=== PATIENT | female | born 1955 | race Caucasian/White ===

== ENCOUNTER 2016-07-04 10:09 | Observation (INO) ==
[2016-07-04] MEDS ORDERED: 0.9 % SODIUM CHLORIDE 1,000 ML IV ONE (11:06)
--- NOTE | 2016-07-04 11:14 | Emergency Department Note ---
Abdominal Pain HPI - General Chief Complaint: Abdominal Pain Stated Complaint: abd pain Time Seen by Provider: 07/04/16 10:50 Source: patient, family Mode of arrival: EMS Limitations: no limitations - History of Present Illness HPI Narrative: 61-year-old female presents to ED with history of abdominal pain that started yesterday morning, she describes it as a constant and steady pain, worse at times, but persistent and steady since yesterday morning up. She is afraid to eat anything, she is not taking her morning medications and she normally takes hydrocodone 4 times a day for chronic low back pain. She also feels bloated, she is status post cholecystectomy, no other abdominal surgeries. No fevers reported, she denies any chest pain, denies headache, has not eaten anything this morning, did have a normal, normal bowel movement this morning, slight nausea but no vomiting, no diarrhea. She denies constipation, although she does take hydrocodone 4 times a day. Pain almost feels the similar to when she had pain from her gallbladder disease. She denies alcohol use. Was a constant pain that does not radiate anywhere. MD Complaint: abdominal pain Location: diffuse, epigastric - Related Data Home Medications Medication Instructions Recorded Confirmed atorvastatin 40 mg tablet 40 mg PO QDAY 11/26/15 06/14/16 calcium carb-vit D3-minerals 600 1 tab PO BID tab 11/26/15 06/14/16 mg calcium-200 unit tablet cyclobenzaprine 10 mg tablet 10 mg PO TID 11/26/15 06/14/16 ergocalciferol (vitamin D2) 50,000 50,000 unit PO QWEEK 11/26/15 06/14/16 unit capsule exenatide 5 mcg/dose (250 10 mcg SUB-Q BID 11/26/15 06/14/16 mcg/mL)1.2 mL subcutaneous pen injector gabapentin 300 mg capsule 300 mg PO QDAY cap 11/26/15 06/14/16 hydrocodone 10 mg-acetaminophen 1 tab PO Q4H PRN 11/26/15 06/14/16 325 mg tablet insulin aspart 100 unit/mL See Patient Comments SUB-Q ONCE 11/26/15 06/14/16 subcutaneous pen insulin glargine 100 unit/mL 90 unit SUB-Q BID ml 11/26/15 06/14/16 subcutaneous solution metoclopramide 10 mg tablet 10 mg PO QID tab 11/26/15 06/14/16 omega-3 fatty acids capsule 1,000 mg PO BID 11/26/15 06/14/16 omeprazole 40 mg capsule,delayed 40 mg PO QDAY 11/26/15 06/14/16 release pregabalin 100 mg capsule 100 mg PO BID 11/26/15 06/14/16 spironolactone 25 1 tab PO QDAY 11/26/15 06/14/16 mg-hydrochlorothiazide 25 mg tablet topiramate 100 mg tablet 100 mg PO BID 11/26/15 06/14/16 venlafaxine ER 150 mg 150 mg PO QDAY 11/26/15 06/14/16 capsule,extended release 24 hr Furosemide [Lasix] 80 mg PO BID tab 03/03/16 06/14/16 Previous Rx's Medication Instructions Recorded prednisone 5 mg tablet 10 mg PO QDAY #42 tab 04/19/16 allopurinol 100 mg tablet 150 mg PO QDAY #120 tab 06/14/16 hydroxychloroquine 200 mg tablet 200 mg PO BID #60 tab 06/14/16 prednisone 10 mg tablet See Label Instructions .ROUTE 06/14/16 .COMPLEX #90 tab Allergies Allergy/AdvReac Type Severity Reaction Status Date / Time sulfamethoxazole Allergy Severe RASH, RED, Verified 06/14/16 10:05 [From BACTRIM] BURNING FEELING trimethoprim [From BACTRIM] Allergy Severe RASH, RED, Verified 06/14/16 10:05 BURNING FEELING codeine Allergy Unknown UNKNOWN Verified 06/14/16 10:05 lisinopril [LISINOPRIL] AdvReac Intermediate COUGHING Verified 06/14/16 10:05 morphine [MORPHINE] AdvReac Mild DOESN'T Verified 06/14/16 10:05 SEEM TO HELP Review of Systems All systems ED: reviewed and negative except as stated. Abdominal Pain PMH - Past Medical History Medical history: Reports: CHF, diabetes, hypertension, other ( history of obesity history of gastroparesis) Surgical history ED: Reports: cholecystectomy Psychiatric history: Reports: depression - Social History Smoking status: Current every day smoker Alcohol use: Reports: None Drug use: Reports: none Physical Exam - General Limitations: no limitations General appearance: alert, in distress - Head Head exam: atraumatic, normocephalic - Eye Eye exam: Present: normal appearance, PERRL, EOMI. Absent: scleral icterus, conjunctival injection, nystagmus - ENT ENT exam: normal exam, normal oropharynx, mucous membranes dry, TM's normal bilaterally - Neck Neck exam: Present: normal inspection, full ROM - Chest Chest inspection: Present: normal inspection - Respiratory Respiratory exam: Present: normal lung sounds bilaterally. Absent: respiratory distress, wheezes - Cardiovascular Cardiovascular exam: Present: regular rate, normal rhythm, normal heart sounds - Abdominal Exam Abdominal exam: Present: soft, distention, tenderness, guarding, hyperactive bowel sounds - Rectal Exam Rectal exam: Present: normal rectal tone, heme (-) stool. Absent: mass - Back Exam Back exam: Present: normal inspection, full ROM. Absent: CVA tenderness (R), CVA tenderness (L), vertebral tenderness - Neurological Exam Neurological exam: Present: alert, oriented X3, CN II-XII intact. Absent: motor sensory deficit - Psychiatric Psychiatric exam: Present: normal affect, normal mood - Skin Skin exam: Present: warm, dry, intact. Absent: rash Course - Reevaluation(s) Reevaluation #1: She was given IV fluids, pain medications, repeat abdominal exam was notable for continued pretty significant abdominal pain. Plain films did not show anything acute, although there was a question of one air-fluid level on the upright film. CT did not show any acute bowel obstruction. The. Her lipase was elevated, perhaps accounting for her pain. Working diagnosis at this point is pancreatitis, mid epigastric abdominal pain associated with hyperglycemia. Plan is hospital admission, discussed with Dr. Ashraf Vital Signs Temperature 97.8 F 07/04/16 10:09 Pulse Rate 88 07/04/16 10:09 Respiratory Rate 20 07/04/16 10:09 Blood Pressure 177/69 07/04/16 10:09 Pulse Oximetry (%) 96 07/04/16 10:09 Temperature 97.8 F 07/04/16 10:09 Pulse Rate 75 07/04/16 16:21 Respiratory Rate 18 07/04/16 16:21 Blood Pressure 128/64 07/04/16 16:21 Pulse Oximetry (%) 91 07/04/16 16:21 Abdominal Pain - [facility] Narrative Medical decision making narrative: Impressions abdominal pain, pancreatitis, dehydration, renal insufficiency hyperglycemia. - Lab Data Result diagrams: 07/04/16 10:41 07/04/16 10:41 Lab Results 07/04/16 07/04/16 07/04/16 Range/Units 10:41 10:41 10:41 WBC 13.5 H (4.5-11.0) K/mcL RBC 4.88 (4.00-5.20) M/mcL Hgb 15.2 H (12.0-15.0) g/dL Hct 43.3 (36.0-48.0) % MCV 88.6 (80.0-100.0) fL MCH 31.0 (26.0-34.0) pg MCHC 35.0 (31.0-36.0) g/dL RDW 16.9 H (11.5-14.5) % Plt Count 163 (140-440) K/mcL MPV 12.0 H (7.4-10.4) fL Gran % 72.1 (38.0-78.0) % Lymph % (Auto) 20.9 (15.5-49.0) % [place] % (Auto) 4.8 (1.0-9.0) % Eos % (Auto) 1.5 (0.0-7.0) % Baso % (Auto) 0.7 (0.0-2.0) % Gran # 9.8 H (1.8-8.0) K/mcL Lymph # 2.8 (1.5-4.8) K/mcL [place] # 0.6 (0.1-0.9) K/mcL Eos # 0.2 (0.0-0.7) K/mcL Baso # 0.1 (0.0-0.3) K/mcL Sodium 136 (133-145) mmol/L Potassium 4.3 (3.3-5.1) mmol/L Chloride 95 L (96-108) mmol/L Carbon Dioxide 25 (22-30) mmol/L Anion Gap 16.0 (8-16) BUN 38 H (6-20) mg/dl Creatinine 1.7 H (0.6-1.1) mg/dl GFR Calculation 32 Glucose 362 H (70-105) mg/dL Calcium 9.5 (8.6-10.4) mg/dl Total Bilirubin 0.2 (0.0-1.0) mg/dL AST 25 (0-37) U/l ALT 38 (0-40) U/l Alkaline Phosphatase 92 (39-117) U/L C-Reactive Protein (0.0-0.8) mg/dl Total Protein 7.5 (5.9-8.4) gm/dL Albumin 3.8 (3.2-5.2) gm/dL Globulin 3.7 (2.2-3.7) gm/dL Albumin/Globulin Ratio 1.0 (1.0-2.3) Amylase (28-100) U/L Lipase (7-60) U/L Urine Color Yellow Urine Appearance Clear Urine pH 7.0 (5.0-9.0) Ur Specific [place] 1.013 (1.000-1.035) Urine Protein 100 A (NEG) mg/dL Urine Glucose (UA) 150 A (NEG) mg/dL Urine Ketones Neg (NEG) mg/dL Urine Occult Blood Neg (<0.03) mg/dL Urine Nitrate Neg (NEG) Urine Bilirubin Neg (NEG) mg/dL Urine Urobilinogen Neg (NEG) mg/dL Ur Leukocyte Esterase Neg (NEG) /uL Urine RBC 5 H (0-1) /hpf Urine WBC 1 (0-4) /hpf Ur Squamous Epith Cells < 1 (0-4) /hpf Urine Bacteria 0 (0) /hpf Ur Culture Indicated? No 07/04/16 Range/Units 10:41 WBC (4.5-11.0) K/mcL RBC (4.00-5.20) M/mcL Hgb (12.0-15.0) g/dL Hct (36.0-48.0) % MCV (80.0-100.0) fL MCH (26.0-34.0) pg MCHC (31.0-36.0) g/dL RDW (11.5-14.5) % Plt Count (140-440) K/mcL MPV (7.4-10.4) fL Gran % (38.0-78.0) % Lymph % (Auto) (15.5-49.0) % [place] % (Auto) (1.0-9.0) % Eos % (Auto) (0.0-7.0) % Baso % (Auto) (0.0-2.0) % Gran # (1.8-8.0) K/mcL Lymph # (1.5-4.8) K/mcL [place] # (0.1-0.9) K/mcL Eos # (0.0-0.7) K/mcL Baso # (0.0-0.3) K/mcL Sodium (133-145) mmol/L Potassium (3.3-5.1) mmol/L Chloride (96-108) mmol/L Carbon Dioxide (22-30) mmol/L Anion Gap (8-16) BUN (6-20) mg/dl Creatinine (0.6-1.1) mg/dl GFR Calculation Glucose (70-105) mg/dL Calcium (8.6-10.4) mg/dl Total Bilirubin (0.0-1.0) mg/dL AST (0-37) U/l ALT (0-40) U/l Alkaline Phosphatase (39-117) U/L C-Reactive Protein 1.0 H (0.0-0.8) mg/dl Total Protein (5.9-8.4) gm/dL Albumin (3.2-5.2) gm/dL Globulin (2.2-3.7) gm/dL Albumin/Globulin Ratio (1.0-2.3) Amylase 52 (28-100) U/L Lipase 120 H (7-60) U/L Urine Color Urine Appearance Urine pH (5.0-9.0) Ur Specific [place] (1.000-1.035) Urine Protein (NEG) mg/dL Urine Glucose (UA) (NEG) mg/dL Urine Ketones (NEG) mg/dL Urine Occult Blood (<0.03) mg/dL Urine Nitrate (NEG) Urine Bilirubin (NEG) mg/dL Urine Urobilinogen (NEG) mg/dL Ur Leukocyte Esterase (NEG) /uL Urine RBC (0-1) /hpf Urine WBC (0-4) /hpf Ur Squamous Epith Cells (0-4) /hpf Urine Bacteria (0) /hpf Ur Culture Indicated? Disposition Condition: Fair Referrals: Arianne Lizarraga DO [Primary Care Provider] -
[2016-07-04 11:17] LABS: Basophils # (Auto) 0.1 K/mcL (0.0-0.3); Basophils % (Auto) 0.7 % (0.0-2.0); Eosinophils # (Auto) 0.2 K/mcL (0.0-0.7); Eosinophils % (Auto) 1.5 % (0.0-7.0); Granulocytes % (Auto) 72.1 % (38.0-78.0); Lymphocytes # (Auto) 2.8 K/mcL (1.5-4.8); Lymphocytes % (Auto) 20.9 % (15.5-49.0); Mean Cell Volume 88.6 fL (80.0-100.0); Monocytes # (Auto) 0.6 K/mcL (0.1-0.9); Monocytes % (Auto) 4.8 % (1.0-9.0); Platelet Count 163 K/mcL (140-440); RBC 4.88 M/mcL (4.00-5.20); Red Cell Distribution Width 16.9 % (11.5-14.5)
[2016-07-04] MEDS ORDERED: ONDANSETRON 4 MG/2 ML VIAL IV ONE ×2 (11:17→14:32)
[2016-07-04] MEDS ORDERED: PANTOPRAZOLE 40 MG VIAL IV ONE (11:17)
[2016-07-04 11:27] LABS: Appearance,Urine CLEAR; Bacteria,Urine 0 /hpf (0); Bilirubin,Urine NEG (NEG); Color,Urine YELLOW; Glucose,Urine (UA) 150 mg/dL (NEG); Leukocyte Esterase,Urine NEG /uL (NEG); Nitrate,Urine NEG (NEG); Protein,Urine 100 mg/dL (NEG); Specific Gravity,Urine 1.013 (1.000-1.035); Urine Blood NEG mg/dL (<0.03); Urine RBC 5 /hpf (0-1); Urine Squamous Epithelial Cell < 1 /hpf (0-4); Urine WBC 1 /hpf (0-4); Urobilinogen,Urine NEG (NEG)
[2016-07-04 11:38] LABS: ALT/SGPT 38 U/l (0-40); Albumin 3.8 gm/dL (3.2-5.2); Alkaline Phosphatase 92 U/L (39-117); Blood Urea Nitrogen 38 mg/dl (6-20)
[2016-07-04] MEDS: HYDROmorphone 2 MG/ML SYRINGE IV PRN ×8 (11:53→22:02)
[2016-07-04] MEDS ORDERED: 0.9 % SODIUM CHLORIDE 1,000 ML IV SCH (12:30)
--- NOTE | 2016-07-04 12:37 | XRay Report ---
CLINICAL INFORMATION: Abdominal pain COMPARISON: None. FINDINGS: The stool gas pattern is unremarkable. There is no free air, abnormal soft tissue mass, organomegaly or pathologic calcification. Solid-appearing L5-S1 anterior/posterior fusion changes are noted IMPRESSION: No intra-abdominal disease evident Interpreted and Authenticated by: Abelardo Coy 07/04/16
--- NOTE | 2016-07-04 15:27 | Cat Scan Report ---
CLINICAL INFORMATION: Right lower quadrant pain COMPARISON: Abdominal ultrasound from 02/22/2013 TECHNIQUE: 2.5 mm helical slices were obtained from the mid heart through the subtrochanteric regions. Following reconstruction, 2.5 mm sagittal, coronal and axial reformatted images were processed and reviewed at bone, lung and soft tissue windows. IV contrast was withheld due to renal insufficiency FINDINGS: Lung bases show no abnormality - no effusion. The visualized heart is grossly normal. Images through the abdomen show mild fatty change within the liver. No definite focal abnormality. Gallbladder is surgically at. There is moderate fat in the madelin hepatis region. The common bile duct is normal caliber - 6 mm. The noncontrasted kidneys, adrenal glands, spleen, pancreas and aorta are unremarkable. There is no free air, free fluid or adenopathy. Small periumbilical hernia is noted with with mild subcutaneous edema in the surrounding Camper's fascia. The stomach, small and large bowel, including the appendix, are unremarkable. Images through the pelvis show urinary bladder to be normal. Normal anteflexed postmenopausal uterus measures 6.4 x 3 cm. Bone windows show solid-appearing L3-4 and L4-5 anterior/posterior fusion changes. Severe L2-3 central canal stenosis due to broad disc protrusion and facet arthropathy appreciated. IMPRESSION: 1. Appendix is unremarkable - no cause identified for right lower quadrant pain 2. Severe L2-3 central canal stenosis due to degeneration. Solid-appearing L3-4 L4-5 anterior/posterior fusion changes. 3. Small periumbilical hernia consisting only mesenteric fat with a small amount of surrounding edema in the Camper's fascia. 4. 12 mm metallic foreign body in the lower central right breast. It is located 14 mm the skin surface and may represent surgical clips etc. please correlate with clinical history. Interpreted and Authenticated by: Abelardo Coy 07/04/16
--- NOTE | 2016-07-04 17:39 | Internal Med History&Physical ---
Medical - H&P: HPI Patient information: Note initiated : 07/04/16 at 5:36 pm Service Date, if different from initiated Date: [] Patient: Camille Knox 61 y/o F admitted on for Abdominal Pain. Chief Complaint: [] History of present illness: Ms. Knox is a 61 year old female presents to the ER with abdominal pain x 1 day started yesterday, no trigge factor, did not have this type of pain in the past , may similar pain with gall stones. constant ache with sharp exacerbation, goes from epigastrium round to the umbilicus. Pain epigastric, worse with food, constant with periods of exacerbation, 7/10 at baseline 10/10 when severe, pain meds help some. no nausea or vomiting, no blood i the stools, no savita reported, no urinary complaints no c ough or shortnes of breath In the ER given pain meds, IV pantoprazole and anti nause meds, no improveement labs with elevated glucose, wbc, and ua with 5 rbc, creat 1.7, crp 1, lipase elevated to 120 CT abdomen pelvis neg, except periumbilican hernia, and some inflmmation. X ray abdomen neg Hospitalist called for admission for abdominal pain. - Constitutional Constitutional: Absent: chills, fever(s) - EENT Eyes: Absent: blind spots, blurry vision Nose, mouth and throat: Absent: bleeding gums, change in voice - Cardiovascular Cardiovascular: Absent: chest pain, chest pain at rest, orthopnea, pedal edema, syncope - Respiratory Respiratory: Absent: cough, dyspnea, hemoptysis, pain with cough - Gastrointestinal Gastrointestinal: Present: abdominal pain. Absent: change in bowel habits, change in stool character, dysphagia, hematemesis, hematochezia, loose stools - Genitourinary Genitourinary: Absent: hematuria, urinary hesitancy, urinary incontinence, urinary urgency - Musculoskeletal Musculoskeletal: Present: back pain. Absent: arthralgias - Integumentary Integumentary: Absent: skin ulcer, wounds, jaundice - Neurological Neurological: Absent: disequilibrium, dizziness, focal weakness, frequent falls , syncope - Psychiatric Psychiatric: Absent: confusion - Endocrine Endocrine: Absent: polydipsia, polyphagia, polyuria - Hematologic/Lymphatic Hematologic/Lymphatic: Absent: easy bleeding, easy bruising - Allergic/Immunologic Allergic/Immunologic: Absent: uticaria, wheezing Medical - H&P: PMH Medical history: Medical History Diabetes (Acute) Non-cardiac chest pain (Acute) Polyarthralgia (Acute) Right knee pain (Acute) Trigger finger, left ring finger (Acute) Acute thromboembolism of deep veins of lower extremity (Chronic) Anemia of renal disease (Chronic) Apnea (Chronic) CHF (congestive heart failure) (Chronic) Chronic kidney disease, stage III (moderate) (Chronic) Edema (Chronic) Encounter for long-term (current) use of high-risk medication (Chronic) Essential (primary) hypertension (Chronic) Gastroparesis (Chronic) Gout (Chronic) Hyperpotassemia (Chronic) Inflammatory arthritis (Chronic) Pure hypertriglyceridemia (Chronic) Type 2 diabetes mellitus without complications (Chronic) Vitamin D deficiency (Chronic) Surgical history: Past Surgical History Hx of cholecystectomy (Chronic) back surgery Family history: reviewed and not pertinent Social history: lives with partner smoker no etoh no recreational drugs Medical - H&P: Meds Home Medications Medication Instructions Recorded Confirmed Type atorvastatin 40 mg tablet 40 mg PO QDAY 11/26/15 06/14/16 History calcium carb-vit D3-minerals 600 1 tab PO BID tab 11/26/15 06/14/16 History mg calcium-200 unit tablet cyclobenzaprine 10 mg tablet 10 mg PO TID 11/26/15 06/14/16 History ergocalciferol (vitamin D2) 50,000 50,000 unit PO QWEEK 11/26/15 06/14/16 History unit capsule exenatide 5 mcg/dose (250 10 mcg SUB-Q BID 11/26/15 06/14/16 History mcg/mL)1.2 mL subcutaneous pen injector gabapentin 300 mg capsule 300 mg PO QDAY cap 11/26/15 06/14/16 History hydrocodone 10 mg-acetaminophen 1 tab PO Q4H PRN 11/26/15 06/14/16 History 325 mg tablet insulin aspart 100 unit/mL See Patient Comments SUB-Q ONCE 11/26/15 06/14/16 History subcutaneous pen insulin glargine 100 unit/mL 90 unit SUB-Q BID ml 11/26/15 07/04/16 History subcutaneous solution metoclopramide 10 mg tablet 10 mg PO QID tab 11/26/15 06/14/16 History omega-3 fatty acids capsule 1,000 mg PO BID 11/26/15 06/14/16 History omeprazole 40 mg capsule,delayed 40 mg PO QDAY 11/26/15 06/14/16 History release pregabalin 100 mg capsule 100 mg PO BID 11/26/15 07/04/16 History spironolactone 25 1 tab PO QDAY 11/26/15 07/04/16 History mg-hydrochlorothiazide 25 mg tablet topiramate 100 mg tablet 100 mg PO BID 11/26/15 07/04/16 History venlafaxine ER 150 mg 150 mg PO QDAY 11/26/15 07/04/16 History capsule,extended release 24 hr Furosemide [Lasix] 80 mg PO BID tab 03/03/16 07/04/16 History Allergies Allergy/AdvReac Type Severity Reaction Status Date / Time sulfamethoxazole Allergy Severe RASH, RED, Verified 06/14/16 10:05 [From BACTRIM] BURNING FEELING trimethoprim [From BACTRIM] Allergy Severe RASH, RED, Verified 06/14/16 10:05 BURNING FEELING codeine Allergy Unknown UNKNOWN Verified 06/14/16 10:05 lisinopril [LISINOPRIL] AdvReac Intermediate COUGHING Verified 06/14/16 10:05 morphine [MORPHINE] AdvReac Mild DOESN'T Verified 06/14/16 10:05 SEEM TO HELP Medical - H&P: Exam - Constitutional Vitals: Temp Pulse Resp BP Pulse Ox 97.8 F 78 22 113/94 93 07/04/16 10:09 07/04/16 17:14 07/04/16 17:14 07/04/16 17:14 07/04/16 17:14 General appearance: morbidly obese, no acute distress - Head Head exam: Present: atraumatic, normal inspection, normocephalic - Eye Eye exam: Present: PERRL. Absent: periorbital swelling, periorbital tenderness , scleral icterus - ENT ENT exam: Present: mucous membranes dry - Neck Neck exam: Present: normal inspection - Respiratory Respiratory exam: Present: normal respiratory exam. Absent: accessory muscle use, respiratory distress, rhonchi, wheezes - Cardiovascular Cardiovascular exam: Present: normal rate and rhythm, +S1, +S2 - GI/Abdominal GI/Abdominal exam: Present: normal bowel sounds, soft, hernia (above unbilicus. ), tenderness (epigastric region. ). Absent: firm, guarding, rebound - Extremities Exam Extremities exam: Present: normal inspection, Foot pink and warm, neurovascular intact. Absent: pedal edema - Back Exam Back exam: Present: normal inspection. Absent: CVA tenderness (L), CVA tenderness (R), paraspinal tenderness - Neurological Exam Neurological exam: Present: alert, CN II-XII intact, oriented X3. Absent: motor sensory deficit - Psychiatric Psychiatric exam: Absent: agitated, anxious - Skin Skin exam: Present: dry. Absent: rash, urticaria Medical - H&P: Reslt - Labs CBC & Chem 7: 07/04/16 10:41 07/04/16 10:41 Labs: Short CBC 07/04/16 Range/Units 10:41 WBC 13.5 H (4.5-11.0) K/mcL Hgb 15.2 H (12.0-15.0) g/dL Hct 43.3 (36.0-48.0) % Plt Count 163 (140-440) K/mcL BMP 07/04/16 10:41 Sodium 136 Potassium 4.3 Chloride 95 L Carbon Dioxide 25 BUN 38 H Creatinine 1.7 H Glucose 362 H Calcium 9.5 Liver Function 07/04/16 Range/Units 10:41 Total Bilirubin 0.2 (0.0-1.0) mg/dL AST 25 (0-37) U/l ALT 38 (0-40) U/l Alkaline Phosphatase 92 (39-117) U/L Albumin 3.8 (3.2-5.2) gm/dL Urine 07/04/16 Range/Units 10:41 Urine Color Yellow Urine Appearance Clear Urine pH 7.0 (5.0-9.0) Ur Specific [place] 1.013 (1.000-1.035) Urine Protein 100 A (NEG) mg/dL Urine Glucose (UA) 150 A (NEG) mg/dL Medical - H&P: A/P (1) Pancreatitis Current visit: Yes Status: Acute (2) SIRS (systemic inflammatory response syndrome) Current visit: Yes Status: Acute (3) Diabetes Current visit: No Status: Acute (4) Chronic kidney disease, stage III (moderate) Current visit: No Status: Chronic (5) Essential (primary) hypertension Current visit: No Status: Chronic - Narrative A/P Narrative: acute pancreatitis SIRS renal failure with creat of 1.7, baseline unknown. no e/o infection Get chest x ray to r/o pna IV fluids iv pain medicatios iv ppi npo for now sliding scale insulin, check lipid profile in AM dvt hep sq code full Diet npo
[2016-07-04 18:18] LABS: Amphetamine Screen,Urine NONE DETECTED (NONDETECTED); Benzodiazepines Screen,Urine NONE DETECTED (NONDETECTED); Cocaine Screen,Urine NONE DETECTED (NONDETECTED); Opiate Screen,Urine NONE DETECTED (NONDETECTED)
[2016-07-04] MEDS ORDERED: DEXTROSE 50% 50 ML VIAL IV PRN (18:24)
[2016-07-04] MEDS ORDERED: IPRATROPIUM/ALBUTEROL 3 ML AMPUL.NEB NEB PRN (18:24)
[2016-07-04] MEDS ORDERED: NALOXONE HCL 0.4 MG/ML VIAL IV PRN (18:24)
[2016-07-04] MEDS ORDERED: PROMETHAZINE 25 MG/ML VIAL IV PRN (18:24)
[2016-07-04] MEDS ORDERED: HYDROmorphone 2 MG/ML SYRINGE IV PRN (18:24)
[2016-07-04] MEDS: 0.9 % SODIUM CHLORIDE 1,000 ML IV SCH (18:30)
[2016-07-04] MEDS: ONDANSETRON 4 MG/2 ML VIAL IV PRN (19:09)
[2016-07-04] MEDS: PANTOPRAZOLE 40 MG VIAL IV SCH (19:10)
[2016-07-04] MEDS: INSULIN LISPRO 1 UNIT/0.01 ML UNIT SQ SCH ×2 (20:00→23:49)
[2016-07-04 20:39] LABS: Hemoglobin A1C 9.2 % HGB (4.0-6.0)
[2016-07-04] MEDS: HEPARIN 5,000 UNIT/ML VIAL SQ SCH (21:57)
[2016-07-04] MEDS: 0.9 % SODIUM CHLORIDE 10 ML SYRINGE IV SCH (21:59)
[2016-07-05] MEDS: HYDROmorphone 2 MG/ML SYRINGE IV PRN ×7 (01:49→23:47)
[2016-07-05] MEDS: 0.9 % SODIUM CHLORIDE 10 ML SYRINGE IV SCH ×3 (06:12→21:04)
[2016-07-05] MEDS: INSULIN LISPRO 1 UNIT/0.01 ML UNIT SQ SCH ×4 (06:15→23:56)
[2016-07-05 07:08] LABS: Mean Cell Volume 92.1 fL (80.0-100.0); Mean Corpuscular HGB Conc 32.2 g/dL (31.0-36.0); Mean Corpuscular Hemoglobin 29.7 pg (26.0-34.0); Platelet Count 139 K/mcL (140-440); RBC 4.38 M/mcL (4.00-5.20); Red Cell Distribution Width 17.9 % (11.5-14.5)
[2016-07-05] MEDS: 0.9 % SODIUM CHLORIDE 1,000 ML IV SCH ×3 (07:18→20:18)
[2016-07-05] MEDS: PANTOPRAZOLE 40 MG VIAL IV SCH ×2 (07:31→18:09)
[2016-07-05 07:48] LABS: HDL Cholesterol 25 mg/dl (>40); LDL Cholesterol,Calculated 31 mg/dl (SEE CHART)
[2016-07-05 07:55] LABS: ALT/SGPT 34 U/l (0-40); Albumin 3.4 gm/dL (3.2-5.2); Albumin/Globulin Ratio 1.4 (1.0-2.3); Alkaline Phosphatase 80 U/L (39-117); Bilirubin,Direct < 0.2 mg/dL (0.0-0.3); Blood Urea Nitrogen 31 mg/dl (6-20); Gamma Glutamyl Transpeptidase 88 U/L (5-36); Magnesium 1.9 mg/dL (1.6-2.5); Phosphorous 3.6 mg/dL (2.7-4.5); Uric Acid 6.4 mg/dL (2.5-8.0)
--- NOTE | 2016-07-05 08:01 | XRay Report ---
CLINICAL INFORMATION: Hypoxia. COMPARISON: Two-view chest x-ray from 05/26/2016. FINDINGS:The heart size, mediastinum and pulmonary vessels are unremarkable. The lungs are clear. There are no effusions. The bones and soft tissues are within normal limits. IMPRESSION: Normal chest. Interpreted and Authenticated by: Abelardo Coy 07/05/16
[2016-07-05 08:07] LABS: Anisocytosis 1+ (NONE SEEN); Eosinophils % (Manual) 1 % (0-7); Lymphocytes % 13 % (15-49); Monocytes % (Manual) 7 % (1-9); Platelet Estimate DECREASED (NORMAL); RBC Morphology ABNORM (NORMAL); Segmented Neutrophils % 79 % (38-78)
[2016-07-05 09:49] LABS: Amylase 42 U/L (28-100); Lipase 54 U/L (7-60)
[2016-07-05] MEDS: HEPARIN 5,000 UNIT/ML VIAL SQ SCH ×2 (10:17→21:03)
--- NOTE | 2016-07-05 10:36 | Internal Med Progress Note ---
Medical - PN: Subj Patient information: Note initiated : 07/05/16 at 10:32 am Service Date, if different from initiated Date: [] Patient: Camille Knox 61 y/o F admitted on 07/04/16 for Abdominal Pain. Chief Complaint: [] Interval history: The patient seen examined lying in bed complaining of severe abdomianl pain Pain medication helps some what but the pain comes back again. She is drowsy and just had her pain medication on speaking with the nurses, the patients reported pain seems out of promotion to visual symptoms she should be having. none the less she is getting 0.5mg dialudid every 2 hrs, and she slept reasonably ok as per nursing. The patient needs oxygen due to decreased mentation which is inhibiting us from going higher on the pain medication doses. labs this AM are ok, wbc normal and amylase lipase normal Pertinent ROS: Denies headache, dizziness Denies chest pain, palpitations Denies cough or shortness of breath present abdominal pain, denies nausea or vomiting. - Constitutional Vitals: Vital Signs Temp Pulse Resp BP Pulse Ox 97.5 F L 85 20 119/68 94 07/05/16 06:50 07/05/16 07:39 07/05/16 07:39 07/05/16 06:52 07/05/16 08:00 Period Temp Pulse Resp BP Sys/Agosto Pulse Ox Last 24 Hr 97.0 F-97.9 F 75-85 12-20 113-125/67-79 89-94 Intake and Output 07/04/16 07/05/16 07/05/16 21:59 05:59 13:59 Intake Total 850 / 850 100 / 100 Output Total 550 / 550 325 / 325 Balance 300 / 300 -225 / -225 Weight 241 lb Intake & Output: Intake & Output 07/04/16 07/05/16 07/05/16 21:59 05:59 13:59 Intake Total 850 / 850 100 / 100 Output Total 550 / 550 325 / 325 Balance 300 / 300 -225 / -225 Weight 241 lb Intake: IV 850 / 850 100 / 100 Sodium Chloride 0.9% 1, 850 / 850 100 / 100 000 ml @ 84 mls/hr IV . [id number] CAROLYN Rx#:[id number] Oral 0 / 0 Output: Void Amount 550 / 550 325 / 325 Other: # Voids 1 Exam: Constitutional; Afebrile, cooperative, alert, not in distress. Eyes- No icterus, Pupils equal, reactive, No periorbital swelling Ears- Ext ear normal, hearing normal to conversation. Neck- Midline trachea, supple Respiratory system: Air Entry equal on both sides, No crackles or wheezing, no rhonchi. CVS- Rate rhythm regular, S1,S2 heard, no gallop, no rub. Abdomen- epigastric tenderness, some guarding, no rigidity, bs present BLUEPRINT TRIMMER- AOOx3, moving all extremities, no focal deficit noted. Medical - PN: Obj Da - Labs CBC & Chem 7: 07/05/16 05:25 07/05/16 05:25 Labs: Abnormal Lab Results 07/05/16 07/05/16 07/05/16 05:25 05:25 05:25 RDW 17.9 H Plt Count 139 L MPV 11.4 H Seg Neutrophils % 79 H Lymphocytes % 13 L RBC Morphology Abnorm A Anisocytosis 1+ A Chloride 109 H BUN 31 H Creatinine 1.5 H Glucose 115 H Calcium 8.5 L GGT 88 H Total Protein 5.8 L Triglycerides 296 H 295 H HDL Cholesterol 25 L Meds: Medications Albuterol/Ipratropium (Duoneb) 3 ml NEB Q6HRT PRN PRN Reason: Shortness Of Breath Or Wheezing Dextrose (Dextrose 50%) 0 ml IV UD PRN PRN Reason: Hypoglycemia Diagnostic Test (Pha) (Accu-Chek) 1 each FS Q6 [facility] Last Admin: 07/05/16 06:14 Dose: 1 each Heparin Sodium (Porcine) (Heparin) 5,000 unit SQ Q12 [facility] Last Admin: 07/05/16 10:17 Dose: 5,000 unit Hydromorphone HCl (Dilaudid) 0.5 - 1 mg IV Q2HP PRN PRN Reason: Pain Last Admin: 07/05/16 09:24 Dose: 0.5 mg Sodium Chloride (Sodium Chloride 0.9%) 1,000 mls @ 84 mls/hr IV .[id number] [facility] Last Admin: 07/05/16 07:18 Dose: 84 mls/hr Insulin Human Lispro (Humalog) 0 unit SQ Q6 [facility] PRN Reason: Protocol Last Admin: 07/05/16 06:15 Dose: Not Given Naloxone HCl (Narcan) 0.1 mg IV Q2MIN PRN PRN Reason: Opiate Reversal Ondansetron HCl (Zofran) 4 mg IV Q6HP PRN PRN Reason: Nausea And Vomiting Last Admin: 07/04/16 19:09 Dose: 4 mg Pantoprazole Sodium (Protonix) 40 mg IV BIDAC [facility] Last Admin: 07/05/16 07:31 Dose: 40 mg Promethazine HCl (Phenergan) 12.5 mg IV Q6HP PRN PRN Reason: Nausea And Vomiting Sodium Chloride (Saline Flush) 10 ml IV Q8 [facility] Last Admin: 07/05/16 06:12 Dose: 10 ml Medical - PN: A/P - Time Spent With Patient Total time spent is greater than 50% in coordination of care (as documented) at patient's floor/unit and/or counseling patient: (1) Pancreatitis Status: Acute Current Visit: Yes (2) Diabetes Status: Acute Current Visit: No (3) Chronic kidney disease, stage III (moderate) Status: Chronic Current Visit: No (4) Essential (primary) hypertension Status: Chronic Current Visit: No - Narrative A/P Narrative: Pancratitis- lipase normal, continue NPO status, IV pain medications, with concern for resp depression, IV fluidds Abdominal pain- etiology pancreatitis? ct is neg, lipase is neg, on IV ppi, get Surgery eval, get usg liver to r/o cbd stones, HTN stable DM monitor glucose levels and FS q 6 sliding scale dvt hep sq DIET NPO Medical - PN: Qual - Stroke Symptom Onset Unknown: No - VTE Deep Vein Thrombosis/Pulmonary Embolism Present on Admission: No
--- NOTE | 2016-07-05 12:22 | Ultrasound Report ---
CLINICAL INFORMATION: Epigastric pain question biliary obstruction COMPARISON: Abdomen CT from 07/04/2016 FINDINGS: The liver is mildly enlarged and diffusely hyperechoic compatible with fatty change. No focal hepatic lesion. The gallbladder is surgically absent. Common bile is normal at 6 mm. Pancreas is unremarkable. No free fluid IMPRESSION: 1. Common bile duct normal caliber - no evidence of biliary obstruction 2. Hyperechoic liver compatible fatty change change also noted on CT Interpreted and Authenticated by: Abelardo Coy 07/05/16
--- NOTE | 2016-07-05 12:44 | General Surgery Consult Note ---
History of Present Illness Patient information: Note initiated : 07/05/16 at 12:39 pm Service Date, if different from initiated Date: [] Patient: Camille Knox 61 y/o F admitted on 07/04/16 for Abdominal Pain/ Pancreatitis. Chief Complaint: [] Consult date: 07/05/16 Reason for consult: abdominal pain Requesting physician: Danielle Ashraf History of present illness: 61-year-old female who is admitted for evaluation of abdominal pain. The patient has a one-week history of onset of sharp midepigastric pain which radiates around her epigastrium and subcostal region bilaterally. She has not had nausea or vomiting. her pain is made worse with some meals. She denies diarrhea. She denies rectal b bleeding. She has not had similar pain in the past. Upper abdominal ultrasound is negative. CT of abdomen and pelvis is negative for pathology.. She is status post cholecystectomy.her labs are basically normal with normal liver transaminases and amylase. Review of Systems - Constitutional daytime sleepiness, fatigue, malaise, weakness, weight gain - EENT Nose, mouth and throat: dry mouth - Cardiovascular chest pain, dyspnea on exertion, leg edema, pedal edema - Respiratory cough, dyspnea on exertion - Gastrointestinal abdominal pain, early satiety - Genitourinary Genitourinary: urinary frequency, urinary incontinence - Musculoskeletal arthralgias, back pain, joint swelling, myalgias, numbness, radiating pain into limb, stiffness, tingling - Integumentary dry skin, hirsutism, no new lesions, no pruritus, no rash - Neurological abnormal gait, dizziness, memory loss, numbness, paresthesias, sensory deficit, tremor(s), weakness - Psychiatric anxiety, depression, irritability, mood swings - Endocrine fatigue, polydipsia, polyphagia, polyuria - Hematologic/Lymphatic no easy bleeding, no easy bruising, no lymphadenopathy - Allergic/Immunologic no tongue swelling, no throat swelling, no itchy eyes, no uticaria, no wheezing , no lip swelling Past History Past medical history: gouty arthritis Inflammatory arthritis Diabetic nephropathy Diabetic neuropathy Chronic kidney disease diabetes related Congestive heart failure DVT right internal jugular and subclavian vein Gastroparesis Hypertension Anemia of chronic disease Chronic obstructive sleep apnea Morbid obesity Noncardiac chest pain History of DVT of lower remity Past surgical history: cholecystectomy Past family history: noncontributory Past social history: every day smoker Medications and Allergies Home Medications Medication Instructions Recorded Confirmed Type atorvastatin 40 mg tablet 40 mg PO QDAY 11/26/15 06/14/16 History calcium carb-vit D3-minerals 600 1 tab PO BID tab 11/26/15 06/14/16 History mg calcium-200 unit tablet cyclobenzaprine 10 mg tablet 10 mg PO TID 11/26/15 06/14/16 History ergocalciferol (vitamin D2) 50,000 50,000 unit PO QWEEK 11/26/15 06/14/16 History unit capsule exenatide 5 mcg/dose (250 10 mcg SUB-Q BID 11/26/15 06/14/16 History mcg/mL)1.2 mL subcutaneous pen injector gabapentin 300 mg capsule 300 mg PO QDAY cap 11/26/15 06/14/16 History hydrocodone 10 mg-acetaminophen 1 tab PO Q4H PRN 11/26/15 06/14/16 History 325 mg tablet insulin aspart 100 unit/mL See Patient Comments SUB-Q ONCE 11/26/15 06/14/16 History subcutaneous pen insulin glargine 100 unit/mL 90 unit SUB-Q BID ml 11/26/15 07/04/16 History subcutaneous solution metoclopramide 10 mg tablet 10 mg PO QID tab 11/26/15 06/14/16 History omega-3 fatty acids capsule 1,000 mg PO BID 11/26/15 06/14/16 History omeprazole 40 mg capsule,delayed 40 mg PO QDAY 11/26/15 06/14/16 History release pregabalin 100 mg capsule 100 mg PO BID 11/26/15 07/04/16 History spironolactone 25 1 tab PO QDAY 11/26/15 07/04/16 History mg-hydrochlorothiazide 25 mg tablet topiramate 100 mg tablet 100 mg PO BID 11/26/15 07/04/16 History venlafaxine ER 150 mg 150 mg PO QDAY 11/26/15 07/04/16 History capsule,extended release 24 hr Furosemide [Lasix] 80 mg PO BID tab 03/03/16 07/04/16 History Allergies Allergy/AdvReac Type Severity Reaction Status Date / Time sulfamethoxazole Allergy Severe RASH, RED, Verified 06/14/16 10:05 [From BACTRIM] BURNING FEELING trimethoprim [From BACTRIM] Allergy Severe RASH, RED, Verified 06/14/16 10:05 BURNING FEELING codeine Allergy Unknown UNKNOWN Verified 06/14/16 10:05 lisinopril [LISINOPRIL] AdvReac Intermediate COUGHING Verified 06/14/16 10:05 morphine [MORPHINE] AdvReac Mild DOESN'T Verified 06/14/16 10:05 SEEM TO HELP Exam Temp Pulse Resp BP Pulse Ox 97.5 F L 85 18 104/65 89 L 07/05/16 12:00 07/05/16 12:00 07/05/16 12:00 07/05/16 12:00 07/05/16 12:00 - General physical appearance well developed, well nourished, moderate distress, moderate pain, chronically ill, obese - Eyes PERRL, normal ocular movement - ENT normal pinna, normal nares, normal mucosa, no hearing loss, no congestion - Head Head exam IM: Present: atraumatic, normocephalic - Neck no masses, no bruits, trachea midline, no lymphadectomy, no venous distension - Cardiovascular Cardiovascular exam IM: Present: normal rate and rhythm, RRR, +S1, +S2. Absent : JVD - Respiratory normal expansion, normal respiratory effort, clear to percussion, clear to auscultation - Abdomen Abdomen: Present: soft, tender (epigastric tenderness ding), bowel sounds, guarding, rebound, distended Hernia: Present: none - Integumentary Present: no rash, no growths, no abnormal pigmentation - Neurologic Present: normal coordination, other (decreased sensory of the lower extremities) - Musculoskeletal Present: normal gait, normal posture - Psychiatric Present: oriented to time, oriented to person, oriented to place, speech is normal, memory intact Results - Labs 07/05/16 05:25 07/05/16 05:25 Abnormal lab results 07/05/16 07/05/16 07/05/16 Range/Units 05:25 05:25 05:25 RDW 17.9 H (11.5-14.5) % Plt Count 139 L (140-440) K/mcL MPV 11.4 H (7.4-10.4) fL Seg Neutrophils % 79 H (38-78) % Lymphocytes % 13 L (15-49) % RBC Morphology Abnorm A (NORMAL) Anisocytosis 1+ A (NONE SEEN) Chloride 109 H (96-108) mmol/L BUN 31 H (6-20) mg/dl Creatinine 1.5 H (0.6-1.1) mg/dl Glucose 115 H (70-105) mg/dL Calcium 8.5 L (8.6-10.4) mg/dl GGT 88 H (5-36) U/L Total Protein 5.8 L (5.9-8.4) gm/dL Triglycerides 295 H 296 H (<150) mg/dl HDL Cholesterol 25 L (>40) mg/dl Diabetes panel 07/05/16 07/05/16 Range/Units 05:25 05:25 Sodium 144 (133-145) mmol/L Potassium 4.5 (3.3-5.1) mmol/L Chloride 109 H (96-108) mmol/L Carbon Dioxide 25 (22-30) mmol/L BUN 31 H (6-20) mg/dl Creatinine 1.5 H (0.6-1.1) mg/dl Glucose 115 H (70-105) mg/dL Calcium 8.5 L (8.6-10.4) mg/dl AST 27 (0-37) U/l ALT 34 (0-40) U/l Alkaline Phosphatase 80 (39-117) U/L Total Protein 5.8 L (5.9-8.4) gm/dL Albumin 3.4 (3.2-5.2) gm/dL Triglycerides 295 H 296 H (<150) mg/dl HDL Cholesterol 25 L (>40) mg/dl Calcium panel 07/05/16 Range/Units 05:25 Calcium 8.5 L (8.6-10.4) mg/dl Phosphorus 3.6 (2.7-4.5) mg/dL Albumin 3.4 (3.2-5.2) gm/dL Pituitary panel 07/05/16 Range/Units 05:25 Sodium 144 (133-145) mmol/L Potassium 4.5 (3.3-5.1) mmol/L Chloride 109 H (96-108) mmol/L Carbon Dioxide 25 (22-30) mmol/L BUN 31 H (6-20) mg/dl Creatinine 1.5 H (0.6-1.1) mg/dl Glucose 115 H (70-105) mg/dL Calcium 8.5 L (8.6-10.4) mg/dl Adrenal panel 07/05/16 Range/Units 05:25 Sodium 144 (133-145) mmol/L Potassium 4.5 (3.3-5.1) mmol/L Chloride 109 H (96-108) mmol/L Carbon Dioxide 25 (22-30) mmol/L BUN 31 H (6-20) mg/dl Creatinine 1.5 H (0.6-1.1) mg/dl Glucose 115 H (70-105) mg/dL Calcium 8.5 L (8.6-10.4) mg/dl Total Bilirubin 0.2 (0.0-1.0) mg/dL AST 27 (0-37) U/l ALT 34 (0-40) U/l Alkaline Phosphatase 80 (39-117) U/L Total Protein 5.8 L (5.9-8.4) gm/dL Albumin 3.4 (3.2-5.2) gm/dL All other labs normal. Assessment and Plan (1) Abdominal pain, acute, epigastric patient is counseled for upper endo and this will be done in the a.m. Status: Acute (2) Obstructive sleep apnea Status: Acute (3) Non-cardiac chest pain Status: Acute (4) Acute thromboembolism of deep veins of lower extremity Status: Chronic (5) Anemia of renal disease Status: Chronic (6) Essential (primary) hypertension Status: Chronic (7) Gastroparesis Status: Chronic (8) Gout Status: Chronic Qualifiers: Gout site: multiple sites Gout etiology: other secondary cause Chronicity : chronic Presence of tophus: without tophus Qualified Code(s): M1A.49X0 - Other secondary chronic gout, multiple sites, without tophus (tophi) (9) Inflammatory arthritis Status: Chronic (10) Type 2 diabetes mellitus without complications Status: Chronic Qualifiers: Diabetes mellitus joint terminal attack controller insulin use: with joint terminal attack controller use Qualified Code( s): E11.9 - Type 2 diabetes mellitus without complications; Z79.4 - [facility] ( current) use of insulin
[2016-07-05] MEDS: ONDANSETRON 4 MG/2 ML VIAL IV PRN (19:13)
[2016-07-06] MEDS: ONDANSETRON 4 MG/2 ML VIAL IV PRN ×2 (00:05→09:54)
[2016-07-06] MEDS: HYDROmorphone 2 MG/ML SYRINGE IV PRN (03:06)
[2016-07-06] MEDS: INSULIN LISPRO 1 UNIT/0.01 ML UNIT SQ SCH (05:56)
[2016-07-06 06:55] LABS: Mean Cell Volume 92.2 fL (80.0-100.0); Mean Corpuscular HGB Conc 32.2 g/dL (31.0-36.0); Mean Corpuscular Hemoglobin 29.7 pg (26.0-34.0); Platelet Count 136 K/mcL (140-440); RBC 4.47 M/mcL (4.00-5.20); Red Cell Distribution Width 17.4 % (11.5-14.5)
[2016-07-06] MEDS: 0.9 % SODIUM CHLORIDE 10 ML SYRINGE IV SCH (07:08)
[2016-07-06] MEDS: HEPARIN 5,000 UNIT/ML VIAL SQ SCH (07:08)
[2016-07-06] MEDS: PANTOPRAZOLE 40 MG VIAL IV SCH (07:08)
[2016-07-06 07:22] LABS: Amylase 42 U/L (28-100); Lipase 35 U/L (7-60)
[2016-07-06 07:26] LABS: ALT/SGPT 31 U/l (0-40); Albumin 3.6 gm/dL (3.2-5.2); Albumin/Globulin Ratio 1.4 (1.0-2.3); Alkaline Phosphatase 85 U/L (39-117); Bilirubin,Direct < 0.2 mg/dL (0.0-0.3); Blood Urea Nitrogen 25 mg/dl (6-20); Gamma Glutamyl Transpeptidase 91 U/L (5-36); Magnesium 1.9 mg/dL (1.6-2.5); Phosphorous 3.4 mg/dL (2.7-4.5); Uric Acid 6.5 mg/dL (2.5-8.0)
[2016-07-06] MEDS ORDERED: MIDAZOLAM 5 MG/5 ML VIAL IV ONE (07:30)
[2016-07-06] MEDS ORDERED: KETAMINE 100 MG/ML ML IV ONE (07:30)
[2016-07-06] MEDS ORDERED: PROPOFOL 200 MG/20 ML VIAL IV ONE (07:30)
--- NOTE | 2016-07-06 08:01 | Brief Operative Note ---
Date of procedure: 07/06/16 Pre-op diagnosis: chronic abdominal pain Post-op diagnosis: other (severe bile gastritis;gastroparesis; large gastric bile pool) Procedure: EGD WITH BIOPSIES Grafts/Implants: No Anesthesia: MAC Findings: NEAR COMPLETE LACK OF MOVEMENT OF ENTIRE STOMACH; LARGE POOL OF BILE IN MAJOR PORTION OF STOMACH; DIFFUSE CHRONIC INFLAMMATION OF STOMACH ; NORMAL DUODENUM AND ESOPHAGUS Complications: none Surgeon: River Joel Estimated blood loss (cc): 0 Specimens Removed/Pathology: other (GASTRIC BIOPSIES) Condition: stable Disposition: PACU
[2016-07-06] MEDS ORDERED: MEPERIDINE 25 MG/ML SYRINGE IV PRN (08:35)
[2016-07-06] MEDS ORDERED: METOCLOPRAMIDE 10 MG/2 ML VIAL IV PRN (08:35)
[2016-07-06] MEDS ORDERED: IPRATROPIUM/ALBUTEROL 3 ML AMPUL.NEB NEB PRN ×2 (08:35→09:56)
[2016-07-06] MEDS ORDERED: BENZOCAINE/MENTHOL 1 LOZENGE PO PRN (08:35)
[2016-07-06] MEDS ORDERED: fentaNYL 100 MCG/2 ML VIAL IV PRN (08:35)
[2016-07-06 08:44] LABS: Anisocytosis 1+ (NONE SEEN); Eosinophils % (Manual) 1 % (0-7); Lymphocytes % 18 % (15-49); Monocytes % (Manual) 7 % (1-9); Platelet Estimate DECREASED (NORMAL); RBC Morphology ABNORM (NORMAL); Segmented Neutrophils % 74 % (38-78)
[2016-07-06] MEDS ORDERED: LACTATED RINGERS 1,000 ML IV SCH (08:45)
[2016-07-06] MEDS ORDERED: NALOXONE HCL 0.4 MG/ML VIAL IV PRN (09:56)
[2016-07-06] MEDS ORDERED: ONDANSETRON 4 MG/2 ML VIAL IV PRN (09:56)
[2016-07-06] MEDS ORDERED: PROMETHAZINE 25 MG/ML VIAL IV PRN (09:56)
[2016-07-06] MEDS ORDERED: 0.9 % SODIUM CHLORIDE 1,000 ML IV SCH (09:56)
[2016-07-06] MEDS ORDERED: DEXTROSE 50% 50 ML VIAL IV PRN (09:56)
[2016-07-06] MEDS ORDERED: HYDROmorphone 2 MG/ML SYRINGE IV PRN (09:56)
[2016-07-06] MEDS ORDERED: HYDROmorphone 2 MG/ML SYRINGE ONE (10:05)
[2016-07-06] MEDS ORDERED: SUCRALFATE 1 GM/10 ML ORAL.SUSP PO SCH ×2 (11:30)
[2016-07-06] MEDS ORDERED: METOCLOPRAMIDE 10 MG/2 ML VIAL IV SCH (12:00)
[2016-07-06] MEDS ORDERED: INSULIN LISPRO 1 UNIT/0.01 ML UNIT SQ SCH (12:00)
--- NOTE | 2016-07-06 12:30 | Discharge Plan ---
Discharge Plan - Patient/Caregiver Discharge Instructions Discharge Summary: DISCHARGE DIAGNOSIS * Diabetic gastroparesis with abdominal pain-s evident on EGD. Continue Carafate/PPI/Reglan * hypertension on spironolactone * anxiety on venlafaxine * Neuropathy and Lyrica/gabapentin * dM type II on basal prandial insulin/exenatide * hyperlipidemia on statin * gout on allopurinol * inflammatory arthritis on steroids Brief hospital course 07/04 Ms. Knox is a 61 year old female presents to the ER with abdominal pain x 1 day started yesterday, no trigge factor, did not have this type of pain in the past , may similar pain with gall stones. constant ache with sharp exacerbation, goes from epigastrium round to the umbilicus. Pain epigastric, worse with food, constant with periods of exacerbation, 7/10 at baseline 10/10 when severe, pain meds help some. no nausea or vomiting, no blood i the stools, no savita reported, 07/05 lying in bed complaining of severe abdomianl pain Pain medication helps some what but the pain comes back again. She is drowsy and just had her pain medication on speaking with the nurses, the patients reported pain seems out of promotion to visual symptoms she should be having. none the less she is getting 0.5mg dialudid every 2 hrs, and she slept reasonably ok as per nursing. The patient needs oxygen due to decreased mentation which is inhibiting us from going higher on the pain medication doses. 07/06-patient underwent upper endoscopy shows severe diabetic gastroparesis with bile pooling and stomach- surgery recommends oral PPI/Carafate/Reglan with meals. Patient tolerated 50% of diet and requesting discharge. Detailed discharge instructions below along with prescriptions for 2 weeks. Patient will need follow-up with primary care physician Activity: increase activity as tolerated, resume usual activities as tolerated Diet: Consistent Carbohydrate Additional Instructions: Follow-up PCP in 5 days continue PPI/Carafate/Reglan as directed by surgery I recommend primary care physician to check CBC BMP UA as a posthospital follow -up All meals on chair sitting upright at 90 degrees to prevent aspiration Return to ER if worsening fever chills shortness of breath, diarrhea, bleeding Review risk and side effect profile of medications including Reglan. Side effect may include mild to severe reaction including extrapyramidal side effect/ dystonia, which can be prevented by close follow-up with PCP and monitoring for side effects Refrain from smoking and alcohol Continue diet and activity as advised Discussed importance of medication adherence Please review medication list with patient prior to discharge Please schedule follow-up with PCP/Providers prior to discharge and provide printouts Portions of this chart may have been created with [employer] voice recognition software. Occasional wrong-word or ?sound-like? substitutions may have occurred due to the inherent limitations of voice recognition software. Please read the chart carefully and recognize, using context, where the substitutions have occurred. CC- PCP Prescriptions: Metoclopramide [Reglan] 5 mg PO TIDAC #30 tablet Pantoprazole [Protonix] 40 mg PO QAMAC #30 tablet Sucralfate [Carafate] 1 gm PO ACHS #30 oral.susp - Follow up Plan Follow up with: Arianne Lizarraga DO [Primary Care Provider] - Disposition: Home, Self-Care Prognosis: Fair Rehab Potential: Fair I certify that the patient requires SNF services.: No Overall status at discharge: patient is progressing back to baseline
[2016-07-06] MEDS ORDERED: 0.9 % SODIUM CHLORIDE 10 ML SYRINGE IV SCH (14:00)
[2016-07-06] MEDS ORDERED: PANTOPRAZOLE 40 MG VIAL IV SCH (17:00)
[2016-07-06] MEDS ORDERED: HEPARIN 5,000 UNIT/ML VIAL SQ SCH (21:00)
--- NOTE | 2016-07-07 08:51 | Operative Note ---
DATE OF OPERATION: 07/06/2016 PREOPERATIVE DIAGNOSIS: Chronic abdominal pain. POSTOPERATIVE DIAGNOSES: Severe bowel gastritis, gastroparesis, large gastric bile pool. PROCEDURE: Esophagogastroduodenoscopy with biopsies. SURGEON: River Joel MD. FINDINGS: Near complete lack of movement of the entire stomach, large pool of pile in the major dependent portion of the stomach, patent pylorus, diffuse chronic inflammation of the entire stomach, normal duodenum and normal esophagus. DESCRIPTION OF PROCEDURE: Under general anesthesia, the patient turned to the left lateral decubitus position. A timeout procedure was carried out as per protocol. Bite block was placed. Scope was introduced through the bite block and into the retropharynx. The esophagus was normal down to the GE junction. There was minimal inflammation at the GE junction with a small 2 cm tunnel of apparent Krishna's changes. There were no ulcerations. The stomach had a large volume of bile in the dependent one-half of the stomach. This was suctioned. There was no retained food. There was diffuse chronic inflammation of the entire stomach starting at the fundus and extending down to the pylorus. The pylorus was patent. There was some peristaltic opening and closing. First, second and third portions of the duodenum were normal. There was no ulceration. The scope was pulled back. Retroflex view was done. No other abnormality was noted except for the inflammation. Four biopsies of the antrum were taken in the most inflamed areas. One biopsy was sent for CLOtest. Air was suctioned from the stomach and the scope was removed. The patient tolerated the procedure well. She was allowed to awaken and was transferred to the postanesthetic care unit in stable, satisfactory condition. LCS:christophe Job ID: [id number] Doc ID: [id number] River Joel M.D.
--- NOTE | 2016-07-07 13:23 | Surgical Pathology Report ---
HISTOLOGY SPECIMEN MICROSCOPIC DIAGNOSIS STOMACH, ANTRUM, BIOPSY: -- GASTRIC ANTRAL MUCOSA WITH MINIMAL CHRONIC INFLAMMATION. -- NO HELICOBACTER ORGANISMS IDENTIFIED ON ALCIAN YELLOW STAIN (ADEQUATE TECHNICAL CONTROL). (DMT:adj) CLINICAL HISTORY Abdominal pain. PROCEDURAL IMPRESSION Severe bile gastritis; gastroparesis; large gastric bile pool. GROSS DESCRIPTION Received in formalin labeled antrum gastric biopsy, are two fragments of pink-gillespie tissue ranging in size from less than 0.1 to 0.4 cm. Totally submitted - one cassette. (KGW:sln) Electronically Signed by: Carlton Toney M.D.
== END 2016-07-06 13:00 | disposition home or self-care (01) ==
LOC: ED 10:09 → MEDSUR 10:09
PROVIDERS: ADMIT Internal Medicine; ATTEND Internal Medicine

== ENCOUNTER 2017-06-19 07:58 | Inpatient (IN) ==
[2017-06-14 13:37] LABS: Appearance,Urine CLEAR; Bilirubin,Urine NEG (NEG); Color,Urine YELLOW; Glucose,Urine (UA) NEGATIVE (NEG); Leukocyte Esterase,Urine NEG /uL (NEG); Protein,Urine 30 mg/dL (NEG); Urine Blood NEG mg/dL (<0.03); Urobilinogen,Urine NEG (NEG)
[2017-06-14 14:26] LABS: Basophils # (Auto) 0 K/mcL (0.0-0.3); Basophils % (Auto) 0.3 % (0.0-2.0); Eosinophils # (Auto) 0.5 K/mcL (0.0-0.7); Eosinophils % (Auto) 3.8 % (0.0-7.0); Granulocytes % (Auto) 70.9 % (38.0-78.0); Lymphocytes # (Auto) 2.6 K/mcL (1.5-4.8); Mean Cell Volume 90.4 fL (80.0-100.0); Mean Corpuscular HGB Conc 32.9 g/dL (31.0-36.0); Mean Corpuscular Hemoglobin 29.7 pg (26.0-34.0); Monocytes # (Auto) 0.6 K/mcL (0.1-0.9); Platelet Count 165 K/mcL (140-440); RBC 4.56 M/mcL (4.00-5.20); Red Cell Distribution Width 17.3 % (11.5-14.5)
[2017-06-14 14:40] LABS: Blood Urea Nitrogen 33 mg/dl (6-20)
[2017-06-14 14:41] LABS: Bacteria,Urine 0 /hpf (0); Urine RBC 0 /hpf (0-1); Urine Squamous Epithelial Cell < 1 /hpf (0-4); Urine Transitional Epi Cells < 1 /hpf (0-2); Urine WBC 1 /hpf (0-4)
[~2017-06-19 07:58] MED LIST: ACETAMINOPHEN 500 MG TABLET PO SCH; CELECOXIB 200 MG CAPSULE PO SCH; KETOROLAC 30 MG, ROPIVACAINE HCL/PF 49.5 ML, EPINEPHrine 0.5 MG, 0.9 % SODIUM CHLORIDE ... IJ ONE; ceFAZolin 1 GM VIAL IV SCH
[2017-06-19] MEDS ORDERED: SCOPOLAMINE 1 PATCH PATCH TOPICAL ONE (08:49)
[2017-06-19] MEDS ORDERED: IPRATROPIUM/ALBUTEROL 3 ML AMPUL.NEB NEB ONE ×3 (09:34→10:44)
[2017-06-19] MEDS ORDERED: PREGABALIN 75 MG CAPSULE PO SCH (10:00)
[2017-06-19] MEDS ORDERED: GENTAMICIN SULFATE 800 MG/20 ML VIAL IR ONE (11:58)
[2017-06-19] MEDS ORDERED: BENZOCAINE/MENTHOL 1 LOZENGE PO PRN ×3 (12:15→18:02)
[2017-06-19] MEDS ORDERED: METHOCARBAMOL 1,000 MG/10 ML VIAL IV PRN (12:15)
[2017-06-19] MEDS ORDERED: NALOXONE HCL 0.4 MG/ML VIAL IV PRN (12:15)
[2017-06-19] MEDS ORDERED: PROMETHAZINE 25 MG/ML VIAL IV PRN (12:15)
[2017-06-19] MEDS ORDERED: ACETAMINOPHEN 1,000 MG/100 ML BOTTLE IV ONE ×2 (12:15→18:02)
[2017-06-19] MEDS ORDERED: FLUMAZENIL 0.1 MG/ML ML IV PRN ×3 (12:15→18:02)
[2017-06-19] MEDS ORDERED: IPRATROPIUM/ALBUTEROL 3 ML AMPUL.NEB NEB PRN (12:15)
[2017-06-19] MEDS ORDERED: LACTATED RINGERS 250 ML IV PRN (12:15)
[2017-06-19] MEDS ORDERED: LACTATED RINGERS 1,000 ML IV SCH (12:15)
[2017-06-19] MEDS ORDERED: MEPERIDINE 25 MG/ML SYRINGE IV PRN (12:15)
[2017-06-19] MEDS ORDERED: ONDANSETRON 4 MG/2 ML VIAL IV PRN ×3 (12:15→18:02)
[2017-06-19] MEDS ORDERED: fentaNYL 100 MCG/2 ML VIAL IV PRN (12:15)
[2017-06-19] MEDS ORDERED: ACETAMINOPHEN 325 MG TABLET PO PRN ×2 (12:51→18:02)
[2017-06-19] MEDS ORDERED: HYDROCODONE/APAP 7.5/325MG TABLET PO PRN ×2 (12:51→18:02)
[2017-06-19] MEDS ORDERED: MAGNESIUM HYDROXIDE 30 ML ORAL.SUSP PO PRN ×2 (12:51→18:02)
[2017-06-19] MEDS ORDERED: POLYETHYLENE GLYCOL 3350 17 GM PACKET PO PRN ×2 (12:51→18:02)
[2017-06-19] MEDS ORDERED: FLEETS ADULT ENEMA PR PRN ×2 (12:51→18:02)
[2017-06-19] MEDS ORDERED: TRANEXAMIC ACID 1,000 MG/10 ML VIAL IV SCH (12:51)
[2017-06-19] MEDS ORDERED: BISACODYL 10 MG SUPP.RECT PR PRN ×2 (12:51→18:02)
[2017-06-19] MEDS ORDERED: HYDROmorphone 2 MG/ML VIAL IV PRN ×2 (12:51→18:02)
--- NOTE | 2017-06-19 12:51 | Brief Operative Note ---
Date of procedure: 06/19/17 Pre-op diagnosis: Right knee avn and djd medial Post-op diagnosis: same Procedure: right knee tka with adrienne robot Grafts/Implants: Yes Anesthesia: GETA Complications Description: 06/19/17 12:51 none Surgeon: Tirso Ladd Optical Design Engineer: Arnulfo Ruelas Estimated blood loss (cc): 20 Tourniquet Time (Minutes): 53 Specimens Removed/Pathology: none sent Condition: stable Disposition: PACU
[2017-06-19] MEDS ORDERED: HYDROcodone/APAP 10/325MG TABLET PO PRN (12:57)
[2017-06-19] MEDS ORDERED: INSULIN ASPART SUB-Q SCH (13:00)
[2017-06-19] MEDS ORDERED: 0.45 % SODIUM CHLORIDE 1,000 ML IV SCH (13:00)
[2017-06-19] MEDS ORDERED: ALBUTEROL SULFATE 1 PUFF INHALER INH PRN ×2 (13:09→18:02)
--- NOTE | 2017-06-19 13:36 | XRay Report ---
CLINICAL INFORMATION: Post-Op Total Knee COMPARISON: Preoperative x-ray 06/08/2016. FINDINGS: Total knee prostheses is anatomically aligned. No osseous abnormality. Periarticular gas and soft tissue swelling seen IMPRESSION: Negative Interpreted and Authenticated by: Abelardo Coy 06/19/17
[2017-06-19] MEDS ORDERED: 0.9 % SODIUM CHLORIDE 10 ML SYRINGE IV SCH (14:00)
--- NOTE | 2017-06-19 14:20 | Operative Note ---
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 PROCEDURE: Right knee total knee arthroplasty using the [employer] robot. SURGEON: Tirso Ladd M.D. ARTIST BLACKSMITH: Arnulfo Ruelas PA-C. ANESTHESIA: General LMA anesthesia. COMPLICATIONS: None. TOURNIQUET TIME: 53 minutes. IMPLANTS: Size 3 femur, size 3 tibial baseplate with a 9 mm poly insert deep dish with a 31 mm patellar button. All components were cemented. COMPLICATIONS: None. BLOOD LOSS: 20 mL. DESCRIPTION OF PROCEDURE: After a timeout had been performed, confirmed the operative site both by initials, x-rays, and consent form. We then proceeded with the case. Ioban had been placed over the skin. The leg was exsanguinated and tourniquet inflated to 250 pounds of pressure. Midline incision was made. A mid vastus approach created. We inspected the joint which showed avascular necrosis and a loose body within the medial compartment. With the avascular necrosis and the bone loss centrally, we proceeded with a total knee arthroplasty. We then placed pins above and below the knee. We then registered the center of hip rotation, medial and lateral malleolus, intraarticular pins, thirty points on the femur and on the tibia. We registered the hip rotation center and balanced the knee both at 15 and 90 degrees. Once perfectly balanced and realigned the implants for this balancing, we brought the robot in. It was registered with the femur and tibia. We registered the tibia first and made the tibial cut, made posterior and anterior femur cuts and anterior chamfer cut. We changed the saw blade and then made our distal femoral cut and posterior chamfer cut. We removed these bony fragments and removed the remnants of the meniscus. We trialed the size 3 tibia which was set rotation using the robot, and the femur was lateralized as far as possible. We irrigated thoroughly and then the patella measured a total of 24 mm. This was cut to 15 mm in total thickness, and then we placed a 31 mm patellar button. We irrigated thoroughly and cemented into place the above-mentioned sizes. A 9 mm poly was the most appropriate. It had a -6 degrees extension which he was prior to the case. We irrigated thoroughly and removed excess cement. We kept the knee at 45 degrees until all cement was dried. We took the knee through range of motion and closed the mid vastus approach with #1 Stratafix x2 stitches. The medial capsule was closed with Stratafix, and skin was closed with 2-0 Vicryls. Adhesive closure was placed. The patient tolerated this well without complication. RAEANN:christophe Job ID: [id number] Doc ID: [id number] Tirso Ladd MD
[2017-06-19] MEDS ORDERED: hydrOXYzine 10 MG TABLET PO SCH (15:00)
[2017-06-19] MEDS ORDERED: METHOCARBAMOL 750 MG TABLET PO SCH (15:00)
[2017-06-19] MEDS ORDERED: DEXTROSE 50% 50 ML VIAL IV PRN ×2 (16:16→18:02)
[2017-06-19] MEDS ORDERED: INSULIN LISPRO 1 UNIT/0.01 ML UNIT SQ SCH (17:00)
[2017-06-19] MEDS ORDERED: METOCLOPRAMIDE 10 MG TABLET PO SCH (17:00)
[2017-06-19] MEDS ORDERED: POTASSIUM CHLORIDE 20 MEQ PACKET PO SCH (17:30)
--- NOTE | 2017-06-19 17:35 | XRay Report ---
CLINICAL INFORMATION: Hypoxia COMPARISON: 05/12/2017 FINDINGS: Heart size, mediastinum and pulmonary vessels are normal. Moderate vague patchy infiltrate has developed in the left base with minor infiltrate developing in the right base IMPRESSION: Moderate patchy infiltrate developing in the left base with small infiltrate developing in the right base Interpreted and Authenticated by: Abelardo Coy 06/19/17
--- NOTE | 2017-06-19 17:39 | Internal Med History&Physical ---
Medical - H&P: [facility] Patient information: Note initiated : 06/19/17 at 5:37 pm Service Date, if different from initiated Date: [] Patient: Camille Knox 62 y/o F admitted on 06/19/17 for Right Uni Medial Andrew Knee. Chief Complaint: [] History of present illness: Ms. Knox is a 62 year old Female with h/o CKD, JULIANA< morbid obesity, DM, HTN , presented to the hospital for right TKA, the patient underwent surgery for same today. Prior to the surgery the patient had osmel wheezing and coughing spells, the patient was given duonebs and was taken to the OR. The patient underwent surgery without much complications. In the post op peroid the patient was drowsy. The patient had received preop narcotics, but non during surgery or post op period. The patient did get some versed. THe patient had hypoxia and was brought to the Floor on a cpap machine. Medicine was consulted for further management. The patient on my evaluation was on autotitrating CPAP 9.5-14 settings, unable to determine any tidal volume on the device. The patient was drowsy, but able to open eyes to commands and follow commands and answer questions, but go back to sleep. Denies any acute complaints, but notes did have some shortness of breath and cough before surgery. chest x ray, abg and labs ordered. ABG showed Ph 7.30/45/75, on cpap, room air, pt moved to telemetery for further monitoring. ROS unobtainable: due to mental status Medical - H&P: PMH Medical history: Medical History (Last Reviewed 12/13/16 @ 08:08 by Haylee Chew RN) Non-cardiac chest pain (Acute) Diabetes (Acute) Pancreatitis (Acute) Abdominal pain (Acute) Abdominal pain, acute, epigastric (Acute) Obstructive sleep apnea (Acute) Urinary tract infection (Acute) Back pain (Acute) Encounter for long-term (current) use of high-risk medication (Chronic) Gout (Chronic) Right knee pain (Acute) Inflammatory arthritis (Chronic) Trigger finger, left ring finger (Chronic) Polyarthralgia (Acute) Apnea (Chronic) Hyperpotassemia (Chronic) CHF (congestive heart failure) (Chronic) Gastroparesis (Chronic) Pure hypertriglyceridemia (Chronic) Vitamin D deficiency (Chronic) Essential (primary) hypertension (Chronic) Anemia of renal disease (Chronic) Edema (Chronic) Acute thromboembolism of deep veins of lower extremity (Chronic) Type 2 diabetes mellitus without complications (Chronic) Chronic kidney disease, stage III (moderate) (Chronic) Surgical history: Past Surgical History (Last Reviewed 12/13/16 @ 08:08 by Haylee Chew RN) Hx of cholecystectomy (Chronic) Pertinent family history: Family History (Last Reviewed 12/13/16 @ 08:08 by Haylee Chew RN) Other No pertinent family history Medical - H&P: Meds Home Medications Medication Instructions Recorded Confirmed Type atorvastatin 40 mg tablet 40 mg PO QDAY 11/26/15 06/19/17 History exenatide 5 mcg/dose (250 0.04 ml SUB-Q BID 11/26/15 06/19/17 History mcg/mL)1.2 mL subcutaneous pen injector gabapentin 300 mg capsule 300 mg PO BID cap 11/26/15 06/19/17 History hydrocodone 10 mg-acetaminophen 1 tab PO Q4H PRN 11/26/15 06/19/17 History 325 mg tablet insulin glargine 100 unit/mL 60 unit SUB-Q QAM ml 11/26/15 06/19/17 History subcutaneous solution metoclopramide 10 mg tablet 10 mg PO BID tab 11/26/15 06/19/17 History topiramate 100 mg tablet 100 mg PO BID 11/26/15 06/19/17 History venlafaxine ER 150 mg 150 mg PO QDAY 11/26/15 06/19/17 History capsule,extended release 24 hr Furosemide [Lasix] 40 mg PO QDAY tab 03/03/16 06/19/17 History Pantoprazole [Protonix] 40 mg PO QAMAC #30 tab 07/06/16 06/19/17 Rx hydroxychloroquine 200 mg tablet 200 mg PO BID #60 tab 12/26/16 06/19/17 Rx amlodipine 5 mg tablet 5 mg PO QDAY #30 tab 06/01/17 06/19/17 Rx Allopurinol [Zyloprim] 150 mg PO QDAY 06/14/17 06/19/17 History Insulin Glargine, Human [Lantus] 70 unit SQ QPM 06/14/17 06/19/17 History Methocarbamol [Robaxin-750] 750 mg PO TID 06/14/17 06/19/17 History Potassium Chloride [Klor-Con] 20 meq PO BIDCC 06/14/17 06/19/17 History Pregabalin [Lyrica] 150 mg PO BID 06/14/17 06/19/17 History hydrOXYzine [Vistaril] 10 mg PO TID 06/14/17 06/19/17 History Albuterol Sulfate [Proair 1 puff IH Q4-6HP PRN 06/19/17 06/19/17 History Respiclick] Spironolactone [Aldactone] 25 mg PO DAILY 06/19/17 06/19/17 History Allergies Allergy/AdvReac Type Severity Reaction Status Date / Time sulfamethoxazole Allergy Severe RASH, RED, Verified 06/16/17 09:14 [From BACTRIM] BURNING FEELING trimethoprim [From BACTRIM] Allergy Severe RASH, RED, Verified 06/16/17 09:14 BURNING FEELING codeine Allergy Unknown UNKNOWN Verified 06/16/17 09:14 lisinopril [LISINOPRIL] AdvReac Intermediate COUGHING Verified 06/16/17 09:14 morphine [MORPHINE] AdvReac Mild DOESN'T Verified 06/16/17 09:14 SEEM TO HELP Medical - H&P: Exam - Constitutional Vitals: Temp Pulse Resp BP Pulse Ox 98.2 F 92 H 20 111/58 90 06/19/17 14:10 06/19/17 15:20 06/19/17 15:35 06/19/17 16:20 06/19/17 16:51 Exam: GENERAL: The patient is a well-developed, well-nourished in no apparent distress. Is drowsy, but opens eyes to commands. Pt is morbidly obese VITAL SIGNS: Reviewed and as noted elsewhere. HEENT: Head is normocephalic and atraumatic. Extraocular muscles are intact. Pupils are equal, round, and reactive to light 3mm in size . Nares appeared normal. Mouth appears any without lesions. NECK: Normal to inspection, Supple, No lymphadenopathy or thyromegaly. short thick neck LUNGS: Air entry equal on both sides, no wheezing, crackles or rhonchi noted. No accessory muscles of respiration HEART: Regular rate and rhythm normal, S1 and S2 heard, no Gallop, S3 or Rub Noted, No Gross murmur heard. ABDOMEN: Soft, nontender, and nondistended. Positive bowel sounds. No hepatosplenomegaly was noted. large pannus. EXTREMITIES: No cyanosis, clubbing, rash, lesions, edema+ NEUROLOGIC: Cranial nerves II through XII are grossly intact. Motor and Sensory System Grossly Intact PSYCHIATRIC:drowsy but obeying commands,no agitations. SKIN: No ulceration or wounds noted, No jaundice, No rash noted. Medical - H&P: Reslt - Labs CBC & Chem 7: 06/14/17 11:12 06/14/17 11:12 Medical - H&P: A/P - Narrative A/P Narrative: A/P S/P TKA: management as per surgery Acute hypoxic/ Hypercapenic resp failure: Monitor on tele, bipap for now, likely from morbid obesaity and use of sedatives qing op, CXR does not show any significant change to my eval, await offical read. Await labs AMS: Multifactorial, likely from medications qing op as well as some co2 retention, which seems to be improving. Morbid obesity/ JULIANA: supposed to be on cpap, butn on compliant hence not on it now, on bipap for now. DM: lantus and ssi, monitor glucose HTN: Resume home meds COPD: duonebs q4hrs for now, no wheezing on my exam but was wheezing preop as per Anesthesia. CHF: clinicaly not volume overloaded, cxr slightly more congested, but no significantly different from baseline. on oral diuretics to continue CKD: check creat, d?c nsaids, advoid nephrotoxic meds, given her ckd, its likely that meds given in the periop period had prolonged half life in this patient. DVT: supposed to be on coumadin, check INR daily, hep sq Medical - H&P: Qual - VTE Deep Vein Thrombosis/Pulmonary Embolism Present on Admission: No Social History - Tobacco smoking status: Current every day smoker - Tobacco Type tobacco type: cigarettes
[2017-06-19 18:00] LABS: Basophils # (Auto) 0 K/mcL (0.0-0.3); Basophils % (Auto) 0 % (0.0-2.0); Eosinophils # (Auto) 0.3 K/mcL (0.0-0.7); Eosinophils % (Auto) 2.4 % (0.0-7.0); Granulocytes % (Auto) 92.1 % (38.0-78.0); Lymphocytes # (Auto) 0.6 K/mcL (1.5-4.8); Lymphocytes % (Auto) 4.9 % (15.5-49.0); Mean Cell Volume 90.2 fL (80.0-100.0); Mean Corpuscular HGB Conc 33.4 g/dL (31.0-36.0); Mean Corpuscular Hemoglobin 30.1 pg (26.0-34.0); Monocytes # (Auto) 0.1 K/mcL (0.1-0.9); Monocytes % (Auto) 0.6 % (1.0-12.0); Platelet Count 154 K/mcL (140-440); RBC 4.21 M/mcL (4.00-5.20); Red Cell Distribution Width 17.3 % (11.5-14.5)
[2017-06-19] MEDS ORDERED: KETOROLAC 15 MG/ML VIAL IV SCH (18:00)
[2017-06-19] MEDS ORDERED: ceFAZolin 1 GM VIAL IV SCH (18:30)
[2017-06-19 18:34] LABS: ALT/SGPT 13 U/l (0-40); Albumin 3.3 gm/dL (3.2-5.2); Alkaline Phosphatase 72 U/L (39-117); Bilirubin,Direct < 0.2 mg/dL (0.0-0.3); Blood Urea Nitrogen 32 mg/dl (6-20); Gamma Glutamyl Transpeptidase 31 U/L (5-36)
[2017-06-19] MEDS: IPRATROPIUM/ALBUTEROL 3 ML AMPUL.NEB NEB SCH ×2 (19:03→23:06)
[2017-06-19] MEDS ORDERED: WARFARIN 5 MG TABLET PO SCH (20:00)
[2017-06-19] MEDS ORDERED: HYDROmorphone 2 MG/ML VIAL ONE (20:38)
[2017-06-19] MEDS ORDERED: EXENATIDE 10 MCG SQ SCH (21:00)
[2017-06-19] MEDS ORDERED: DOCUSATE SODIUM 100 MG CAPSULE PO SCH (21:00)
[2017-06-19] MEDS ORDERED: TOPIRAMATE 50 MG TABLET PO SCH (21:00)
[2017-06-19] MEDS ORDERED: EXENATIDE SUB-Q SCH (21:00)
[2017-06-19] MEDS ORDERED: FISH OIL 1,000 MG CAPSULE PO SCH (21:00)
[2017-06-19] MEDS ORDERED: GABAPENTIN 300 MG CAPSULE PO SCH (21:00)
[2017-06-19] MEDS ORDERED: SENNOSIDES 1 TABLET PO SCH (21:00)
[2017-06-19] MEDS ORDERED: INSULIN GLARGINE, HUMAN 1 UNIT/0.01 ML SQ SCH (21:00)
[2017-06-19] MEDS ORDERED: HYDROXYCHLOROQUINE 200 MG TABLET PO SCH (21:00)
[2017-06-19] MEDS ORDERED: TEMAZEPAM 15 MG CAPSULE PO PRN ×2 (21:00)
[2017-06-19] MEDS ORDERED: PREGABALIN 150 MG CAPSULE PO SCH (21:00)
[2017-06-19] MEDS ORDERED: methylPREDNISolone SOD SUCC 125 MG/2 ML VIAL IV ONE (21:51)
[2017-06-19] MEDS: WARFARIN 5 MG TABLET PO SCH (22:56)
[2017-06-19] MEDS: GABAPENTIN 300 MG CAPSULE PO SCH (22:57)
[2017-06-19] MEDS: DOCUSATE SODIUM 100 MG CAPSULE PO SCH (22:57)
[2017-06-19] MEDS: METHOCARBAMOL 750 MG TABLET PO SCH (22:58)
[2017-06-19] MEDS: SENNOSIDES 1 TABLET PO SCH (22:58)
[2017-06-19] MEDS: TOPIRAMATE 100 MG TABLET PO SCH (22:58)
[2017-06-19] MEDS: HYDROXYCHLOROQUINE 200 MG TABLET PO SCH (22:58)
[2017-06-19] MEDS: 0.9 % SODIUM CHLORIDE 10 ML SYRINGE IV SCH (22:59)
[2017-06-19] MEDS: hydrOXYzine 10 MG TABLET PO SCH (22:59)
[2017-06-19] MEDS: ceFAZolin 1 GM VIAL IV SCH (23:04)
[2017-06-20] MEDS: 0.45 % SODIUM CHLORIDE 1,000 ML IV SCH ×2 (00:13→05:58)
[2017-06-20] MEDS: INSULIN LISPRO 1 UNIT/0.01 ML UNIT SQ SCH ×5 (00:22→19:10)
[2017-06-20] MEDS: INSULIN GLARGINE, HUMAN 1 UNIT/0.01 ML SQ SCH ×3 (00:27→20:41)
[2017-06-20] MEDS: HEPARIN 5,000 UNIT/ML VIAL SQ SCH ×3 (00:27→20:11)
[2017-06-20] MEDS: IPRATROPIUM/ALBUTEROL 3 ML AMPUL.NEB NEB SCH ×6 (03:03→22:54)
[2017-06-20 04:40] LABS: Basophils # (Auto) 0 K/mcL (0.0-0.3); Basophils % (Auto) 0.1 % (0.0-2.0); Eosinophils # (Auto) 0.4 K/mcL (0.0-0.7); Eosinophils % (Auto) 2.5 % (0.0-7.0); Granulocytes % (Auto) 88.7 % (38.0-78.0); Lymphocytes % (Auto) 7.2 % (15.5-49.0); Mean Cell Volume 91.3 fL (80.0-100.0); Mean Corpuscular HGB Conc 32.7 g/dL (31.0-36.0); Mean Corpuscular Hemoglobin 29.8 pg (26.0-34.0); Monocytes # (Auto) 0.2 K/mcL (0.1-0.9); Monocytes % (Auto) 1.5 % (1.0-12.0); Platelet Count 148 K/mcL (140-440); RBC 3.91 M/mcL (4.00-5.20); Red Cell Distribution Width 17.6 % (11.5-14.5)
[2017-06-20 04:58] LABS: ALT/SGPT 11 U/l (0-40); Albumin 3.1 gm/dL (3.2-5.2); Alkaline Phosphatase 69 U/L (39-117); Bilirubin,Direct < 0.2 mg/dL (0.0-0.3); Blood Urea Nitrogen 41 mg/dl (6-20); Gamma Glutamyl Transpeptidase 29 U/L (5-36); Uric Acid 6.7 mg/dL (2.5-8.0)
[2017-06-20] MEDS ORDERED: methylPREDNISolone SOD SUCC 125 MG/2 ML VIAL IV SCH (06:00)
[2017-06-20] MEDS: ceFAZolin 1 GM VIAL IV SCH (06:07)
[2017-06-20] MEDS: 0.9 % SODIUM CHLORIDE 10 ML SYRINGE IV SCH ×3 (06:08→20:45)
[2017-06-20] MEDS ORDERED: PANTOPRAZOLE 40 MG TABLET PO SCH (07:30)
--- NOTE | 2017-06-20 07:47 | Orthopedic Progress Note ---
Subjective Patient information: Note initiated : 06/20/17 at 7:44 am Service Date, if different from initiated Date: [] Patient: Camille Knox 62 y/o F admitted on 06/19/17 for Right Uni Medial Andrew Knee. Chief Complaint: [Pt is in ICU due to respiratory problems post operatively and is stable per RN caring for her. She is currently completing respiratory therapy with BIPAP. ] Objective Vital signs: Vital Signs Temp Pulse Pulse Resp BP Pulse Ox 06/20/17 07:17 60 13 06/20/17 07:15 61 15 98 06/20/17 05:00 60 06/20/17 04:00 98.7 F 55 L 14 113/59 95 06/20/17 03:05 71 17 06/20/17 02:59 59 L 15 95 06/20/17 01:20 61 18 94 06/20/17 01:00 77 06/20/17 00:00 98.6 F 16 104/53 95 06/19/17 23:29 82 17 94 06/19/17 23:18 83 17 06/19/17 21:50 87 15 94 06/19/17 21:30 98.7 F 06/19/17 21:00 80 06/19/17 20:00 80 95 06/19/17 19:57 97.3 F 20 120/66 96 06/19/17 19:56 96 06/19/17 19:33 98.8 F 89 131/65 97 06/19/17 19:11 87 16 06/19/17 19:10 88 15 95 06/19/17 17:55 87 20 94 06/19/17 17:35 91 H 101/63 92 06/19/17 17:20 94 H 105/62 96 06/19/17 17:05 93 H 113/64 93 06/19/17 16:51 90 06/19/17 16:50 95 H 102/57 06/19/17 16:35 93 H 110/62 88 L 06/19/17 16:20 111/58 93 06/19/17 16:05 118/63 92 06/19/17 15:50 113/61 91 06/19/17 15:35 20 108/61 91 06/19/17 15:20 92 H 105/58 93 06/19/17 15:10 92 H 22 90 06/19/17 15:05 91 H 108/61 93 06/19/17 14:50 95 H 20 104/55 89 L 06/19/17 14:20 93 H 107/61 93 06/19/17 14:10 98.2 F 94 H 20 110/64 91 06/19/17 13:55 98.9 F 92 H 16 117/57 94 06/19/17 13:40 98.7 F 91 H 16 125/49 96 06/19/17 13:25 98.7 F 82 16 153/61 99 06/19/17 13:20 98.7 F 95 H 18 114/52 99 06/19/17 13:15 98.7 F 99 H 20 113/52 99 06/19/17 13:10 98.7 F 89 18 114/47 96 06/19/17 08:27 98.8 F 74 20 127/45 91 Intake and Output 06/19/17 06/20/17 06/20/17 21:59 05:59 13:59 Intake Total 0 / 0 500 / 500 Output Total 575 / 575 Balance 0 / 0 -75 / -75 Intake: IV 500 / 500 Oral 0 / 0 Output: Urine Catheter Amount 575 / 575 Other: # Voids 0 Weight 230 lb 230 lb Patient Weight 06/21/17 05:59 Weight 230 lb Intake & Output: Intake & Output 06/19/17 06/20/17 06/20/17 21:59 05:59 13:59 Intake Total 0 / 0 500 / 500 Output Total 575 / 575 Balance 0 / 0 -75 / -75 Weight 230 lb 230 lb Intake: IV 500 / 500 Oral 0 / 0 Output: Urine Catheter Amount 575 / 575 Other: # Voids 0 Incision: Yes healing Incision clean and dry: Yes Dressing: Yes clean Weight bearing status: full Neurological exam IM: Yes motor sensory intact, Yes neurovascular intact Extremities exam IM: Yes Foot pink and warm, Yes neurovascular intact - Labs CBC & BMP: 06/20/17 03:52 06/20/17 03:52 Labs: Orthopedic Labs 06/20/17 06/14/17 03:52 11:12 PT 14.4 13.6 INR 1.1 1.0 APTT 33 06/20/17 06/19/17 06/14/17 03:52 17:24 11:12 Hgb 11.7 L 12.7 13.6 Hct 35.7 L 38.0 41.2 Assessment and Plan (1) Hx of total knee arthroplasty Pt will remain in hospitalist care in ICU. When stable for med surg floor she will be ready for home discharge from an ortho standpoint. Status: Acute
[2017-06-20] MEDS ORDERED: POTASSIUM CHLORIDE 20 MEQ PACKET PO SCH (08:00)
[2017-06-20] MEDS: METOCLOPRAMIDE 10 MG TABLET PO SCH ×2 (08:16→17:10)
[2017-06-20] MEDS: PANTOPRAZOLE 40 MG TABLET PO SCH (08:16)
[2017-06-20] MEDS: SPIRONOLACTONE 25 MG TABLET PO SCH (08:56)
[2017-06-20] MEDS: GABAPENTIN 300 MG CAPSULE PO SCH ×2 (08:56→20:12)
[2017-06-20] MEDS: DOCUSATE SODIUM 100 MG CAPSULE PO SCH ×2 (08:56→20:11)
[2017-06-20] MEDS: amLODIPine 5 MG TABLET PO SCH (08:57)
[2017-06-20] MEDS ORDERED: amLODIPine 5 MG TABLET PO SCH (09:00)
[2017-06-20] MEDS ORDERED: INSULIN GLARGINE, HUMAN 1 UNIT/0.01 ML SQ SCH (09:00)
[2017-06-20] MEDS ORDERED: HYDROCHLOROTHIAZIDE 25 MG TABLET PO SCH (09:00)
[2017-06-20] MEDS ORDERED: VENLAFAXINE 150 MG CAP.XL.24H PO SCH (09:00)
[2017-06-20] MEDS ORDERED: FUROSEMIDE 40 MG TABLET PO SCH (09:00)
[2017-06-20] MEDS ORDERED: SPIRONOLACTONE 25 MG TABLET PO SCH (09:00)
[2017-06-20] MEDS ORDERED: ALLOPURINOL 300 MG TABLET PO SCH (09:00)
[2017-06-20] MEDS ORDERED: ATORVASTATIN 20 MG TABLET PO SCH (09:00)
[2017-06-20] MEDS: TOPIRAMATE 100 MG TABLET PO SCH ×2 (09:02→20:12)
[2017-06-20] MEDS: traMADol 50 MG TABLET PO PRN ×2 (09:02→15:46)
[2017-06-20] MEDS: ATORVASTATIN 20 MG TABLET PO SCH (09:02)
[2017-06-20] MEDS: METHOCARBAMOL 750 MG TABLET PO SCH ×3 (09:02→20:12)
[2017-06-20] MEDS: hydrOXYzine 10 MG TABLET PO SCH ×3 (09:02→20:15)
[2017-06-20] MEDS: VENLAFAXINE 150 MG CAP.XL.24H PO SCH (09:02)
[2017-06-20] MEDS: FUROSEMIDE 40 MG TABLET PO SCH (09:03)
[2017-06-20] MEDS: HYDROXYCHLOROQUINE 200 MG TABLET PO SCH ×2 (09:03→20:11)
[2017-06-20] MEDS: ALLOPURINOL 300 MG TABLET PO SCH (09:03)
[2017-06-20] MEDS: ACETAMINOPHEN 1,000 MG/100 ML BOTTLE IV SCH ×3 (09:35→21:49)
[2017-06-20] MEDS ORDERED: LIDOCAINE HCL/PF 100 MG/5 ML SYRINGE IV ONE (10:13)
[2017-06-20] MEDS ORDERED: ONDANSETRON 4 MG/2 ML VIAL IV ONE (10:13)
[2017-06-20] MEDS ORDERED: PHENYLEPHRINE 10 MG/ML VIAL IV ONE (10:13)
[2017-06-20] MEDS ORDERED: PROPOFOL 200 MG/20 ML VIAL IV ONE (10:13)
[2017-06-20] MEDS ORDERED: MIDAZOLAM 2 MG/2 ML VIAL IV ONE (10:13)
[2017-06-20] MEDS ORDERED: GLYCOPYRROLATE 0.2 MG/ML VIAL IV ONE (10:13)
[2017-06-20] MEDS ORDERED: KETOROLAC 30 MG/ML VIAL IV ONE (10:13)
[2017-06-20] MEDS ORDERED: METOCLOPRAMIDE 10 MG/2 ML VIAL IV ONE (10:13)
[2017-06-20] MEDS ORDERED: BUPIVACAINE W/EPI 0.5% 50 ML VIAL IJ ONE (10:13)
[2017-06-20] MEDS ORDERED: ePHEDrine 50 MG/ML AMPUL IV ONE (10:13)
[2017-06-20] MEDS ORDERED: FAMOTIDINE/PF 20 MG/2 ML VIAL IV ONE (10:13)
[2017-06-20] MEDS ORDERED: KETAMINE 100 MG/ML ML IV ONE (10:13)
[2017-06-20] MEDS ORDERED: TRANEXAMIC ACID 1,000 MG/10 ML VIAL IV ONE (10:13)
[2017-06-20] MEDS: guaiFENesin/DEXTROMETHORPHAN ORAL SOL PO PRN ×2 (11:03→18:40)
--- NOTE | 2017-06-20 13:54 | Internal Med Progress Note ---
Medical - PN: Subj Patient information: Note initiated : 06/20/17 at 1:51 pm Service Date, if different from initiated Date: [] Patient: Camille Knox a 62 y/o F admitted on 06/19/17 for Right Uni Medial Andrew Knee. Chief Complaint: [] Interval history: Ms. Knox is a 62 year old Female with h/o CKD, JULIANA< morbid obesity, DM, HTN , presented to the hospital for right TKA, the patient underwent surgery for same today. Prior to the surgery the patient had osmel wheezing and coughing spells, the patient was given duonebs and was taken to the OR. The patient underwent surgery without much complications. In the post op peroid the patient was drowsy. The patient had received preop narcotics, but non during surgery or post op period. The patient did get some versed. THe patient had hypoxia and was brought to the Floor on a cpap machine. Medicine was consulted for further management. The patient on my evaluation was on autotitrating CPAP 9.5-14 settings, unable to determine any tidal volume on the device. The patient was drowsy, but able to open eyes to commands and follow commands and answer questions, but go back to sleep. Denies any acute complaints, but notes did have some shortness of breath and cough before surgery. chest x ray, abg and labs ordered. ABG showed Ph 7.30/45/75, on cpap, room air, pt moved to telemetery for further monitoring. Jun 20 Patient seen examined, no acute overnight issues, was on bipap all night, good tidal volumes, this AM abg better, she was much more awake, able to sit down in chair and tolerate po well avoid narcotic pain medications for now. continue to monitor. Pertinent ROS: Denies headache, dizziness Denies chest pain, palpitations Denies cough or shortness of breath Denies abdominal pain, nausea or vomiting. - Constitutional Vitals: Vital Signs Temp Pulse Resp BP Pulse Ox 100.1 F H 91 H 18 113/60 90 06/20/17 12:00 06/20/17 12:00 06/20/17 12:00 06/20/17 12:00 06/20/17 12:00 Period Temp Pulse Resp BP Sys/Agosto Pulse Ox Last 24 Hr 97.3 F-100.1 F 55-95 13-22 101-131/53-66 88-99 Intake and Output 06/19/17 06/20/17 06/20/17 21:59 05:59 13:59 Intake Total 0 / 0 500 / 500 100 / 100 Output Total 575 / 575 Balance 0 / 0 -75 / -75 100 / 100 Weight 230 lb 230 lb Patient Weight 06/21/17 05:59 Weight 230 lb Intake & Output: Intake & Output 06/19/17 06/20/17 06/20/17 21:59 05:59 13:59 Intake Total 0 / 0 500 / 500 100 / 100 Output Total 575 / 575 Balance 0 / 0 -75 / -75 100 / 100 Weight 230 lb 230 lb Intake: IV 500 / 500 100 / 100 Oral 0 / 0 Output: Urine Catheter Amount 575 / 575 Other: # Voids 0 Exam: Constitutional; Afebrile, cooperative, alert, not in distress. morbidly obese, Eyes- No icterus, , No periorbital swelling Ears- Ext ear normal, hearing normal to conversation. Neck- Midline trachea, supple Respiratory system: Air Entry equal on both sides, No crackles or wheezing, no rhonchi. CVS- Rate rhythm regular, S1,S2 heard, no gallop, no rub. Abdomen- Soft nontender abdomen, no organomegaly, no tenderness, no guarding or rigidity, PSYCH TECH- AOOx3, moving all extremities, no gross focal deficit noted. chr tremors Medical - PN: Obj Da - Labs CBC & Chem 7: 06/20/17 03:52 06/20/17 03:52 Labs: Abnormal Lab Results 06/20/17 06/20/17 06/19/17 03:52 03:52 17:24 WBC 14.1 H RBC 3.91 L Hgb 11.7 L Hct 35.7 L RDW 17.6 H MPV 12.1 H Gran % 88.7 H Lymph % (Auto) 7.2 L Gregory % (Auto) Gran # 12.5 H Lymph # (Auto) 1.0 L Potassium 5.3 H Carbon Dioxide 20 L 20 L Anion Gap 17.0 H BUN 41 H 32 H Creatinine 2.5 H 2.2 H Glucose 303 H 272 H Phosphorus 5.3 H 5.4 H Albumin 3.1 L Triglycerides 164 H 06/19/17 17:24 WBC 13.2 H RBC Hgb Hct RDW 17.3 H MPV 12.0 H Gran % 92.1 H Lymph % (Auto) 4.9 L Gregory % (Auto) 0.6 L Gran # 12.1 H Lymph # (Auto) 0.6 L Potassium Carbon Dioxide Anion Gap BUN Creatinine Glucose Phosphorus Albumin Triglycerides Meds: Medications Albuterol Sulfate (Ventolin) 1 puff INH Q4-6HP PRN PRN Reason: Shortness Of Breath Albuterol/Ipratropium (Duoneb) 3 ml NEB Q4HRT [facility] Last Admin: 06/20/17 11:17 Dose: 3 ml Allopurinol (Zylopriim) 150 mg PO DAILY [facility] Last Admin: 06/20/17 09:03 Dose: 150 mg Amlodipine Besylate (Norvasc) 5 mg PO QDAY [facility] Last Admin: 06/20/17 08:57 Dose: 5 mg Atorvastatin Calcium (Lipitor) 40 mg PO QDAY [facility] Last Admin: 06/20/17 09:02 Dose: 40 mg Bisacodyl (Dulcolax) 10 mg MO Q2-3DAYS PRN PRN Reason: Constipation Dextrose (Dextrose 50%) 50 ml IV UD PRN PRN Reason: Hypoglycemia Diagnostic Test (Pha) (Accu-Chek) 1 each FS ACHS [facility] Last Admin: 06/20/17 12:02 Dose: 1 each Docusate Sodium (Colace) 100 mg PO BID [facility] Last Admin: 06/20/17 08:56 Dose: 100 mg Flumazenil (Romazicon) 0.2 mg IV PRN PRN PRN Reason: Drowsiness Furosemide (Lasix) 40 mg PO DAILY [facility] Last Admin: 06/20/17 09:03 Dose: 40 mg Gabapentin (Neurontin) 300 mg PO BID [facility] Last Admin: 06/20/17 08:56 Dose: 300 mg Guaifenesin (Robitussin Dm) 10 ml PO Q4HP PRN PRN Reason: Cough Last Admin: 06/20/17 11:03 Dose: 10 ml Heparin Sodium (Porcine) (Heparin) 5,000 unit SQ Q12 [facility] Last Admin: 06/20/17 08:57 Dose: 5,000 unit Hydroxychloroquine Sulfate (Plaquenil) 200 mg PO BID [facility] Last Admin: 06/20/17 09:03 Dose: 200 mg Hydroxyzine HCl (Vistaril) 10 mg PO TID [facility] Last Admin: 06/20/17 09:02 Dose: 10 mg Acetaminophen (Ofirmev) 1,000 mg in 100 mls @ 200 mls/hr IV Q8 [facility] Last Infusion: 06/20/17 10:26 Dose: Infused Insulin Glargine (Lantus) 70 unit SQ QPM [facility] Last Admin: 06/20/17 00:27 Dose: Not Given Insulin Glargine (Lantus) 60 unit SQ DAILY [facility] Last Admin: 06/20/17 08:57 Dose: 60 unit Insulin Human Lispro (Humalog) 0 unit SQ ACHS [facility] PRN Reason: Protocol Last Admin: 06/20/17 12:04 Dose: 14 unit Magnesium Hydroxide (Milk Of Magnesia) 30 ml PO BIDP PRN PRN Reason: Constipation Methocarbamol (Robaxin) 750 mg PO TID [facility] Last Admin: 06/20/17 09:02 Dose: 750 mg Metoclopramide HCl (Reglan) 10 mg PO BIDAC [facility] Last Admin: 06/20/17 08:16 Dose: 10 mg Ondansetron HCl (Zofran) 4 mg IV Q4HP PRN PRN Reason: Nausea And Vomiting Last Admin: 06/19/17 21:00 Dose: 4 mg Pantoprazole S[facility]) [facility] Admin: 06/20/17 08:16 Dose: 40 mg Polyethylene Glycol (Miralax) 17 gm PO DAILYP PRN PRN Reason: Constipation [facility]) [facility] Stop: 06/25/17 07:59 Senna (Senokot) 2 tab PO HS [facility] Last Admin: 06/19/17 22:58 Dose: Not Given Sodium Biphosphate/Sodium Phosphate (Fleets Adult) 1 dose MO Q3-4DAYS PRN PRN Reason: Constipation Sodium Chloride (Saline Flush) 10 ml IV Q8 [facility] Last Admin: 06/20/17 06:08 Dose: 10 ml Spironolactone (Aldactone) 25 mg PO DAILY [facility] Last Admin: 06/20/17 08:56 Dose: 25 mg Throat Lozenges (Cepacol) 1 lozenge PO PRN PRN PRN Reason: Sore Throat Topiramate (Topamax) 100 mg PO BID [facility] Last Admin: 06/20/17 09:02 Dose: 100 mg Tramadol HCl (Ultram) 50 mg PO Q4HP PRN PRN Reason: Pain Last Admin: 06/20/17 09:02 Dose: 50 mg Venlafaxine HCl (Effexor Xr) 150 mg PO QDAY [facility] Last Admin: 06/20/17 09:02 Dose: 150 mg Warfarin Sodium (Coumadin) 5 mg PO DAILY@1400 [facility] Last Admin: 06/19/17 22:56 Dose: Not Given Medical - PN: A/P - Time Spent With Patient Total time spent is greater than 50% in coordination of care (as documented) at patient's floor/unit and/or counseling patient: - Narrative A/P Narrative: A/P S/P TKA: management as per surgery Acute hypoxic/ Hypercapenic resp failure: Monitor on tele, off bipap now, likely from morbid obesity and use of sedatives qing op, Pneumonia: Low grade temp, x ray interpreted as pna, start on IV levofloxacin. get blood cx, monitor. AMS: Multifactorial, likely from medications qing op as well as some co2 retention, which seems to be improving., much better this AM Morbid obesity/ JULIANA: supposed to be on cpap, butn on compliant hence not on it now, on bipap for now. off this AM DM: lantus and ssi, monitor glucose HTN: Resume home meds COPD: duonebs q4hrs for now with po prednisone, no wheezing on my exam but was wheezing preop as per Anesthesia. CHF: clinicaly not volume overloaded, cxr slightly more congested, but no significantly different from baseline. on oral diuretics to continue CKD: check creat, d?c nsaids, advoid nephrotoxic meds, given her ckd, its likely that meds given in the periop period had prolonged half life in this patient. DVT: supposed to be on coumadin, check INR daily, hep sq Medical - PN: Qual - VTE Deep Vein Thrombosis/Pulmonary Embolism Present on Admission: No
[2017-06-20] MEDS: LEVOFLOXACIN 750 MG/150 ML BAG IV SCH (14:08)
[2017-06-20] MEDS: WARFARIN 5 MG TABLET PO SCH (14:10)
[2017-06-20] MEDS: SENNOSIDES 1 TABLET PO SCH (20:12)
[2017-06-20] MEDS: NICOTINE 21 MG PATCH TOPICAL SCH (21:49)
[2017-06-21] MEDS: IPRATROPIUM/ALBUTEROL 3 ML AMPUL.NEB NEB SCH ×6 (03:03→23:20)
[2017-06-21] MEDS: guaiFENesin/DEXTROMETHORPHAN ORAL SOL PO PRN ×2 (04:04→21:47)
[2017-06-21] MEDS: traMADol 50 MG TABLET PO PRN ×4 (04:05→23:41)
[2017-06-21] MEDS: ACETAMINOPHEN 1,000 MG/100 ML BOTTLE IV SCH ×3 (05:29→21:47)
[2017-06-21] MEDS: 0.9 % SODIUM CHLORIDE 10 ML SYRINGE IV SCH ×3 (05:34→21:57)
[2017-06-21 05:52] LABS: Basophils # (Auto) 0 K/mcL (0.0-0.3); Basophils % (Auto) 0.3 % (0.0-2.0); Eosinophils # (Auto) 0.3 K/mcL (0.0-0.7); Eosinophils % (Auto) 2.8 % (0.0-7.0); Lymphocytes # (Auto) 2.9 K/mcL (1.5-4.8); Lymphocytes % (Auto) 25.7 % (15.5-49.0); Mean Cell Volume 91.5 fL (80.0-100.0); Mean Corpuscular HGB Conc 33.3 g/dL (31.0-36.0); Mean Corpuscular Hemoglobin 30.4 pg (26.0-34.0); Monocytes # (Auto) 0.7 K/mcL (0.1-0.9); Monocytes % (Auto) 6.2 % (1.0-12.0); Platelet Count 134 K/mcL (140-440); RBC 3.55 M/mcL (4.00-5.20); Red Cell Distribution Width 18.1 % (11.5-14.5)
[2017-06-21 06:06] LABS: ALT/SGPT < 5 U/l (0-40); Albumin 3.2 gm/dL (3.2-5.2); Albumin/Globulin Ratio 1.2 (1.0-2.3); Alkaline Phosphatase 61 U/L (39-117); Bilirubin,Direct < 0.2 mg/dL (0.0-0.3); Blood Urea Nitrogen 57 mg/dl (6-20); Gamma Glutamyl Transpeptidase 26 U/L (5-36); Uric Acid 6.8 mg/dL (2.5-8.0)
[2017-06-21] MEDS: METHOCARBAMOL 750 MG TABLET PO SCH ×3 (07:04→20:52)
[2017-06-21] MEDS: METOCLOPRAMIDE 10 MG TABLET PO SCH ×2 (07:04→17:16)
[2017-06-21] MEDS: PANTOPRAZOLE 40 MG TABLET PO SCH (07:05)
[2017-06-21] MEDS: INSULIN LISPRO 1 UNIT/0.01 ML UNIT SQ SCH ×5 (07:10→22:36)
[2017-06-21] MEDS ORDERED: 0.9 % SODIUM CHLORIDE 250 ML IV ONE (07:18)
[2017-06-21] MEDS: HYDROXYCHLOROQUINE 200 MG TABLET PO SCH ×2 (08:46→20:54)
[2017-06-21] MEDS: HEPARIN 5,000 UNIT/ML VIAL SQ SCH ×2 (08:46→20:55)
[2017-06-21] MEDS: FUROSEMIDE 40 MG TABLET PO SCH (08:46)
[2017-06-21] MEDS: NICOTINE 21 MG PATCH TOPICAL SCH (08:46)
[2017-06-21] MEDS: ALLOPURINOL 300 MG TABLET PO SCH (08:46)
[2017-06-21] MEDS: VENLAFAXINE 150 MG CAP.XL.24H PO SCH (08:47)
[2017-06-21] MEDS: ATORVASTATIN 20 MG TABLET PO SCH (08:47)
[2017-06-21] MEDS: TOPIRAMATE 100 MG TABLET PO SCH ×2 (08:48→20:54)
[2017-06-21] MEDS: GABAPENTIN 300 MG CAPSULE PO SCH ×2 (08:48→20:53)
[2017-06-21] MEDS: predniSONE 20 MG TABLET PO SCH (08:48)
[2017-06-21] MEDS: SPIRONOLACTONE 25 MG TABLET PO SCH (08:48)
[2017-06-21] MEDS: DOCUSATE SODIUM 100 MG CAPSULE PO SCH ×2 (08:48→20:54)
[2017-06-21] MEDS: oxyCODONE HCL 5 MG TABLET PO PRN ×3 (08:53→23:41)
[2017-06-21] MEDS: amLODIPine 5 MG TABLET PO SCH (09:00)
[2017-06-21] MEDS: hydrOXYzine 10 MG TABLET PO SCH ×3 (09:00→20:54)
[2017-06-21] MEDS: INSULIN GLARGINE, HUMAN 1 UNIT/0.01 ML SQ SCH ×2 (10:08→20:52)
--- NOTE | 2017-06-21 11:16 | Internal Med Progress Note ---
Medical - PN: Subj Patient information: Note initiated : 06/21/17 at 11:14 am Service Date, if different from initiated Date: [] Patient: Camille Knox a 62 y/o F admitted on 06/19/17 for Right Uni Medial Andrew Knee. Chief Complaint: [] Interval history: Ms. Knox is a 62 year old Female with h/o CKD, JULIANA< morbid obesity, DM, HTN , presented to the hospital for right TKA, the patient underwent surgery for same today. Prior to the surgery the patient had osmel wheezing and coughing spells, the patient was given duonebs and was taken to the OR. The patient underwent surgery without much complications. In the post op peroid the patient was drowsy. The patient had received preop narcotics, but non during surgery or post op period. The patient did get some versed. THe patient had hypoxia and was brought to the Floor on a cpap machine. Medicine was consulted for further management. The patient on my evaluation was on autotitrating CPAP 9.5-14 settings, unable to determine any tidal volume on the device. The patient was drowsy, but able to open eyes to commands and follow commands and answer questions, but go back to sleep. Denies any acute complaints, but notes did have some shortness of breath and cough before surgery. chest x ray, abg and labs ordered. ABG showed Ph 7.30/45/75, on cpap, room air, pt moved to telemetery for further monitoring. Feb 6 Patient seen examined, no acute overnight issues, was on bipap all night, good tidal volumes, this AM abg better, she was much more awake, able to sit down in chair and tolerate po well avoid narcotic pain medications for now. continue to monitor. jun 7 Patient seen examined no acute ovenright issues needing bipap overnight patient still has significant pain not being controlled on present regime, start on oxycodone 5mg once daily x ray chest shows pna on antibiotics. Pertinent ROS: Denies headache, dizziness Denies chest pain, palpitations Denies cough or shortness of breath (improving) Denies abdominal pain, nausea or vomiting. - Constitutional Vitals: Vital Signs Temp Pulse Resp BP Pulse Ox 98.7 F 79 20 103/67 98 06/21/17 08:00 06/21/17 10:45 06/21/17 10:45 02/07/18 08:00 06/21/17 08:00 Period Temp Pulse Resp BP Sys/Agosto Pulse Ox Last 24 Hr 98.0 F-100.1 F 72-91 16-22 97-113/49-67 90-98 Intake and Output 06/20/17 06/21/17 06/21/17 21:59 05:59 13:59 Intake Total 1390 / 1390 340 / 340 100 / 100 Output Total 600 / 600 450 / 450 Balance 790 / 790 -110 / -110 100 / 100 Weight 225 lb 225 lb Intake & Output: Intake & Output 06/20/17 06/21/17 06/21/17 21:59 05:59 13:59 Intake Total 1390 / 1390 340 / 340 100 / 100 Output Total 600 / 600 450 / 450 Balance 790 / 790 -110 / -110 100 / 100 Weight 225 lb 225 lb Intake: IV 250 / 250 100 / 100 100 / 100 Oral 1140 / 1140 240 / 240 Output: Urine Catheter Amount 600 / 600 450 / 450 Other: Meal 1/2 sandwhich Percent of Meal Consumed 100% Feeding Ability Assist with Tray Set Up Exam: Constitutional; Afebrile, cooperative, alert, not in distress. Eyes- No icterus, , No periorbital swelling Ears- Ext ear normal, hearing normal to conversation. Neck- Midline trachea, supple Respiratory system: Air Entry equal on both sides, No crackles or wheezing, no rhonchi. CVS- Rate rhythm regular, S1,S2 heard, no gallop, no rub. Abdomen- Soft nontender abdomen, no organomegaly, no tenderness, no guarding or rigidity, FLIGHT TEST ENGINEER- AOOx3, moving all extremities, no gross focal deficit noted. Medical - PN: Obj Da - Labs CBC & Chem 7: 06/21/17 03:58 06/21/17 03:58 Labs: Abnormal Lab Results 06/21/17 06/21/17 06/21/17 03:58 03:58 03:58 WBC 11.3 H RBC 3.55 L Hgb 10.8 L Hct 32.5 L RDW 18.1 H Plt Count 134 L MPV 12.3 H Gran % Lymph % (Auto) [place] % (Auto) Gran # Lymph # (Auto) PT 15.9 H INR 1.3 H Potassium Carbon Dioxide Anion Gap BUN 57 H Creatinine 2.6 H Glucose 146 H Phosphorus Total Protein 5.8 L Albumin Triglycerides 172 H 06/20/17 06/20/17 06/19/17 03:52 03:52 17:24 WBC 14.1 H RBC 3.91 L Hgb 11.7 L Hct 35.7 L RDW 17.6 H Plt Count MPV 12.1 H Gran % 88.7 H Lymph % (Auto) 7.2 L [place] % (Auto) Gran # 12.5 H Lymph # (Auto) 1.0 L PT INR Potassium 5.3 H Carbon Dioxide 20 L 20 L Anion Gap 17.0 H BUN 41 H 32 H Creatinine 2.5 H 2.2 H Glucose 303 H 272 H Phosphorus 5.3 H 5.4 H Total Protein Albumin 3.1 L Triglycerides 164 H 06/19/17 17:24 WBC 13.2 H RBC Hgb Hct RDW 17.3 H Plt Count MPV 12.0 H Gran % 92.1 H Lymph % (Auto) 4.9 L [place] % (Auto) 0.6 L Gran # 12.1 H Lymph # (Auto) 0.6 L PT INR Potassium Carbon Dioxide Anion Gap BUN Creatinine Glucose Phosphorus Total Protein Albumin Triglycerides Meds: Medications Albuterol Sulfate (Ventolin) 1 puff INH Q4-6HP PRN PRN Reason: Shortness Of Breath Albuterol/Ipratropium (Duoneb) 3 ml NEB Q4HRT [facility] Last Admin: 06/21/17 10:42 Dose: 3 ml Allopurinol (Zylopriim) 150 mg PO DAILY [facility] Last Admin: 06/21/17 08:46 Dose: 150 mg Amlodipine Besylate (Norvasc) 5 mg PO QDAY [facility] Last Admin: 06/21/17 09:00 Dose: 5 mg Atorvastatin Calcium (Lipitor) 40 mg PO QDAY [facility] Last Admin: 06/21/17 08:47 Dose: 40 mg Bisacodyl (Dulcolax) 10 mg MS Q2-3DAYS PRN PRN Reason: Constipation Dextrose (Dextrose 50%) 50 ml IV UD PRN PRN Reason: Hypoglycemia Diagnostic Test (Pha) (Accu-Chek) 1 each FS ACHS [facility] Last Admin: 06/21/17 07:10 Dose: 1 each Docusate Sodium (Colace) 100 mg PO BID [facility] Last Admin: 06/21/17 08:48 Dose: 100 mg Flumazenil (Romazicon) 0.2 mg IV PRN PRN PRN Reason: Drowsiness Furosemide (Lasix) 40 mg PO DAILY [facility] Last Admin: 06/21/17 08:46 Dose: 40 mg Gabapentin (Neurontin) 300 mg PO BID [facility] Last Admin: 06/21/17 08:48 Dose: 300 mg Guaifenesin (Robitussin Dm) 10 ml PO Q4HP PRN PRN Reason: Cough Last Admin: 06/21/17 04:04 Dose: 10 ml Heparin Sodium (Porcine) (Heparin) 5,000 unit SQ Q12 [facility] Last Admin: 06/21/17 08:46 Dose: 5,000 unit Hydroxychloroquine Sulfate (Plaquenil) 200 mg PO BID [facility] Last Admin: 06/21/17 08:46 Dose: 200 mg Hydroxyzine HCl (Vistaril) 10 mg PO TID [facility] Last Admin: 06/21/17 09:00 Dose: 10 mg Acetaminophen (Ofirmev) 1,000 mg in 100 mls @ 200 mls/hr IV Q8 [facility] Last Infusion: 06/21/17 06:00 Dose: Infused Levofloxacin (Levaquin) 750 mg in 150 mls @ 100 mls/hr IV Q48H [facility] Last Infusion: 06/20/17 15:40 Dose: Infused Insulin Glargine (Lantus) 70 unit SQ QPM [facility] Last Admin: 06/20/17 20:41 Dose: 70 unit Insulin Glargine (Lantus) 60 unit SQ DAILY [facility] Last Admin: 06/21/17 10:08 Dose: 60 unit Insulin Human Lispro (Humalog) 0 unit SQ ACHS [facility] PRN Reason: Protocol Last Admin: 06/21/17 07:10 Dose: Not Given Magnesium Hydroxide (Milk Of Magnesia) 30 ml PO BIDP PRN PRN Reason: Constipation Methocarbamol (Robaxin) 750 mg PO TID [facility] Last Admin: 06/21/17 07:04 Dose: 750 mg Metoclopramide HCl (Reglan) 10 mg PO BIDAC [facility] Last Admin: 06/21/17 07:04 Dose: 10 mg Nicotine (Nicoderm) 21 mg TOPICAL DAILY@1000 [facility] Last Admin: 06/21/17 08:46 Dose: 21 mg Ondansetron HCl (Zofran) 4 mg IV Q4HP PRN PRN Reason: Nausea And Vomiting Last Admin: 06/19/17 21:00 Dose: 4 mg Oxycodone HCl (Roxicodone) 5 mg PO Q6HP PRN PRN Reason: Pain Last Admin: 06/21/17 08:53 Dose: 5 mg Pantoprazole Sodium (Protonix) 40 mg PO [facility] Last Admin: 06/21/17 07:05 Dose: 40 mg Polyethylene Glycol (Miralax) 17 gm PO DAILYP PRN PRN Reason: Constipation Prednisone (Prednisone) 40 mg PO [facility] Stop: 06/25/17 07:59 Last Admin: 06/21/17 08:48 Dose: 40 mg Senna (Senokot) 2 tab PO [facility] Last Admin: 06/20/17 20:12 Dose: 2 tab Sodium Biphosphate/Sodium Phosphate (Fleets Adult) 1 dose MS Q3-4DAYS PRN PRN Reason: Constipation Sodium Chloride (Saline Flush) 10 ml IV Q8 [facility] Last Admin: 06/21/17 05:34 Dose: 10 ml Spironolactone (Aldactone) 25 mg PO DAILY [facility] Last Admin: 06/21/17 08:48 Dose: 25 mg Throat Lozenges (Cepacol) 1 lozenge PO PRN PRN PRN Reason: Sore Throat Topiramate (Topamax) 100 mg PO BID [facility] Last Admin: 06/21/17 08:48 Dose: 100 mg Tramadol HCl (Ultram) 50 mg PO Q4HP PRN PRN Reason: Pain Last Admin: 06/21/17 04:05 Dose: 50 mg Venlafaxine HCl (Effexor Xr) 150 mg PO QDAY [facility] Last Admin: 06/21/17 08:47 Dose: 150 mg Warfarin Sodium (Coumadin) 5 mg PO DAILY@1400 [facility] Last Admin: 06/20/17 14:10 Dose: 5 mg Medical - PN: A/P - Time Spent With Patient Total time spent is greater than 50% in coordination of care (as documented) at patient's floor/unit and/or counseling patient: - Narrative A/P Narrative: A/P S/P TKA: management as per surgery Acute hypoxic/ Hypercapenic resp failure: Monitor on tele, off bipap now during day, needed overnight, try to see how she does without bipap today, likely from morbid obesity and use of sedatives qing op, Pneumonia: Low grade temp, x ray interpreted as pna, start on IV levofloxacin. blood cx pending. AMS: Multifactorial, likely from medications qing op as well as some co2 retention, which seems to be improving.. Mental status seems to be at baseline. Morbid obesity/ JULIANA: supposed to be on cpap, butn on compliant hence not on it now, on bipap for now. off this AM, may need home oxygen at discharge. DM: lantus and ssi, monitor glucose, was uncontrolled yesteday, but normal this AM. HTN: Resume home meds COPD: duonebs q4hrs for now with po prednisone, no wheezing on my exam but was wheezing preop as per Anesthesia. CHF: clinical not volume overloaded, cxr slightly more congested, but no significantly different from baseline. on oral diuretics to continue for now. CKD: check creat, d?c nsaids, advoid nephrotoxic meds, given her ckd, its likely that meds given in the periop period had prolonged half life in this patient. give saline 250cc today to see if any improvement. BUN can also rise with use of steroids. DVT: supposed to be on coumadin, check INR daily, hep sq Medical - PN: Qual - VTE Deep Vein Thrombosis/Pulmonary Embolism Present on Admission: No
[2017-06-21] MEDS: WARFARIN 5 MG TABLET PO SCH (13:43)
[2017-06-21] MEDS: SENNOSIDES 1 TABLET PO SCH (20:52)
[2017-06-22] MEDS: IPRATROPIUM/ALBUTEROL 3 ML AMPUL.NEB NEB SCH ×4 (03:15→14:34)
[2017-06-22] MEDS: traMADol 50 MG TABLET PO PRN ×2 (03:57→14:49)
[2017-06-22 04:40] LABS: Basophils # (Auto) 0 K/mcL (0.0-0.3); Basophils % (Auto) 0.3 % (0.0-2.0); Eosinophils # (Auto) 0.3 K/mcL (0.0-0.7); Eosinophils % (Auto) 2.5 % (0.0-7.0); Granulocytes % (Auto) 65.8 % (38.0-78.0); Lymphocytes # (Auto) 2.6 K/mcL (1.5-4.8); Lymphocytes % (Auto) 24.3 % (15.5-49.0); Mean Cell Volume 91.2 fL (80.0-100.0); Mean Corpuscular HGB Conc 33.1 g/dL (31.0-36.0); Mean Corpuscular Hemoglobin 30.2 pg (26.0-34.0); Monocytes # (Auto) 0.8 K/mcL (0.1-0.9); Monocytes % (Auto) 7.1 % (1.0-12.0); Platelet Count 137 K/mcL (140-440); RBC 3.65 M/mcL (4.00-5.20); Red Cell Distribution Width 17.9 % (11.5-14.5)
[2017-06-22 04:52] LABS: ALT/SGPT 7 U/l (0-40); Albumin 3.1 gm/dL (3.2-5.2); Albumin/Globulin Ratio 1.1 (1.0-2.3); Alkaline Phosphatase 60 U/L (39-117); Bilirubin,Direct < 0.2 mg/dL (0.0-0.3); Blood Urea Nitrogen 55 mg/dl (6-20); Gamma Glutamyl Transpeptidase 33 U/L (5-36); Uric Acid 6.2 mg/dL (2.5-8.0)
[2017-06-22] MEDS: ACETAMINOPHEN 1,000 MG/100 ML BOTTLE IV SCH ×2 (05:42→15:00)
[2017-06-22] MEDS: oxyCODONE HCL 5 MG TABLET PO PRN ×2 (05:42→12:31)
[2017-06-22] MEDS: 0.9 % SODIUM CHLORIDE 10 ML SYRINGE IV SCH ×2 (05:43→15:00)
--- NOTE | 2017-06-22 07:53 | Orthopedic Progress Note ---
Subjective Patient information: Note initiated : 06/22/17 at 7:51 am Service Date, if different from initiated Date: [] Patient: Camille Knox 62 y/o F admitted on 06/19/17 for Right Uni Medial Andrew Knee. Chief Complaint: [less pain and alert and oriented and walking well] Objective Vital signs: Vital Signs Temp Pulse Pulse Resp BP BP Pulse Ox 06/22/17 06:45 96 06/22/17 04:10 97.8 F 16 113/62 93 06/22/17 03:33 72 16 06/22/17 03:00 93 06/21/17 23:48 120/64 06/21/17 23:22 81 18 06/21/17 23:00 92 06/21/17 20:00 98.7 F 84 20 126/65 96 06/21/17 19:25 82 18 06/21/17 19:23 83 126/65 95 06/21/17 19:00 94 06/21/17 16:14 86 123/65 91 06/21/17 16:00 98.2 F 85 20 123/65 92 06/21/17 15:00 100 06/21/17 14:48 81 18 06/21/17 13:34 97.6 F 06/21/17 13:00 84 06/21/17 12:00 97.6 F 84 22 113/59 100 06/21/17 11:54 86 113/59 95 06/21/17 11:00 100 06/21/17 10:45 79 20 06/21/17 08:27 108/59 06/21/17 08:00 98.7 F 16 103/67 98 Intake and Output 06/21/17 06/22/17 06/22/17 21:59 05:59 13:59 Intake Total 1040 / 1040 700 / 700 100 / 100 Output Total 1750 / 1750 300 / 300 Balance -710 / -710 400 / 400 100 / 100 Intake: IV 100 / 100 100 / 100 100 / 100 Oral 940 / 940 GI Tube Flush 600 / 600 Output: Urine Catheter Amount 800 / 800 Void Amount 950 / 950 300 / 300 Other: Meal hs snack Percent of Meal Consumed 100% Feeding Ability Assist with Tray Set Up Weight 225 lb Intake & Output: Intake & Output 06/21/17 06/22/17 06/22/17 21:59 05:59 13:59 Intake Total 1040 / 1040 700 / 700 100 / 100 Output Total 1750 / 1750 300 / 300 Balance -710 / -710 400 / 400 100 / 100 Weight 225 lb Intake: IV 100 / 100 100 / 100 100 / 100 Oral 940 / 940 GI Tube Flush 600 / 600 Output: Urine Catheter Amount 800 / 800 Void Amount 950 / 950 300 / 300 Other: Meal hs snack Percent of Meal Consumed 100% Feeding Ability Assist with Tray Set Up Incision: Yes healing Incision clean and dry: Yes Dressing: Yes clean Weight bearing status: full Neurological exam IM: Yes oriented X3, Yes neurovascular intact Extremities exam IM: Yes Foot pink and warm (DC Home), Yes neurovascular intact - Labs CBC & BMP: 06/22/17 03:35 06/22/17 03:35 Labs: Orthopedic Labs 06/22/17 06/21/17 06/20/17 03:35 03:58 03:52 PT Pending 15.9 H 14.4 INR Pending 1.3 H 1.1 APTT 06/14/17 11:12 PT 13.6 INR 1.0 APTT 33 06/22/17 06/21/17 06/20/17 03:35 03:58 03:52 Hgb 11.0 L 10.8 L 11.7 L Hct 33.2 L 32.5 L 35.7 L 06/19/17 06/14/17 17:24 11:12 Hgb 12.7 13.6 Hct 38.0 41.2
[2017-06-22] MEDS: METOCLOPRAMIDE 10 MG TABLET PO SCH (07:56)
[2017-06-22] MEDS: PANTOPRAZOLE 40 MG TABLET PO SCH (07:56)
--- NOTE | 2017-06-22 07:56 | Discharge Summary ---
Ortho Discharge - TKA - Patient Instructions Diet: Regular Diet Activity: activity as tolerated, weight bearing as tolerated Total Knee Protocol: For Total Knee: Start ROM CALVIN with stationary bike or rocking chair. Work on gaining full extension of knee. Posterior dislocation precautions provided. Hip abductor strengthening and gait training instructions provided. Apply Cryocuff as instructed. Dressing Care: Aquacel Ag - leave on for 5 days - Follow Up Plan Follow Up Appointments: Tirso Ladd MD [Physician] - 07/04/17 10:50 am Disposition: Home Health Service Prognosis: Good Rehab Potential: Good I certify that the patient requires SNF services: No Overall status at discharge: patient is progressing back to baseline - Orders For Discharge Prescriptions: HYDROcodone/APAP 10/325MG [[place] 10-325Mg] 1 - 2 tab PO Q4H PRN #60 tab PRN Reason: Pain oxyCODONE [Oxycontin] 20 mg PO BID #30 tab.er.12h Warfarin [Coumadin] 5 mg PO DAILY #30 tab Additional Discharge Orders: OT Discharge Order Location: Determined By Patient Physical Therapy at Discharge - TKA Location: Determined By Patient Toilet Riser Discharge Order Location: Determined By Patient Walker Location: Determined By Patient
[2017-06-22] MEDS: INSULIN LISPRO 1 UNIT/0.01 ML UNIT SQ SCH ×2 (08:02→12:32)
[2017-06-22] MEDS: FUROSEMIDE 40 MG TABLET PO SCH (08:30)
[2017-06-22] MEDS: amLODIPine 5 MG TABLET PO SCH (08:30)
[2017-06-22] MEDS: GABAPENTIN 300 MG CAPSULE PO SCH (08:30)
[2017-06-22] MEDS: DOCUSATE SODIUM 100 MG CAPSULE PO SCH (08:30)
[2017-06-22] MEDS: ALLOPURINOL 300 MG TABLET PO SCH (08:30)
[2017-06-22] MEDS: HYDROXYCHLOROQUINE 200 MG TABLET PO SCH (08:30)
[2017-06-22] MEDS: SPIRONOLACTONE 25 MG TABLET PO SCH (08:31)
[2017-06-22] MEDS: ATORVASTATIN 20 MG TABLET PO SCH (08:31)
[2017-06-22] MEDS: predniSONE 20 MG TABLET PO SCH (08:31)
[2017-06-22] MEDS: VENLAFAXINE 150 MG CAP.XL.24H PO SCH (08:32)
[2017-06-22] MEDS: HEPARIN 5,000 UNIT/ML VIAL SQ SCH (08:34)
[2017-06-22] MEDS: hydrOXYzine 10 MG TABLET PO SCH ×2 (08:34→14:43)
[2017-06-22] MEDS: METHOCARBAMOL 750 MG TABLET PO SCH ×2 (08:34→14:43)
[2017-06-22] MEDS: TOPIRAMATE 100 MG TABLET PO SCH (08:51)
[2017-06-22] MEDS ORDERED: oxyCODONE 20 MG TAB.ER.12H PO SCH (09:00)
[2017-06-22] MEDS: INSULIN GLARGINE, HUMAN 1 UNIT/0.01 ML SQ SCH (09:18)
[2017-06-22] MEDS: NICOTINE 21 MG PATCH TOPICAL SCH (09:40)
--- NOTE | 2017-06-22 10:52 | Discharge Summary ---
Medical - DS: Prov Patient information: Note initiated : 06/22/17 at 10:48 am Service Date, if different from initiated Date: [] Patient: Camille Knox 62 y/o F admitted on 06/19/17 for Right Uni Medial Andrew Knee. Chief Complaint: [] Date of admission: 06/19/17 14:00 Discharge date: 06/22/17 Primary care physician: Arianne Lizarraga Consults: 06/19/17 17:00 Consult to Physician [CONS] Routine Comment: Consulting Provider: Danielle Ashraf Reason For Exam: Physician to Consult Discharging clinician: Danielle Ashraf Medical - DS: Meds - Discharge Medications Prescriptions: HYDROcodone/APAP 10/325MG [[place] 10-325Mg] 1 - 2 tab PO Q4H PRN #60 tab PRN Reason: Pain Levofloxacin 750 mg PO Q48 #3 tab oxyCODONE [Oxycontin] 20 mg PO BID #30 tab.er.12h predniSONE [Prednisone] 40 mg PO QAMCC #4 tab Warfarin [Coumadin] 5 mg PO DAILY #30 tab Active and Home Medications: Home Medications atorvastatin 40 mg tablet 40 mg PO QDAY 11/26/15 [History Confirmed 06/19/17 Last Taken 06/18/17] exenatide 5 mcg/dose (250 mcg/mL)1.2 mL subcutaneous pen injector 0.04 ml SUB-Q BID 11/26/15 [History Confirmed 06/19/17 Last Taken 06/18/17] gabapentin 300 mg capsule 300 mg PO BID cap 11/26/15 [History Confirmed Last Taken 06/18/17] hydrocodone 10 mg-acetaminophen 325 mg tablet 1 tab PO Q4H PRN 11/26/15 [ History Confirmed 06/19/17 Last Taken 06/18/17] insulin glargine (U-100) 100 unit/mL subcutaneous solution 60 unit SUB-Q QAM ml 11/26/15 [History Confirmed 06/19/17 Last Taken 06/18/17] metoclopramide 10 mg tablet 10 mg PO BID tab 11/26/15 [History Confirmed Last Taken 06/18/17] topiramate 100 mg tablet 100 mg PO BID 11/26/15 [History Confirmed 06/19/17 Last Taken 06/18/17] venlafaxine ER 150 mg capsule,extended release 24 hr 150 mg PO QDAY 11/26/15 [ History Confirmed 06/19/17 Last Taken 06/18/17] Furosemide [Lasix] 40 mg PO QDAY tab 03/03/16 [History Confirmed 06/19/17 Last Taken 06/18/17] Pantoprazole [Protonix] 40 mg PO QAMAC #30 tab 07/06/16 [Rx Confirmed 06/19/17 Last Taken 06/18/17] hydroxychloroquine 200 mg tablet 200 mg PO BID #60 tab 12/26/16 [Rx Confirmed Last Taken 06/18/17] amlodipine 5 mg tablet 5 mg PO QDAY #30 tab 06/01/17 [Rx Confirmed 06/19/17 Last Taken 06/19/17 06:30] Allopurinol [Zyloprim] 150 mg PO QDAY 06/14/17 [History Confirmed 06/19/17 Last Taken 06/18/17] Insulin Glargine, Human [Lantus] 70 unit SQ QPM 06/14/17 [History Confirmed 09/29 Last Taken 06/18/17] Methocarbamol [Robaxin-750] 750 mg PO TID 06/14/17 [History Confirmed 06/19/17 Last Taken 06/18/17] Potassium Chloride [Klor-Con] 20 meq PO BIDCC 06/14/17 [History Confirmed Last Taken 06/18/17] Pregabalin [Lyrica] 150 mg PO BID 06/14/17 [History Confirmed 06/19/17 Last Taken 06/18/17] hydrOXYzine [Vistaril] 10 mg PO TID 06/14/17 [History Confirmed 06/19/17 Last Taken 06/18/17] Albuterol Sulfate [Proair Respiclick] 1 puff IH Q4-6HP PRN 06/19/17 [History Confirmed 06/19/17 Last Taken 06/18/17] Spironolactone [Aldactone] 25 mg PO DAILY 06/19/17 [History Confirmed 06/19/17 Last Taken 06/18/17] HYDROcodone/APAP 10/325MG [[place] 10-325Mg] 1 - 2 tab PO Q4H PRN #60 tab [Rx Last Taken Unknown] Warfarin [Coumadin] 5 mg PO DAILY #30 tab 06/22/17 [Rx Last Taken Unknown] oxyCODONE [Oxycontin] 20 mg PO BID #30 tab.er.12h 06/22/17 [Rx Last Taken Unknown] Medical - DS: Hosp Hospital course: Ms. Knox is a 62 year old Female with h/o CKD, JULIANA< morbid obesity, DM, HTN , presented to the hospital for right TKA, Prior to the surgery the patient had osmel wheezing and coughing spells, the patient was given duonebs and was taken to the OR. The patient underwent surgery without much complications. In the post op period the patient was drowsy. The patient had received preop narcotics , but non during surgery or post op period. The patient did get some versed. The patient had hypoxia and was brought to the Floor on a cpap machine. Medicine was consulted for further management. The patient on my evaluation was on autotitrating CPAP 9.5-14 settings, unable to determine any tidal volume on the device. The patient was drowsy, but able to open eyes to commands and follow commands and answer questions, but go back to sleep. Denies any acute complaints, but notes did have some shortness of breath and cough before surgery. Patient had acute on chr resp failure, she had some co2 retention, which is likely due to medications used periop. she also needs a cpap when she sleeps The patient was treated with duonebs and steroids for possible copd. X ray showed pna, and treated with levofloxacin which she responded well too, the patient microbiology has been negative. The patient needed bipap for 2 nights, after which she did well, without bipap. The patient has obstructive sleep apnea, and needs to be on CPAP at discharge, however she was prescribed CPAP at one time, and was taken away by PCP after noting she did not use it as often as she needed. IT seems that the mask came off when she slept? The patient is willing to try this again. Advised to talk with PCP to see if can get another trial likely with a different mask. The patient had elevated glucose due to steroids which I expect to be there for 2 more days, but resolve, she is on high doses of insulin and her fasting glucose is well controlled. Discharge diagnosis: TKA< resp failure, pneumonia. - Time Spent with Patient Total time spent providing and/or coordinating discharge services: Greater than 30 minutes Medical - DS: Exam - Constitutional Vitals: Vital Signs Temp Pulse Pulse Resp BP BP Pulse Ox 06/22/17 07:00 96 06/22/17 06:45 96 06/22/17 04:10 97.8 F 16 113/62 93 06/22/17 03:33 72 16 06/22/17 03:00 93 06/21/17 23:48 120/64 06/21/17 23:22 81 18 06/21/17 23:00 92 06/21/17 20:00 98.7 F 84 20 126/65 96 06/21/17 19:25 82 18 06/21/17 19:23 83 126/65 95 06/21/17 19:00 94 06/21/17 16:14 86 123/65 91 06/21/17 16:00 98.2 F 85 20 123/65 92 06/21/17 15:00 100 06/21/17 14:48 81 18 06/21/17 13:34 97.6 F 06/21/17 13:00 84 06/21/17 12:00 97.6 F 84 22 113/59 100 06/21/17 11:54 86 113/59 95 06/21/17 11:00 100 Intake and Output 06/21/17 06/22/17 06/22/17 21:59 05:59 13:59 Intake Total 1040 / 1040 700 / 700 100 / 100 Output Total 1750 / 1750 300 / 300 Balance -710 / -710 400 / 400 100 / 100 Intake: IV 100 / 100 100 / 100 100 / 100 Oral 940 / 940 GI Tube Flush 600 / 600 Output: Urine Catheter Amount 800 / 800 Void Amount 950 / 950 300 / 300 Other: Meal hs snack Percent of Meal Consumed 100% Feeding Ability Assist with Tray Set Up Weight 225 lb General appearance: morbidly obese - Respiratory Respiratory exam: Present: normal respiratory exam. Absent: accessory muscle use, respiratory distress, rhonchi, stridor, wheezes - Cardiovascular Cardiovascular exam: Present: normal rate and rhythm, +S1, +S2 - GI/Abdominal GI/Abdominal exam: Present: soft Additional comments: large pannus - Neurological Exam Neurological exam: Present: alert, CN II-XII intact, oriented X3 Medical - DS: Data Labs on day of discharge: Labs from last 24 hours 06/22/17 06/22/17 06/22/17 03:35 03:35 03:35 WBC 10.8 RBC 3.65 L Hgb 11.0 L Hct 33.2 L MCV 91.2 MCH 30.2 MCHC 33.1 RDW 17.9 H Plt Count 137 L MPV 11.9 H Gran % 65.8 Lymph % (Auto) 24.3 [place] % (Auto) 7.1 Eos % (Auto) 2.5 Baso % (Auto) 0.3 Gran # 7.1 Lymph # (Auto) 2.6 [place] # (Auto) 0.8 Eos # (Auto) 0.3 Baso # (Auto) 0 PT Pending INR Pending Sodium 144 Potassium 4.4 Chloride 110 H Carbon Dioxide 20 L Anion Gap 14.0 BUN 55 H Creatinine 2.0 H GFR Calculation 26 Glucose 117 H Uric Acid 6.2 Calcium 8.9 Phosphorus 2.9 Magnesium 2.0 Total Bilirubin < 0.2 Direct Bilirubin < 0.2 GGT 33 AST 18 ALT 7 Alkaline Phosphatase 60 Lactate Dehydrogenase 195 Total Protein 6.0 Albumin 3.1 L Globulin 2.9 Albumin/Globulin Ratio 1.1 Triglycerides 202 H Preliminary micro results at discharge 06/20/17 14:15 Blood Culture - Preliminary Blood 06/20/17 14:22 Blood Culture - Preliminary Blood Medical - DS: A/P - Patient/Caregiver Discharge Instructions Activity: as per physical therapy, increase activity as tolerated Diet: Cardiac, Renal/Consistent Carbs Additional Instructions: Please follow up with PCP 1 1 week take steroids for 2 more days Take antibiotics every other day (levofloxacin 750m,g) for total of 3 doses. Go to the ER if worsening symptoms, chest pain or shortness of breath your glucose levels can be high for couple of days due to effect of steroids, cut back on carbohydrate consumption and monitor your glucose closely. Discuss with your PCP on ways to manage your diabetes well. You can also consider to follow up with [facility] outpatient Diabetes education Prescriptions: HYDROcodone/APAP 10/325MG [[place] 10-325Mg] 1 - 2 tab PO Q4H PRN #60 tab PRN Reason: Pain Levofloxacin 750 mg PO Q48 #3 tab oxyCODONE [Oxycontin] 20 mg PO BID #30 tab.er.12h predniSONE [Prednisone] 40 mg PO [facility] #4 tab Warfarin [Coumadin] 5 mg PO DAILY #30 tab Other Amb Orders: OT Discharge Order Location: Determined By Patient Physical Therapy at Discharge - TKA Location: Determined By Patient Toilet Riser Discharge Order Location: Determined By Patient Walker Location: Determined By Patient - Follow up Plan Follow up with: Tirso Ladd MD [Physician] - 07/04/17 10:50 am Disposition: Home Health Service Prognosis: Good Rehab Potential: Good I certify that the patient requires SNF services: No Overall status at discharge: patient is progressing back to baseline Medical - DS: Qual - VTE Deep Vein Thrombosis/Pulmonary Embolism Present on Admission: No
[2017-06-22] MEDS: WARFARIN 5 MG TABLET PO SCH (14:29)
[2017-06-22] MEDS: LEVOFLOXACIN 750 MG/150 ML BAG IV SCH (15:00)
== END 2017-06-22 15:10 | disposition home health service (06) | DRG 469 ==
LOC: SUR 07:58 → MEDSUR 14:00 → ICU 17:50
PROVIDERS: ADMIT Orthopaedic Surgery; ATTEND Orthopaedic Surgery

== ENCOUNTER 2017-12-12 17:37 | Inpatient (IN) ==
[2017-12-12] MEDS ORDERED: 0.9 % SODIUM CHLORIDE 1,000 ML IV ONE (17:48)
--- NOTE | 2017-12-12 17:52 | Emergency Department Note ---
Neuro HPI - General Chief Complaint: Neuro Symptoms/Deficit Stated Complaint: weakness Time Seen by Provider: 12/12/17 17:49 Source: patient Mode of arrival: wheelchair Limitations: no limitations - History of Present Illness HPI Narrative: 62-year-old female presents with a friend. Friend states she has had decreased level of consciousness since about 2:00 yesterday. Friend originally thought she was just taken out but she is really never woke up. She will answer with one-word questions but does not really follow commands and friend also states she has had problems with urination, very frequent urination and cannot make it to the bathroom and has been pain all over and has a strong odor smell of urine. No nausea or vomiting, or diarrhea that the friend knows of. No fever chills according to her friend but she is not sure. Patient is not able to give us any history at this time. Patient denies any pain. No shortness of breath. Will follow some commands slightly another time is just does not follow commands at all. - Related Data Home Medications: Home Medications Medication Instructions Recorded Confirmed atorvastatin 40 mg tablet 40 mg PO QDAY 11/26/15 12/12/17 exenatide 5 mcg/dose (250 10 mcg SUB-Q BID 11/26/15 12/12/17 mcg/mL)1.2 mL subcutaneous pen injector gabapentin 300 mg capsule 300 mg PO BID cap 11/26/15 12/12/17 topiramate 100 mg tablet 100 mg PO BID 11/26/15 12/12/17 venlafaxine ER 150 mg 75 mg PO TID 11/26/15 12/12/17 capsule,extended release 24 hr Furosemide [Lasix] 40 mg PO BID tab 03/03/16 12/12/17 Insulin Glargine, Human [Lantus] 60 unit SQ BID 06/14/17 12/12/17 Pregabalin [Lyrica] 150 mg PO BID 06/14/17 12/12/17 hydrOXYzine [Vistaril] 10 mg PO TID 06/14/17 12/12/17 Spironolactone [Aldactone] 25 mg PO DAILY 06/19/17 12/12/17 cyclobenzaprine 10 mg tablet 10 mg PO BID 30 Days #90 11/22/17 12/12/17 Albuterol Sulfate [Ventolin] 2 puff INH Q4-6HP PRN 12/12/17 12/12/17 Insulin Aspart [Novolog] 15 unit SQ HS 12/12/17 12/12/17 Insulin Aspart [Novolog] 30 unit SQ .COMPLEX 12/12/17 12/12/17 Metoclopramide [Reglan] 10 mg PO BIDAC 12/12/17 12/12/17 Pantoprazole [Protonix] 40 mg PO DAILY 12/12/17 12/12/17 Salmeterol Xinafoate [Serevent 50 mcg IH BID 12/12/17 12/12/17 Diskus] rOPINIRole HCL [Requip] 1 mg PO TID 12/12/17 12/12/17 Previous Rx's Medication Instructions Recorded amlodipine 5 mg tablet 5 mg PO QDAY #30 tab 06/01/17 HYDROcodone/APAP 10/325MG [[place] 1 - 2 tab PO Q4H PRN #60 tab 06/22/17 10-325Mg] oxyCODONE [Oxycontin] 20 mg PO BID #30 tab.er.12h 06/22/17 hydroxychloroquine 200 mg tablet 200 mg PO BID #60 tab 11/22/17 allopurinol 100 mg tablet See Label Instructions PO QDAY #60 11/27/17 tab anakinra 100 mg/0.67 mL 100 mg SUB-Q .Q48hrs #10.05 ml 12/05/17 subcutaneous syringe Allergies/Adverse Reactions: Allergies Allergy/AdvReac Type Severity Reaction Status Date / Time sulfamethoxazole Allergy Severe RASH, RED, Verified 12/12/17 17:43 [From BACTRIM] BURNING FEELING trimethoprim [From BACTRIM] Allergy Severe RASH, RED, Verified 12/12/17 17:43 BURNING FEELING codeine Allergy Unknown Other Verified 12/12/17 17:43 lisinopril [LISINOPRIL] AdvReac Intermediate COUGHING Verified 12/12/17 17:43 morphine [MORPHINE] AdvReac Mild DOESN'T Verified 12/12/17 17:43 SEEM TO HELP Review of Systems All systems ED: reviewed and negative except as stated. Past Medical History - Past Medical History Source: old records reviewed Medical history: Reports: arthritis, CHF, COPD, coronary artery disease, DM, hypertension, renal disease, TIA, other (Pancreatitis) Psychiatric history: Reports: depression Surgical history ED: Reports: cholecystectomy, other (Right total knee replacement June 19, 2017) - Social History smoking status: Current every day smoker Alcohol use: Reports: None Drug use: Reports: none. Denies: marijuana Physical Exam Limitations: no limitations General appearance: lethargic Head: atraumatic, normocephalic, normal inspection Eye: Present: normal appearance. Absent: conjunctival injection ENT: mucous membranes moist Neck: Present: normal inspection, trachea midline. Absent: tenderness, lymphadenopathy Chest: Present: normal inspection, symmetric chest wall rise Respiratory: Present: other (dimished bases bilat). Absent: respiratory distress, wheezes, accessory muscle use Cardiovascular: Present: regular rate Abdominal: Present: soft, normal bowel sounds. Absent: distention, tenderness, guarding Extremities: Present: normal inspection, pedal edema (1+) Neurological: Present: other (At times cannot at times she does not follow commands but other times she will and will stick out her tongue, raise her eyebrows, puff out her cheeks when checking cranial nerves. Does not try to squeeze hands at all or move feet). Absent: alert, oriented X3 (Does not respond to questions and just moans.) Patient oriented to: Absent: person, place, time Coma Scale Eye Opening: To Voice Coma Scale Motor Response: Withdraws to Pain Coma Scale Verbal Response: Incomprehensible Coma Scale Total: 9 Skin: Present: warm, dry, intact, normal color Course Course Narrative: At 2124 I did speak with the hospitalist, Dr. Peterson who suggested we CT her abdomen and pelvis to make sure we are not missing a and if that is negative consider a lumbar puncture. Due to shift change Dr. La to assume care. Vital Signs Temperature 98.3 F 12/12/17 17:38 Pulse Rate 66 12/12/17 17:38 Respiratory Rate 24 H 12/12/17 17:38 Pulse Oximetry (%) 97 12/12/17 17:38 Temperature 97.6 F 12/13/17 04:01 Pulse Rate 72 12/13/17 05:15 Respiratory Rate 19 12/13/17 05:15 Blood Pressure 132/67 12/13/17 04:01 Pulse Oximetry (%) 97 12/13/17 05:15 Neuro Symptoms/Deficit - Lab Data Result diagrams: 12/13/17 04:15 12/13/17 04:15 Lab Results 12/12/17 12/12/17 12/12/17 Range/Units 17:53 17:53 17:53 WBC 4.7 (4.5-11.0) K/mcL RBC 4.20 (4.00-5.20) M/mcL Hgb 12.6 (12.0-15.0) g/dL Hct 37.5 (36.0-48.0) % MCV 89.3 (80.0-100.0) fL MCH 30.0 (26.0-34.0) pg MCHC 33.6 (31.0-36.0) g/dL RDW 15.1 H (11.5-14.5) % Plt Count 133 L (140-440) K/mcL MPV 11.8 H (7.4-10.4) fL Gran % 55.7 (38.0-78.0) % Lymph % (Auto) 32.5 (15.5-49.0) % [place] % (Auto) 10.4 (1.0-12.0) % Eos % (Auto) 0.6 (0.0-7.0) % Baso % (Auto) 0.8 (0.0-2.0) % Gran # 2.6 (1.8-8.0) K/mcL Lymph # (Auto) 1.5 (1.5-4.8) K/mcL [place] # (Auto) 0.5 (0.1-0.9) K/mcL Eos # (Auto) 0 (0.0-0.7) K/mcL Baso # (Auto) 0 (0.0-0.3) K/mcL VBG Lactic Acid 1.4 (0.5-2.2) mmol/L Carbon Monoxide Screen (0.0-1.5) % Sodium 140 (133-145) mmol/L Potassium 4.0 (3.3-5.1) mmol/L Chloride 104 (96-108) mmol/L Carbon Dioxide 22 (22-30) mmol/L Anion Gap 14.0 (8-16) BUN 45 H (6-20) mg/dl Creatinine 2.1 H (0.6-1.1) mg/dl GFR Calculation 25 Glucose 460 H* (70-105) mg/dL Calcium 9.5 (8.6-10.4) mg/dl Total Bilirubin 0.3 (0.0-1.0) mg/dL AST 23 (0-37) U/l ALT 23 (0-40) U/l Alkaline Phosphatase 115 (39-117) U/L Ammonia (11-51) umol/L Total Protein 6.8 (5.9-8.4) gm/dL Albumin 3.7 (3.2-5.2) gm/dL Globulin 3.1 (2.2-3.7) gm/dL Albumin/Globulin Ratio 1.2 (1.0-2.3) Urine Color Urine Appearance Urine pH (5.0-9.0) Ur Specific [place] (1.000-1.035) Urine Protein (NEG) mg/dL Urine Glucose (UA) (NEG) mg/dL Urine Ketones (NEG) mg/dL Urine Occult Blood (<0.03) mg/dL Urine Nitrate (NEG) Urine Bilirubin (NEG) mg/dL Urine Urobilinogen (NEG) mg/dL Ur Leukocyte Esterase (NEG) /uL Urine RBC (0-1) /hpf Urine WBC (0-4) /hpf Ur Squamous Epith Cells (0-4) /hpf Urine Bacteria (0) /hpf Urine Mucus (0) /hpf Ur Culture Indicated? CSF Source CSF Appearance CSF Color CSF RBC (0-1) /cumm CSF Diff Total Count CSF Total Nucleated Auto (0-5) /cumm CSF Neutrophils CSF Lymphocytes CSF Reactive Lymphs CSF Monocytes CSF Eosinophils % CSF Basophils CSF Macrophages CSF Plasma Cells CSF Diff Comment CSF Glucose (45-75) mg/dL CSF Total Protein (15.0-45) mg/dL Urine Opiates Screen (NONDETECTED) Ur Opiates Confirm Ur Oxycodone Screen (NONDETECTED) Urine Methadone Screen (NONDETECTED) Ur Methadone Confirm Ur Barbiturates Screen (NONDETECTED) Ur Barbiturate Confirm Ur Phencyclidine Scrn (NONDETECTED) Urine PCP Confirm Ur Amphetamines Screen (NONDETECTED) U Amphetamines Confirm U Benzodiazepines Scrn (NONDETECTED) U Benzodiazepine Confm Urine Cocaine Screen (NONDETECTED) Urine Cocaine Confirm U Cannabinoids Confirm U Marijuana (THC) Screen (NONDETECTED) 12/12/17 12/12/17 12/12/17 Range/Units 18:32 18:32 19:38 WBC (4.5-11.0) K/mcL RBC (4.00-5.20) M/mcL Hgb (12.0-15.0) g/dL Hct (36.0-48.0) % MCV (80.0-100.0) fL MCH (26.0-34.0) pg MCHC (31.0-36.0) g/dL RDW (11.5-14.5) % Plt Count (140-440) K/mcL MPV (7.4-10.4) fL Gran % (38.0-78.0) % Lymph % (Auto) (15.5-49.0) % [place] % (Auto) (1.0-12.0) % Eos % (Auto) (0.0-7.0) % Baso % (Auto) (0.0-2.0) % Gran # (1.8-8.0) K/mcL Lymph # (Auto) (1.5-4.8) K/mcL [place] # (Auto) (0.1-0.9) K/mcL Eos # (Auto) (0.0-0.7) K/mcL Baso # (Auto) (0.0-0.3) K/mcL VBG Lactic Acid (0.5-2.2) mmol/L Carbon Monoxide Screen (0.0-1.5) % Sodium (133-145) mmol/L Potassium (3.3-5.1) mmol/L Chloride (96-108) mmol/L Carbon Dioxide (22-30) mmol/L Anion Gap (8-16) BUN (6-20) mg/dl Creatinine (0.6-1.1) mg/dl GFR Calculation Glucose (70-105) mg/dL Calcium (8.6-10.4) mg/dl Total Bilirubin (0.0-1.0) mg/dL AST (0-37) U/l ALT (0-40) U/l Alkaline Phosphatase (39-117) U/L Ammonia 15 (11-51) umol/L Total Protein (5.9-8.4) gm/dL Albumin (3.2-5.2) gm/dL Globulin (2.2-3.7) gm/dL Albumin/Globulin Ratio (1.0-2.3) Urine Color Yellow Urine Appearance Clear Urine pH 6.0 (5.0-9.0) Ur Specific [place] 1.014 (1.000-1.035) Urine Protein 30 A (NEG) mg/dL Urine Glucose (UA) >=500 A (NEG) mg/dL Urine Ketones Neg (NEG) mg/dL Urine Occult Blood Neg (<0.03) mg/dL Urine Nitrate Neg (NEG) Urine Bilirubin Neg (NEG) mg/dL Urine Urobilinogen Neg (NEG) mg/dL Ur Leukocyte Esterase Neg (NEG) /uL Urine RBC 1 (0-1) /hpf Urine WBC < 1 (0-4) /hpf Ur Squamous Epith Cells 0 (0-4) /hpf Urine Bacteria 0 (0) /hpf Urine Mucus Few (0) /hpf Ur Culture Indicated? No CSF Source CSF Appearance CSF Color CSF RBC (0-1) /cumm CSF Diff Total Count CSF Total Nucleated Auto (0-5) /cumm CSF Neutrophils CSF Lymphocytes CSF Reactive Lymphs CSF Monocytes CSF Eosinophils % CSF Basophils CSF Macrophages CSF Plasma Cells CSF Diff Comment CSF Glucose (45-75) mg/dL CSF Total Protein (15.0-45) mg/dL Urine Opiates Screen Suspect positive A (NONDETECTED) Ur Opiates Confirm Not Reportable Ur Oxycodone Screen None detected (NONDETECTED) Urine Methadone Screen None detected (NONDETECTED) Ur Methadone Confirm Not Reportable Ur Barbiturates Screen None detected (NONDETECTED) Ur Barbiturate Confirm Not Reportable Ur Phencyclidine Scrn None detected (NONDETECTED) Urine PCP Confirm Not Reportable Ur Amphetamines Screen None detected (NONDETECTED) U Amphetamines Confirm Not Reportable U Benzodiazepines Scrn None detected (NONDETECTED) U Benzodiazepine Confm Not Reportable Urine Cocaine Screen None detected (NONDETECTED) Urine Cocaine Confirm Not Reportable U Cannabinoids Confirm Not Reportable U Marijuana (THC) Screen None detected (NONDETECTED) 12/12/17 12/13/17 12/13/17 Range/Units 22:18 00:34 00:34 WBC (4.5-11.0) K/mcL RBC (4.00-5.20) M/mcL Hgb (12.0-15.0) g/dL Hct (36.0-48.0) % MCV (80.0-100.0) fL MCH (26.0-34.0) pg MCHC (31.0-36.0) g/dL RDW (11.5-14.5) % Plt Count (140-440) K/mcL MPV (7.4-10.4) fL Gran % (38.0-78.0) % Lymph % (Auto) (15.5-49.0) % [place] % (Auto) (1.0-12.0) % Eos % (Auto) (0.0-7.0) % Baso % (Auto) (0.0-2.0) % Gran # (1.8-8.0) K/mcL Lymph # (Auto) (1.5-4.8) K/mcL [place] # (Auto) (0.1-0.9) K/mcL Eos # (Auto) (0.0-0.7) K/mcL Baso # (Auto) (0.0-0.3) K/mcL VBG Lactic Acid (0.5-2.2) mmol/L Carbon Monoxide Screen 4.7 H (0.0-1.5) % Sodium (133-145) mmol/L Potassium (3.3-5.1) mmol/L Chloride (96-108) mmol/L Carbon Dioxide (22-30) mmol/L Anion Gap (8-16) BUN (6-20) mg/dl Creatinine (0.6-1.1) mg/dl GFR Calculation Glucose (70-105) mg/dL Calcium (8.6-10.4) mg/dl Total Bilirubin (0.0-1.0) mg/dL AST (0-37) U/l ALT (0-40) U/l Alkaline Phosphatase (39-117) U/L Ammonia (11-51) umol/L Total Protein (5.9-8.4) gm/dL Albumin (3.2-5.2) gm/dL Globulin (2.2-3.7) gm/dL Albumin/Globulin Ratio (1.0-2.3) Urine Color Urine Appearance Urine pH (5.0-9.0) Ur Specific [place] (1.000-1.035) Urine Protein (NEG) mg/dL Urine Glucose (UA) (NEG) mg/dL Urine Ketones (NEG) mg/dL Urine Occult Blood (<0.03) mg/dL Urine Nitrate (NEG) Urine Bilirubin (NEG) mg/dL Urine Urobilinogen (NEG) mg/dL Ur Leukocyte Esterase (NEG) /uL Urine RBC (0-1) /hpf Urine WBC (0-4) /hpf Ur Squamous Epith Cells (0-4) /hpf Urine Bacteria (0) /hpf Urine Mucus (0) /hpf Ur Culture Indicated? CSF Source Tube #1 Tube #4 CSF Appearance Clear Clear CSF Color Colorless Colorless CSF RBC 345 H 4 H (0-1) /cumm CSF Diff Total Count TNP TNP CSF Total Nucleated Auto 2 1 (0-5) /cumm CSF Neutrophils Not Reportable Not Reportable CSF Lymphocytes Not Reportable Not Reportable CSF Reactive Lymphs Not Reportable Not Reportable CSF Monocytes Not Reportable Not Reportable CSF Eosinophils % Not Reportable Not Reportable CSF Basophils Not Reportable Not Reportable CSF Macrophages Not Reportable Not Reportable CSF Plasma Cells Not Reportable Not Reportable CSF Diff Comment Not Reportable Not Reportable CSF Glucose 248 H* (45-75) mg/dL CSF Total Protein 52 H (15.0-45) mg/dL Urine Opiates Screen (NONDETECTED) Ur Opiates Confirm Ur Oxycodone Screen (NONDETECTED) Urine Methadone Screen (NONDETECTED) Ur Methadone Confirm Ur Barbiturates Screen (NONDETECTED) Ur Barbiturate Confirm Ur Phencyclidine Scrn (NONDETECTED) Urine PCP Confirm Ur Amphetamines Screen (NONDETECTED) U Amphetamines Confirm U Benzodiazepines Scrn (NONDETECTED) U Benzodiazepine Confm Urine Cocaine Screen (NONDETECTED) Urine Cocaine Confirm U Cannabinoids Confirm U Marijuana (THC) Screen (NONDETECTED) Disposition Pt seen by [employer] only: No Clinical Impression: Chronic kidney disease, stage III (moderate) Altered mental status Qualifiers: Altered mental status type: somnolence Qualified Code(s): R40.0 - Somnolence Hyperglycemia due to type 2 diabetes mellitus Qualifiers: Diabetes mellitus penitentiary insulin use: with 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
[2017-12-12 18:21] LABS: Basophils # (Auto) 0 K/mcL (0.0-0.3); Basophils % (Auto) 0.8 % (0.0-2.0); Eosinophils # (Auto) 0 K/mcL (0.0-0.7); Eosinophils % (Auto) 0.6 % (0.0-7.0); Granulocytes % (Auto) 55.7 % (38.0-78.0); Lymphocytes # (Auto) 1.5 K/mcL (1.5-4.8); Lymphocytes % (Auto) 32.5 % (15.5-49.0); Mean Cell Volume 89.3 fL (80.0-100.0); Mean Corpuscular HGB Conc 33.6 g/dL (31.0-36.0); Monocytes # (Auto) 0.5 K/mcL (0.1-0.9); Monocytes % (Auto) 10.4 % (1.0-12.0); Platelet Count 133 K/mcL (140-440); Red Cell Distribution Width 15.1 % (11.5-14.5)
[2017-12-12 18:42] LABS: ALT/SGPT 23 U/l (0-40); Albumin 3.7 gm/dL (3.2-5.2); Albumin/Globulin Ratio 1.2 (1.0-2.3); Alkaline Phosphatase 115 U/L (39-117); Blood Urea Nitrogen 45 mg/dl (6-20)
[2017-12-12 18:55] LABS: Appearance,Urine CLEAR; Bacteria,Urine 0 /hpf (0); Bilirubin,Urine NEG (NEG); Color,Urine YELLOW; Glucose,Urine (UA) >=500 mg/dL (NEG); Leukocyte Esterase,Urine NEG /uL (NEG); Mucus,Urine FEW /hpf (0); Protein,Urine 30 mg/dL (NEG); Specific Gravity,Urine 1.014 (1.000-1.035); Urine Blood NEG mg/dL (<0.03); Urine RBC 1 /hpf (0-1); Urine Squamous Epithelial Cell 0 /hpf (0-4); Urine WBC < 1 /hpf (0-4); Urobilinogen,Urine NEG (NEG)
--- NOTE | 2017-12-12 19:02 | XRay Report ---
CLINICAL INFORMATION: Weakness COMPARISON: 06/26/2017 FINDINGS: Borderline cardiomegaly is unchanged. Mediastinum and pulmonary vessels are normal. Lungs are clear. No effusions IMPRESSION: Borderline cardiomegaly - no acute disease Interpreted and Authenticated by: Abelardo Coy 12/12/17
--- NOTE | 2017-12-12 19:03 | Cat Scan Report ---
CLINICAL INFORMATION: Decreased level consciousness COMPARISON: None. TECHNIQUE: 2.5 mm helical slices were obtained in the skull base to vertex. Following reconstruction, axial reformatted images were reviewed at bone and parenchymal windows. The exam was performed using radiation dose optimization techniques including, but not limited to, automated exposure control, adjustment of the mA and/or kV according to patient size and use of iterative reconstruction technique. FINDINGS: The ventricles, sulci, fissures, and cisterns are minimally enlarged patible with mild age-related atrophy. There is minimal chronic ischemic changes in the the cerebral white matter. No acute intracerebral hemorrhage, mass effect, edema or other acute finding. Bilateral mastoiditis again noted IMPRESSION: Mild atrophy and chronic ischemic changes in the deep cerebral white matter - stable. No acute findings Moderate right and mild left mastoiditis - chronic Interpreted and Authenticated by: Abelardo Coy 12/12/17
[2017-12-12] MEDS ORDERED: INSULIN REGULAR, HUMAN 1 UNIT/0.01 ML UNIT IV ONE ×2 (19:10→20:59)
[2017-12-12] MEDS ORDERED: NALOXONE HCL 0.4 MG/ML VIAL IV ONE (19:12)
[2017-12-12 21:35] LABS: Amphetamine Screen,Urine NONE DETECTED (NONDETECTED); Benzodiazepines Screen,Urine NONE DETECTED (NONDETECTED); Cocaine Screen,Urine NONE DETECTED (NONDETECTED); Opiate Screen,Urine SUSPECT POSITIVE (NONDETECTED); Oxycodone, Urine Screen NONE DETECTED (NONDETECTED)
--- NOTE | 2017-12-13 00:57 | Emergency Department Note ---
Neuro HPI - General Chief Complaint: Neuro Symptoms/Deficit Stated Complaint: weakness Time Seen by Provider: 12/12/17 17:49 Source: patient Mode of arrival: wheelchair Limitations: no limitations - History of Present Illness HPI Narrative: Initially saw this patient with Brenda JUNIOR. We discussed his case and workup. At shift change patient was checked out to me to finish the workup. I reviewed her note and I agree with her evaluation management documentation - Related Data Home Medications: Home Medications Medication Instructions Recorded Confirmed atorvastatin 40 mg tablet 40 mg PO QDAY 11/26/15 12/12/17 exenatide 5 mcg/dose (250 10 mcg SUB-Q BID 11/26/15 12/12/17 mcg/mL)1.2 mL subcutaneous pen injector gabapentin 300 mg capsule 300 mg PO BID cap 11/26/15 12/12/17 topiramate 100 mg tablet 100 mg PO BID 11/26/15 12/12/17 venlafaxine ER 150 mg 75 mg PO TID 11/26/15 12/12/17 capsule,extended release 24 hr Furosemide [Lasix] 40 mg PO BID tab 03/03/16 12/12/17 Insulin Glargine, Human [Lantus] 60 unit SQ BID 06/14/17 12/12/17 Pregabalin [Lyrica] 150 mg PO BID 06/14/17 12/12/17 hydrOXYzine [Vistaril] 10 mg PO TID 06/14/17 12/12/17 Spironolactone [Aldactone] 25 mg PO DAILY 06/19/17 12/12/17 cyclobenzaprine 10 mg tablet 10 mg PO BID 30 Days #90 11/22/17 12/12/17 Albuterol Sulfate [Ventolin] 2 puff INH Q4-6HP PRN 12/12/17 12/12/17 Insulin Aspart [Novolog] 15 unit SQ HS 12/12/17 12/12/17 Insulin Aspart [Novolog] 30 unit SQ .COMPLEX 12/12/17 12/12/17 Metoclopramide [Reglan] 10 mg PO BIDAC 12/12/17 12/12/17 Pantoprazole [Protonix] 40 mg PO DAILY 12/12/17 12/12/17 Salmeterol Xinafoate [Serevent 50 mcg IH BID 12/12/17 12/12/17 Diskus] rOPINIRole HCL [Requip] 1 mg PO TID 12/12/17 12/12/17 Previous Rx's Medication Instructions Recorded amlodipine 5 mg tablet 5 mg PO QDAY #30 tab 06/01/17 HYDROcodone/APAP 10/325MG [Louisa 1 - 2 tab PO Q4H PRN #60 tab 06/22/17 10-325Mg] oxyCODONE [Oxycontin] 20 mg PO BID #30 tab.er.12h 06/22/17 hydroxychloroquine 200 mg tablet 200 mg PO BID #60 tab 11/22/17 allopurinol 100 mg tablet See Label Instructions PO QDAY #60 11/27/17 tab anakinra 100 mg/0.67 mL 100 mg SUB-Q .Q48hrs #10.05 ml 12/05/17 subcutaneous syringe Allergies/Adverse Reactions: Allergies Allergy/AdvReac Type Severity Reaction Status Date / Time sulfamethoxazole Allergy Severe RASH, RED, Verified 12/12/17 17:43 [From BACTRIM] BURNING FEELING trimethoprim [From BACTRIM] Allergy Severe RASH, RED, Verified 12/12/17 17:43 BURNING FEELING codeine Allergy Unknown Other Verified 12/12/17 17:43 lisinopril [LISINOPRIL] AdvReac Intermediate COUGHING Verified 12/12/17 17:43 morphine [MORPHINE] AdvReac Mild DOESN'T Verified 12/12/17 17:43 SEEM TO HELP Past Medical History - Past Medical History Medical history: Reports: arthritis, CHF, COPD, coronary artery disease, DM, hypertension, renal disease, TIA, other (Pancreatitis) Psychiatric history: Reports: depression Surgical history ED: Reports: cholecystectomy, other (Right total knee replacement June 19, 2017) - Social History smoking status: Current every day smoker Alcohol use: Reports: None Drug use: Reports: none. Denies: marijuana Physical Exam Patient continued to be somnolent but arousable; however she would not stay arouse and quickly fell back asleep after answering briefly even when questioned. She continued to be somnolent and obtunded. Wilder catheter had clear yellow urine Limitations: no limitations General appearance: lethargic Course Vital Signs Temperature 98.3 F 12/12/17 17:38 Pulse Rate 66 12/12/17 17:38 Respiratory Rate 24 H 12/12/17 17:38 Pulse Oximetry (%) 97 12/12/17 17:38 Temperature 98.3 F 12/12/17 17:38 Pulse Rate 54 L 12/13/17 01:09 Respiratory Rate 20 12/13/17 01:09 Blood Pressure 123/52 12/12/17 23:16 Pulse Oximetry (%) 89 L 12/13/17 01:09 Neuro Symptoms/Deficit - Lab Data Lab results reviewed: Yes I reviewed the patient's lab results. Result diagrams: 12/12/17 17:53 12/12/17 17:53 Lab Results 12/12/17 12/12/17 12/12/17 Range/Units 17:53 17:53 17:53 WBC 4.7 (4.5-11.0) K/mcL RBC 4.20 (4.00-5.20) M/mcL Hgb 12.6 (12.0-15.0) g/dL Hct 37.5 (36.0-48.0) % MCV 89.3 (80.0-100.0) fL MCH 30.0 (26.0-34.0) pg MCHC 33.6 (31.0-36.0) g/dL RDW 15.1 H (11.5-14.5) % Plt Count 133 L (140-440) K/mcL MPV 11.8 H (7.4-10.4) fL Gran % 55.7 (38.0-78.0) % Lymph % (Auto) 32.5 (15.5-49.0) % [place] % (Auto) 10.4 (1.0-12.0) % Eos % (Auto) 0.6 (0.0-7.0) % Baso % (Auto) 0.8 (0.0-2.0) % Gran # 2.6 (1.8-8.0) K/mcL Lymph # (Auto) 1.5 (1.5-4.8) K/mcL [place] # (Auto) 0.5 (0.1-0.9) K/mcL Eos # (Auto) 0 (0.0-0.7) K/mcL Baso # (Auto) 0 (0.0-0.3) K/mcL VBG Lactic Acid 1.4 (0.5-2.2) mmol/L Carbon Monoxide Screen (0.0-1.5) % Sodium 140 (133-145) mmol/L Potassium 4.0 (3.3-5.1) mmol/L Chloride 104 (96-108) mmol/L Carbon Dioxide 22 (22-30) mmol/L Anion Gap 14.0 (8-16) BUN 45 H (6-20) mg/dl Creatinine 2.1 H (0.6-1.1) mg/dl GFR Calculation 25 Glucose 460 H* (70-105) mg/dL Calcium 9.5 (8.6-10.4) mg/dl Total Bilirubin 0.3 (0.0-1.0) mg/dL AST 23 (0-37) U/l ALT 23 (0-40) U/l Alkaline Phosphatase 115 (39-117) U/L Ammonia (11-51) umol/L Total Protein 6.8 (5.9-8.4) gm/dL Albumin 3.7 (3.2-5.2) gm/dL Globulin 3.1 (2.2-3.7) gm/dL Albumin/Globulin Ratio 1.2 (1.0-2.3) Urine Color Urine Appearance Urine pH (5.0-9.0) Ur Specific [place] (1.000-1.035) Urine Protein (NEG) mg/dL Urine Glucose (UA) (NEG) mg/dL Urine Ketones (NEG) mg/dL Urine Occult Blood (<0.03) mg/dL Urine Nitrate (NEG) Urine Bilirubin (NEG) mg/dL Urine Urobilinogen (NEG) mg/dL Ur Leukocyte Esterase (NEG) /uL Urine RBC (0-1) /hpf Urine WBC (0-4) /hpf Ur Squamous Epith Cells (0-4) /hpf Urine Bacteria (0) /hpf Urine Mucus (0) /hpf Ur Culture Indicated? CSF Source CSF Appearance CSF Color CSF RBC (0-1) /cumm CSF Total Nucleated Auto (0-5) /cumm CSF Neutrophils CSF Lymphocytes CSF Reactive Lymphs CSF Monocytes CSF Eosinophils % CSF Basophils CSF Macrophages CSF Plasma Cells CSF Diff Comment CSF Glucose (45-75) mg/dL CSF Total Protein (15.0-45) mg/dL Urine Opiates Screen (NONDETECTED) Ur Opiates Confirm Ur Oxycodone Screen (NONDETECTED) Urine Methadone Screen (NONDETECTED) Ur Methadone Confirm Ur Barbiturates Screen (NONDETECTED) Ur Barbiturate Confirm Ur Phencyclidine Scrn (NONDETECTED) Urine PCP Confirm Ur Amphetamines Screen (NONDETECTED) U Amphetamines Confirm U Benzodiazepines Scrn (NONDETECTED) U Benzodiazepine Confm Urine Cocaine Screen (NONDETECTED) Urine Cocaine Confirm U Cannabinoids Confirm U Marijuana (THC) Screen (NONDETECTED) 12/12/17 12/12/17 12/12/17 Range/Units 18:32 18:32 19:38 WBC (4.5-11.0) K/mcL RBC (4.00-5.20) M/mcL Hgb (12.0-15.0) g/dL Hct (36.0-48.0) % MCV (80.0-100.0) fL MCH (26.0-34.0) pg MCHC (31.0-36.0) g/dL RDW (11.5-14.5) % Plt Count (140-440) K/mcL MPV (7.4-10.4) fL Gran % (38.0-78.0) % Lymph % (Auto) (15.5-49.0) % [place] % (Auto) (1.0-12.0) % Eos % (Auto) (0.0-7.0) % Baso % (Auto) (0.0-2.0) % Gran # (1.8-8.0) K/mcL Lymph # (Auto) (1.5-4.8) K/mcL [place] # (Auto) (0.1-0.9) K/mcL Eos # (Auto) (0.0-0.7) K/mcL Baso # (Auto) (0.0-0.3) K/mcL VBG Lactic Acid (0.5-2.2) mmol/L Carbon Monoxide Screen (0.0-1.5) % Sodium (133-145) mmol/L Potassium (3.3-5.1) mmol/L Chloride (96-108) mmol/L Carbon Dioxide (22-30) mmol/L Anion Gap (8-16) BUN (6-20) mg/dl Creatinine (0.6-1.1) mg/dl GFR Calculation Glucose (70-105) mg/dL Calcium (8.6-10.4) mg/dl Total Bilirubin (0.0-1.0) mg/dL AST (0-37) U/l ALT (0-40) U/l Alkaline Phosphatase (39-117) U/L Ammonia 15 (11-51) umol/L Total Protein (5.9-8.4) gm/dL Albumin (3.2-5.2) gm/dL Globulin (2.2-3.7) gm/dL Albumin/Globulin Ratio (1.0-2.3) Urine Color Yellow Urine Appearance Clear Urine pH 6.0 (5.0-9.0) Ur Specific [place] 1.014 (1.000-1.035) Urine Protein 30 A (NEG) mg/dL Urine Glucose (UA) >=500 A (NEG) mg/dL Urine Ketones Neg (NEG) mg/dL Urine Occult Blood Neg (<0.03) mg/dL Urine Nitrate Neg (NEG) Urine Bilirubin Neg (NEG) mg/dL Urine Urobilinogen Neg (NEG) mg/dL Ur Leukocyte Esterase Neg (NEG) /uL Urine RBC 1 (0-1) /hpf Urine WBC < 1 (0-4) /hpf Ur Squamous Epith Cells 0 (0-4) /hpf Urine Bacteria 0 (0) /hpf Urine Mucus Few (0) /hpf Ur Culture Indicated? No CSF Source CSF Appearance CSF Color CSF RBC (0-1) /cumm CSF Total Nucleated Auto (0-5) /cumm CSF Neutrophils CSF Lymphocytes CSF Reactive Lymphs CSF Monocytes CSF Eosinophils % CSF Basophils CSF Macrophages CSF Plasma Cells CSF Diff Comment CSF Glucose (45-75) mg/dL CSF Total Protein (15.0-45) mg/dL Urine Opiates Screen Suspect positive A (NONDETECTED) Ur Opiates Confirm Not Reportable Ur Oxycodone Screen None detected (NONDETECTED) Urine Methadone Screen None detected (NONDETECTED) Ur Methadone Confirm Not Reportable Ur Barbiturates Screen None detected (NONDETECTED) Ur Barbiturate Confirm Not Reportable Ur Phencyclidine Scrn None detected (NONDETECTED) Urine PCP Confirm Not Reportable Ur Amphetamines Screen None detected (NONDETECTED) U Amphetamines Confirm Not Reportable U Benzodiazepines Scrn None detected (NONDETECTED) U Benzodiazepine Confm Not Reportable Urine Cocaine Screen None detected (NONDETECTED) Urine Cocaine Confirm Not Reportable U Cannabinoids Confirm Not Reportable U Marijuana (THC) Screen None detected (NONDETECTED) 12/12/17 12/13/17 12/13/17 Range/Units 22:18 00:34 00:34 WBC (4.5-11.0) K/mcL RBC (4.00-5.20) M/mcL Hgb (12.0-15.0) g/dL Hct (36.0-48.0) % MCV (80.0-100.0) fL MCH (26.0-34.0) pg MCHC (31.0-36.0) g/dL RDW (11.5-14.5) % Plt Count (140-440) K/mcL MPV (7.4-10.4) fL Gran % (38.0-78.0) % Lymph % (Auto) (15.5-49.0) % [place] % (Auto) (1.0-12.0) % Eos % (Auto) (0.0-7.0) % Baso % (Auto) (0.0-2.0) % Gran # (1.8-8.0) K/mcL Lymph # (Auto) (1.5-4.8) K/mcL [place] # (Auto) (0.1-0.9) K/mcL Eos # (Auto) (0.0-0.7) K/mcL Baso # (Auto) (0.0-0.3) K/mcL VBG Lactic Acid (0.5-2.2) mmol/L Carbon Monoxide Screen 4.7 H (0.0-1.5) % Sodium (133-145) mmol/L Potassium (3.3-5.1) mmol/L Chloride (96-108) mmol/L Carbon Dioxide (22-30) mmol/L Anion Gap (8-16) BUN (6-20) mg/dl Creatinine (0.6-1.1) mg/dl GFR Calculation Glucose (70-105) mg/dL Calcium (8.6-10.4) mg/dl Total Bilirubin (0.0-1.0) mg/dL AST (0-37) U/l ALT (0-40) U/l Alkaline Phosphatase (39-117) U/L Ammonia (11-51) umol/L Total Protein (5.9-8.4) gm/dL Albumin (3.2-5.2) gm/dL Globulin (2.2-3.7) gm/dL Albumin/Globulin Ratio (1.0-2.3) Urine Color Urine Appearance Urine pH (5.0-9.0) Ur Specific [place] (1.000-1.035) Urine Protein (NEG) mg/dL Urine Glucose (UA) (NEG) mg/dL Urine Ketones (NEG) mg/dL Urine Occult Blood (<0.03) mg/dL Urine Nitrate (NEG) Urine Bilirubin (NEG) mg/dL Urine Urobilinogen (NEG) mg/dL Ur Leukocyte Esterase (NEG) /uL Urine RBC (0-1) /hpf Urine WBC (0-4) /hpf Ur Squamous Epith Cells (0-4) /hpf Urine Bacteria (0) /hpf Urine Mucus (0) /hpf Ur Culture Indicated? CSF Source Tube #1 CSF Appearance Clear CSF Color Colorless CSF RBC 345 H (0-1) /cumm CSF Total Nucleated Auto 2 (0-5) /cumm CSF Neutrophils Not Reportable Not Reportable CSF Lymphocytes Not Reportable Not Reportable CSF Reactive Lymphs Not Reportable Not Reportable CSF Monocytes Not Reportable Not Reportable CSF Eosinophils % Not Reportable Not Reportable CSF Basophils Not Reportable Not Reportable CSF Macrophages Not Reportable Not Reportable CSF Plasma Cells Not Reportable Not Reportable CSF Diff Comment Not Reportable Not Reportable CSF Glucose 248 H* (45-75) mg/dL CSF Total Protein 52 H (15.0-45) mg/dL Urine Opiates Screen (NONDETECTED) Ur Opiates Confirm Ur Oxycodone Screen (NONDETECTED) Urine Methadone Screen (NONDETECTED) Ur Methadone Confirm Ur Barbiturates Screen (NONDETECTED) Ur Barbiturate Confirm Ur Phencyclidine Scrn (NONDETECTED) Urine PCP Confirm Ur Amphetamines Screen (NONDETECTED) U Amphetamines Confirm U Benzodiazepines Scrn (NONDETECTED) U Benzodiazepine Confm Urine Cocaine Screen (NONDETECTED) Urine Cocaine Confirm U Cannabinoids Confirm U Marijuana (THC) Screen (NONDETECTED) - Radiology Data Radiology results reviewed: Yes I reviewed the patient's radiology results. CT scan of the head did not show any acute pathology that would account for her altered mental status. Chest x-ray did not show evidence of acute infiltrate After laboratory workup was negative CT scan of the abdomen and pelvis was done- this was also negative for acute pathology - EKG Data EKG attestation: Yes I reviewed and interpreted this EKG. EKG results narrative: EKG is reviewed shows sinus rhythm but she has lots of artifact so difficult to interpret. No clear evidence of ischemia Disposition Pt seen by HUNTING GUIDE/PA only: No Clinical Impression: Chronic kidney disease, stage III (moderate) Altered mental status Qualifiers: Altered mental status type: somnolence Qualified Code(s): R40.0 - Somnolence Hyperglycemia due to type 2 diabetes mellitus Qualifiers: Diabetes mellitus senior living insulin use: with senior living use Qualified Code(s): E11.65 - Type 2 diabetes mellitus with hyperglycemia Summary: The patient handoff CT scan of the abdomen pelvis was done. This did not show cause for her altered mental status so LP was undertaken. Because she is overweight and has hardware in her back from surgery anesthesia was consulted in this regard. Dr. Martinez came and did this without difficulty. Tubes were sent to lab. This did not show evidence of a bacterial meningitis/ encephalopathy. However hyperglycemia seen In terms of her diabetes we initially gave her 10 units of insulin and then another 7 units later. Blood sugar remained high, her significant other notes that blood sugars typically run in the 150-200s and sometimes as high as 400 at home. Discussed case with Dr. Ashraf who agreed to admit the patient for altered mental status/obtundation Disposition: Xfer As Inpt ([facility]) Condition: Fair
[2017-12-13 01:39] LABS: Glucose,CSF 248 mg/dL (45-75)
[2017-12-13 01:40] LABS: Appearance,CSF CLEAR; Nucleated Cells,CSF 2 /cumm (0-5); Red Blood Cell,CSF 345 /cumm (0-1)
[2017-12-13] MEDS ORDERED: ACETAMINOPHEN 325 MG TABLET PO PRN ×2 (02:19→17:26)
[2017-12-13] MEDS ORDERED: LACTATED RINGERS 1,000 ML IV ONE (02:19)
[2017-12-13] MEDS ORDERED: NALOXONE HCL 0.4 MG/ML VIAL IV PRN ×2 (02:19→17:26)
[2017-12-13] MEDS ORDERED: ONDANSETRON 4 MG/2 ML VIAL IV PRN ×2 (02:19→17:26)
[2017-12-13] MEDS ORDERED: NALOXONE HCL 0.4 MG/ML VIAL IV ONE (02:19)
[2017-12-13] MEDS ORDERED: INSULIN REGULAR, HUMAN 1 UNIT/0.01 ML UNIT IV ONE (02:19)
[2017-12-13 02:22] LABS: Appearance,CSF CLEAR; Nucleated Cells,CSF 1 /cumm (0-5); Red Blood Cell,CSF 4 /cumm (0-1)
[2017-12-13] MEDS ORDERED: ACYCLOVIR SODIUM 500 MG VIAL IV SCH (02:30)
[2017-12-13] MEDS ORDERED: INSULIN REGULAR, HUMAN 1 UNIT/0.01 ML UNIT ONE (02:46)
[2017-12-13] MEDS: LACTATED RINGERS 1,000 ML IV SCH ×5 (02:50→18:54)
[2017-12-13] MEDS: THIAMINE 100 MG in 0.9 % SODIUM CHLORIDE 50 ML IV SCH ×2 (02:50→09:48)
[2017-12-13] MEDS: 0.9 % SODIUM CHLORIDE 10 ML SYRINGE IV SCH ×4 (05:20→21:49)
[2017-12-13 06:34] LABS: Basophils # (Auto) 0 K/mcL (0.0-0.3); Basophils % (Auto) 0.5 % (0.0-2.0); Eosinophils # (Auto) 0.1 K/mcL (0.0-0.7); Eosinophils % (Auto) 1.4 % (0.0-7.0); Granulocytes % (Auto) 56.1 % (38.0-78.0); Lymphocytes # (Auto) 1.4 K/mcL (1.5-4.8); Lymphocytes % (Auto) 31.7 % (15.5-49.0); Mean Cell Volume 90.1 fL (80.0-100.0); Mean Corpuscular HGB Conc 33.7 g/dL (31.0-36.0); Mean Corpuscular Hemoglobin 30.4 pg (26.0-34.0); Monocytes # (Auto) 0.5 K/mcL (0.1-0.9); Monocytes % (Auto) 10.3 % (1.0-12.0); Platelet Count 111 K/mcL (140-440); RBC 3.69 M/mcL (4.00-5.20); Red Cell Distribution Width 15.3 % (11.5-14.5)
[2017-12-13 07:07] LABS: ALT/SGPT 21 U/l (0-40); Albumin/Globulin Ratio 1.2 (1.0-2.3); Alkaline Phosphatase 94 U/L (39-117); Bilirubin,Direct < 0.2 mg/dL (0.0-0.3); Blood Urea Nitrogen 33 mg/dl (6-20); Gamma Glutamyl Transpeptidase 30 U/L (5-36); Uric Acid 6.1 mg/dL (2.5-8.0)
[2017-12-13] MEDS ORDERED: DEXTROSE 31 GM ORAL.SUSP PO PRN ×2 (07:15→17:26)
[2017-12-13] MEDS ORDERED: DEXTROSE 50% 50 ML VIAL IV PRN ×2 (07:15→17:26)
[2017-12-13] MEDS ORDERED: VANCOMYCIN PER PHARMACY IV SCH (07:18)
[2017-12-13] MEDS ORDERED: VANCOMYCIN 1,500 MG in 0.9 % SODIUM CHLORIDE 500 ML IV SCH (08:00)
--- NOTE | 2017-12-13 08:47 | Cat Scan Report ---
CLINICAL INFORMATION: Abdominal pain COMPARISON: 07/04/[address] TECHNIQUE: 0.625 mm helical slices were obtained from the mid heart through the subtrochanteric regions. Following reconstruction, 2.5 mm sagittal, coronal and axial reformatted images were processed and reviewed at bone and soft tissue windows.The exam was performed using radiation dose optimization techniques including, but not limited to, automated exposure control, adjustment of the mA and/or kV according to patient size and use of iterative reconstruction technique. FINDINGS: Lung bases show only minimal scarring and/or atelectasis. No effusions. The visualized heart is borderline enlarged, but unchanged. Images through the abdomen show the noncontrasted liver is unremarkable. The gallbladder is surgically absent. Intrahepatic and common bile ducts are normal caliber: CBD is 6 mm. Both kidneys are normal in size, configuration and position. There is mild perinephric stranding which has increased from previous study. Both noncontrasted adrenal glands, spleen, pancreas and aorta are normal. No free air, free fluid or adenopathy. The stomach, small/large bowel are normal. Appendix is unremarkable. Images through the pelvis show normal-appearing anteflexed, postmenopausal uterus. Region of ovaries is normal. Wilder catheter is properly positioned in the urinary bladder which is normal. Bone windows show L3-4 fusion ray cage and anterior/posterior fusion at L4-5. Alignment is anatomical is no focal osseous abnormality. There are surgical clips again seen in the lateral right breast. IMPRESSION: Mild perinephric stranding and thickening of Gerotas' fascia of both kidneys which has increased since the comparison CT 1.5 years ago. This is typically an innocuous finding - often seen in elderly patients. It can occasionally indicate bilateral renal inflammation. Please correlate with UA and renal function tests. Interpreted and Authenticated by: Abelardo Coy 12/13/17
[2017-12-13] MEDS ORDERED: INSULIN GLARGINE, HUMAN 1 UNIT/0.01 ML SQ SCH (09:00)
[2017-12-13] MEDS ORDERED: HEPARIN 5,000 UNIT/ML VIAL SQ SCH (09:00)
[2017-12-13] MEDS: INSULIN LISPRO 1 UNIT/0.01 ML UNIT SQ SCH ×4 (09:46→21:17)
--- NOTE | 2017-12-13 10:53 | Procedure Note ---
Procedures - Lumbar Puncture Consent obtained: written consent Time out performed: Yes Patient position: left lateral decubitus Skin prep: Povidone-Iodine 1% Local anesthetic used: Lidocaine 1% Amount of anesthesia used (mLs): 5 Spinal needle gauge: 20G Interspace used: Other (L23) Fluid initially obtained: clear Complications: none Additional comments: LATE ENTRY Called last night 2300hrs for diag LP in ED, no attempt made by EDMD. Apparently anticipated difficult tap due to habitus and previous lumbar surgery. Consented, extensive detailed discussion with family. LP performed easily, no complications. Medical decision making regarding necessity of invasive testing made by Dr La. Family advised of completion of procedure.
[2017-12-13] MEDS ORDERED: cefTRIAXone 2 GM VIAL IV SCH (11:15)
--- NOTE | 2017-12-13 11:19 | Internal Med History&Physical ---
Medical - H&P: HPI Patient information: Note initiated : 12/13/17 at 11:16 am Service Date, if different from initiated Date: [] Patient: Camille Knox a 62 y/o F admitted on 12/13/17 for weakness. Chief Complaint: [] History of present illness: Ms. Knox is a 62 year old Female with multipe medical issues shweta to the ER by family for altered mental status x 1 day Patient unable to provide any history, family was not by the bed side, history obtained from chart review The patient friend who got her to the ER noted that the patient has bee drowsy since 2 pm day before yesterday, and not waking up. This was the main reason for bringing the patient to the ER. In the past as per history whenever the patient has presented like this she has been septic/ sick. The patient in the ER would open eyes to verbal commands and then go right back to sleep In the ER she was hemodynamically stable, afebrile, pupilss 3-4 mm reactive, did not respond to narcan labs did not show any leucocytosis, cxr neg for acute infection, CT abdomen neg for acute process, ua neg for infection, cultures sent, ammonia neg, head ct neg , carboxy hb 4.6 not very high, glucose was elevated at 460, but otherwise patient had no other positive findings except decreased mentation. LP was performed which on tube 1 showed high rbc but tube 4 only had 5 rbc, gram stain neg, glucose level normal mild elevation of protein, noted. IV acyclovir was given but stopped after cell count on tube 4 showed much improved rbc the patient was initially admitted to the hospiotal as obs for managenment, Utox was postive for opiates rest neg. The patients mentation improved after admission, but was unable to provide a meaningful history ,just noting she was cold. Her blood culture was opsotive for GPC, strep agalacate. Given that this is usually not a contaminant, the patient deemed bactermic with undertemined source Infectious disease consulted, echo ordered, patient started on rocephin. ROS unobtainable: due to mental status Medical - H&P: PMH Medical history: Medical History (Last Reviewed 11/22/17 @ 08:08 by Haylee Chew RN) Non-cardiac chest pain (Acute) Diabetes (Acute) Pancreatitis (Acute) Abdominal pain (Acute) Abdominal pain, acute, epigastric (Acute) Obstructive sleep apnea (Acute) Urinary tract infection (Acute) Hyperuricemia (Acute) Rheumatoid arthritis (Acute) Back pain (Acute) Encounter for long-term (current) use of high-risk medication (Acute) Gout (Acute) Right knee pain (Acute) Inflammatory arthritis (Chronic) Trigger finger, left ring finger (Chronic) Polyarthralgia (Acute) Apnea (Chronic) Hyperpotassemia (Chronic) CHF (congestive heart failure) (Chronic) Gastroparesis (Chronic) Pure hypertriglyceridemia (Chronic) Vitamin D deficiency (Chronic) Essential (primary) hypertension (Chronic) Anemia of renal disease (Chronic) Edema (Chronic) Acute thromboembolism of deep veins of lower extremity (Chronic) Type 2 diabetes mellitus without complications (Chronic) Chronic kidney disease, stage III (moderate) (Chronic) Surgical history: Past Surgical History (Last Reviewed 11/22/17 @ 08:08 by Haylee Chew RN) Hx of cholecystectomy (Chronic) Pertinent family history: Family History (Last Reviewed 11/22/17 @ 08:08 by Haylee Chew RN) Other No pertinent family history Medical - H&P: Meds Home Medications Medication Instructions Recorded Confirmed Type atorvastatin 40 mg tablet 40 mg PO QDAY 11/26/15 12/12/17 History exenatide 5 mcg/dose (250 10 mcg SUB-Q BID 11/26/15 12/12/17 History mcg/mL)1.2 mL subcutaneous pen injector gabapentin 300 mg capsule 300 mg PO BID cap 11/26/15 12/12/17 History topiramate 100 mg tablet 100 mg PO BID 11/26/15 12/12/17 History venlafaxine ER 150 mg 75 mg PO TID 11/26/15 12/12/17 History capsule,extended release 24 hr Furosemide [Lasix] 40 mg PO BID tab 03/03/16 12/12/17 History amlodipine 5 mg tablet 5 mg PO QDAY #30 tab 06/01/17 12/12/17 Rx Insulin Glargine, Human [Lantus] 60 unit SQ BID 06/14/17 12/12/17 History Pregabalin [Lyrica] 150 mg PO BID 06/14/17 12/12/17 History hydrOXYzine [Vistaril] 10 mg PO TID 06/14/17 12/12/17 History Spironolactone [Aldactone] 25 mg PO DAILY 06/19/17 12/12/17 History HYDROcodone/APAP 10/325MG [[place] 1 - 2 tab PO Q4H PRN #60 tab 06/22/17 12/12/17 Rx 10-325Mg] oxyCODONE [Oxycontin] 20 mg PO BID #30 tab.er.12h 06/22/17 12/12/17 Rx cyclobenzaprine 10 mg tablet 10 mg PO BID 30 Days #90 11/22/17 12/12/17 History hydroxychloroquine 200 mg tablet 200 mg PO BID #60 tab 11/22/17 12/12/17 Rx allopurinol 100 mg tablet See Label Instructions PO QDAY #60 11/27/17 12/12/17 Rx tab anakinra 100 mg/0.67 mL 100 mg SUB-Q .Q48hrs #10.05 ml 12/05/17 12/12/17 Rx subcutaneous syringe Albuterol Sulfate [Ventolin] 2 puff INH Q4-6HP PRN 12/12/17 12/12/17 History Insulin Aspart [Novolog] 15 unit SQ HS 12/12/17 12/12/17 History Insulin Aspart [Novolog] 30 unit SQ .COMPLEX 12/12/17 12/12/17 History Metoclopramide [Reglan] 10 mg PO BIDAC 12/12/17 12/12/17 History Pantoprazole [Protonix] 40 mg PO DAILY 12/12/17 12/12/17 History Salmeterol Xinafoate [Serevent 50 mcg IH BID 12/12/17 12/12/17 History Diskus] rOPINIRole HCL [Requip] 1 mg PO TID 12/12/17 12/12/17 History Allergies Allergy/AdvReac Type Severity Reaction Status Date / Time sulfamethoxazole Allergy Severe RASH, RED, Verified 12/12/17 17:43 [From BACTRIM] BURNING FEELING trimethoprim [From BACTRIM] Allergy Severe RASH, RED, Verified 12/12/17 17:43 BURNING FEELING codeine Allergy Unknown Other Verified 12/12/17 17:43 lisinopril [LISINOPRIL] AdvReac Intermediate COUGHING Verified 12/12/17 17:43 morphine [MORPHINE] AdvReac Mild DOESN'T Verified 12/12/17 17:43 SEEM TO HELP Medical - H&P: Exam - Constitutional Vitals: Temp Pulse Resp BP Pulse Ox 97.6 F 72 19 132/67 97 12/13/17 04:01 12/13/17 05:15 12/13/17 05:15 12/13/17 04:01 12/13/17 05:15 Exam: GENERAL: The patient is a well-developed, well-nourished in no apparent distress. drowsy, responds to verbal commands, aoox1 VITAL SIGNS: Reviewed and as noted elsewhere. HEENT: Head is normocephalic and atraumatic. Extraocular muscles are intact. Pupils are equal, round, and reactive to light. Nares appeared normal. Mouth appears any without lesions. Mucous membranes are dry. NECK: Normal to inspection, Supple, No lymphadenopathy or thyromegaly. LUNGS: Air entry equal on both sides, no wheezing, crackles or rhonchi noted. No accessory muscles of respiration HEART: Regular rate and rhythm normal, S1 and S2 heard, no Gallop, S3 or Rub Noted, No Gross murmur heard. ABDOMEN: Soft, nontender, and nondistended. Positive bowel sounds. No hepatosplenomegaly was noted. on the buttock region old healed scab noted, EXTREMITIES: No cyanosis, clubbing, rash, lesions , edema ++ NEUROLOGIC: Cranial nerves II through XII are grossly intact. Motor and Sensory System Grossly Intact PSYCHIATRIC: drowsy, SKIN: No ulceration or wounds noted, No jaundice, No rash noted. Medical - H&P: Reslt - Labs CBC & Chem 7: 12/13/17 04:15 12/13/17 04:15 Labs: Short CBC 12/12/17 12/13/17 Range/Units 17:53 04:15 WBC 4.7 4.5 (4.5-11.0) K/mcL Hgb 12.6 11.2 L (12.0-15.0) g/dL Hct 37.5 33.3 L (36.0-48.0) % Plt Count 133 L 111 L (140-440) K/mcL BMP 12/12/17 12/13/17 17:53 04:15 Sodium 140 145 Potassium 4.0 3.6 Chloride 104 112 H Carbon Dioxide 22 21 L BUN 45 H 33 H Creatinine 2.1 H 1.7 H Glucose 460 H* 302 H Calcium 9.5 8.8 Liver Function 12/12/17 12/13/17 Range/Units 17:53 04:15 Total Bilirubin 0.3 0.2 (0.0-1.0) mg/dL Direct Bilirubin < 0.2 (0.0-0.3) mg/dL GGT 30 (5-36) U/L AST 23 22 (0-37) U/l ALT 23 21 (0-40) U/l Alkaline Phosphatase 115 94 (39-117) U/L Albumin 3.7 3.0 L (3.2-5.2) gm/dL Urine 12/12/17 Range/Units 18:32 Urine Color Yellow Urine Appearance Clear Urine pH 6.0 (5.0-9.0) Ur Specific [place] 1.014 (1.000-1.035) Urine Protein 30 A (NEG) mg/dL Urine Glucose (UA) >=500 A (NEG) mg/dL Medical - H&P: A/P - Narrative A/P Narrative: A/P Alered Mental status/ Metaboilc vs Septic encephalopathy/ Strep aglactate Bactermia Inflammatory arthropathy Chronic pain Diabetes mellitus h/o Congestive heart failure Chronic Kidney disease stage 2 obesity Plan Patient has extensive workup which is negative. head CT shows Moderate right and mild left mastoiditis - chronic Given no source identified, Infectious disease consulted IV rocephin started Given change in mental status, hold all medications affecting mentation Resuem lantus and ssi for glucose control, monitor on tele hold immunosuppresants for now DVT hep sq Diet advance as tolerated FUll code. Social History - Tobacco smoking status: Current every day smoker - Tobacco Type tobacco type: cigarettes
[2017-12-13] MEDS ORDERED: SODIUM CHLORIDE 0.9% IV SCH (12:00)
[2017-12-13] MEDS ORDERED: ACYCLOVIR SODIUM IV SCH (12:00)
--- NOTE | 2017-12-13 13:12 | Internal Medicine Consult Note ---
Medical - CN: HPI - Data of Consult Consult date: 12/13/17 Requesting Physician: Danielle Ashraf Primary Care Provider: Arianne Lizarraga Family Provider: Arianne Lizarraga - Consult Narrative Reason for consult: Strept History of present illness: HPI obtained from chart review, talking to patient's partner [Herminia], and patient Ms. Knox is a 62 year old F with PMHx of: - inflammatory arthritis, on Anakinra, on Anakinra 100 mg q48 hr SC -Type 2 diabetes mellitus, A1c [most recent being 9.2 in EMR, in Jun 2016] Patient was brought by her partner for concerns of altered mental status [ patient has not been waking up, has been drowsy since afternoon on December 11]. According to the partner patient usually takes a nap in the afternoon. On afternoon of 11 December patient did not wake up after her nap despite sternal rub and other painful stimuli. Patient had no control over her bladder and bowels [urinated all over her chair]. There were no other symptoms reported except for chills. Patient was transferred to the ED at [facility], patient was drowsy but arousable to verbal commands in the ER, was hemodynamically stable, afebrile, blood pressure of 117/54, respiratory rate 24 , satting 97% on room air. Admission white cell count was 4.7, with 55% neutrophils. Neuroimaging with CT head was done which showed mild atrophy and chronic ischemic changes in deep cerebral white matter, and changes of moderate right and left sided mastoiditis. CT abdomen pelvis showed some mild perinephric stranding and thickening around both kidneys [increased compared to previous CT]. LP was also done which showed elevated glucose [proportionate to elevated serum glucose], protein of 52 [mildly elevated], and a cell count of 2. Patient initially received IV acyclovir which was stopped after a normal cell count was noted on LP. Blood cultures 2 out of 2 sets were sent, came back positive today on 1 out of 4 bottles for Streptococcus agalactiae. At the time of visit today, patient has been more awake, alert, following commands according to her partner and the nursing. She has been on IV ceftriaxone based on preliminary infectious disease recommendations. Patient denied any fever, chills, headache, earache, shortness of breath, cough, belly pain, loose stools, nausea vomiting. Patient had pain around her teeth on examination. The partner also reported that patient had a small boil on the left side of her neck which expressed some pus when pressed. The partner denied patient having any recent travel, contact with wild animals. They have 3 pet outdoor dogs. CC: Danielle Ashraf Medical - CN: [facility] Social history: Patient lives with her partner in [place], [place] for the last 16 years. She is on disability, and thus does not work. Functional capacity: wheelchair bound Smoking status: Current every day smoker Have you smoked in the last 12 months: Yes Drug use: other (According to partner patient may have used meth when she was young, but does not think she uses it currently) Alcohol use: none Medical - CN: Meds Home Medications Medication Instructions Recorded Confirmed Type atorvastatin 40 mg tablet 40 mg PO QDAY 11/26/15 12/12/17 History exenatide 5 mcg/dose (250 10 mcg SUB-Q BID 11/26/15 12/12/17 History mcg/mL)1.2 mL subcutaneous pen injector gabapentin 300 mg capsule 300 mg PO BID cap 11/26/15 12/12/17 History topiramate 100 mg tablet 100 mg PO BID 11/26/15 12/12/17 History venlafaxine ER 150 mg 75 mg PO TID 11/26/15 12/12/17 History capsule,extended release 24 hr Furosemide [Lasix] 40 mg PO BID tab 03/03/16 12/12/17 History amlodipine 5 mg tablet 5 mg PO QDAY #30 tab 06/01/17 12/12/17 Rx Insulin Glargine, Human [Lantus] 60 unit SQ BID 06/14/17 12/12/17 History Pregabalin [Lyrica] 150 mg PO BID 06/14/17 12/12/17 History hydrOXYzine [Vistaril] 10 mg PO TID 06/14/17 12/12/17 History Spironolactone [Aldactone] 25 mg PO DAILY 06/19/17 12/12/17 History HYDROcodone/APAP 10/325MG [[place] 1 - 2 tab PO Q4H PRN #60 tab 06/22/17 12/12/17 Rx 10-325Mg] oxyCODONE [Oxycontin] 20 mg PO BID #30 tab.er.12h 06/22/17 12/12/17 Rx cyclobenzaprine 10 mg tablet 10 mg PO BID 30 Days #90 11/22/17 12/12/17 History hydroxychloroquine 200 mg tablet 200 mg PO BID #60 tab 11/22/17 12/12/17 Rx allopurinol 100 mg tablet See Label Instructions PO QDAY #60 11/27/17 12/12/17 Rx tab anakinra 100 mg/0.67 mL 100 mg SUB-Q .Q48hrs #10.05 ml 12/05/17 12/12/17 Rx subcutaneous syringe Albuterol Sulfate [Ventolin] 2 puff INH Q4-6HP PRN 12/12/17 12/12/17 History Insulin Aspart [Novolog] 15 unit SQ HS 12/12/17 12/12/17 History Insulin Aspart [Novolog] 30 unit SQ .COMPLEX 12/12/17 12/12/17 History Metoclopramide [Reglan] 10 mg PO BIDAC 12/12/17 12/12/17 History Pantoprazole [Protonix] 40 mg PO DAILY 12/12/17 12/12/17 History Salmeterol Xinafoate [Serevent 50 mcg IH BID 12/12/17 12/12/17 History Diskus] rOPINIRole HCL [Requip] 1 mg PO TID 12/12/17 12/12/17 History Allergies Allergy/AdvReac Type Severity Reaction Status Date / Time sulfamethoxazole Allergy Severe RASH, RED, Verified 12/12/17 17:43 [From BACTRIM] BURNING FEELING trimethoprim [From BACTRIM] Allergy Severe RASH, RED, Verified 12/12/17 17:43 BURNING FEELING codeine Allergy Unknown Other Verified 12/12/17 17:43 lisinopril [LISINOPRIL] AdvReac Intermediate COUGHING Verified 12/12/17 17:43 morphine [MORPHINE] AdvReac Mild DOESN'T Verified 12/12/17 17:43 SEEM TO HELP Medical - CN: Exam - Constitutional Vitals: Temp Pulse Resp BP Pulse Ox 36.4 C 72 19 132/67 97 12/13/17 04:01 12/13/17 05:15 12/13/17 05:15 12/13/17 04:01 12/13/17 05:15 General appearance: mild distress, obese - ENT ENT exam: Present: mucous membranes dry. Absent: mucous membranes moist Additional comments: Patient has loss of multiple teeth. Many of her remaining teeth have caries, there are also changes of periodontitis - Respiratory Respiratory exam: Present: chest wall tenderness, decreased breath sounds Additional comments: Decreased breath sounds at bases, in the upper lung munoz the lungs are clear to auscultation. - Cardiovascular Cardiovascular exam: Present: +S1, +S2. Absent: gallop, rubs, systolic murmur - GI/Abdominal GI/Abdominal exam: Present: soft, diminished bowel sounds, distended. Absent: tenderness - Extremities Exam Extremities exam: Absent: pedal edema - Neurological Exam Additional comments: Patient is alert oriented X2 [can tell me her name, date of , place of , name of her partner, did not know the date] Power 4-5 in all 4 limbs Medical - CN: Result - Labs CBC & Chem 7: 12/13/17 04:15 12/13/17 04:15 Labs: Short CBC 12/12/17 12/13/17 Range/Units 17:53 04:15 WBC 4.7 4.5 (4.5-11.0) K/mcL Hgb 12.6 11.2 L (12.0-15.0) g/dL Hct 37.5 33.3 L (36.0-48.0) % Plt Count 133 L 111 L (140-440) K/mcL BMP 12/12/17 12/13/17 17:53 04:15 Sodium 140 145 Potassium 4.0 3.6 Chloride 104 112 H Carbon Dioxide 22 21 L BUN 45 H 33 H Creatinine 2.1 H 1.7 H Glucose 460 H* 302 H Calcium 9.5 8.8 Liver Function 12/12/17 12/13/17 Range/Units 17:53 04:15 Total Bilirubin 0.3 0.2 (0.0-1.0) mg/dL Direct Bilirubin < 0.2 (0.0-0.3) mg/dL GGT 30 (5-36) U/L AST 23 22 (0-37) U/l ALT 23 21 (0-40) U/l Alkaline Phosphatase 115 94 (39-117) U/L Albumin 3.7 3.0 L (3.2-5.2) gm/dL Urine 12/12/17 Range/Units 18:32 Urine Color Yellow Urine Appearance Clear Urine pH 6.0 (5.0-9.0) Ur Specific [place] 1.014 (1.000-1.035) Urine Protein 30 A (NEG) mg/dL Urine Glucose (UA) >=500 A (NEG) mg/dL Medical - CN: A/P - Narrative A/P Narrative: 62-year-old lady with inflammatory arthritis [on anakinra], uncontrolled diabetes, on opioids for pain management [also urine positive for opioids in the ER] now presented with: 1. Delirium: Multifactorial; secondary to opioids, hyperglycemia, sepsis [Q-sofa score 2 at admission] -No concerns for this being an encephalitis, given rapid improvement and also a short history of altered mental status 2. Group B streptococcus bacteremia: The source seems to be oral cavity, with many carious teeth and periodontitis. Another portal of entry into the bloodstream could be skin infection on the side of neck, described as a boil by the partner -CT head, abdomen/pelvis negative for any obvious infection; although the perinephric stranding is suspicious. Urine cultures may be done, but it would not supervisor records change Recommendations: Continue IV ceftriaxone 2 g every 24 for now Repeat blood cultures every other day Patient will need assistance in access to dental care [partner and patient say they do not have dental insurance], in order to prevent such bacteremia from happening again. Agree with TTE ordered by primary team If TTE is negative, will plan for a 2 week course of IV ceftriaxone We will continue to follow. Thank you for this interesting consult. Alfredo Scott MD Infectious disease
[2017-12-13] MEDS: METOCLOPRAMIDE 10 MG TABLET PO SCH (17:43)
[2017-12-13] MEDS: GABAPENTIN 300 MG CAPSULE PO SCH (21:17)
[2017-12-13] MEDS: VENLAFAXINE 75 MG TABLET PO SCH (21:17)
[2017-12-13] MEDS: rOPINIRole 1 MG TABLET PO SCH (21:18)
[2017-12-13] MEDS: TOPIRAMATE 100 MG TABLET PO SCH (21:18)
[2017-12-13] MEDS: SALMETEROL XINAFOATE 1 PUFF INHALER INH SCH (21:18)
[2017-12-13] MEDS: HYDROXYCHLOROQUINE 200 MG TABLET PO SCH (21:18)
[2017-12-13] MEDS: HEPARIN 5,000 UNIT/ML VIAL SQ SCH (21:48)
[2017-12-13] MEDS: INSULIN GLARGINE, HUMAN 1 UNIT/0.01 ML SQ SCH (21:54)
[2017-12-13] MEDS: Exenatide [Byetta] 10 MCG SUB-Q SCH (21:54)
[2017-12-14] MEDS: 0.9 % SODIUM CHLORIDE 10 ML SYRINGE IV SCH ×3 (05:17→20:44)
[2017-12-14 05:48] LABS: Basophils # (Auto) 0 K/mcL (0.0-0.3); Basophils % (Auto) 0.6 % (0.0-2.0); Eosinophils # (Auto) 0.1 K/mcL (0.0-0.7); Eosinophils % (Auto) 1.8 % (0.0-7.0); Granulocytes % (Auto) 52.8 % (38.0-78.0); Lymphocytes # (Auto) 1.7 K/mcL (1.5-4.8); Lymphocytes % (Auto) 37.4 % (15.5-49.0); Mean Cell Volume 90.8 fL (80.0-100.0); Mean Corpuscular HGB Conc 33.9 g/dL (31.0-36.0); Mean Corpuscular Hemoglobin 30.8 pg (26.0-34.0); Monocytes # (Auto) 0.3 K/mcL (0.1-0.9); Monocytes % (Auto) 7.4 % (1.0-12.0); Platelet Count 109 K/mcL (140-440); RBC 3.75 M/mcL (4.00-5.20); Red Cell Distribution Width 15.5 % (11.5-14.5)
[2017-12-14 06:38] LABS: ALT/SGPT 24 U/l (0-40); Albumin 2.9 gm/dL (3.2-5.2); Albumin/Globulin Ratio 1.1 (1.0-2.3); Alkaline Phosphatase 90 U/L (39-117); Bilirubin,Direct < 0.2 mg/dL (0.0-0.3); Blood Urea Nitrogen 21 mg/dl (6-20); Gamma Glutamyl Transpeptidase 30 U/L (5-36)
[2017-12-14] MEDS: METOCLOPRAMIDE 10 MG TABLET PO SCH ×2 (07:08→17:26)
[2017-12-14] MEDS: PANTOPRAZOLE 40 MG TABLET PO SCH (07:08)
[2017-12-14] MEDS ORDERED: MAGNESIUM SULFATE 2 GM/50 ML BAG IV ONE (07:17)
[2017-12-14] MEDS ORDERED: POTASSIUM CHLORIDE 20 MEQ PACKET PO SCH (08:00)
[2017-12-14] MEDS: INSULIN LISPRO 1 UNIT/0.01 ML UNIT SQ SCH ×4 (08:44→20:42)
[2017-12-14] MEDS ORDERED: ANAKINRA 100 MG SUB-Q SCH (09:00)
[2017-12-14] MEDS: INSULIN GLARGINE, HUMAN 1 UNIT/0.01 ML SQ SCH ×2 (09:48→20:44)
[2017-12-14] MEDS: Exenatide [Byetta] 10 MCG SUB-Q SCH ×2 (09:57→20:44)
[2017-12-14] MEDS: SALMETEROL XINAFOATE 1 PUFF INHALER INH SCH ×2 (09:57→20:44)
[2017-12-14] MEDS: HEPARIN 5,000 UNIT/ML VIAL SQ SCH ×2 (09:58→20:37)
[2017-12-14] MEDS: rOPINIRole 1 MG TABLET PO SCH ×3 (09:59→20:37)
[2017-12-14] MEDS: GABAPENTIN 300 MG CAPSULE PO SCH ×2 (09:59→20:37)
[2017-12-14] MEDS: SPIRONOLACTONE 25 MG TABLET PO SCH (09:59)
[2017-12-14] MEDS: amLODIPine 5 MG TABLET PO SCH (09:59)
[2017-12-14] MEDS: TOPIRAMATE 100 MG TABLET PO SCH ×2 (09:59→20:37)
[2017-12-14] MEDS: VENLAFAXINE 75 MG TABLET PO SCH ×3 (10:00→20:37)
[2017-12-14] MEDS: ALLOPURINOL 100 MG TABLET PO SCH (10:00)
[2017-12-14] MEDS: HYDROXYCHLOROQUINE 200 MG TABLET PO SCH ×2 (10:00→20:37)
[2017-12-14] MEDS: ATORVASTATIN 20 MG TABLET PO SCH (10:00)
[2017-12-14] MEDS: THIAMINE 100 MG in 0.9 % SODIUM CHLORIDE 50 ML IV SCH (10:35)
[2017-12-14] MEDS: cefTRIAXone 2 GM VIAL IV SCH (10:36)
--- NOTE | 2017-12-14 11:01 | Internal Med Progress Note ---
Medical - PN: Subj Patient information: Note initiated : 12/14/17 at 10:51 am Service Date, if different from initiated Date: [] Patient: Camille Knox 62 y/o F admitted on 12/13/17 for Weakness. Chief Complaint: [] Interval history: Patient is doing much better today. She had some diarrhea, for which his stool C. difficile was sent. Endorses pain in and around her mouth. Denies any other symptoms. - Constitutional Vitals: Vital Signs Temp Pulse Resp BP Pulse Ox 36.4 C 60 16 124/58 93 12/14/17 06:41 12/14/17 06:41 12/14/17 06:41 12/14/17 06:41 12/14/17 06:41 Period Temp Pulse Resp BP Sys/Agosto Pulse Ox Last 24 Hr 36.3 C-36.8 C 59-67 14-20 124-150/58-74 90-97 Intake and Output 12/13/17 12/14/17 12/14/17 21:59 05:59 13:59 Intake Total 100 / 100 290 / 290 Output Total 1000 / 1000 250 / 250 Balance -900 / -900 40 / 40 Weight 91.172 kg Intake & Output: Intake & Output 12/13/17 12/14/17 12/14/17 21:59 05:59 13:59 Intake Total 100 / 100 290 / 290 Output Total 1000 / 1000 250 / 250 Balance -900 / -900 40 / 40 Weight 91.172 kg Intake: IV 50 / 50 Oral 100 / 100 240 / 240 Output: Urine Catheter Amount 1000 / 1000 250 / 250 Other: Meal Nourishment/Supplement Percent of Meal Consumed 25% Feeding Ability Needs Supervision Stool Size Small Stool Color Brown Stool Consistency Loose # Bowel Movements 1 1 General appearance: disheveled, no acute distress, obese - ENT Additional comments: Multiple carious teeth, many teeth are missing, swollen and dirty gums - Respiratory Respiratory exam: Present: CTAB. Absent: rales, rhonchi, wheezes - Cardiovascular Cardiovascular exam: Present: +S1, +S2. Absent: systolic murmur - GI/Abdominal GI/Abdominal exam: Present: soft, distended, hypoactive bowel sounds. Absent: guarding, tenderness - Extremities Exam Extremities exam: Absent: pedal edema Medical - PN: Obj Da - Labs CBC & Chem 7: 12/14/17 04:20 12/14/17 04:20 Labs: Abnormal Lab Results 12/14/17 12/14/17 12/13/17 04:20 04:20 04:15 RBC 3.75 L Hgb 11.6 L Hct 34.1 L RDW 15.5 H Plt Count 109 L MPV 11.5 H Lymph # (Auto) Carbon Monoxide Screen Sodium 148 H Potassium 3.1 L Chloride 117 H 112 H Carbon Dioxide 21 L BUN 21 H 33 H Creatinine 1.4 H 1.7 H Glucose 302 H Phosphorus 1.8 L Magnesium 1.4 L Total Protein 5.5 L 5.6 L Albumin 2.9 L 3.0 L Triglycerides 186 H 276 H Urine Protein Urine Glucose (UA) CSF RBC CSF Glucose CSF Total Protein Urine Opiates Screen 12/13/17 12/13/17 12/13/17 04:15 00:34 00:34 RBC 3.69 L Hgb 11.2 L Hct 33.3 L RDW 15.3 H Plt Count 111 L MPV 11.4 H Lymph # (Auto) 1.4 L Carbon Monoxide Screen Sodium Potassium Chloride Carbon Dioxide BUN Creatinine Glucose Phosphorus Magnesium Total Protein Albumin Triglycerides Urine Protein Urine Glucose (UA) CSF RBC 4 H 345 H CSF Glucose 248 H* CSF Total Protein 52 H Urine Opiates Screen 12/12/17 12/12/17 12/12/17 22:18 18:32 18:32 RBC Hgb Hct RDW Plt Count MPV Lymph # (Auto) Carbon Monoxide Screen 4.7 H Sodium Potassium Chloride Carbon Dioxide BUN Creatinine Glucose Phosphorus Magnesium Total Protein Albumin Triglycerides Urine Protein 30 A Urine Glucose (UA) >=500 A CSF RBC CSF Glucose CSF Total Protein Urine Opiates Screen Suspect positive A 12/12/17 12/12/17 17:53 17:53 RBC Hgb Hct RDW 15.1 H Plt Count 133 L MPV 11.8 H Lymph # (Auto) Carbon Monoxide Screen Sodium Potassium Chloride Carbon Dioxide BUN 45 H Creatinine 2.1 H Glucose 460 H* Phosphorus Magnesium Total Protein Albumin Triglycerides Urine Protein Urine Glucose (UA) CSF RBC CSF Glucose CSF Total Protein Urine Opiates Screen Meds: Medications Acetaminophen (Tylenol) 650 mg PO Q6HP PRN PRN Reason: PAIN/FEVER > 101 Last Admin: 12/14/17 08:42 Dose: 650 mg Allopurinol (Zyloprim) 200 mg PO [facility] Last Admin: 12/14/17 10:00 Dose: 200 mg Amlodipine Besylate (Norvasc) 5 mg PO QDAY [facility] Last Admin: 12/14/17 09:59 Dose: 5 mg Atorvastatin Calcium (Lipitor) 40 mg PO DAILY [facility] Last Admin: 12/14/17 10:00 Dose: 40 mg Ceftriaxone Sodium (Rocephin) 2 gm IV DAILY [facility] Last Admin: 12/14/17 10:36 Dose: 2 gm Dextrose (Dextrose 50%) 0 ml IV UD PRN PRN Reason: Hypoglycemia Last Admin: 12/14/17 00:13 Dose: 25 ml Diagnostic Test (Pha) (Accu-Chek) 1 each FS [facility] Last Admin: 12/14/17 07:15 Dose: 1 each Gabapentin (Neurontin) 300 mg PO BID [facility] Last Admin: 12/14/17 09:59 Dose: 300 mg Glucose (Insta-Glucose) 15 gm PO PRN PRN PRN Reason: Hypoglycemia Heparin Sodium (Porcine) (Heparin) 5,000 unit SQ Q12 [facility] Last Admin: 12/14/17 09:58 Dose: 5,000 unit Hydroxychloroquine Sulfate (Plaquenil) 200 mg PO BID [facility] Last Admin: 12/14/17 10:00 Dose: 200 mg Thiamine HCl 100 mg/ Sodium (Chloride) 51 mls @ 50 mls/hr IV DAILY [facility] Stop: 12/18/17 10:02 Last Admin: 12/14/17 10:35 Dose: 50 mls/hr Insulin Glargine (Lantus) 60 unit SQ BID [facility] Last Admin: 12/14/17 09:48 Dose: Not Given Insulin Human Lispro (Humalog) 0 unit SQ [facility]; Protocol Last Admin: 12/14/17 08:44 Dose: Not Given [facility] Last Admin: 12/14/17 07:08 Dose: 10 mg Naloxone HCl (Narcan) 0.1 mg IV Q2MIN PRN PRN Reason: Opiate Reversal Ondansetron HCl (Zofran) 4 mg IV Q4HP PRN PRN Reason: Nausea And Vomiting Pantoprazole Sodium (Protonix) 40 mg PO ACB [facility] Last Admin: 12/14/17 07:08 Dose: 40 mg Anakinra [Kineret] 100 Mg Prefilled Syringe 1 dose SUB-Q Q48H [facility] Last Admin: 12/14/17 09:57 Dose: Not Given Exenatide [Byetta] (10 Mcg) 1 dose SUB-Q BID [facility] Last Admin: 12/14/17 09:57 Dose: Not Given Potassium Chloride (Klor-Con) 40 meq PO TIDCC [facility] Stop: 12/14/17 17:31 Last Admin: 12/14/17 08:42 Dose: 40 meq Ropinirole HCl (Requip) 1 mg PO TID [facility] Last Admin: 12/14/17 09:59 Dose: 1 mg Salmeterol Xinafoate (Serevent) 1 puff INH BID [facility] Last Admin: 12/14/17 09:57 Dose: Not Given Sodium Chloride (Saline Flush) 10 ml IV Q8 [facility] Last Admin: 12/14/17 05:17 Dose: Not Given Spironolactone (Aldactone) 25 mg PO DAILY [facility] Last Admin: 12/14/17 09:59 Dose: 25 mg Topiramate (Topamax) 100 mg PO BID [facility] Last Admin: 12/14/17 09:59 Dose: 100 mg Venlafaxine HCl (Effexor) 75 mg PO TID [facility] Last Admin: 12/14/17 10:00 Dose: 75 mg Medical - PN: A/P - Time Spent With Patient Total time spent is greater than 50% in coordination of care (as documented) at patient's floor/unit and/or counseling patient: - Narrative A/P Narrative: 62-year-old lady with inflammatory arthritis [on anakinra], uncontrolled diabetes, on opioids for pain management [also urine positive for opioids in the ER] now presented with: 1. Delirium: resolved Multifactorial; secondary to opioids, hyperglycemia, sepsis [Q-sofa score 2 at admission] -No concerns for this being an encephalitis, given rapid improvement and also a short history of altered mental status 2. Group B streptococcus bacteremia: The source seems to be oral cavity, with many carious teeth and periodontitis. Another portal of entry into the bloodstream could be skin infection on the side of neck, described as a boil by the partner -CT head, abdomen/pelvis negative for any obvious infection; although the perinephric stranding is suspicious. 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 Active smoker: 1 PPD 4. DM2 - would benefit from good control of BS as OP, diabetes education. A good diabetic control might reduce susceptibility to infections Recommendations: Continue IV ceftriaxone 2 g every 24, day 2 Await blood Cx sent yesterday. If negative by tomorrow, pt can be sent home with plan to do a finish a total of 2 weeks of IV Ceftriaxone (through a PICC or midline) Patient will need assistance in access to dental care [partner and patient say they do not have dental insurance], in order to prevent such bacteremia from happening again. Pt counseled to quit smoking will follow Alfredo Scott MD Infectious disease
[2017-12-14] MEDS: POTASSIUM CHLORIDE 20 MEQ TABLET PO SCH ×2 (12:29→17:26)
--- NOTE | 2017-12-14 15:00 | Internal Med Progress Note ---
Medical - PN: Subj Patient information: Note initiated : 12/14/17 at 2:22 pm Service Date, if different from initiated Date: [] Patient: Camille Knox a 62 y/o F admitted on 12/13/17 for Weakness. Chief Complaint: [] Interval history: Ms. Knox is a 62 year old Female with multipe medical issues shweta to the ER by family for altered mental status x 1 day Patient unable to provide any history, family was not by the bed side, history obtained from chart review The patient friend who got her to the ER noted that the patient has bee drowsy since 2 pm day before yesterday, and not waking up. This was the main reason for bringing the patient to the ER. In the past as per history whenever the patient has presented like this she has been septic/ sick. The patient in the ER would open eyes to verbal commands and then go right back to sleep In the ER she was hemodynamically stable, afebrile, pupilss 3-4 mm reactive, did not respond to narcan labs did not show any leucocytosis, cxr neg for acute infection, CT abdomen neg for acute process, ua neg for infection, cultures sent, ammonia neg, head ct neg , carboxy hb 4.6 not very high, glucose was elevated at 460, but otherwise patient had no other positive findings except decreased mentation. LP was performed which on tube 1 showed high rbc but tube 4 only had 5 rbc, gram stain neg, glucose level normal mild elevation of protein, noted. IV acyclovir was given but stopped after cell count on tube 4 showed much improved rbc the patient was initially admitted to the hospital as obs for management, Utox was positive for opiates rest neg. The patients mentation improved after admission, but was unable to provide a meaningful history ,just noting she was cold. Her blood culture was opsotive for GPC, strep agalacate. Given that this is usually not a contaminant, the patient deemed bacteremic with undermined source Infectious disease consulted, echo ordered, patient started on Rocephin. 12/14 Pt seen examined, no acute overnight, mental statu better today on med surg now, pt is more awake and is aoox4 this AM last night was drowsy, glucose was low, after resumption lantus, and was held. Pt wishes to go home, Bood cx strep agalacate, on IV Rocephin per ID will need total of 2 weeks of IV abx per ID. Pertinent ROS: Denies headache, dizziness Denies chest pain, palpitations Denies cough or shortness of breath Denies abdominal pain, nausea or vomiting. - Constitutional Vitals: Vital Signs Temp Pulse Resp BP Pulse Ox 97.5 F 70 16 138/78 95 12/14/17 11:43 12/14/17 11:43 12/14/17 11:43 12/14/17 11:43 12/14/17 11:43 Period Temp Pulse Resp BP Sys/Agosto Pulse Ox Last 24 Hr 97.5 F-98.3 F 60-70 14-18 124-148/58-78 90-97 Intake and Output 12/14/17 12/14/17 12/14/17 05:59 13:59 21:59 Intake Total 100 / 100 641 / 641 Output Total 1000 / 1000 900 / 900 Balance -900 / -900 -259 / -259 Weight 201 lb Patient Weight 12/15/17 05:59 Weight 201 lb Intake & Output: Intake & Output 12/14/17 12/14/17 12/14/17 05:59 13:59 21:59 Intake Total 100 / 100 641 / 641 Output Total 1000 / 1000 900 / 900 Balance -900 / -900 -259 / -259 Weight 201 lb Intake: IV 101 / 101 Vitamin B1 100 mg In Sodium 51 / 51 Chloride 0.9% 50 ml @ 50 mls/hr IV DAILY [facility] Rx#:[id number] Oral 100 / 100 540 / 540 Output: Urine Catheter Amount 1000 / 1000 550 / 550 Void Amount 150 / 150 Emesis 200 / 200 Other: Meal Nourishment/Supplement Lunch Percent of Meal Consumed 25% 50% Feeding Ability Needs Supervision Stool Size Small Stool Color Brown Stool Consistency Loose # Bowel Movements 1 1 Exam: Constitutional; Afebrile, cooperative, alert, not in distress. Respiratory system: Air Entry equal on both sides, No crackles or wheezing, no rhonchi. CVS- Rate rhythm regular, S1,S2 heard, no gallop, no rub. Abdomen- Soft nontender abdomen, no organomegaly, no tenderness, no guarding or rigidity, LEAD PASTOR- AOOx3, moving all extremities, no gross focal deficit noted. Medical - PN: Obj Da - Labs CBC & Chem 7: 12/14/17 04:20 12/14/17 04:20 Labs: Abnormal Lab Results 12/14/17 12/14/17 12/13/17 04:20 04:20 04:15 RBC 3.75 L Hgb 11.6 L Hct 34.1 L RDW 15.5 H Plt Count 109 L MPV 11.5 H Lymph # (Auto) Carbon Monoxide Screen Sodium 148 H Potassium 3.1 L Chloride 117 H 112 H Carbon Dioxide 21 L BUN 21 H 33 H Creatinine 1.4 H 1.7 H Glucose 302 H Phosphorus 1.8 L Magnesium 1.4 L Total Protein 5.5 L 5.6 L Albumin 2.9 L 3.0 L Triglycerides 186 H 276 H Urine Protein Urine Glucose (UA) CSF RBC CSF Glucose CSF Total Protein Urine Opiates Screen 12/13/17 12/13/17 12/13/17 04:15 00:34 00:34 RBC 3.69 L Hgb 11.2 L Hct 33.3 L RDW 15.3 H Plt Count 111 L MPV 11.4 H Lymph # (Auto) 1.4 L Carbon Monoxide Screen Sodium Potassium Chloride Carbon Dioxide BUN Creatinine Glucose Phosphorus Magnesium Total Protein Albumin Triglycerides Urine Protein Urine Glucose (UA) CSF RBC 4 H 345 H CSF Glucose 248 H* CSF Total Protein 52 H Urine Opiates Screen 12/12/17 12/12/17 12/12/17 22:18 18:32 18:32 RBC Hgb Hct RDW Plt Count MPV Lymph # (Auto) Carbon Monoxide Screen 4.7 H Sodium Potassium Chloride Carbon Dioxide BUN Creatinine Glucose Phosphorus Magnesium Total Protein Albumin Triglycerides Urine Protein 30 A Urine Glucose (UA) >=500 A CSF RBC CSF Glucose CSF Total Protein Urine Opiates Screen Suspect positive A 12/12/17 12/12/17 17:53 17:53 RBC Hgb Hct RDW 15.1 H Plt Count 133 L MPV 11.8 H Lymph # (Auto) Carbon Monoxide Screen Sodium Potassium Chloride Carbon Dioxide BUN 45 H Creatinine 2.1 H Glucose 460 H* Phosphorus Magnesium Total Protein Albumin Triglycerides Urine Protein Urine Glucose (UA) CSF RBC CSF Glucose CSF Total Protein Urine Opiates Screen Meds: Medications Acetaminophen (Tylenol) 650 mg PO Q6HP PRN PRN Reason: PAIN/FEVER > 101 Last Admin: 12/14/17 08:42 Dose: 650 mg Allopurinol (Zyloprim) 200 mg PO QDAY [facility] Last Admin: 12/14/17 10:00 Dose: 200 mg Amlodipine Besylate (Norvasc) 5 mg PO QDAY [facility] Last Admin: 12/14/17 09:59 Dose: 5 mg Atorvastatin Calcium (Lipitor) 40 mg PO DAILY [facility] Last Admin: 12/14/17 10:00 Dose: 40 mg Ceftriaxone Sodium (Rocephin) 2 gm IV DAILY [facility] Last Admin: 12/14/17 10:36 Dose: 2 gm Dextrose (Dextrose 50%) 0 ml IV UD PRN PRN Reason: Hypoglycemia Last Admin: 12/14/17 00:13 Dose: 25 ml Diagnostic Test (Pha) (Accu-Chek) 1 each FS [facility] Last Admin: 12/14/17 11:51 Dose: 1 each Gabapentin (Neurontin) 300 mg PO BID [facility] Last Admin: 12/14/17 09:59 Dose: 300 mg Glucose (Insta-Glucose) 15 gm PO PRN PRN PRN Reason: Hypoglycemia Heparin Sodium (Porcine) (Heparin) 5,000 unit SQ Q12 [facility] Last Admin: 12/14/17 09:58 Dose: 5,000 unit Hydroxychloroquine Sulfate (Plaquenil) 200 mg PO BID [facility] Last Admin: 12/14/17 10:00 Dose: 200 mg Thiamine HCl 100 mg/ Sodium (Chloride) 51 mls @ 50 mls/hr IV DAILY [facility] Stop: 12/18/17 10:02 Last Infusion: 12/14/17 11:50 Dose: Infused Insulin Glargine (Lantus) 60 unit SQ BID [facility] Last Admin: 12/14/17 09:48 Dose: Not Given Insulin Human Lispro (Humalog) 0 unit SQ [facility]; Protocol Last Admin: 12/14/17 12:04 Dose: 12 unit Metoclopramide HCl (Reglan) 10 mg PO BIDAC [facility] Last Admin: 12/14/17 07:08 Dose: 10 mg Naloxone HCl (Narcan) 0.1 mg IV Q2MIN PRN PRN Reason: Opiate Reversal Ondansetron HCl (Zofran) 4 mg IV Q4HP PRN PRN Reason: Nausea And Vomiting Pantoprazole Sodium (Protonix) 40 mg PO ACB [facility] Last Admin: 12/14/17 07:08 Dose: 40 mg Anakinra [Kineret] 100 Mg Prefilled Syringe 1 dose SUB-Q Q48H [facility] Last Admin: 12/14/17 09:57 Dose: Not Given Exenatide [Byetta] (10 Mcg) 1 dose SUB-Q BID [facility] Last Admin: 12/14/17 09:57 Dose: Not Given Potassium Chloride (Kdur) 40 meq PO TIDCC [facility] Stop: 12/14/17 17:31 Last Admin: 12/14/17 12:29 Dose: 40 meq Ropinirole HCl (Requip) 1 mg PO TID [facility] Last Admin: 12/14/17 09:59 Dose: 1 mg Salmeterol Xinafoate (Serevent) 1 puff INH BID [facility] Last Admin: 12/14/17 09:57 Dose: Not Given Sodium Chloride (Saline Flush) 10 ml IV Q8 [facility] Last Admin: 12/14/17 05:17 Dose: Not Given Spironolactone (Aldactone) 25 mg PO DAILY [facility] Last Admin: 12/14/17 09:59 Dose: 25 mg Topiramate (Topamax) 100 mg PO BID [facility] Last Admin: 12/14/17 09:59 Dose: 100 mg Venlafaxine HCl (Effexor) 75 mg PO TID [facility] Last Admin: 12/14/17 10:00 Dose: 75 mg Medical - PN: A/P - Time Spent With Patient Total time spent is greater than 50% in coordination of care (as documented) at patient's floor/unit and/or counseling patient: - Narrative A/P Narrative: A/P Altered Mental status/ Metabolic vs Septic encephalopathy -much improved. likely due to infection. Strep aglactate Bacteremia- dental source, ID following, needs Inflammatory arthropathy- resume home medications, we do not carry a significant number of patients med which pt will need to get from home. Chronic pain- hold pain meds for now till mental status is much better, resume slowly. Diabetes mellitus- Uncontrolled glucose, with low values on resumption of home meds, pt has decresaed intake per partner. Will need to adjust lantus dose CHF- stable, no exacerbation Chronic Kidney disease stage 2- creat stable. DVT hep sq Diet advance as tolerated FUll code.
[2017-12-14] MEDS: HYDROcodone/APAP 10/325MG TABLET PO PRN ×2 (17:24→21:31)
[2017-12-15] MEDS: HYDROcodone/APAP 10/325MG TABLET PO PRN ×3 (01:54→13:20)
[2017-12-15] MEDS: 0.9 % SODIUM CHLORIDE 10 ML SYRINGE IV SCH ×2 (05:28→14:32)
[2017-12-15 07:28] LABS: Basophils # (Auto) 0 K/mcL (0.0-0.3); Basophils % (Auto) 0.6 % (0.0-2.0); Eosinophils # (Auto) 0.1 K/mcL (0.0-0.7); Eosinophils % (Auto) 3.6 % (0.0-7.0); Granulocytes % (Auto) 44.6 % (38.0-78.0); Lymphocytes # (Auto) 1.8 K/mcL (1.5-4.8); Lymphocytes % (Auto) 44.2 % (15.5-49.0); Mean Cell Volume 91.4 fL (80.0-100.0); Mean Corpuscular HGB Conc 34.2 g/dL (31.0-36.0); Mean Corpuscular Hemoglobin 31.3 pg (26.0-34.0); Monocytes # (Auto) 0.3 K/mcL (0.1-0.9); Platelet Count 107 K/mcL (140-440); RBC 3.89 M/mcL (4.00-5.20); Red Cell Distribution Width 15.5 % (11.5-14.5)
[2017-12-15] MEDS: METOCLOPRAMIDE 10 MG TABLET PO SCH (07:36)
[2017-12-15] MEDS: PANTOPRAZOLE 40 MG TABLET PO SCH (07:36)
[2017-12-15 07:56] LABS: ALT/SGPT 26 U/l (0-40); Albumin 3.1 gm/dL (3.2-5.2); Albumin/Globulin Ratio 1.1 (1.0-2.3); Alkaline Phosphatase 96 U/L (39-117); Bilirubin,Direct < 0.2 mg/dL (0.0-0.3); Blood Urea Nitrogen 14 mg/dl (6-20); Gamma Glutamyl Transpeptidase 31 U/L (5-36)
[2017-12-15] MEDS: INSULIN LISPRO 1 UNIT/0.01 ML UNIT SQ SCH ×2 (08:06→11:16)
[2017-12-15] MEDS: THIAMINE 100 MG in 0.9 % SODIUM CHLORIDE 50 ML IV SCH (08:18)
[2017-12-15] MEDS: cefTRIAXone 2 GM VIAL IV SCH (09:24)
[2017-12-15] MEDS: INSULIN GLARGINE, HUMAN 1 UNIT/0.01 ML SQ SCH (09:32)
[2017-12-15] MEDS: HEPARIN 5,000 UNIT/ML VIAL SQ SCH (09:32)
[2017-12-15] MEDS: rOPINIRole 1 MG TABLET PO SCH ×2 (09:34→14:33)
[2017-12-15] MEDS: ATORVASTATIN 20 MG TABLET PO SCH (09:34)
[2017-12-15] MEDS: HYDROXYCHLOROQUINE 200 MG TABLET PO SCH (09:35)
[2017-12-15] MEDS: amLODIPine 5 MG TABLET PO SCH (09:35)
[2017-12-15] MEDS: ALLOPURINOL 100 MG TABLET PO SCH (09:35)
[2017-12-15] MEDS: VENLAFAXINE 75 MG TABLET PO SCH ×2 (09:35→14:34)
[2017-12-15] MEDS: TOPIRAMATE 100 MG TABLET PO SCH (09:36)
[2017-12-15] MEDS: SPIRONOLACTONE 25 MG TABLET PO SCH (09:36)
[2017-12-15] MEDS: GABAPENTIN 300 MG CAPSULE PO SCH (09:36)
[2017-12-15] MEDS: Exenatide [Byetta] 10 MCG SUB-Q SCH (10:00)
[2017-12-15] MEDS: SALMETEROL XINAFOATE 1 PUFF INHALER INH SCH (10:00)
--- NOTE | 2017-12-15 12:33 | Internal Med Progress Note ---
Medical - PN: Subj Patient information: Note initiated : 12/15/17 at 12:31 pm Service Date, if different from initiated Date: [] Patient: Camille Knox 62 y/o F admitted on 12/13/17 for Weakness. Chief Complaint: [] Interval history: Patient sitting in the chair, eating her lunch. Had one loose bowel movement today, denies fever, belly pain, nausea, vomiting, back pain. - Constitutional Vitals: Vital Signs Temp Pulse Resp BP Pulse Ox 36.2 C 57 L 18 110/64 96 12/15/17 11:24 12/15/17 11:24 12/15/17 11:24 12/15/17 11:24 12/15/17 11:24 Period Temp Pulse Resp BP Sys/Agosto Pulse Ox Last 24 Hr 35.2 C-37.0 C 53-71 14-20 110-162/64-78 94-98 Intake and Output 12/14/17 12/15/17 12/15/17 21:59 05:59 13:59 Intake Total 580 / 580 250 / 250 771 / 771 Output Total 275 / 275 525 / 525 300 / 300 Balance 305 / 305 -275 / -275 471 / 471 Weight 89.811 kg Intake & Output: Intake & Output 12/14/17 12/15/17 12/15/17 21:59 05:59 13:59 Intake Total 580 / 580 250 / 250 771 / 771 Output Total 275 / 275 525 / 525 300 / 300 Balance 305 / 305 -275 / -275 471 / 471 Weight 89.811 kg Intake: IV 51 / 51 Vitamin B1 100 mg In Sodium 51 / 51 Chloride 0.9% 50 ml @ 50 mls/hr IV DAILY [facility] Rx#:[id number] Oral 580 / 580 250 / 250 720 / 720 Output: Void Amount 275 / 275 525 / 525 300 / 300 Other: Meal Dinner Lunch Percent of Meal Consumed 25% 50% Feeding Ability Independent Independent Stool Size Small Small Stool Color Green Brown Stool Consistency Soft Loose Watery Loose # Voids 1 1 # Bowel Movements 1 1 General appearance: no acute distress, obese - Respiratory Respiratory exam: Present: CTAB. Absent: rales, rhonchi, wheezes - Cardiovascular Cardiovascular exam: Present: +S1, +S2. Absent: systolic murmur - GI/Abdominal GI/Abdominal exam: Present: distended - Extremities Exam Additional comments: Has a peripheral IV in the left arm, no PICC line or midline placed yet Medical - PN: Obj Da - Labs CBC & Chem 7: 12/15/17 04:43 12/15/17 04:43 Labs: Abnormal Lab Results 12/15/17 12/15/17 12/14/17 04:43 04:43 04:20 WBC 4.2 L RBC 3.89 L Hgb Hct 35.5 L RDW 15.5 H Plt Count 107 L MPV 11.9 H Lymph # (Auto) Carbon Monoxide Screen Sodium 146 H 148 H Potassium 3.1 L Chloride 113 H 117 H Carbon Dioxide 20 L BUN 21 H Creatinine 1.4 H 1.4 H Glucose 55 L Phosphorus Magnesium 1.4 L Total Protein 5.5 L Albumin 3.1 L 2.9 L Triglycerides 210 H 186 H Urine Protein Urine Glucose (UA) CSF RBC CSF Glucose CSF Total Protein Urine Opiates Screen 12/14/17 12/13/17 12/13/17 04:20 04:15 04:15 WBC RBC 3.75 L 3.69 L Hgb 11.6 L 11.2 L Hct 34.1 L 33.3 L RDW 15.5 H 15.3 H Plt Count 109 L 111 L MPV 11.5 H 11.4 H Lymph # (Auto) 1.4 L Carbon Monoxide Screen Sodium Potassium Chloride 112 H Carbon Dioxide 21 L BUN 33 H Creatinine 1.7 H Glucose 302 H Phosphorus 1.8 L Magnesium Total Protein 5.6 L Albumin 3.0 L Triglycerides 276 H Urine Protein Urine Glucose (UA) CSF RBC CSF Glucose CSF Total Protein Urine Opiates Screen 12/13/17 12/13/17 12/12/17 00:34 00:34 22:18 WBC RBC Hgb Hct RDW Plt Count MPV Lymph # (Auto) Carbon Monoxide Screen 4.7 H Sodium Potassium Chloride Carbon Dioxide BUN Creatinine Glucose Phosphorus Magnesium Total Protein Albumin Triglycerides Urine Protein Urine Glucose (UA) CSF RBC 4 H 345 H CSF Glucose 248 H* CSF Total Protein 52 H Urine Opiates Screen 12/12/17 12/12/17 12/12/17 18:32 18:32 17:53 WBC RBC Hgb Hct RDW Plt Count MPV Lymph # (Auto) Carbon Monoxide Screen Sodium Potassium Chloride Carbon Dioxide BUN 45 H Creatinine 2.1 H Glucose 460 H* Phosphorus Magnesium Total Protein Albumin Triglycerides Urine Protein 30 A Urine Glucose (UA) >=500 A CSF RBC CSF Glucose CSF Total Protein Urine Opiates Screen Suspect positive A 12/12/17 17:53 WBC RBC Hgb Hct RDW 15.1 H Plt Count 133 L MPV 11.8 H Lymph # (Auto) Carbon Monoxide Screen Sodium Potassium Chloride Carbon Dioxide BUN Creatinine Glucose Phosphorus Magnesium Total Protein Albumin Triglycerides Urine Protein Urine Glucose (UA) CSF RBC CSF Glucose CSF Total Protein Urine Opiates Screen Meds: Medications Acetaminophen (Tylenol) 650 mg PO Q6HP PRN PRN Reason: PAIN/FEVER > 101 Last Admin: 12/14/17 08:42 Dose: 650 mg Hydrocodone Bitart/Acetaminophen ([place] 10/325mg) 1 tab PO Q4H PRN PRN Reason: Pain Last Admin: 12/15/17 07:37 Dose: 1 tab Allopurinol (Zyloprim) 200 mg PO QDAY [facility] Last Admin: 12/15/17 09:35 Dose: 200 mg Amlodipine Besylate (Norvasc) 5 mg PO QDAY [facility] Last Admin: 12/15/17 09:35 Dose: 5 mg Atorvastatin Calcium (Lipitor) 40 mg PO DAILY [facility] Last Admin: 12/15/17 09:34 Dose: 40 mg Ceftriaxone Sodium (Rocephin) 2 gm IV DAILY [facility] Last Admin: 12/15/17 09:24 Dose: 2 gm Dextrose (Dextrose 50%) 0 ml IV UD PRN PRN Reason: Hypoglycemia Last Admin: 12/14/17 00:13 Dose: 25 ml Diagnostic Test (Pha) (Accu-Chek) 1 each FS ACHS [facility] Last Admin: 12/15/17 11:15 Dose: 1 each Gabapentin (Neurontin) 300 mg PO BID [facility] Last Admin: 12/15/17 09:36 Dose: 300 mg Glucose (Insta-Glucose) 15 gm PO PRN PRN PRN Reason: Hypoglycemia Heparin Sodium (Porcine) (Heparin) 5,000 unit SQ Q12 [facility] Last Admin: 12/15/17 09:32 Dose: 5,000 unit Hydroxychloroquine Sulfate (Plaquenil) 200 mg PO BID [facility] Last Admin: 12/15/17 09:35 Dose: 200 mg Thiamine HCl 100 mg/ Sodium (Chloride) 51 mls @ 50 mls/hr IV DAILY [facility] Stop: 12/18/17 10:02 Last Infusion: 12/15/17 09:24 Dose: Infused Insulin Glargine (Lantus) 60 unit SQ BID [facility] Last Admin: 12/15/17 09:32 Dose: 60 unit Insulin Human Lispro (Humalog) 0 unit SQ ACHS [facility]; Protocol Last Admin: 12/15/17 11:16 Dose: Not Given Metoclopramide HCl (Reglan) 10 mg PO BIDAC [facility] Last Admin: 12/15/17 07:36 Dose: 10 mg Naloxone HCl (Narcan) 0.1 mg IV Q2MIN PRN PRN Reason: Opiate Reversal Ondansetron HCl (Zofran) 4 mg IV Q4HP PRN PRN Reason: Nausea And Vomiting Pantoprazole Sodium (Protonix) 40 mg PO ACB [facility] Last Admin: 12/15/17 07:36 Dose: 40 mg Anakinra [Kineret] 100 Mg Prefilled Syringe 1 dose SUB-Q Q48H [facility] Last Admin: 12/14/17 09:57 Dose: Not Given Exenatide [Byetta] (10 Mcg) 1 dose SUB-Q BID [facility] Last Admin: 12/15/17 10:00 Dose: Not Given Ropinirole HCl (Requip) 1 mg PO TID [facility] Last Admin: 12/15/17 09:34 Dose: 1 mg Salmeterol Xinafoate (Serevent) 1 puff INH BID [facility] Last Admin: 12/15/17 10:00 Dose: Not Given Sodium Chloride (Saline Flush) 10 ml IV Q8 [facility] Last Admin: 12/15/17 05:28 Dose: 10 ml Spironolactone (Aldactone) 25 mg PO DAILY [facility] Last Admin: 12/15/17 09:36 Dose: 25 mg Topiramate (Topamax) 100 mg PO BID [facility] Last Admin: 12/15/17 09:36 Dose: 100 mg Venlafaxine HCl (Effexor) 75 mg PO TID [facility] Last Admin: 12/15/17 09:35 Dose: 75 mg Medical - PN: A/P - Time Spent With Patient Total time spent is greater than 50% in coordination of care (as documented) at patient's floor/unit and/or counseling patient: 15 - 24 minutes - Narrative A/P Narrative: 62-year-old lady with inflammatory arthritis [on anakinra], uncontrolled diabetes, on opioids for pain management [also urine positive for opioids in the ER] now presented with: 1. Delirium: resolved Multifactorial; secondary to opioids, hyperglycemia, sepsis [Q-sofa score 2 at admission] -No concerns for this being an encephalitis, given rapid improvement and also a short history of altered mental status 2. Group B streptococcus bacteremia: The source seems to be oral cavity, with many carious teeth and periodontitis. Another portal of entry into the bloodstream could be skin infection on the side of neck, described as a boil by the partner -CT head, abdomen/pelvis negative for any obvious infection; although the perinephric stranding is suspicious. Urine cultures may be done, but it would not supervisor records change 3. Active smoker: 1 PPD 4. DM2 - would benefit from good control of BS as OP, diabetes education. A good diabetic control might reduce susceptibility to infections Recommendations: Continue IV ceftriaxone 2 g every 24, day 3. Will plan for a 2 week course through a midline, with a stop date of 25 December 2017 In my opinion, patient's partner should be involved and taught how to give IV ceftriaxone at home. She is pretty involved, logical and motivated to take care of the patient. Patient's home [[place], [place]] is about 26 miles from [place] and I am unsure how easy or difficult it would be for patient to travel every day to the infusion center for her daily ceftriaxone. In that case home health should be arranged, with a home health nurse coming to check on the patient once a week and change the dressing Follow-up labs: CBC and BMP should be done one time next week and the results should be faxed to [phone] [attention Dr. Scott] Pt counseled to quit smoking No infectious disease follow-up needed Alfredo Scott MD Infectious disease
--- NOTE | 2017-12-15 17:26 | Discharge Summary ---
Medical - DS: Prov Patient information: Note initiated : 12/15/17 at 5:20 pm Patient: Camille Knox 62 y/o F admitted on 12/13/17 for Weakness. Date of admission: 12/13/17 10:59 Discharge date: 12/15/17 Primary care physician: Arianne Lizarraga Admitting clinician: Danielle Ashraf Consults: 12/13/17 Consult to Physician [CONS] Stat Comment: Consulting Provider: Danielle Ashraf Reason For Exam: Physician to Consult 12/13/17 11:02 Consult to Physician [CONS] Routine Comment: strep agalactae bactermia Consulting Provider: Alfredo Scott Reason For Exam: Physician to Consult Attending physician on discharge: Dayana Banda Medical - DS: Meds - Discharge Medications Prescriptions: cefTRIAXone [Rocephin] 2 gm IV DAILY #11 vial Active and Home Medications: Home Medications atorvastatin 40 mg tablet 40 mg PO QDAY 11/26/15 [History Confirmed 12/12/17 Last Taken 06/18/17] exenatide 5 mcg/dose (250 mcg/mL)1.2 mL subcutaneous pen injector 10 mcg SUB-Q BID 11/26/15 [History Confirmed 12/12/17 Last Taken 06/18/17] gabapentin 300 mg capsule 300 mg PO BID cap 11/26/15 [History Confirmed Last Taken 06/18/17] topiramate 100 mg tablet 100 mg PO BID 11/26/15 [History Confirmed 12/12/17 Last Taken 06/18/17] venlafaxine ER 150 mg capsule,extended release 24 hr 75 mg PO TID 11/26/15 [ History Confirmed 12/12/17 Last Taken 06/18/17] Furosemide [Lasix] 40 mg PO BID tab 03/03/16 [History Confirmed 12/12/17 Last Taken 06/18/17] amlodipine 5 mg tablet 5 mg PO QDAY #30 tab 06/01/17 [Rx Confirmed 12/12/17 Last Taken 06/19/17 06:30] Insulin Glargine, Human [Lantus] 60 unit SQ BID 06/14/17 [History Confirmed Last Taken 06/18/17] Pregabalin [Lyrica] 150 mg PO BID 06/14/17 [History Confirmed 12/12/17 Last Taken 06/18/17] hydrOXYzine [Vistaril] 10 mg PO TID 06/14/17 [History Confirmed 12/12/17 Last Taken 06/18/17] Spironolactone [Aldactone] 25 mg PO DAILY 06/19/17 [History Confirmed 12/12/17 Last Taken 06/18/17] HYDROcodone/APAP 10/325MG [[place] 10-325Mg] 1 - 2 tab PO Q4H PRN #60 tab [Rx Confirmed 12/12/17 Last Taken Unknown] oxyCODONE [Oxycontin] 20 mg PO BID #30 tab.er.12h 06/22/17 [Rx Confirmed Last Taken Unknown] cyclobenzaprine 10 mg tablet 10 mg PO BID 30 Days #90 11/22/17 [History Confirmed 12/12/17 Last Taken Unknown] hydroxychloroquine 200 mg tablet 200 mg PO BID #60 tab 11/22/17 [Rx Confirmed Last Taken Unknown] allopurinol 100 mg tablet See Label Instructions PO QDAY #60 tab 11/27/17 [Rx Confirmed 12/12/17 Last Taken Unknown] anakinra 100 mg/0.67 mL subcutaneous syringe 100 mg SUB-Q .Q48hrs #10.05 ml [Rx Confirmed 12/12/17 Last Taken Unknown] Albuterol Sulfate [Ventolin] 2 puff INH Q4-6HP PRN 12/12/17 [History Confirmed 12/12/17 Last Taken Unknown] Insulin Aspart [Novolog] 15 unit SQ HS 12/12/17 [History Confirmed 12/12/17 Last Taken Unknown] Insulin Aspart [Novolog] 30 unit SQ .COMPLEX 12/12/17 [History Confirmed Last Taken Unknown] Metoclopramide [Reglan] 10 mg PO BIDAC 12/12/17 [History Confirmed 12/12/17 Last Taken Unknown] Pantoprazole [Protonix] 40 mg PO DAILY 12/12/17 [History Confirmed 12/12/17 Last Taken Unknown] Salmeterol Xinafoate [Serevent Diskus] 50 mcg IH BID 12/12/17 [History Confirmed 12/12/17 Last Taken Unknown] rOPINIRole HCL [Requip] 1 mg PO TID 12/12/17 [History Confirmed 12/12/17 Last Taken Unknown] Medical - DS: Hosp Hospital course: 12/13 Ms. Knox is a 62 year old Female with multiple medical issues brought to the ER by family for altered mental status x 1 day. Patient unable to provide any history, family was not by the bed side, history obtained from chart review. The patient's friend, who got her to the ER noted that the patient has bee drowsy since 2 pm day before yesterday, and not waking up. This was the main reason for bringing the patient to the ER. In the past as per history whenever the patient has presented like this she has been septic/ sick. The patient in the ER would open eyes to verbal commands and then go right back to sleep. In the ER she was hemodynamically stable, afebrile, pupils 3-4 mm reactive, did not respond to Narcan Labs did not show any leucocytosis, CXR neg for acute infection, CT abdomen neg for acute process, UA neg for infection, cultures sent, ammonia neg, head CT neg , carboxy Hgb 4.6 not very high (smoker), glucose was elevated at 460, but otherwise patient had no other positive findings except decreased mentation. LP was performed which on tube 1 showed high rbc but tube 4 only had 5 rbc, gram stain neg, glucose level normal mild elevation of protein, noted. IV acyclovir was given but stopped after cell count on tube 4 showed much improved rbc The patient was initially admitted to the hospital as OBS for management, Utox was positive for opiates rest neg. The patients mentation improved after admission, but was unable to provide a meaningful history ,just noting she was cold. Her blood culture became positive for GPC, strep agalacate. Given that this is usually not a contaminant, the patient deemed bacteremic with undermined source. Infectious disease consulted, echo ordered, patient started on Rocephin. 12/14 Pt seen examined, no acute overnight, mental status better today, on med surg now Pt is more awake and is aoox4 this AM Last night was drowsy, glucose was low, after resumption lantus, and was held. Pt wishes to go home, Bood cx strep agalactiae, on IV Rocephin per ID Will need total of 2 weeks of IV abx per ID. 12/15 Patient feels well. Surveillance cultures remain negative. Midline placed for outpatient antibiotics. Arrangements made for outpatient infusion visits (home infusion not an option). Today is day 314 of antibiotic therapy. Source of bacteremia is dental, the patient has poor dentition. At risk for further systemic infection from poor dentition. Patient and her partner are aware and understand. Case management met with the patient, resources for dental referral for left with the patient, she has a list of dentists that will accept her insurance. Patient's partner is engaged, will assure that the patient is able to come daily for antibiotic infusion. The patient was seen in consultation by infectious disease (Dr. Scott) he does not need specific infectious disease follow-up. He will follow surveillance laboratory while she is receiving outpatient antibiotic infusions. Discharge diagnosis: Group B streptococcus bacteremia, from dental source. Secondary discharge diagnosis: Encephalopathy with delirium, likely multi-factorial, from prescribed opioids, hyperglycemia, infection Type 2 diabetes mellitus Pertinent studies/significant findings: Lumbar puncture, negative cultures. - Time Spent with Patient Total time spent providing and/or coordinating discharge services: Greater than 30 minutes Medical - DS: Exam - Constitutional Vitals: Vital Signs Temp Pulse Resp BP Pulse Ox 12/15/17 17:15 98.7 F 66 14 118/70 96 12/15/17 11:24 97.1 F 57 L 18 110/64 96 12/15/17 07:57 60 12/15/17 07:12 96.6 F L 60 18 118/70 97 12/15/17 04:00 97.3 F 71 18 146/78 96 12/15/17 00:00 97.7 F 53 L 18 138/76 94 12/14/17 18:33 98.6 F 65 20 162/74 97 Intake and Output 12/15/17 12/15/17 12/15/17 05:59 13:59 21:59 Intake Total 250 / 250 771 / 771 200 / 200 Output Total 525 / 525 300 / 300 300 / 300 Balance -275 / -275 471 / 471 -100 / -100 Intake: IV 51 / 51 Vitamin B1 100 mg In Sodium 51 / 51 Chloride 0.9% 50 ml @ 50 mls/hr IV DAILY [facility] Rx#:[id number] Oral 250 / 250 720 / 720 200 / 200 Output: Void Amount 525 / 525 300 / 300 300 / 300 Other: Meal Lunch Percent of Meal Consumed 50% Feeding Ability Independent Stool Size Small Stool Color Brown Stool Consistency Loose # Voids 1 1 # Bowel Movements 1 Additional comments: General: In no acute distress Chest: Clear, no rales, unlabored Cardiovascular: Regular, bit distant, no murmur Abdomen: Obese, soft Neuro: Alert, oriented to person, place, situation Medical - DS: Data Labs on day of discharge: Labs from last 24 hours 12/15/17 12/15/17 12/15/17 07:55 04:43 04:43 WBC 4.2 L RBC 3.89 L Hgb 12.1 Hct 35.5 L MCV 91.4 MCH 31.3 MCHC 34.2 RDW 15.5 H Plt Count 107 L MPV 11.9 H Gran % 44.6 Lymph % (Auto) 44.2 [place] % (Auto) 7.0 Eos % (Auto) 3.6 Baso % (Auto) 0.6 Gran # 1.9 Lymph # (Auto) 1.8 [place] # (Auto) 0.3 Eos # (Auto) 0.1 Baso # (Auto) 0 Sodium 146 H Potassium 3.5 Chloride 113 H Carbon Dioxide 20 L Anion Gap 13.0 BUN 14 Creatinine 1.4 H GFR Calculation 41 Glucose 55 L Uric Acid 5.0 Calcium 9.0 Phosphorus 3.9 Magnesium 1.7 Total Bilirubin 0.2 Direct Bilirubin < 0.2 GGT 31 AST 26 ALT 26 Alkaline Phosphatase 96 Lactate Dehydrogenase 201 Total Protein 5.9 Albumin 3.1 L Globulin 2.8 Albumin/Globulin Ratio 1.1 Triglycerides 210 H Vancomycin Trough < 4.0 Ur Opiates Confirm 12/12/17 18:32 WBC RBC Hgb Hct MCV MCH MCHC RDW Plt Count MPV Gran % Lymph % (Auto) [place] % (Auto) Eos % (Auto) Baso % (Auto) Gran # Lymph # (Auto) [place] # (Auto) Eos # (Auto) Baso # (Auto) Sodium Potassium Chloride Carbon Dioxide Anion Gap BUN Creatinine GFR Calculation Glucose Uric Acid Calcium Phosphorus Magnesium Total Bilirubin Direct Bilirubin GGT AST ALT Alkaline Phosphatase Lactate Dehydrogenase Total Protein Albumin Globulin Albumin/Globulin Ratio Triglycerides Vancomycin Trough Ur Opiates Confirm Positive Preliminary micro results at discharge 12/13/17 08:40 Blood Culture - Preliminary Blood 12/13/17 08:50 Blood Culture - Preliminary Blood 12/12/17 18:24 Blood Culture - Preliminary Blood 12/12/17 18:09 Blood Culture - Preliminary Blood Gram positive cocci - Impressions Echocardiogram The left ventricle is normal in size, there is mild concentric left ventricular hypertrophy. Left ventricular systolic function is normal. The atria are borderline dilated There is mild to moderate mitral annular calcification The IVC inspiratory collapse is less than 50% Unable to accurately assess RV systolic pressures No vegetations identified. - Imaging and Cardiology CT scan - abdomen Additional comments: IMPRESSION: Mild perinephric stranding and thickening of Gerotas' fascia of both kidneys which has increased since the comparison CT 1.5 years ago. This is typically an innocuous finding - often seen in elderly patients. It can occasionally indicate bilateral renal inflammation. Please correlate with UA and renal function tests. CT scan - head Additional comments: IMPRESSION: Mild atrophy and chronic ischemic changes in the deep cerebral white matter - stable. 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 Mediastinum and pulmonary vessels are normal. Lungs are clear. No effusions IMPRESSION: Borderline cardiomegaly - no acute disease Medical - DS: A/P - Patient/Caregiver Discharge Instructions Activity: increase activity as tolerated Diet: Consistent Carbohydrate Additional Instructions: Comment daily for antibiotic infusion. On 12/20/2017, have labs drawn. You do not need to follow up with Dr. Scott (the infectious disease doctor) Other Amb Orders: Basic Metabolic Panel Time Frame: 12/20/17, Facility: [facility], Location: Laboratory Complete Blood Count Time Frame: 12/20/17, Facility: [facility] , Location: Laboratory - Follow up Plan Follow up with: Ish Lucia [Other] - 01/18/18 11:15 am (This is a dental appointment at the [facility]. Please arrive 15 minutes early for paperwork.) Mahin Ladd MD [Referring] - 01/02/18 8:40 am Disposition: Home, Self-Care Prognosis: Fair Rehab Potential: Fair Overall status at discharge: patient is progressing back to baseline
== END 2017-12-15 18:00 | disposition home or self-care (01) | DRG 871 ==
LOC: ED 17:37 → ICU 12-13 01:55 → INTOOBSV 12-13 01:55 → ICU 12-13 02:00 → SUATTDRO 12-13 10:59 → MEDSUR 12-13 17:22
PROVIDERS: ADMIT Internal Medicine; ATTEND Internal Medicine

== ENCOUNTER 2018-01-09 19:40 | Inpatient (IN) ==
[2018-01-09] MEDS ORDERED: NALOXONE HCL 0.4 MG/ML VIAL IV ONE ×2 (20:05→22:31)
[2018-01-09] MEDS ORDERED: 0.9 % SODIUM CHLORIDE 1,000 ML IV ONE ×2 (20:05→21:13)
--- NOTE | 2018-01-09 20:06 | Emergency Department Note ---
Weakness HPI - General Chief complaint: Weakness Stated complaint: weakness Time Seen by Provider: 01/09/18 19:45 Mode of arrival: wheelchair - History of Present Illness HPI Narrative: Patient was admitted on 12/12/2017 and discharged on 12/15/2017 for septicemia secondary to beta Streptococcus bacteremia she was treated with Rocephin 2 g IV daily for 11 days after discharge was believed to be secondary from dental caries. According to care provider she has been doing well until this morning after breakfast patient's been sleeping the entire time. She is arousable she does respond to questions states she is not in any pain has not had any fluids or food and sleeping this morning. Her Accu-Chek is 248 at this time patient does use oxycodone tens up to 6 a day we did give her some NarcanPatient does have stage III CKD diabetes type 2, history of pancreatitis,, rheumatoid arthritisVital signs temperature is 97.3 pulse is 68 respiratory rate is 15 blood pressure is 127/67 pulse ox is 88 on room air 95% at this time. - Related Data Home Medications Medication Instructions Recorded Confirmed atorvastatin 40 mg tablet 40 mg PO QDAY 11/26/15 12/16/17 exenatide 5 mcg/dose (250 10 mcg SUB-Q BID 11/26/15 12/16/17 mcg/mL)1.2 mL subcutaneous pen injector gabapentin 300 mg capsule 300 mg PO BID cap 11/26/15 12/16/17 topiramate 100 mg tablet 100 mg PO BID 11/26/15 12/16/17 venlafaxine ER 150 mg 75 mg PO TID 11/26/15 12/16/17 capsule,extended release 24 hr Furosemide [Lasix] 40 mg PO BID tab 03/03/16 12/16/17 Insulin Glargine, Human [Lantus] 60 unit SQ BID 06/14/17 12/16/17 Pregabalin [Lyrica] 150 mg PO BID 06/14/17 12/16/17 hydrOXYzine [Vistaril] 10 mg PO TID 06/14/17 12/16/17 Spironolactone [Aldactone] 25 mg PO DAILY 06/19/17 12/16/17 cyclobenzaprine 10 mg tablet 10 mg PO BID 30 Days #90 11/22/17 12/16/17 Albuterol Sulfate [Ventolin] 2 puff INH Q4-6HP PRN 12/12/17 12/16/17 Insulin Aspart [Novolog] 15 unit SQ HS 12/12/17 12/16/17 Insulin Aspart [Novolog] 30 unit SQ .COMPLEX 12/12/17 12/16/17 Metoclopramide [Reglan] 10 mg PO BIDAC 12/12/17 12/16/17 Pantoprazole [Protonix] 40 mg PO DAILY 12/12/17 12/16/17 Salmeterol Xinafoate [Serevent 50 mcg IH BID 12/12/17 12/16/17 Diskus] rOPINIRole HCL [Requip] 1 mg PO TID 12/12/17 12/16/17 Previous Rx's Medication Instructions Recorded amlodipine 5 mg tablet 5 mg PO QDAY #30 tab 06/01/17 HYDROcodone/APAP 10/325MG [[place] 1 - 2 tab PO Q4H PRN #60 tab 06/22/17 10-325Mg] hydroxychloroquine 200 mg tablet 200 mg PO BID #60 tab 11/22/17 allopurinol 100 mg tablet See Label Instructions PO QDAY #60 11/27/17 tab anakinra 100 mg/0.67 mL 100 mg SUB-Q .Q48hrs #10.05 ml 12/05/17 subcutaneous syringe cefTRIAXone [Rocephin] 2 gm IV DAILY #11 vial 12/15/17 Allergies Allergy/AdvReac Type Severity Reaction Status Date / Time sulfamethoxazole Allergy Severe RASH, RED, Verified 12/22/17 10:03 [From BACTRIM] BURNING FEELING trimethoprim [From BACTRIM] Allergy Severe RASH, RED, Verified 12/22/17 10:03 BURNING FEELING codeine Allergy Unknown Other Verified 12/22/17 10:03 lisinopril [LISINOPRIL] AdvReac Intermediate COUGHING Verified 12/22/17 10:03 morphine [MORPHINE] AdvReac Mild DOESN'T Verified 12/22/17 10:03 SEEM TO HELP Review of Systems Constitutional: Denies: fever, chills ENT ED: Denies: ear pain Cardiovascular: Denies: chest pain Respiratory: Denies: shortness of breath Gastrointestinal: Denies: abdominal pain, nausea, vomiting, diarrhea Genitourinary: Denies: dysuria, urgency Musculoskeletal: Denies: back pain Integumentary: Denies: rash Neurological: Denies: headache Psychiatric: Denies: anxiety Endocrine: Denies: fatigue Hematological/Lymphatic: Denies: easy bleeding Allergic/Immunologic: Denies: facial swelling Past Medical History - Past Medical History Medical history: Reports: arthritis, CHF, COPD, coronary artery disease, DM, hypertension, renal disease, TIA, other (Pancreatitis) Psychiatric history: Reports: depression Surgical history ED: Reports: cholecystectomy, other (Right total knee replacement June 19, 2017) Family history: Reports: non-contributory - Social History smoking status: Current every day smoker Alcohol use: Reports: None Drug use: Reports: none. Denies: marijuana Physical Exam General appearance: lethargic Head: atraumatic Eye: Present: normal appearance, PERRL ENT: normal exam, normal oropharynx, mucous membranes dry Neck: Present: normal inspection, full ROM Chest: Present: normal inspection, symmetric chest wall rise. Absent: tenderness Respiratory: Present: normal lung sounds bilaterally. Absent: respiratory distress, wheezes, stridor Cardiovascular: Present: regular rate, normal rhythm. Absent: bradycardia, tachycardia Abdominal: Present: soft, normal bowel sounds. Absent: distention, tenderness, guarding, rebound, rigidity Extremities: Present: normal inspection, full ROM. Absent: tenderness Back: Present: normal inspection, full ROM. Absent: tenderness Neurological: Present: alert, oriented X3, CN II-XII intact, other (To her Narcan shot she has awakened responding appropriately.) Psychiatric: Present: flat affect Skin: Present: warm, dry Course Vital Signs Temperature 97.3 F 01/09/18 19:42 Pulse Rate 68 01/09/18 19:42 Respiratory Rate 15 01/09/18 19:42 Blood Pressure 127/67 01/09/18 19:42 Pulse Oximetry (%) 88 L 01/09/18 19:42 Temperature 97.3 F 01/09/18 19:42 Pulse Rate 66 01/09/18 21:31 Respiratory Rate 12 01/09/18 23:16 Blood Pressure 101/61 01/09/18 23:16 Pulse Oximetry (%) 97 01/09/18 21:31 Weakness - MDM Narrative Medical decision making narrative: Narcan was given and patient is awake and answering questions appropriately. Care provider states she only took 4-6 oxycodones but the patient is in charge of her own meds she has not gotten her teeth fixed yet by the [facility] clinic which was the source of her last infection.. CT of the head was negative. CT of the abdomen reveals a possible right middle lobe pneumonia lactic acid is still pendingWhite count 6700 with a hemoglobin 13.5 lactic was 1.0 sodium is [address] Ashraf contacted recommended blood gases patient to be admitted - Lab Data Result diagrams: 01/09/18 20:24 01/09/18 20:17 Lab Results 01/09/18 01/09/18 01/09/18 Range/Units 20:15 20:17 20:17 WBC (4.5-11.0) K/mcL RBC (4.00-5.20) M/mcL Hgb (12.0-15.0) g/dL Hct (36.0-48.0) % POC Hct 42.0 (36.0-48.0) % MCV (80.0-100.0) fL MCH (26.0-34.0) pg MCHC (31.0-36.0) g/dL RDW (11.5-14.5) % Plt Count (140-440) K/mcL MPV (7.4-10.4) fL Total Counted Seg Neutrophils % (38-78) % Band Neutrophils % Lymphocytes % (15-49) % Monocytes % (Manual) (1-12) % Eosinophils % (Manual) (0-7) % Reactive Lymphocytes (0-2) % Platelet Estimate (NORMAL) RBC Morphology (NORMAL) VBG Lactic Acid 1.0 (0.5-2.2) mmol/L POC Sodium 140 (133-145) mmol/L Sodium 142 (133-145) mmol/L POC Potassium 4.8 (3.3-5.1) mmol/L Potassium 5.2 H (3.3-5.1) mmol/L POC Chloride 103 (96-108) mmol/L Chloride 103 (96-108) mmol/L Carbon Dioxide 26 (22-30) mmol/L POC Total CO2 25 (22-30) mmol/L Anion Gap 13.0 (8-16) POC BUN 49 H (6-20) mg/dl BUN 53 H (6-20) mg/dl Creatinine 2.7 H (0.6-1.1) mg/dl POC Creatinine 3.0 H (0.6-1.1) mg/dl GFR Calculation 18 Glucose 293 H (70-105) mg/dL POC Glucose 275 H (70-105) mg/dL Calcium 9.5 (8.6-10.4) mg/dl POC WB Ioniz Calcium 1.17 (1.16-1.32) mmol/L Total Bilirubin 0.2 (0.0-1.0) mg/dL AST 39 H (0-37) U/l ALT 45 H (0-40) U/l Alkaline Phosphatase 132 H (39-117) U/L Total Protein 7.0 (5.9-8.4) gm/dL Albumin 4.0 (3.2-5.2) gm/dL Globulin 3.0 (2.2-3.7) gm/dL Albumin/Globulin Ratio 1.3 (1.0-2.3) Urine Color Urine Appearance Urine pH (5.0-9.0) Ur Specific [place] (1.000-1.035) Urine Protein (NEG) mg/dL Urine Glucose (UA) (NEG) mg/dL Urine Ketones (NEG) mg/dL Urine Occult Blood (<0.03) mg/dL Urine Nitrate (NEG) Urine Bilirubin (NEG) mg/dL Urine Urobilinogen (NEG) mg/dL Ur Leukocyte Esterase (NEG) /uL Urine RBC (0-1) /hpf Urine WBC (0-4) /hpf Ur Squamous Epith Cells (0-4) /hpf Ur Transition Epith Cell (0-2) /hpf Amorphous Crystals (0) /hpf Urine Bacteria (0) /hpf Hyaline Casts (0-2) /lpf Urine Mucus (0) /hpf Ur Culture Indicated? Urine Opiates Screen (NONDETECTED) Ur Oxycodone Screen (NONDETECTED) Urine Methadone Screen (NONDETECTED) Ur Barbiturates Screen (NONDETECTED) Ur Phencyclidine Scrn (NONDETECTED) Ur Amphetamines Screen (NONDETECTED) U Benzodiazepines Scrn (NONDETECTED) Urine Cocaine Screen (NONDETECTED) U Marijuana (THC) Screen (NONDETECTED) Ethyl Alcohol < 0.010 (<0.010) gm/dl 01/09/18 01/09/18 01/09/18 Range/Units 20:24 20:42 20:59 WBC 6.7 (4.5-11.0) K/mcL RBC 4.45 (4.00-5.20) M/mcL Hgb 13.5 (12.0-15.0) g/dL Hct 40.0 (36.0-48.0) % POC Hct (36.0-48.0) % MCV 90.0 (80.0-100.0) fL MCH 30.4 (26.0-34.0) pg MCHC 33.8 (31.0-36.0) g/dL RDW 15.9 H (11.5-14.5) % Plt Count 103 L (140-440) K/mcL MPV 12.3 H (7.4-10.4) fL Total Counted 100 Seg Neutrophils % 43 (38-78) % Band Neutrophils % Not Reportable Lymphocytes % 47 (15-49) % Monocytes % (Manual) 6 (1-12) % Eosinophils % (Manual) 3 (0-7) % Reactive Lymphocytes 1 (0-2) % Platelet Estimate Decreased (NORMAL) RBC Morphology Normal (NORMAL) VBG Lactic Acid (0.5-2.2) mmol/L POC Sodium (133-145) mmol/L Sodium (133-145) mmol/L POC Potassium (3.3-5.1) mmol/L Potassium (3.3-5.1) mmol/L POC Chloride (96-108) mmol/L Chloride (96-108) mmol/L Carbon Dioxide (22-30) mmol/L POC Total CO2 (22-30) mmol/L Anion Gap (8-16) POC BUN (6-20) mg/dl BUN (6-20) mg/dl Creatinine (0.6-1.1) mg/dl POC Creatinine (0.6-1.1) mg/dl GFR Calculation Glucose (70-105) mg/dL POC Glucose (70-105) mg/dL Calcium (8.6-10.4) mg/dl POC WB Ioniz Calcium (1.16-1.32) mmol/L Total Bilirubin (0.0-1.0) mg/dL AST (0-37) U/l ALT (0-40) U/l Alkaline Phosphatase (39-117) U/L Total Protein (5.9-8.4) gm/dL Albumin (3.2-5.2) gm/dL Globulin (2.2-3.7) gm/dL Albumin/Globulin Ratio (1.0-2.3) Urine Color Yellow Urine Appearance Clear Urine pH 5.0 (5.0-9.0) Ur Specific [place] 1.012 (1.000-1.035) Urine Protein Neg (NEG) mg/dL Urine Glucose (UA) Negative (NEG) mg/dL Urine Ketones Neg (NEG) mg/dL Urine Occult Blood Neg (<0.03) mg/dL Urine Nitrate Neg (NEG) Urine Bilirubin Neg (NEG) mg/dL Urine Urobilinogen Neg (NEG) mg/dL Ur Leukocyte Esterase Neg (NEG) /uL Urine RBC 3 H (0-1) /hpf Urine WBC 2 (0-4) /hpf Ur Squamous Epith Cells < 1 (0-4) /hpf Ur Transition Epith Cell < 1 (0-2) /hpf Amorphous Crystals Few A (0) /hpf Urine Bacteria 0 (0) /hpf Hyaline Casts 3 H (0-2) /lpf Urine Mucus Few (0) /hpf Ur Culture Indicated? No Urine Opiates Screen Suspect positive A (NONDETECTED) Ur Oxycodone Screen None detected (NONDETECTED) Urine Methadone Screen None detected (NONDETECTED) Ur Barbiturates Screen None detected (NONDETECTED) Ur Phencyclidine Scrn None detected (NONDETECTED) Ur Amphetamines Screen None detected (NONDETECTED) U Benzodiazepines Scrn None detected (NONDETECTED) Urine Cocaine Screen None detected (NONDETECTED) U Marijuana (THC) Screen None detected (NONDETECTED) Ethyl Alcohol (<0.010) gm/dl Disposition Pt seen by [employer]ELOPER/PA only: No Clinical Impression: Right middle lobe pneumonia Disposition: Xfer As Inpt ([facility]) Condition: Fair
[2018-01-09 20:53] LABS: Mean Corpuscular HGB Conc 33.8 g/dL (31.0-36.0); Mean Corpuscular Hemoglobin 30.4 pg (26.0-34.0); Platelet Count 103 K/mcL (140-440); RBC 4.45 M/mcL (4.00-5.20); Red Cell Distribution Width 15.9 % (11.5-14.5)
[2018-01-09] MEDS ORDERED: cefTRIAXone 2 GM VIAL IV ONE (21:27)
[2018-01-09 21:32] LABS: Eosinophils % (Manual) 3 % (0-7); Lymphocytes % 47 % (15-49); Monocytes % (Manual) 6 % (1-12); Platelet Estimate DECREASED (NORMAL); RBC Morphology NORMAL (NORMAL); Segmented Neutrophils % 43 % (38-78)
[2018-01-09 22:08] LABS: Appearance,Urine CLEAR; Bacteria,Urine 0 /hpf (0); Bilirubin,Urine NEG (NEG); Color,Urine YELLOW; Glucose,Urine (UA) NEGATIVE (NEG); Leukocyte Esterase,Urine NEG /uL (NEG); Mucus,Urine FEW /hpf (0); Protein,Urine NEG (NEG); Specific Gravity,Urine 1.012 (1.000-1.035); Urine Amorphous Crystals FEW /hpf (0); Urine Blood NEG mg/dL (<0.03); Urine Hyaline Cast 3 /lpf (0-2); Urine RBC 3 /hpf (0-1); Urine Squamous Epithelial Cell < 1 /hpf (0-4); Urine Transitional Epi Cells < 1 /hpf (0-2); Urine WBC 2 /hpf (0-4); Urobilinogen,Urine NEG (NEG)
[2018-01-09 22:09] LABS: Amphetamine Screen,Urine NONE DETECTED (NONDETECTED); Benzodiazepines Screen,Urine NONE DETECTED (NONDETECTED); Cocaine Screen,Urine NONE DETECTED (NONDETECTED); Opiate Screen,Urine SUSPECT POSITIVE (NONDETECTED); Oxycodone, Urine Screen NONE DETECTED (NONDETECTED)
[2018-01-09 23:19] LABS: ALT/SGPT 45 U/l (0-40); Albumin/Globulin Ratio 1.3 (1.0-2.3); Alkaline Phosphatase 132 U/L (39-117); Blood Urea Nitrogen 53 mg/dl (6-20)
--- NOTE | 2018-01-10 00:19 | Internal Med History&Physical ---
Medical - H&P: HPI Patient information: Note initiated : 01/10/18 at 12:15 am Service Date, if different from initiated Date: [] Patient: Camille Knox a 62 y/o F admitted on for weakness. Chief Complaint: [] History of present illness: Ms. Knox is a 62 year old F who was recently discharged from this facility for strep [place] bacteremia likely of dental origin, completed a course of 14 days of rocephin, presents to the ER again wiht AMs The patient according to the caregiver was doing well till yesterday, she woke up early this AM and had some coffee and went back to sleep, and since then has been very difficult to wake up. Besides drowsines, there is no other acute complaints of concerns, no fever, chills, chest pain, abdominal pain, nausea/ vomiting reported She is yet to have her teeth pulled outl In the ER the patient on presentation was mildly hypoxic at 88% on room air, she was otherwise hemodynamically stable, Her labs were unremarkable. Head CT And Abdomen CT neg, aspiration pna noted on CT The patient had a similar presentation in the past, when she had bactermia, she had undergone a LP too which was negative. She is being admitted to the hospital for further management. ROS unobtainable: due to mental status Medical - H&P: PMH Medical history: Medical History (Last Reviewed 11/22/17 @ 08:08 by Haylee Chew RN) Non-cardiac chest pain (Acute) Diabetes (Acute) Pancreatitis (Acute) Abdominal pain (Acute) Abdominal pain, acute, epigastric (Acute) Obstructive sleep apnea (Acute) Urinary tract infection (Acute) Hyperuricemia (Acute) Rheumatoid arthritis (Acute) Back pain (Acute) Encounter for long-term (current) use of high-risk medication (Acute) Gout (Acute) Right knee pain (Acute) Inflammatory arthritis (Chronic) Trigger finger, left ring finger (Chronic) Polyarthralgia (Acute) Apnea (Chronic) Hyperpotassemia (Chronic) CHF (congestive heart failure) (Chronic) Gastroparesis (Chronic) Pure hypertriglyceridemia (Chronic) Vitamin D deficiency (Chronic) Essential (primary) hypertension (Chronic) Anemia of renal disease (Chronic) Edema (Chronic) Acute thromboembolism of deep veins of lower extremity (Chronic) Type 2 diabetes mellitus without complications (Chronic) Chronic kidney disease, stage III (moderate) (Chronic) Surgical history: Past Surgical History (Last Reviewed 11/22/17 @ 08:08 by Haylee Chew RN) Hx of cholecystectomy (Chronic) Family history: reviewed and not pertinent Social history: smoker Medical - H&P: Meds Home Medications Medication Instructions Recorded Confirmed Type atorvastatin 40 mg tablet 40 mg PO QDAY 11/26/15 12/16/17 History exenatide 5 mcg/dose (250 10 mcg SUB-Q BID 11/26/15 12/16/17 History mcg/mL)1.2 mL subcutaneous pen injector gabapentin 300 mg capsule 300 mg PO BID cap 11/26/15 12/16/17 History topiramate 100 mg tablet 100 mg PO BID 11/26/15 12/16/17 History venlafaxine ER 150 mg 75 mg PO TID 11/26/15 12/16/17 History capsule,extended release 24 hr Furosemide [Lasix] 40 mg PO BID tab 03/03/16 12/16/17 History amlodipine 5 mg tablet 5 mg PO QDAY #30 tab 06/01/17 12/16/17 Rx Insulin Glargine, Human [Lantus] 60 unit SQ BID 06/14/17 12/16/17 History Pregabalin [Lyrica] 150 mg PO BID 06/14/17 12/16/17 History hydrOXYzine [Vistaril] 10 mg PO TID 06/14/17 12/16/17 History Spironolactone [Aldactone] 25 mg PO DAILY 06/19/17 12/16/17 History HYDROcodone/APAP 10/325MG [[place] 1 - 2 tab PO Q4H PRN #60 tab 06/22/17 12/16/17 Rx 10-325Mg] cyclobenzaprine 10 mg tablet 10 mg PO BID 30 Days #90 11/22/17 12/16/17 History hydroxychloroquine 200 mg tablet 200 mg PO BID #60 tab 11/22/17 12/16/17 Rx allopurinol 100 mg tablet See Label Instructions PO QDAY #60 11/27/17 12/16/17 Rx tab anakinra 100 mg/0.67 mL 100 mg SUB-Q .Q48hrs #10.05 ml 12/05/17 12/16/17 Rx subcutaneous syringe Albuterol Sulfate [Ventolin] 2 puff INH Q4-6HP PRN 12/12/17 12/16/17 History Insulin Aspart [Novolog] 15 unit SQ HS 12/12/17 12/16/17 History Insulin Aspart [Novolog] 30 unit SQ .COMPLEX 12/12/17 12/16/17 History Metoclopramide [Reglan] 10 mg PO BIDAC 12/12/17 12/16/17 History Pantoprazole [Protonix] 40 mg PO DAILY 12/12/17 12/16/17 History Salmeterol Xinafoate [Serevent 50 mcg IH BID 12/12/17 12/16/17 History Diskus] rOPINIRole HCL [Requip] 1 mg PO TID 12/12/17 12/16/17 History cefTRIAXone [Rocephin] 2 gm IV DAILY #11 vial 12/15/17 12/16/17 Rx Allergies Allergy/AdvReac Type Severity Reaction Status Date / Time sulfamethoxazole Allergy Severe RASH, RED, Verified 12/22/17 10:03 [From BACTRIM] BURNING FEELING trimethoprim [From BACTRIM] Allergy Severe RASH, RED, Verified 12/22/17 10:03 BURNING FEELING codeine Allergy Unknown Other Verified 12/22/17 10:03 lisinopril [LISINOPRIL] AdvReac Intermediate COUGHING Verified 12/22/17 10:03 morphine [MORPHINE] AdvReac Mild DOESN'T Verified 12/22/17 10:03 SEEM TO HELP Medical - H&P: Exam - Constitutional Vitals: Temp Pulse Resp BP Pulse Ox 97.3 F 66 16 110/71 97 01/09/18 19:42 01/09/18 21:31 01/09/18 23:01 01/09/18 23:01 01/09/18 21:31 Exam: GENERAL: The patient is a well-developed, well-nourished in no apparent distress. Is drowsy, oriented x 1 (self) follows commands if woken up VITAL SIGNS: Reviewed and as noted elsewhere. HEENT: Head is normocephalic and atraumatic. Extraocular muscles are intact. Pupils are equal, round, and reactive to light. Nares appeared normal. Mouth appears any without lesions. Mucous membranes are dry, pupils 3mm reactive NECK: Normal to inspection, Supple, No lymphadenopathy or thyromegaly. No NECK RIGIDITY LUNGS: Air entry equal on both sides, no wheezing, crackles or rhonchi noted. No accessory muscles of respiration HEART: Regular rate and rhythm normal, S1 and S2 heard, no Gallop, S3 or Rub Noted, systolic murmur heard ABDOMEN: Soft, nontender, and nondistended. Positive bowel sounds. No hepatosplenomegaly was noted. EXTREMITIES: No cyanosis, clubbing, rash, lesions or edema. NEUROLOGIC: Cranial nerves II through XII are grossly intact. Motor and Sensory System Grossly Intact PSYCHIATRIC: drowsy/ sleepy SKIN: No ulceration or wounds noted, No jaundice, No rash noted. Medical - H&P: Reslt - Labs CBC & Chem 7: 01/09/18 20:24 01/09/18 20:17 Labs: Short CBC 01/09/18 Range/Units 20:24 WBC 6.7 (4.5-11.0) K/mcL Hgb 13.5 (12.0-15.0) g/dL Hct 40.0 (36.0-48.0) % Plt Count 103 L (140-440) K/mcL BMP 01/09/18 20:17 Sodium 142 Potassium 5.2 H Chloride 103 Carbon Dioxide 26 BUN 53 H Creatinine 2.7 H Glucose 293 H Calcium 9.5 Liver Function 01/09/18 Range/Units 20:17 Total Bilirubin 0.2 (0.0-1.0) mg/dL AST 39 H (0-37) U/l ALT 45 H (0-40) U/l Alkaline Phosphatase 132 H (39-117) U/L Albumin 4.0 (3.2-5.2) gm/dL Urine 01/09/18 Range/Units 20:42 Urine Color Yellow Urine Appearance Clear Urine pH 5.0 (5.0-9.0) Ur Specific [place] 1.012 (1.000-1.035) Urine Protein Neg (NEG) mg/dL Urine Glucose (UA) Negative (NEG) mg/dL Medical - H&P: A/P - Narrative A/P Narrative: A/P Septic vs Toxic encephalopathy- Patient altered mentation likely result of infection, could e narcotic overdose/ takig too many pills, some response to narcan in the ER. Will monitor overnight. Hemodynamically stable, ph is 7.33 on ABG Aspiration PNA- noted on X ray due to ams or a cause of this, IV ertapenum and IV vanco for hcap coverage for now. await culture results to descalate Acute on Chronic Renal failure- clinically appears quite dry, creat is up from baseline, IV fluids, CT neg for acute hydronephrosis Diabetes Mellitus- Uncontrolled glucose, resume lantus, montor glucose levels. HTN- hold bp meds for now, resume Depression/ Anxiety- Resume home meds once verified. Inflammatory arthritis- hold immunosuppressants for now, perhaps being immunosupprest pt is unable Chr pain on narcotics, hold for now given altered status DVT hep sq] Diet carb c onsistent/ Cardiac Full code.
[2018-01-10] MEDS ORDERED: INSULIN GLARGINE, HUMAN 1 UNIT/0.01 ML SQ ONE ×2 (00:38→01:48)
[2018-01-10] MEDS ORDERED: ONDANSETRON 4 MG/2 ML VIAL IV PRN (00:38)
[2018-01-10] MEDS: ERTAPENEM 1 GM in 0.9 % SODIUM CHLORIDE 50 ML IV SCH ×2 (00:43→16:16)
[2018-01-10] MEDS: 0.9 % SODIUM CHLORIDE 1,000 ML IV SCH ×4 (00:43→21:06)
[2018-01-10] MEDS ORDERED: VANCOMYCIN 1,500 MG in 0.9 % SODIUM CHLORIDE 500 ML IV ONE (00:46)
[2018-01-10] MEDS ORDERED: VANCOMYCIN PER PHARMACY IV ONE (00:46)
[2018-01-10] MEDS: IPRATROPIUM/ALBUTEROL 3 ML AMPUL.NEB NEB SCH ×5 (01:45→20:08)
[2018-01-10] MEDS ORDERED: IPRATROPIUM/ALBUTEROL 3 ML AMPUL.NEB NEB ONE (01:49)
[2018-01-10 01:54] LABS: Beta Hydroxybutyrate 0.13 mmol/L (< 0.27)
[2018-01-10 05:13] LABS: Basophils # (Auto) 0 K/mcL (0.0-0.3); Basophils % (Auto) 0.6 % (0.0-2.0); Eosinophils # (Auto) 0.2 K/mcL (0.0-0.7); Eosinophils % (Auto) 3.7 % (0.0-7.0); Granulocytes % (Auto) 60.4 % (38.0-78.0); Lymphocytes # (Auto) 1.9 K/mcL (1.5-4.8); Lymphocytes % (Auto) 28.5 % (15.5-49.0); Mean Cell Volume 91.1 fL (80.0-100.0); Mean Corpuscular HGB Conc 33.3 g/dL (31.0-36.0); Mean Corpuscular Hemoglobin 30.3 pg (26.0-34.0); Monocytes # (Auto) 0.5 K/mcL (0.1-0.9); Monocytes % (Auto) 6.8 % (1.0-12.0); Platelet Count 88 K/mcL (140-440); RBC 3.82 M/mcL (4.00-5.20); Red Cell Distribution Width 15.5 % (11.5-14.5)
[2018-01-10 05:24] LABS: ALT/SGPT 41 U/l (0-40); Albumin 3.2 gm/dL (3.2-5.2); Albumin/Globulin Ratio 1.1 (1.0-2.3); Alkaline Phosphatase 107 U/L (39-117); Bilirubin,Direct < 0.2 mg/dL (0.0-0.3); Blood Urea Nitrogen 47 mg/dl (6-20); Gamma Glutamyl Transpeptidase 41 U/L (5-36)
[2018-01-10] MEDS ORDERED: VANCOMYCIN PER PHARMACY IV SCH (06:30)
--- NOTE | 2018-01-10 06:33 | XRay Report ---
CLINICAL INFORMATION: Decreased level consciousness COMPARISON: 12/12/2017 FINDINGS: The cardiomediastinal silhouette is enlarged but accentuated by rightward rotation and lordotic positioning. Heart is, at least, mildly enlarged. Pulmonary vasculature are normal is normal. Moderate patchy right basilar infiltrate noted. There is minor atelectasis in the left base. Small right pleural effusion IMPRESSION: Moderate patchy right basilar infiltrate and small effusion - new Interpreted and Authenticated by: Abelardo Coy 01/10/18
--- NOTE | 2018-01-10 06:41 | Cat Scan Report ---
CLINICAL INFORMATION: Decreased level consciousness COMPARISON: 12/12/2017 TECHNIQUE: 2.5 mm helical slices were obtained in the skull base to vertex. Following reconstruction, axial reformatted images were reviewed at bone and parenchymal windows. The exam was performed using radiation dose optimization techniques including, but not limited to, automated exposure control, adjustment of the mA and/or kV according to patient size and use of iterative reconstruction technique. FINDINGS: The ventricles, sulci, fissures, and cisterns are symmetrically enlarged clavicle with mild age-related atrophy - no extra-axial fluid collection or mass appreciated. Minimal chronic ischemic changes in the the cerebral white matters again noted. There is no intracerebral hemorrhage, mass effect, edema or other acute finding. Bone windows show no osseous abnormality. IMPRESSION: Minimal atrophy and minimal chronic ischemic changes in the deep cerebral white matter stable Moderate right mastoiditis and mild left mastoiditis - chronic in stable Interpreted and Authenticated by: Abelardo Coy 01/10/18
--- NOTE | 2018-01-10 07:34 | Cat Scan Report ---
CLINICAL INFORMATION: Unresponsive with abdominal pain COMPARISON: Abdomen and pelvic CT 07/04/2016. TECHNIQUE: 0.625 mm helical slices were obtained from the mid heart through the subtrochanteric regions. Following reconstruction, 2.5 mm sagittal, coronal and axial reformatted images were processed and reviewed at bone and soft tissue windows.The exam was performed using radiation dose optimization techniques including, but not limited to, automated exposure control, adjustment of the mA and/or kV according to patient size and use of iterative reconstruction technique. FINDINGS: Complete atelectasis of the right middle lobe and moderate alveolar infiltrate in periphery right lower lobe is new. There are no effusions. Visualized heart is borderline enlarged but unchanged Images through the abdomen show the gallbladder is surgically absent. Intrahepatic and common bile ducts are normal - CBD is 6 mm. The noncontrasted liver, both kidneys, adrenal glands, spleen, pancreas and aorta are normal. There is no free air, free fluid and no adenopathy. Large amount of stool is present within the rectum. The colon, appendix, small bowel and stomach are normal. Normal appearing postmenopausal uterus is slightly retroflexed changes are noted. A Wilder catheter is in proper position within the urinary bladder. Extensive postsurgical changes in the lumbar spine seen as before. No focal osseous abnormality IMPRESSION: 1. No intra-abdominal /pelvic abnormality 2. Complete right middle lobe atelectasis and moderate sized infiltrate posterior right lower lobe Interpreted and Authenticated by: Abelardo Coy 01/10/18
[2018-01-10] MEDS: 0.9 % SODIUM CHLORIDE 10 ML SYRINGE IV SCH ×3 (13:21→21:08)
[2018-01-10] MEDS: HEPARIN 5,000 UNIT/ML VIAL SQ SCH ×2 (13:21→21:07)
[2018-01-10] MEDS ORDERED: VANCOMYCIN 500 MG in 0.9 % SODIUM CHLORIDE 100 ML IV SCH (14:00)
[2018-01-11] MEDS: 0.9 % SODIUM CHLORIDE 1,000 ML IV SCH ×4 (03:50→19:01)
[2018-01-11 05:19] LABS: Basophils # (Auto) 0 K/mcL (0.0-0.3); Basophils % (Auto) 0.5 % (0.0-2.0); Eosinophils # (Auto) 0.2 K/mcL (0.0-0.7); Granulocytes % (Auto) 64.6 % (38.0-78.0); Lymphocytes # (Auto) 1.8 K/mcL (1.5-4.8); Mean Cell Volume 90.5 fL (80.0-100.0); Mean Corpuscular HGB Conc 34.1 g/dL (31.0-36.0); Mean Corpuscular Hemoglobin 30.9 pg (26.0-34.0); Monocytes # (Auto) 0.4 K/mcL (0.1-0.9); Monocytes % (Auto) 5.9 % (1.0-12.0); Platelet Count 93 K/mcL (140-440); RBC 3.76 M/mcL (4.00-5.20); Red Cell Distribution Width 16.2 % (11.5-14.5)
[2018-01-11] MEDS: 0.9 % SODIUM CHLORIDE 10 ML SYRINGE IV SCH ×3 (05:20→20:35)
[2018-01-11 05:55] LABS: ALT/SGPT 30 U/l (0-40); Albumin 2.9 gm/dL (3.2-5.2); Alkaline Phosphatase 101 U/L (39-117); Bilirubin,Direct < 0.2 mg/dL (0.0-0.3); Blood Urea Nitrogen 35 mg/dl (6-20); Gamma Glutamyl Transpeptidase 40 U/L (5-36); Uric Acid 5.6 mg/dL (2.5-8.0)
[2018-01-11] MEDS: HEPARIN 5,000 UNIT/ML VIAL SQ SCH ×2 (08:36→20:29)
[2018-01-11] MEDS: ERTAPENEM 1 GM in 0.9 % SODIUM CHLORIDE 50 ML IV SCH (08:37)
[2018-01-11] MEDS: IPRATROPIUM/ALBUTEROL 3 ML AMPUL.NEB NEB SCH ×3 (09:00→21:27)
[2018-01-11] MEDS ORDERED: ONDANSETRON 4 MG/2 ML VIAL IV PRN (09:35)
[2018-01-11] MEDS ORDERED: VANCOMYCIN PER PHARMACY IV SCH (09:35)
[2018-01-11] MEDS: VANCOMYCIN 1,000 MG in 0.9 % SODIUM CHLORIDE 250 ML IV SCH (09:44)
[2018-01-11] MEDS ORDERED: VANCOMYCIN 1,000 MG in 0.9 % SODIUM CHLORIDE 250 ML IV SCH (10:00)
[2018-01-11] MEDS ORDERED: DEXTROSE 31 GM ORAL.SUSP PO PRN (11:37)
[2018-01-11] MEDS ORDERED: DEXTROSE 50% 50 ML VIAL IV PRN (11:37)
--- NOTE | 2018-01-11 11:49 | Internal Med Progress Note ---
Medical - PN: Subj Patient information: Note initiated : 01/11/18 at 11:46 am Service Date, if different from initiated Date: [] Patient: Camille Knox a 62 y/o F admitted on 01/10/18 for weakness. Chief Complaint: [] Interval history: Ms. Knox is a 62 year old F who was recently discharged from this facility for strep agalatae bacteremia likely of dental origin, completed a course of 14 days of rocephin, presents to the ER again wiht AMs The patient according to the caregiver was doing well till yesterday, she woke up early this AM and had some coffee and went back to sleep, and since then has been very difficult to wake up. Besides drowsines, there is no other acute complaints of concerns, no fever, chills, chest pain, abdominal pain, nausea/ vomiting reported She is yet to have her teeth pulled outl In the ER the patient on presentation was mildly hypoxic at 88% on room air, she was otherwise hemodynamically stable, Her labs were unremarkable. Head CT And Abdomen CT neg, aspiration pna noted on CT The patient had a similar presentation in the past, when she had bactermia, she had undergone a LP too which was negative. She is being admitted to the hospital for further management. 01/11 Patient seen examined no acute overnight issues, tolerating po diet well, mental status better denies taking excess medications. is on gabapentin and lyricia? will d/c gabapentin for now. Pertinent ROS: Denies headache, dizziness Denies chest pain, palpitations Denies cough or shortness of breath Denies abdominal pain, nausea or vomiting. - Constitutional Vitals: Vital Signs Temp Pulse Resp BP Pulse Ox 98.4 F 78 16 138/88 96 01/11/18 09:06 01/11/18 09:51 01/11/18 09:06 01/11/18 09:06 01/11/18 09:51 Period Temp Pulse Resp BP Sys/Agosto Pulse Ox Last 24 Hr 97.7 F-99.8 F 66-78 16-71 115-146/56-88 92-96 Intake and Output 01/10/18 01/11/18 01/11/18 21:59 05:59 13:59 Intake Total 1270 / 1270 1000 / 1000 720 / 720 Output Total 600 / 600 1000 / 1000 500 / 500 Balance 670 / 670 0 / 0 220 / 220 Weight 230 lb Intake & Output: Intake & Output 01/10/18 01/11/18 01/11/18 21:59 05:59 13:59 Intake Total 1270 / 1270 1000 / 1000 720 / 720 Output Total 600 / 600 1000 / 1000 500 / 500 Balance 670 / 670 0 / 0 220 / 220 Weight 230 lb Intake: IV 1150 / 1150 1000 / 1000 720 / 720 Sodium Chloride 0.9% 1,000 ml @ 1000 / 1000 1000 / 1000 720 / 720 150 mls/hr IV .Q6H40M [facility] Rx#: [id number] INVanz 1 GM In Sodium Chloride 50 / 50 0.9% 50 ml @ 100 mls/hr IV Q24H [facility] Rx#:[id number] Vancomycin 500 mg In Sodium 100 / 100 Chloride 0.9% 100 ml @ 100 mls/ hr IV TODAY@1400 [facility] Rx#: [id number] Oral 120 / 120 Output: Urine Catheter Amount 600 / 600 1000 / 1000 500 / 500 Other: Meal Dinner Percent of Meal Consumed 100% Feeding Ability Needs Supervision Urine Appearance Clear Clear Cloudy Uretheral (Wilder) Clear Urine Color Straw Bright Yellow Pale Uretheral (Wilder) Bright Yellow Stool Size Large Stool Color Brown Stool Consistency Formed # Bowel Movements 1 Exam: Constitutional; Afebrile, cooperative, alert, not in distress. Respiratory system: Air Entry equal on both sides, No crackles or wheezing, no rhonchi. CVS- Rate rhythm regular, S1,S2 heard, no gallop, no rub. 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 Medical - PN: Obj Da - Labs CBC & Chem 7: 01/11/18 03:43 01/11/18 03:43 Labs: Abnormal Lab Results 01/11/18 01/11/18 01/10/18 03:43 03:43 03:36 RBC 3.76 L Hgb 11.6 L Hct 34.0 L RDW 16.2 H Plt Count 93 L MPV 12.8 H Sodium 146 H Potassium Chloride 116 H POC BUN BUN 35 H 47 H Creatinine 2.1 H 2.4 H POC Creatinine Glucose 169 H 247 H POC Glucose Calcium 8.5 L GGT 40 H 41 H AST 47 H ALT 41 H Alkaline Phosphatase Total Protein 5.7 L Albumin 2.9 L Triglycerides 216 H 242 H Urine RBC Amorphous Crystals Hyaline Casts Urine Opiates Screen 01/10/18 01/09/18 01/09/18 03:36 20:59 20:42 RBC 3.82 L Hgb 11.6 L Hct 34.8 L RDW 15.5 H Plt Count 88 L MPV 12.6 H Sodium Potassium Chloride POC BUN BUN Creatinine POC Creatinine Glucose POC Glucose Calcium GGT AST ALT Alkaline Phosphatase Total Protein Albumin Triglycerides Urine RBC 3 H Amorphous Crystals Few A Hyaline Casts 3 H Urine Opiates Screen Suspect positive A 01/09/18 01/09/18 20:24 20:17 RBC Hgb Hct RDW 15.9 H Plt Count 103 L MPV 12.3 H Sodium Potassium 5.2 H Chloride POC BUN 49 H BUN 53 H Creatinine 2.7 H POC Creatinine 3.0 H Glucose 293 H POC Glucose 275 H Calcium GGT AST 39 H ALT 45 H Alkaline Phosphatase 132 H Total Protein Albumin Triglycerides Urine RBC Amorphous Crystals Hyaline Casts Urine Opiates Screen Meds: Medications Albuterol/Ipratropium (Duoneb) 3 ml NEB TID [facility] Allopurinol (Zyloprim) 200 mg PO QDAY [facility] Amlodipine Besylate (Norvasc) 5 mg PO QDAY [facility] Atorvastatin Calcium (Lipitor) 40 mg PO DAILY [facility] Bupropion HCl (Wellbutrin Xl) 300 mg PO DAILY [facility] Dextrose (Dextrose 50%) 0 ml IV UD PRN PRN Reason: Hypoglycemia Diagnostic Test (Pha) (Accu-Chek) 1 each FS ACHS [facility] Glucose (Insta-Glucose) 15 gm PO PRN PRN PRN Reason: Hypoglycemia Heparin Sodium (Porcine) (Heparin) 5,000 unit SQ Q12 [facility] Hydroxychloroquine Sulfate (Plaquenil) 200 mg PO BID [facility] Ertapenem 1 gm/ Sodium (Chloride) 50 mls @ 100 mls/hr IV Q24H [facility] Sodium Chloride (Sodium Chloride 0.9%) 1,000 mls @ 150 mls/hr IV .Q6H40M [facility] Last Admin: 01/11/18 09:42 Dose: Not Given Vancomycin HCl 1,000 mg/ (Sodium Chloride) 250 mls @ 250 mls/hr IV Q24H [facility] Last Admin: 01/11/18 09:44 Dose: 250 mls/hr Insulin Glargine (Lantus) 30 unit SQ BID [facility] Insulin Human Lispro (Humalog) 0 unit SQ ACHS [facility]; Protocol Metoclopramide HCl (Reglan) 10 mg PO BIDAC [facility] Ondansetron HCl (Zofran) 4 mg IV Q4HP PRN PRN Reason: Nausea And Vomiting Pantoprazole Sodium (Protonix) 40 mg PO ACB [facility] Pregabalin (Lyrica) 150 mg PO TID [facility] Ropinirole HCl (Requip) 1 mg PO TID [facility] Salmeterol Xinafoate (Serevent) 1 puff INH BID [facility] Sodium Chloride (Saline Flush) 10 ml IV Q8 [facility] Topiramate (Topamax) 100 mg PO BID [facility] Vancomycin HCl (Vancomycin Per Pharmacy) 1 order IV UD [facility] Venlafaxine HCl (Effexor Xr) 225 mg PO DAILY [facility] Medical - PN: A/P - Time Spent With Patient Total time spent is greater than 50% in coordination of care (as documented) at patient's floor/unit and/or counseling patient: - Narrative A/P Narrative: A/P Septic vs Toxic encephalopathy-mental status better today ,monitor. Aspiration PNA- noted on X ray due to ams or a cause of this, IV ertapenum and IV vanco for hcap coverage for now. await culture results to deescalate, neg growth so far, pt is still on 2 L oxygen, continue same. Acute on Chronic Renal failure- clinically appears quite dry, creat is up from baseline, IV fluids, CT neg for acute hydronephrosis , cret is improving. Diabetes Mellitus- Uncontrolled glucose, resume lantus montor glucose levels. HTN- hold bp meds for now, resume Depression/ Anxiety- Resume home meds once verified. Inflammatory arthritis-resume hydroxychloroquine, allopurinol. Chr pain on narcotics, resume home meds except narcotics, hold gabapentin moniro.r DVT hep sq] Diet carb c onsistent/ Cardiac Full code.
[2018-01-11] MEDS: INSULIN GLARGINE, HUMAN 1 UNIT/0.01 ML SQ SCH ×2 (13:09→20:34)
[2018-01-11] MEDS: rOPINIRole 1 MG TABLET PO SCH ×2 (15:40→20:27)
[2018-01-11] MEDS: PREGABALIN 150 MG CAPSULE PO SCH ×2 (15:40→20:27)
[2018-01-11] MEDS: INSULIN LISPRO 1 UNIT/0.01 ML UNIT SQ SCH ×2 (17:11→20:34)
[2018-01-11] MEDS: METOCLOPRAMIDE 10 MG TABLET PO SCH (17:11)
[2018-01-11] MEDS: HYDROXYCHLOROQUINE 200 MG TABLET PO SCH (20:27)
[2018-01-11] MEDS: TOPIRAMATE 100 MG TABLET PO SCH (20:27)
[2018-01-12] MEDS: SALMETEROL XINAFOATE 1 PUFF INHALER INH SCH ×2 (01:43→08:04)
[2018-01-12] MEDS: 0.9 % SODIUM CHLORIDE 1,000 ML IV SCH ×3 (02:06→11:47)
[2018-01-12] MEDS: 0.9 % SODIUM CHLORIDE 10 ML SYRINGE IV SCH ×2 (05:55→14:05)
[2018-01-12 06:38] LABS: Basophils # (Auto) 0 K/mcL (0.0-0.3); Basophils % (Auto) 0.6 % (0.0-2.0); Eosinophils # (Auto) 0.3 K/mcL (0.0-0.7); Eosinophils % (Auto) 4.8 % (0.0-7.0); Granulocytes % (Auto) 54.6 % (38.0-78.0); Lymphocytes # (Auto) 1.7 K/mcL (1.5-4.8); Lymphocytes % (Auto) 33.2 % (15.5-49.0); Mean Cell Volume 90.4 fL (80.0-100.0); Mean Corpuscular HGB Conc 33.9 g/dL (31.0-36.0); Mean Corpuscular Hemoglobin 30.7 pg (26.0-34.0); Monocytes # (Auto) 0.4 K/mcL (0.1-0.9); Monocytes % (Auto) 6.8 % (1.0-12.0); Platelet Count 84 K/mcL (140-440); RBC 3.96 M/mcL (4.00-5.20); Red Cell Distribution Width 15.6 % (11.5-14.5)
[2018-01-12 07:09] LABS: ALT/SGPT 35 U/l (0-40); Albumin 2.8 gm/dL (3.2-5.2); Albumin/Globulin Ratio 0.9 (1.0-2.3); Alkaline Phosphatase 99 U/L (39-117); Bilirubin,Direct < 0.2 mg/dL (0.0-0.3); Blood Urea Nitrogen 20 mg/dl (6-20); Gamma Glutamyl Transpeptidase 41 U/L (5-36)
[2018-01-12] MEDS: METOCLOPRAMIDE 10 MG TABLET PO SCH (07:17)
[2018-01-12] MEDS: INSULIN LISPRO 1 UNIT/0.01 ML UNIT SQ SCH ×2 (07:18→11:40)
[2018-01-12] MEDS ORDERED: PANTOPRAZOLE 40 MG TABLET PO SCH (07:30)
[2018-01-12] MEDS: HYDROXYCHLOROQUINE 200 MG TABLET PO SCH (08:02)
[2018-01-12] MEDS: TOPIRAMATE 100 MG TABLET PO SCH (08:03)
[2018-01-12] MEDS: rOPINIRole 1 MG TABLET PO SCH (08:03)
[2018-01-12] MEDS: HEPARIN 5,000 UNIT/ML VIAL SQ SCH (08:04)
[2018-01-12] MEDS: PREGABALIN 150 MG CAPSULE PO SCH (08:04)
[2018-01-12] MEDS: INSULIN GLARGINE, HUMAN 1 UNIT/0.01 ML SQ SCH (08:04)
[2018-01-12] MEDS ORDERED: ALLOPURINOL 100 MG TABLET PO SCH (09:00)
[2018-01-12] MEDS ORDERED: ATORVASTATIN 20 MG TABLET PO SCH (09:00)
[2018-01-12] MEDS ORDERED: ERTAPENEM 1 GM in 0.9 % SODIUM CHLORIDE 50 ML IV SCH (09:00)
[2018-01-12] MEDS ORDERED: buPROPion 150 MG TAB.XL.24H PO SCH (09:00)
[2018-01-12] MEDS ORDERED: VENLAFAXINE 75 MG CAP.XL.24H PO SCH (09:00)
[2018-01-12] MEDS ORDERED: amLODIPine 5 MG TABLET PO SCH (09:00)
[2018-01-12] MEDS: IPRATROPIUM/ALBUTEROL 3 ML AMPUL.NEB NEB SCH (09:15)
[2018-01-12] MEDS ORDERED: MAGNESIUM SULFATE 2 GM/50 ML BAG IV ONE (10:54)
[2018-01-12] MEDS ORDERED: VANCOMYCIN 1,500 MG in 0.9 % SODIUM CHLORIDE 500 ML IV SCH (11:00)
[2018-01-12] MEDS: VANCOMYCIN 1,000 MG in 0.9 % SODIUM CHLORIDE 250 ML IV SCH (11:03)
--- NOTE | 2018-01-12 11:42 | Discharge Summary ---
Medical - DS: Prov Patient information: Note initiated : 01/12/18 at 11:39 am Service Date, if different from initiated Date: [] Patient: Camille Knox 62 y/o F admitted on 01/10/18 for Weakness/ Aspiration PNA. Chief Complaint: [] Date of admission: 01/10/18 00:26 Discharge date: 01/12/18 Consults: 01/09/18 Consult to Physician [CONS] Stat Comment: Consulting Provider: Danielle Ashraf Reason For Exam: Physician to Consult Discharging clinician: Danielle Ashraf Medical - DS: Meds - Discharge Medications Prescriptions: Amoxicillin/Potassium Clav [Augmentin] 875 mg PO Q12H #10 tab Active and Home Medications: Home Medications atorvastatin 40 mg tablet 40 mg PO QDAY 11/26/15 [History Confirmed 01/10/18 Last Taken 06/18/17] exenatide 5 mcg/dose (250 mcg/mL)1.2 mL subcutaneous pen injector 10 mcg SUB-Q BID 11/26/15 [History Confirmed 01/10/18 Last Taken 06/18/17] gabapentin 300 mg capsule 300 mg PO BID cap 11/26/15 [History Confirmed Last Taken 06/18/17] topiramate 100 mg tablet 100 mg PO BID 11/26/15 [History Confirmed 01/10/18 Last Taken 06/18/17] Furosemide [Lasix] 40 mg PO DAILY tab 03/03/16 [History Confirmed 01/10/18 Last Taken 06/18/17] amlodipine 5 mg tablet 5 mg PO QDAY #30 tab 06/01/17 [Rx Confirmed 01/10/18 Last Taken 06/19/17 06:30] Insulin Glargine, Human [Lantus] 60 unit SQ BID 06/14/17 [History Confirmed Last Taken 06/18/17] Pregabalin [Lyrica] 150 mg PO TID 06/14/17 [History Confirmed 01/10/18 Last Taken 06/18/17] hydrOXYzine [Vistaril] 10 mg PO TID PRN 06/14/17 [History Confirmed 01/10/18 Last Taken 06/18/17] Spironolactone [Aldactone] 25 mg PO DAILY 06/19/17 [History Confirmed 01/10/18 Last Taken 06/18/17] HYDROcodone/APAP 10/325MG [[place] 10-325Mg] 1 - 2 tab PO Q4H PRN #60 tab [Rx Confirmed 01/10/18 Last Taken Unknown] cyclobenzaprine 10 mg tablet 10 mg PO TID 30 Days #90 11/22/17 [History Confirmed 01/10/18 Last Taken Unknown] hydroxychloroquine 200 mg tablet 200 mg PO BID #60 tab 11/22/17 [Rx Confirmed Last Taken Unknown] allopurinol 100 mg tablet See Label Instructions PO QDAY #60 tab 11/27/17 [Rx Confirmed 01/10/18 Last Taken Unknown] anakinra 100 mg/0.67 mL subcutaneous syringe 100 mg SUB-Q .Q48hrs #10.05 ml [Rx Confirmed 01/10/18 Last Taken Unknown] Albuterol Sulfate [Ventolin] 2 puff INH Q4-6HP PRN 12/12/17 [History Confirmed 01/10/18 Last Taken Unknown] Insulin Aspart [Novolog] 15 unit SQ AC 12/12/17 [History Confirmed 01/10/18 Last Taken Unknown] Metoclopramide [Reglan] 10 mg PO BIDAC 12/12/17 [History Confirmed 01/10/18 Last Taken Unknown] Pantoprazole [Protonix] 40 mg PO DAILY 12/12/17 [History Confirmed 01/10/18 Last Taken Unknown] Salmeterol Xinafoate [Serevent Diskus] 50 mcg IH BID 12/12/17 [History Confirmed 01/10/18 Last Taken Unknown] rOPINIRole HCL [Requip] 1 mg PO TID 12/12/17 [History Confirmed 01/10/18 Last Taken Unknown] Mupirocin 2% Nasal Oint [Bactroban 2% Nasal Oint] 0.5 gm SHERLYN BID 01/10/18 [ History Confirmed 01/10/18 Last Taken Unknown] Venlafaxine HCl [Venlafaxine HCl ER] 225 mg PO DAILY 01/10/18 [History Confirmed 01/10/18 Last Taken Unknown] buPROPion HCL [Wellbutrin Xl] 300 mg PO DAILY 01/10/18 [History Confirmed Last Taken Unknown] Medical - DS: Hosp Hospital course: Ms. Knox is a 62 year old F who was recently discharged from this facility for strep agalactiae bacteremia likely of dental origin, completed a course of 14 days of rocephin, presents to the ER again with altered mental status. The patient according to the caregiver was doing well till yesterday, she woke up early this AM and had some coffee and went back to sleep, and since then has been very difficult to wake up. Besides drowsiness, there is no other acute complaints of concerns, no fever, chills, chest pain, abdominal pain, nausea/ vomiting reported She is yet to have her teeth pulled outl In the ER the patient on presentation was mildly hypoxic at 88% on room air, she was otherwise hemodynamically stable, Her labs were unremarkable. Head CT And Abdomen CT neg, aspiration pna noted on CT The patient had a similar presentation in the past, when she had bactermia, she had undergone a LP too which was negative. She is being admitted to the hospital for further management. Altered mental status- combination of infection and overmedications, did not get any narcotics while in the hospital and patient improved. LIkely a component of medications and infection. Aspiration pneumonia- Doing well, cultures negative, IV vanco and ergapenum, will discharge with additional 5 days of augmentin. Acute kidney injury- pre renal, creat was 2.7 on presentatino, 1.4 at discharge , home meds, roger adn diuretics resumed at discharge, pcp advised to c heck renal function in 1 week, pt to keep self well hydrated. Chr pain- on narcotics, educated regarding safe use, I do not feel that the patient needs this amount of narcotic pain medications, I have advised her to cut back on her intake. she is also on gabapentin and lyrica, which seems a dual treatment, will advise patient to hold off on gabapentin. The rest of the medications are left unchanged, The rest of the hospital stay was unremarkable. Discharge diagnosis: Altered mental status, Aspiraton pneumonia - Time Spent with Patient Total time spent providing and/or coordinating discharge services: Greater than 30 minutes Medical - DS: Exam - Constitutional Vitals: Vital Signs Temp Pulse Resp BP BP Pulse Ox 01/12/18 07:06 97.8 F 16 138/85 91 01/12/18 03:57 97.4 F 66 14 143/73 91 01/12/18 00:00 98.5 F 60 16 144/80 92 01/11/18 20:00 97.9 F 62 20 142/66 95 01/11/18 16:30 97.8 F 66 17 135/71 94 01/11/18 12:02 97.3 F 64 17 131/82 96 Intake and Output 01/11/18 01/12/18 01/12/18 21:59 05:59 13:59 Intake Total 1000 / 1000 1300 / 1300 1010 / 1010 Output Total 250 / 250 1400 / 1400 1250 / 1250 Balance 750 / 750 -100 / -100 -240 / -240 Intake: IV 1000 / 1000 1000 / 1000 50 / 50 Sodium Chloride 0.9% 1,000 ml @ 1000 / 1000 1000 / 1000 150 mls/hr IV .Q6H40M [facility] Rx#: [id number] INVanz 1 GM In Sodium Chloride 50 / 50 0.9% 50 ml @ 100 mls/hr IV Q24H [facility] Rx#:[id number] Oral 300 / 300 960 / 960 Output: Void Amount 250 / 250 1400 / 1400 1250 / 1250 Other: Meal Lunch Percent of Meal Consumed 50% Feeding Ability Independent Urine Appearance Clear Urine Color Bright Yellow Dark Yellow Urine Odor Normal # Voids 1 Weight 203 lb 6.4 oz Additional comments: Constitutional; Afebrile, cooperative, alert, not in distress. Respiratory system: Air Entry equal on both sides, No crackles or wheezing, no rhonchi. CVS- Rate rhythm regular, S1,S2 heard, no gallop, no rub. 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 Medical - DS: Data Labs on day of discharge: Labs from last 24 hours 01/12/18 01/12/18 01/12/18 09:45 05:43 05:43 WBC 5.2 RBC 3.96 L Hgb 12.1 Hct 35.8 L MCV 90.4 MCH 30.7 MCHC 33.9 RDW 15.6 H Plt Count 84 L MPV 12.6 H Gran % 54.6 Lymph % (Auto) 33.2 [place] % (Auto) 6.8 Eos % (Auto) 4.8 Baso % (Auto) 0.6 Gran # 2.8 Lymph # (Auto) 1.7 [place] # (Auto) 0.4 Eos # (Auto) 0.3 Baso # (Auto) 0 Sodium 145 Potassium 3.7 Chloride 116 H Carbon Dioxide 20 L Anion Gap 9.0 BUN 20 Creatinine 1.4 H GFR Calculation 41 Glucose 71 Uric Acid 5.0 Calcium 8.9 Phosphorus 2.6 L Magnesium 1.5 L Total Bilirubin 0.3 Direct Bilirubin < 0.2 GGT 41 H AST 36 ALT 35 Alkaline Phosphatase 99 Lactate Dehydrogenase 217 Total Protein 5.8 L Albumin 2.8 L Globulin 3.0 Albumin/Globulin Ratio 0.9 L Triglycerides 177 H Vancomycin Trough 8.5 Preliminary micro results at discharge 01/09/18 22:15 Blood Culture - Preliminary Blood 01/09/18 22:20 Blood Culture - Preliminary Blood Medical - DS: A/P - Patient/Caregiver Discharge Instructions Activity: increase activity as tolerated Diet: Consistent Carbohydrate Additional Instructions: Please keep your self well hydrated Take antibiotics x 5 more days Make sure your PCP checks your kidney function in 1 week Please cut back on the hydrocodone your take, please do not take this medication if you do not need or are drowsy. Please stop taking the gabapentin till you discuss this medication with your PCP. - Follow up Plan Disposition: Home, Self-Care Prognosis: Fair Rehab Potential: Fair I certify that the patient requires SNF services: No Overall status at discharge: patient is progressing back to baseline
== END 2018-01-12 14:23 | disposition home or self-care (01) | DRG 177 ==
LOC: ED 19:40 → ICU 01-10 00:26 → MEDSUR 01-11 08:50
PROVIDERS: ADMIT Internal Medicine; ATTEND Internal Medicine

== ENCOUNTER 2019-05-03 10:30 | Inpatient (IN) ==
[2019-05-03] MEDS ORDERED: ONDANSETRON 4 MG/2 ML VIAL IV PRN (14:39)
[2019-05-03] MEDS ORDERED: DEXTROSE 50% 50 ML VIAL IV PRN (14:39)
[2019-05-03] MEDS ORDERED: DEXTROSE 31 GM ORAL.SUSP PO PRN (14:39)
--- NOTE | 2019-05-03 15:13 | Internal Med History&Physical ---
Medical - H&P: [facility] Patient information: Note initiated : 05/03/19 at 3:05 pm Service Date, if different from initiated Date: [] Patient: Camille Knox a 64 y/o F admitted on 05/03/19 for Altered Mental Status, Pneumonia. Chief Complaint: [N/v x 3-4 days] History of present illness: Ms. Knox is a 64 year old F with a history of end-stage renal disease on dialysis, diabetes type 2, and COPD who was transferred to our hospital from [facility]. Patient is lethargic and somnolence and does not answer any questions. All medical history is obtained from medical chart from [facility]. Patient has been complaining of nausea and vomiting over 3 to 4 days. Last dialysis was on Monday (4 days ago). In the [facility] ER, chest x-ray showed pleural effusion and infiltrate. Thoracentesis was performed over there. She was also found to have oxygen desaturation. 1 dose of Zosyn was given. Because the patient needs dialysis, patient was transferred to our hospital. ROS unobtainable: due to mental status Medical - H&P: PMH Medical history: end-stage renal disease on dialysis, diabetes type 2, and COPD Family history: reviewed and not pertinent (Unable to obtained due to altered mental status) Medical - H&P: Meds Home Medications Medication Instructions Recorded Confirmed Type Insulin Glargine, Human [Lantus] 60 unit SQ BID 06/14/17 02/01/19 History Insulin Aspart [Novolog] 15 unit SQ AC 12/12/17 05/03/19 History Atorvastatin [Lipitor] 40 mg PO HS 05/03/19 05/03/19 History Furosemide [Lasix] 120 mg PO BID 05/03/19 05/03/19 History Hydroxychloroquine [Plaquenil] 400 mg PO DAILY 05/03/19 05/03/19 History Metoclopramide [Reglan] 5 mg PO BIDAC 05/03/19 05/03/19 History Metoprolol Tartrate [Lopressor] 25 mg PO BID 05/03/19 05/03/19 History Pantoprazole [Protonix] 40 mg PO QAMAC 05/03/19 05/03/19 History Potassium Chloride [Kdur] 20 meq PO QAMCC 05/03/19 05/03/19 History Pregabalin [Lyrica] 150 mg PO TID 05/03/19 05/03/19 History Salmeterol Xinafoate [Serevent] 1 puff INH BID 05/03/19 05/03/19 History Spironolactone [Aldactone] 25 mg PO DAILY 05/03/19 05/03/19 History Topiramate [Topamax] 100 mg PO DAILY 05/03/19 05/03/19 History buPROPion [Wellbutrin Xl] 300 mg PO DAILY 05/03/19 05/03/19 History hydrOXYzine [Vistaril] 10 mg PO TIDP PRN 05/03/19 05/03/19 History rOPINIRole [Requip] 1 mg PO TID 05/03/19 05/03/19 History traMADol [Ultram] 50 mg PO TIDP PRN 05/03/19 05/03/19 History Allergies Allergy/AdvReac Type Severity Reaction Status Date / Time sulfamethoxazole Allergy Intermediate RASH, RED, Verified 05/03/19 14:28 [From BACTRIM] BURNING FEELING trimethoprim [From BACTRIM] Allergy Intermediate RASH, RED, Verified 05/03/19 14:28 BURNING FEELING codeine Allergy Unknown Unknown Verified 05/03/19 14:28 lisinopril [LISINOPRIL] AdvReac Mild COUGHING Verified 05/03/19 14:28 morphine [MORPHINE] AdvReac Mild DOESN'T Verified 02/01/19 11:13 SEEM TO HELP Medical - H&P: Exam - Constitutional Vitals: Temp Resp BP Pulse Ox 97.9 F 15 136/60 93 05/03/19 13:09 05/03/19 14:01 05/03/19 14:01 05/03/19 14:01 General appearance: obese (Lethargic and somnolence) - Head Head exam: Present: atraumatic, normocephalic - Eye Eye exam: Absent: conjunctival injection - Neck Neck exam: Present: normal inspection - Respiratory Respiratory exam: Present: rhonchi. Absent: accessory muscle use, chest wall tenderness, respiratory distress - Cardiovascular Cardiovascular exam: Present: normal rate and rhythm. Absent: JVD - GI/Abdominal GI/Abdominal exam: Present: normal bowel sounds, soft. Absent: tenderness - Extremities Exam Extremities exam: Absent: pedal edema, tenderness, Jennifer's sign - Neurological Exam Neurological exam: Absent: alert (Lethargic and somnolence. Neurological exam cannot be completed) Medical - H&P: A/P (1) Diabetes Current visit: No Status: Acute - Narrative A/P Narrative: Assessment: 1. AMS 2. Acute hypoxemic respiratory failure 3. Elevation of troponin 4. Pneumonia 5 Pleural effusion, s/p thoracentesis 6. ESRD on HD 7. DM type 2 8. Chronic HFpEF 9. Anemia of chronic renal disease 10. Positive MRSA screening Plan: 1. Patient was admitted to PCU as an inpatient because I feel patient should stay in the hospital more than 2 days 2. Patient has a acute encephalopathy, etiology unknown, could be due to infection, uremia, or others. CT of head was ordered 3. Pulse ox, oxygen. Blood culture, sputum culture, influenza screening Chest x-ray [facility] showed pleural effusion and infiltrate. Levaquin was started. Thoracentesis was performed at that hospital today 4. Patient had end-stage renal disease on dialysis. Our manager mobility was informed 5. Patient home insulin include Lantus 60 units twice daily. I would like to give her 30 units twice daily. Continue her nutritional coverage, insulin sliding scale. Adjust insulin based on glucose level. 6. BNP and echocardiogram were ordered. Intake and output, daily weight. Patient is on dialysis 7. Repeat hemoglobin in the morning 8. Contact isolation 9. DVT prophylaxis: Heparin 10. CODE STATUS: Full Disposition: PTOT
[2019-05-03] MEDS ORDERED: NALOXONE HCL 0.4 MG/ML VIAL IV PRN (16:15)
[2019-05-03] MEDS ORDERED: ALTEPLASE 2 MG VIAL IV ONE ×2 (17:00→18:42)
[2019-05-03] MEDS: INSULIN LISPRO 1 UNIT/0.01 ML UNIT SQ SCH ×2 (17:24→17:26)
[2019-05-03 19:05] LABS: Hematocrit 31.1 % (36.0-48.0); Hemoglobin 10.2 g/dL (12.0-15.0); Mean Corpuscular HGB Conc 32.7 g/dL (31.0-36.0); Mean Platelet Volume 9.8 fL (7.4-10.4); Platelet Count 168 K/mcL (140-440); RBC 3.57 M/mcL (4.00-5.20); Red Cell Distribution Width 15.6 % (11.5-14.5); WBC 4.8 K/mcL (4.5-11.0)
[2019-05-03 19:11] LABS: ALT/SGPT 21 U/l (0-40); AST/SGOT 46 U/l (0-37); Albumin 2.5 gm/dL (3.2-5.2); Albumin/Globulin Ratio 0.9 (1.0-2.3); Alkaline Phosphatase 106 U/L (39-117); Bilirubin,Total < 0.2 mg/dL (0.0-1.0); Blood Urea Nitrogen 30 mg/dl (8-23); Calcium 7.2 mg/dl (8.6-10.4); Carbon Dioxide 19 mmol/L (22-30); Chloride 102 mmol/L (96-108); Globulin 2.7 gm/dL (2.2-3.7); Glomerular Filtration Rate 10; Glucose 371 mg/dL (70-105)
[2019-05-03 19:18] LABS: Band Neutrophils % 7 % (0-10); Lymphocytes % 6 % (15-49); Monocytes % (Manual) 3 % (1-12); Platelet Estimate NORMAL (NORMAL); Polychromasia 1+ (NONE SEEN); RBC Morphology ABNORM (NORMAL); Segmented Neutrophils % 84 % (38-78)
[2019-05-03 19:20] LABS: Appearance,Urine CLEAR; Bacteria,Urine 0 /hpf (0); Bilirubin,Urine NEG (NEG); Color,Urine YELLOW; Culture Indicated,Urine NO; Glucose,Urine (UA) >=500 mg/dL (NEG); Ketones,Urine 5/TR mg/dL (NEG); Leukocyte Esterase,Urine NEG /uL (NEG); Nitrate,Urine NEG (NEG); Protein,Urine >=500 mg/dL (NEG); Urine Blood 0.03 mg/dL (<0.03); Urine Hyaline Cast 2 /lpf (0-2); Urine RBC 12 /hpf (0-1); Urine Squamous Epithelial Cell 0 /hpf (0-4); Urine WBC 3 /hpf (0-4); Urobilinogen,Urine NEG (NEG)
[2019-05-03] MEDS ORDERED: ATORVASTATIN 40 MG TABLET PO SCH (21:00)
[2019-05-03] MEDS ORDERED: LEVOFLOXACIN 750 MG/150 ML BAG IV ONE (21:00)
[2019-05-03] MEDS ORDERED: SENNOSIDES 1 TABLET PO SCH (21:00)
[2019-05-03] MEDS ORDERED: OSELTAMIVIR PHOSPHATE 30 MG CAPSULE PO ONE (21:54)
--- NOTE | 2019-05-03 22:16 | Consultation ---
DATE OF CONSULTATION: 05/03/2019 REASON FOR HOSPITALIZATION: End-stage renal disease. HISTORY OF PRESENT ILLNESS: Ms. Knox is a 64-year-old female with past medical history significant for chronic kidney disease, who was recently started on hemodialysis. She has started with a tunneled dialysis catheter about 3 weeks ago. The catheter has been a problem and also she missed her dialysis treatment on Monday. She is fairly noncompliant with her medications and also continue to smoke. She uses a fair amount of pain medications. She presented to the [facility] complaining of lethargy and shortness of breath. In the chest x-ray, she was found to have bilateral pleural effusions and infiltrates. A thoracentesis was performed at [facility], but she continued to remain hypoxic, and she was also fairly sedated. For those reasons, she was transferred to [facility] for dialysis. PAST MEDICAL HISTORY: Significant for: 1. Chronic type 2 diabetes with all the complications of diabetes. 2. COPD. 3. End-stage renal disease, on hemodialysis. 4. Hypertension. 5. History of deep venous thrombosis of the right internal jugular vein. 6. In 2010, she had acute kidney injury for which she was on dialysis for a month or 2. FAMILY HISTORY: Noncontributory. MEDICATIONS ON ADMISSION: She is on Lantus 60 units twice daily, NovoLog 15 units with meals, Lipitor 40 mg at night, Lasix 120 mg twice daily, Plaquenil 400 mg daily, Reglan p.r.n., metoprolol 25 mg twice daily, Protonix 40 mg daily, potassium chloride 20 mEq daily, Lyrica 150 mg daily, Serevent, spironolactone 25 mg daily, Topamax 100 mg daily, bupropion 300 mg daily, hydroxyzine 10 mg daily, tramadol 50 mg 3 times daily, ropinirole 1 mg 3 times daily. ALLERGIES: SHE IS ALLERGIC TO SULFA DRUGS, CODEINE WELL LISINOPRIL, AND MORPHINE. SOCIAL HISTORY: She continues to smoke. No history of alcohol or drug use. REVIEW OF SYSTEMS: On examination, she is somewhat obtunded, lethargic, but arousable. PHYSICAL EXAMINATION: VITAL SIGNS: Blood pressure is 136/60 with a pulse rate of 93, respiratory rate of 15 with a temperature of 97.9. HEENT: NCAT, pupils are reactive to light. External auditory canal appears normal. Oral cavity appears dry. NECK: Supple. She has about 10 cm of jugular venous distention. No lymphadenopathy, no thyromegaly, no carotid bruits. LUNGS: Decreased air entry bilaterally. Rales heard at both bases. CARDIAC: S1, S2 heard. No S3, S4. She has a 3/6 systolic murmur. ABDOMEN: Soft, nontender, no organomegaly, positive bowel sounds. No mass, no rebound. EXTREMITIES: Showed 2+ edema. NEUROLOGIC: Limited somewhat as she is somewhat obtunded. LABORATORY DATA: Showed a white count of 4.8 with hemoglobin of 10.1, platelet count of 168. Sodium 139, potassium 3.9, chloride of 102, CO2 of 19, BUN of 30, creatinine of 4.5 with a proBNP of 12,367. ASSESSMENT AND PLAN: 1. End-stage renal disease, on hemodialysis. She will have her regular dialysis treatment today. I will try to take additional fluid to a total of 4500 if she can tolerate. She could have a chest x-ray tomorrow and see if her oxygenation improves. 2. Confusion, could be uremia and polypharmacy. She is being evaluated by the hospitalist. 3. Anemia. Hemoglobin is somewhat stable. 4. Renal bone disease. Her calcium is low at 7.2, and her phosphorus is pending. 5. Volume status obviously she is somewhat volume overloaded. We will try about 2500 mL of fluid removal and see how she does. Return back as scheduled. I will be away as of tomorrow, and I will sign out the patient to the [facility] hospitalist. TRACIE:meghan Job ID: [id number] Doc ID: [id number] Júnior Brooke MD
[2019-05-04] MEDS: DOCUSATE SODIUM 100 MG CAPSULE PO SCH ×3 (00:16→20:32)
[2019-05-04] MEDS: HEPARIN 5,000 UNIT/ML VIAL SQ SCH ×3 (00:16→20:31)
[2019-05-04] MEDS: INSULIN GLARGINE, HUMAN 1 UNIT/0.01 ML SQ SCH ×3 (00:17→20:31)
[2019-05-04] MEDS: INSULIN LISPRO 1 UNIT/0.01 ML UNIT SQ SCH ×8 (00:17→20:31)
[2019-05-04] MEDS: 0.9 % SODIUM CHLORIDE 10 ML SYRINGE IV SCH ×4 (00:20→20:33)
[2019-05-04] MEDS: METOPROLOL TARTRATE 25 MG TABLET PO SCH ×3 (00:20→20:31)
[2019-05-04] MEDS: SALMETEROL XINAFOATE INH SCH ×3 (00:20→20:32)
[2019-05-04] MEDS ORDERED: OSELTAMIVIR PHOSPHATE 30 MG CAPSULE PO ONE (00:25)
[2019-05-04] MEDS: traMADol 50 MG TABLET PO PRN ×3 (00:32→12:01)
[2019-05-04 04:46] LABS: Hematocrit 28.5 % (36.0-48.0); Hemoglobin 9.4 g/dL (12.0-15.0); Mean Cell Volume 86.7 fL (80.0-100.0); Mean Corpuscular HGB Conc 33.1 g/dL (31.0-36.0); Mean Platelet Volume 10.4 fL (7.4-10.4); Platelet Count 181 K/mcL (140-440); RBC 3.29 M/mcL (4.00-5.20); Red Cell Distribution Width 15.4 % (11.5-14.5); WBC 10.6 K/mcL (4.5-11.0)
[2019-05-04 05:09] LABS: ALT/SGPT 18 U/l (0-40); AST/SGOT 37 U/l (0-37); Alkaline Phosphatase 88 U/L (39-117); Bilirubin,Total < 0.2 mg/dL (0.0-1.0); Blood Urea Nitrogen 25 mg/dl (8-23); Calcium 7.2 mg/dl (8.6-10.4); Carbon Dioxide 22 mmol/L (22-30); Chloride 101 mmol/L (96-108); Glomerular Filtration Rate 14; Glucose 264 mg/dL (70-105)
[2019-05-04 05:10] LABS: Albumin 1.8 gm/dL (3.2-5.2); Albumin/Globulin Ratio 0.6 (1.0-2.3); Globulin 3.2 gm/dL (2.2-3.7)
[2019-05-04 05:37] LABS: Lymphocytes % 11 % (15-49); Monocytes % (Manual) 1 % (1-12); Platelet Estimate NORMAL (NORMAL); RBC Morphology ABNORMAL (NORMAL); Segmented Neutrophils % 88 % (38-78); Spherocytes OCC (NONE SEEN)
[2019-05-04] MEDS ORDERED: PANTOPRAZOLE 40 MG TABLET PO SCH (07:30)
--- NOTE | 2019-05-04 08:34 | Nephrology Progress Note ---
Subjective Patient information: Note initiated : 05/04/19 at 8:31 am Patient: Camille Knox 64 y/o F admitted on 05/03/19 for Altered Mental Status, Pneumonia. Chief Complaint: Weakness Pertinent ROS: Weakness Shortness of breath Confusion Edema Objective - Vital Signs Vital signs: Vital Signs Temp Pulse Resp BP BP Pulse Ox 05/04/19 08:29 95 05/04/19 08:01 97.5 F 20 133/54 94 05/04/19 05:01 18 143/66 94 05/04/19 04:31 19 135/54 96 05/04/19 04:01 98.1 F 18 143/54 96 05/04/19 03:31 17 140/56 97 05/04/19 03:01 18 134/57 98 05/04/19 02:31 15 116/55 97 05/04/19 02:01 16 142/67 97 05/04/19 01:31 17 142/63 98 05/04/19 01:01 18 152/79 96 05/04/19 00:54 15 164/67 96 05/04/19 00:03 94 05/04/19 00:01 97.3 F 20 146/122 93 05/03/19 23:49 134/75 92 05/03/19 23:44 114/55 92 05/03/19 23:40 96 H 134/75 05/03/19 23:38 93/65 05/03/19 23:28 126/100 84 L 05/03/19 23:22 100 H 126/100 05/03/19 23:01 98 H 213/155 05/03/19 22:36 100 H 120/107 05/03/19 22:31 128/107 69 L 05/03/19 22:22 97 H 111/80 05/03/19 22:19 111/80 05/03/19 22:02 127/87 94 05/03/19 21:59 97 H 121/87 05/03/19 21:54 104/86 98 05/03/19 21:45 98 H 104/86 05/03/19 21:31 126/105 94 05/03/19 21:25 99 H 126/105 05/03/19 21:01 112/66 87 L 05/03/19 20:56 100 H 112/66 05/03/19 20:32 136/69 98 05/03/19 20:31 92 H 135/69 05/03/19 20:14 167/73 98 05/03/19 20:07 97.1 F 89 167/73 05/03/19 20:01 154/75 100 05/03/19 19:03 150/63 99 05/03/19 18:31 162/65 94 05/03/19 18:10 97.1 F 90 140/65 05/03/19 18:01 140/65 97 05/03/19 18:00 97.6 F 24 H 140/65 96 05/03/19 17:17 96 05/03/19 17:01 137/65 97 05/03/19 16:31 125/58 05/03/19 16:01 97.8 F 20 142/59 95 05/03/19 15:31 147/67 96 05/03/19 15:16 98.1 F 05/03/19 15:01 123/56 94 05/03/19 14:39 95 05/03/19 14:31 131/59 94 05/03/19 14:01 15 136/60 93 05/03/19 13:31 12 148/74 92 05/03/19 13:16 15 133/64 92 05/03/19 13:09 97.9 F 16 132/79 92 05/03/19 12:55 19 Intake and Output 05/03/19 05/04/19 05/04/19 21:59 05:59 13:59 Output Total 400 3500 Balance -400 -3500 Output: Urine Catheter Amount 400 Hemodialysis UF 3500 Other: Urine Color Bright Yellow Urine Odor Normal Stool Size Moderate Stool Color Brown Stool Consistency Loose # Bowel Movements 2 # of times incontinent of 2 Bowels Weight 207 lb 3.2 oz Intake & Output: Intake & Output 05/03/19 05/04/19 05/04/19 21:59 05:59 13:59 Output Total 400 3500 Balance -400 -3500 Weight 207 lb 3.2 oz Output: Urine Catheter Amount 400 Hemodialysis UF 3500 Other: Urine Color Bright Yellow Urine Odor Normal Stool Size Moderate Stool Color Brown Stool Consistency Loose # Bowel Movements 2 # of times incontinent of 2 Bowels - General Appearance General appearance: appears started age, fatigue EENT: mucous membranes moist Neck: supple Respiratory: clear Cardiology: edema Gastrointestinal: no tenderness Integumentary: warm and dry Neurologic: no focal deficit Musculoskeletal: no deformities Psychiatric: mood/affect appropriate, cooperative - Lab 05/04/19 03:30 05/04/19 03:30 Most recent lab results Calcium 7.2 mg/dl (8.6-10.4) L 05/04/19 03:30 Magnesium 1.6 mg/dL (1.6-2.5) 05/03/19 17:13 Assessment and Plan (1) ESRD (end stage renal disease) on dialysis Camille Knox is a 64-year-old female with end stage renal disease recently started on hemodialysis through a tunneled hemodialysis catheter admitted on 05/03/19 for altered mental status and influenza type B. Progress: Hemodialysis with 3500 ml UF last night. Fluid overload, improved. Hypoxia, still requiring oxygen. Metabolic acidosis, resolved. Plan: Extra hemodialysis for fluid overload today for 3 hours and 4 kg UF. Continue hemodialysis on MWF. Status: Chronic Priority: Medium (2) Other fluid overload Status: Chronic Priority: Medium
[2019-05-04] MEDS ORDERED: TOPIRAMATE 100 MG TABLET PO SCH (09:00)
[2019-05-04] MEDS ORDERED: buPROPion 150 MG TAB.XL.24H PO SCH (09:00)
[2019-05-04] MEDS ORDERED: HYDROXYCHLOROQUINE 200 MG TABLET PO SCH (09:00)
--- NOTE | 2019-05-04 11:13 | Internal Med Progress Note ---
Medical - PN: Subj Patient information: Note initiated : 05/04/19 at 11:09 am Service Date, if different from initiated Date: [] Patient: Camille Knox a 64 y/o F admitted on 05/03/19 for Altered Mental Status, Pneumonia. Chief Complaint: [] Ms. Knox is a 64 year old F with a history of end-stage renal disease on dialysis, diabetes type 2, and COPD who was transferred to our hospital from [facility]. Today patient's mental status significantly improved. Patient is sitting on a chair and talking. Complains of mild nausea and a cough with clear sputum. Denies fever, chills, or dizziness. Vital signs are stable No overnight events - Constitutional Vitals: Vital Signs Temp Pulse Resp BP Pulse Ox 97.6 F 96 H 20 109/68 93 05/04/19 10:00 05/03/19 23:40 05/04/19 10:00 05/04/19 10:00 05/04/19 10:00 Period Temp Pulse Resp BP Sys/Agosto Pulse Ox Last 24 Hr 97.1 F-98.1 F 89-100 12-24 93-213/54-155 69-100 Intake and Output 05/03/19 05/04/19 05/04/19 21:59 05:59 13:59 Intake Total 390 Output Total 400 3500 Balance -400 -3500 390 Weight 93.984 kg Intake & Output: Intake & Output 05/03/19 05/04/19 05/04/19 21:59 05:59 13:59 Intake Total 390 Output Total 400 3500 Balance -400 -3500 390 Weight 93.984 kg Intake: IV 150 Oral 240 Output: Urine Catheter Amount 400 Hemodialysis UF 3500 Other: Meal Breakfast Percent of Meal Consumed 100% Feeding Ability Independent Urine Color Bright Yellow Urine Odor Normal Stool Size Moderate Stool Color Brown Stool Consistency Loose # Bowel Movements 2 # of times incontinent of 2 Bowels General appearance: no acute distress - Head Head exam: Present: normal inspection - Eye Eye exam: Present: EOMI, PERRL - ENT ENT exam: Present: normal exam - Neck Neck exam: Present: normal inspection - Respiratory Respiratory exam: Present: rhonchi. Absent: accessory muscle use - Cardiovascular Cardiovascular exam: Present: normal rate and rhythm. Absent: JVD - GI/Abdominal GI/Abdominal exam: Present: normal bowel sounds, soft. Absent: tenderness - Extremities Exam Extremities exam: Present: full ROM. Absent: tenderness, Jennifer's sign - Neurological Exam Neurological exam: Present: alert, oriented X3. Absent: motor sensory deficit - Psychiatric Psychiatric exam: Present: normal mood - Skin Skin exam: Present: warm Medical - PN: Obj Da - Labs CBC & Chem 7: 05/04/19 03:30 05/04/19 03:30 Labs: Abnormal Lab Results 05/04/19 05/04/19 05/03/19 03:30 03:30 17:13 RBC 3.29 L Hgb 9.4 L Hct 28.5 L RDW 15.4 H Seg Neutrophils % 88 H Lymphocytes % 11 L RBC Morphology Polychromasia Spherocytes Occ A Carbon Dioxide Anion Gap BUN 25 H Creatinine 3.4 H Glucose 264 H Calcium 7.2 L AST Troponin T 0.07 H* NT-Pro-B Natriuret Pep Total Protein 5.0 L Albumin 1.8 L Albumin/Globulin Ratio 0.6 L Urine Protein Urine Glucose (UA) Urine Ketones Urine Occult Blood Urine RBC 05/03/19 05/03/19 05/03/19 17:13 17:13 17:13 RBC 3.57 L Hgb 10.2 L Hct 31.1 L RDW 15.6 H Seg Neutrophils % 84 H Lymphocytes % 6 L RBC Morphology Abnorm A Polychromasia 1+ A Spherocytes Carbon Dioxide 19 L Anion Gap 18.0 H BUN 30 H Creatinine 4.5 H Glucose 371 H Calcium 7.2 L AST 46 H Troponin T NT-Pro-B Natriuret Pep 31286.0 H Total Protein 5.2 L Albumin 2.5 L Albumin/Globulin Ratio 0.9 L Urine Protein Urine Glucose (UA) Urine Ketones Urine Occult Blood Urine RBC 05/03/19 16:39 RBC Hgb Hct RDW Seg Neutrophils % Lymphocytes % RBC Morphology Polychromasia Spherocytes Carbon Dioxide Anion Gap BUN Creatinine Glucose Calcium AST Troponin T NT-Pro-B Natriuret Pep Total Protein Albumin Albumin/Globulin Ratio Urine Protein >=500 A Urine Glucose (UA) >=500 A Urine Ketones 5/tr A Urine Occult Blood 0.03 A Urine RBC 12 H Meds: Medications Atorvastatin Calcium (Lipitor) 40 mg PO HS [facility] Last Admin: 05/04/19 00:20 Dose: 40 mg Documented by: Bupropion HCl (Wellbutrin Xl) 300 mg PO DAILY [facility] Dextrose (Dextrose 50%) 0 ml IV UD PRN PRN Reason: Hypoglycemia Diagnostic Test (Pha) (Accu-Chek) 1 each FS [facility] Last Admin: 05/04/19 09:30 Dose: 1 each Documented by: Docusate Sodium (Colace) 100 mg PO BID [facility] Last Admin: 05/04/19 00:16 Dose: Not Given Documented by: Glucose (Insta-Glucose) 15 gm PO PRN PRN PRN Reason: Hypoglycemia Heparin Sodium (Porcine) (Heparin) 5,000 unit SQ Q12 [facility] Last Admin: 05/04/19 00:16 Dose: 5,000 unit Documented by: Hydroxychloroquine Sulfate (Plaquenil) 400 mg PO DAILY [facility] Levofloxacin (Levaquin) 750 mg in 150 mls @ 100 mls/hr IV MoWeFr@1500 [facility]; Protocol Insulin Glargine (Lantus) 30 unit SQ BID [facility] Last Admin: 05/04/19 00:17 Dose: 30 units Documented by: Insulin Human Lispro (Humalog) 0 unit SQ [facility]; Protocol Last Admin: 05/04/19 09:31 Dose: Not Given Documented by: Insulin Human Lispro (Humalog) 15 unit SQ [facility] Last Admin: 05/04/19 09:31 Dose: Not Given Documented by: Metoprolol Tartrate (Lopressor) 25 mg PO BID [facility] Last Admin: 05/04/19 00:20 Dose: 25 mg Documented by: Naloxone HCl (Narcan) 0.4 mg IV Q10M PRN PRN Reason: Opiate Reversal Ondansetron HCl (Zofran) 4 mg IV Q6HP PRN PRN Reason: Nausea And Vomiting Oseltamivir Phosphate (Tamiflu) 30 mg PO ONCE ONE Stop: 05/03/19 21:55 Last Admin: 05/04/19 00:26 Dose: 30 mg Documented by: [facility]oprazole [facility]) [facility] Last Admin: 05/04/19 09:30 Dose: 40 mg Documented by: Salmeterol Xinafoate ([Serevent] Inhaler) 1 dose INH BID [facility] Last Admin: 05/04/19 00:20 Dose: Not Given Documented by: Senna (Senokot) 2 tab PO [facility] Last Admin: 12/21/19 00:20 Dose: Not Given Documented by: Sodium Chloride (Saline Flush) 10 ml IV Q8 [facility] Last Admin: 05/04/19 05:09 Dose: 10 ml Documented by: Topiramate (Topamax) 100 mg PO DAILY [facility] Tramadol HCl (Ultram) 50 mg PO TIDP PRN PRN Reason: Pain Last Admin: 05/04/19 09:40 Dose: 50 mg Documented by: Medical - PN: A/P - Time Spent With Patient Total time spent is greater than 50% in coordination of care (as documented) at patient's floor/unit and/or counseling patient: (1) Diabetes Status: Acute Current Visit: No - Narrative A/P Narrative: Assessment: 1. AMS, resolved 2. Acute hypoxemic respiratory failure 3. Elevation of troponin 4. Pneumonia 5 Pleural effusion, s/p thoracentesis 6. ESRD on HD 7. DM type 2 8. Chronic HFpEF 9. Anemia of chronic renal disease 10. Positive MRSA screening Plan: 1. Patient will be downgraded to [facility] 2. Patient has a acute encephalopathy, etiology unknown. Resolved. 3. Pulse ox, oxygen. Blood culture pending, influenza screening negative Chest x-ray [facility] showed pleural effusion and infiltrate. Continue Levaquin. Thoracentesis was performed at that hospital yesterday. Repeat chest x-ray 4. Patient had end-stage renal disease on dialysis. Our telemarketing fundraiser was informed 5. Patient home insulin include Lantus 60 units twice daily. I would like to give her 35 units twice daily. Continue her nutritional coverage, insulin sliding scale. Adjust insulin based on glucose level. 6. BNP and echocardiogram were ordered. Intake and output, daily weight. Patient is on dialysis 7. Repeat hemoglobin in the morning 8. DVT prophylaxis: Heparin 9. CODE STATUS: Full Disposition: PTOT Medical - PN: Qual - Stroke Symptom Onset Unknown: No - VTE Deep Vein Thrombosis/Pulmonary Embolism Present on Admission: No
[2019-05-04] MEDS ORDERED: INSULIN GLARGINE, HUMAN 1 UNIT/0.01 ML SQ ONE ×2 (11:30→12:07)
[2019-05-04] MEDS ORDERED: NALOXONE HCL 0.4 MG/ML VIAL IV PRN (12:07)
[2019-05-04] MEDS ORDERED: DEXTROSE 31 GM ORAL.SUSP PO PRN (12:07)
[2019-05-04] MEDS ORDERED: DEXTROSE 50% 50 ML VIAL IV PRN (12:07)
[2019-05-04] MEDS: ONDANSETRON 4 MG/2 ML VIAL IV PRN ×2 (13:15→19:10)
--- NOTE | 2019-05-04 15:20 | Internal Med Progress Note ---
Medical - PN: Subj Patient information: Note initiated : 05/04/19 at 3:11 pm Service Date, if different from initiated Date: [] Patient: Camlile Knox a 64 y/o F admitted on 05/03/19 for Altered Mental Status, Pneumonia. Chief Complaint: [] Interval history: Ms. Knox is a 64 year old F with a history of end-stage renal disease on dialysis, diabetes type 2, and COPD who was transferred to our hospital from [facility]. Patient is lethargic and somnolence and does not answer any questions. All medical history is obtained from medical chart from [facility]. Patient has been complaining of nausea and vomiting over 3 to 4 days. Last dialysis was on Monday (4 days ago). In the [facility] ER, chest x-ray showed pleural effusion and infiltrate. Thoracentesis was performed over there. She was also found to have oxygen desaturation. 1 dose of Zosyn was given. Because the patient needs dialysis, patient was transferred to our hospital. 05/04 Today patient's mental status significantly improved. Patient is sitting on a chair and talking. Complains of mild nausea and a cough with clear sputum. Denies fever, chills, or dizziness. Vital signs are stable No overnight events - Constitutional Vitals: Vital Signs Temp Pulse Resp BP Pulse Ox 97.8 F 66 1 L 126/56 89 L 05/04/19 14:47 05/04/19 14:47 05/04/19 11:01 05/04/19 14:47 05/04/19 14:39 Period Temp Pulse Resp BP Sys/Agosto Pulse Ox Last 24 Hr 97.1 F-98.1 F 66-100 1-24 93-213/54-155 69-100 Intake and Output 05/04/19 05/04/19 05/04/19 05:59 13:59 21:59 Intake Total 390 Output Total 3500 Balance -3500 390 Intake & Output: Intake & Output 05/04/19 05/04/19 05/04/19 05:59 13:59 21:59 Intake Total 390 Output Total 3500 Balance -3500 390 Intake: IV 150 Oral 240 Output: Hemodialysis UF 3500 Other: Meal Breakfast Percent of Meal Consumed 100% Feeding Ability Independent Stool Size Moderate Stool Color Brown Stool Consistency Loose # of times incontinent of 2 Bowels Exam: General: Alert, Awake, No acute Distress Eyes/N/T: EOMI, Head/Neck: neck supple, CV: RRR, No murmurs, Pulm: Abd: soft, nontender, +BS x4 Ext: no clubbing/cyanosis/edema Neuro: Alert, no focal deficits, moves all extremities, Skin: warm/dry Medical - PN: Obj Da - Labs CBC & Chem 7: 05/04/19 03:30 05/04/19 03:30 Labs: Abnormal Lab Results 05/04/19 05/04/19 05/04/19 11:30 03:30 03:30 RBC 3.29 L Hgb 9.4 L Hct 28.5 L RDW 15.4 H Seg Neutrophils % 88 H Lymphocytes % 11 L RBC Morphology Polychromasia Spherocytes Occ A Carbon Dioxide Anion Gap BUN 25 H Creatinine 3.4 H Glucose 264 H Calcium 7.2 L AST Troponin T 0.08 H* NT-Pro-B Natriuret Pep Total Protein 5.0 L Albumin 1.8 L Albumin/Globulin Ratio 0.6 L Urine Protein Urine Glucose (UA) Urine Ketones Urine Occult Blood Urine RBC 05/03/19 05/03/19 05/03/19 17:13 17:13 17:13 RBC 3.57 L Hgb 10.2 L Hct 31.1 L RDW 15.6 H Seg Neutrophils % 84 H Lymphocytes % 6 L RBC Morphology Abnorm A Polychromasia 1+ A Spherocytes Carbon Dioxide Anion Gap BUN Creatinine Glucose Calcium AST Troponin T 0.07 H* NT-Pro-B Natriuret Pep 44853.0 H Total Protein Albumin Albumin/Globulin Ratio Urine Protein Urine Glucose (UA) Urine Ketones Urine Occult Blood Urine RBC 05/03/19 05/03/19 17:13 16:39 RBC Hgb Hct RDW Seg Neutrophils % Lymphocytes % RBC Morphology Polychromasia Spherocytes Carbon Dioxide 19 L Anion Gap 18.0 H BUN 30 H Creatinine 4.5 H Glucose 371 H Calcium 7.2 L AST 46 H Troponin T NT-Pro-B Natriuret Pep Total Protein 5.2 L Albumin 2.5 L Albumin/Globulin Ratio 0.9 L Urine Protein >=500 A Urine Glucose (UA) >=500 A Urine Ketones 5/tr A Urine Occult Blood 0.03 A Urine RBC 12 H Meds: Medications Atorvastatin Calcium (Lipitor) 40 mg PO HS [facility] Bupropion HCl (Wellbutrin Xl) 300 mg PO DAILY [facility] Dextrose (Dextrose 50%) 0 ml IV UD PRN PRN Reason: Hypoglycemia Diagnostic Test (Pha) (Accu-Chek) 1 each FS [facility] Docusate Sodium (Colace) 100 mg PO BID [facility] Glucose (Insta-Glucose) 15 gm PO PRN PRN PRN Reason: Hypoglycemia Heparin Sodium (Porcine) (Heparin) 5,000 unit SQ Q12 [facility] Hydroxychloroquine Sulfate (Plaquenil) 400 mg PO DAILY [facility] Levofloxacin (Levaquin) 750 mg in 150 mls @ 100 mls/hr IV MoWeFr@1500 [facility]; Protocol Insulin Glargine (Lantus) 35 unit SQ BID [facility] Insulin Human Lispro (Humalog) 0 unit SQ ACHS [facility]; Protocol Insulin Human Lispro (Humalog) 15 unit SQ AC [facility] Metoprolol Tartrate (Lopressor) 25 mg PO BID [facility] Naloxone HCl (Narcan) 0.4 mg IV Q10M PRN PRN Reason: Opiate Reversal Ondansetron HCl (Zofran) 4 mg IV Q6HP PRN PRN Reason: Nausea And Vomiting Last Admin: 05/04/19 13:15 Dose: 4 mg Documented by: Pantoprazole Sodium (Protonix) 40 mg PO QAMAC [facility] Salmeterol Xinafoate ([Serevent] Inhaler) 1 dose INH BID [facility] Senna (Senokot) 2 tab PO HS [facility] Sodium Chloride (Saline Flush) 10 ml IV Q8 [facility] Last Admin: 05/04/19 13:15 Dose: 10 ml Documented by: Topiramate (Topamax) 100 mg PO DAILY [facility] Tramadol HCl (Ultram) 50 mg PO TIDP PRN PRN Reason: Pain Medical - PN: A/P - Time Spent With Patient Total time spent is greater than 50% in coordination of care (as documented) at patient's floor/unit and/or counseling patient: - Narrative A/P Narrative: Assessment: *AMS/Encephalopathy, resolved *Acute hypoxemic respiratory failure: 2/2 fluid overload & PNA *Pneumonia: PCT elevated *Pleural effusion, s/p thoracentesis at [facility] *ESRD on HD: *Anemia of chronic renal disease: *HTN: home meds lasix/lopressor *DM type 2 *Chronic HFpEF *Depression: *COPD *RA: Plan: -cont levaquin -Blood culture pending, influenza screening negative -Repeat chest x-ray -Patient had end-stage renal disease on dialysis. Nephro following -electrolytes per nephro, lasix/aldactone held for now -cont Lantus 35 bid (titrate up to home 60bid if needed), SSI -cont home BB -ppx: Heparin/home ppi CODE STATUS: Full Medical - PN: Qual - Stroke Symptom Onset Unknown: No - VTE Deep Vein Thrombosis/Pulmonary Embolism Present on Admission: No
[2019-05-04] MEDS ORDERED: ALTEPLASE 2 MG VIAL IV ONE (15:45)
[2019-05-04] MEDS ORDERED: METOCLOPRAMIDE 10 MG/2 ML VIAL IV PRN (20:05)
[2019-05-04] MEDS: ATORVASTATIN 40 MG TABLET PO SCH (20:31)
[2019-05-04] MEDS: SENNOSIDES 1 TABLET PO SCH (20:32)
[2019-05-04] MEDS: diphenhydrAMINE 50 MG/ML VIAL IV PRN (20:33)
[2019-05-04] MEDS: PROMETHAZINE 25 MG/ML VIAL IV PRN (20:33)
[2019-05-04] MEDS ORDERED: INSULIN GLARGINE, HUMAN 1 UNIT/0.01 ML SQ SCH (21:00)
[2019-05-05] MEDS: 0.9 % SODIUM CHLORIDE 10 ML SYRINGE IV SCH ×3 (05:23→22:26)
[2019-05-05 06:16] LABS: Hematocrit 27.9 % (36.0-48.0); Hemoglobin 9.1 g/dL (12.0-15.0); Mean Cell Volume 87.3 fL (80.0-100.0); Mean Corpuscular HGB Conc 32.5 g/dL (31.0-36.0); Mean Platelet Volume 10.7 fL (7.4-10.4); Platelet Count 154 K/mcL (140-440); Red Cell Distribution Width 15.3 % (11.5-14.5); WBC 7.4 K/mcL (4.5-11.0)
[2019-05-05 06:41] LABS: ALT/SGPT 16 U/l (0-40); AST/SGOT 28 U/l (0-37); Alkaline Phosphatase 74 U/L (39-117); Bilirubin,Total < 0.2 mg/dL (0.0-1.0); Carbon Dioxide 20 mmol/L (22-30); Chloride 101 mmol/L (96-108); Glucose 73 mg/dL (70-105)
[2019-05-05 06:46] LABS: Albumin 1.6 gm/dL (3.2-5.2); Albumin/Globulin Ratio 0.5 (1.0-2.3); Blood Urea Nitrogen 38 mg/dl (8-23); Globulin 3.1 gm/dL (2.2-3.7); Glomerular Filtration Rate 9
--- NOTE | 2019-05-05 07:20 | Nephrology Progress Note ---
Subjective Patient information: Note initiated : 05/05/19 at 7:18 am Patient: Camille Knox 64 y/o F admitted on 05/03/19 for Altered Mental Status, Pneumonia. Chief Complaint: Weakness Pertinent ROS: Weakness Shortness of breath Edema Objective - Vital Signs Vital signs: Vital Signs Temp Pulse Resp BP BP Pulse Ox 05/05/19 04:33 98.1 F 18 108/48 96 05/04/19 23:58 98.2 F 20 136/71 94 05/04/19 20:16 113/48 05/04/19 20:01 115/50 05/04/19 19:46 98.3 F 22 123/46 94 05/04/19 19:32 130/100 05/04/19 19:17 136/57 93 05/04/19 19:08 108/57 05/04/19 19:01 108/57 95 05/04/19 18:46 109/54 05/04/19 18:31 118/56 95 05/04/19 16:00 98.8 F 20 129/61 93 05/04/19 15:30 95.5 F L 79 137/63 05/04/19 15:00 79 128/87 05/04/19 14:47 97.8 F 66 126/56 05/04/19 14:39 89 L 05/04/19 14:31 97.8 F 79 131/55 05/04/19 12:31 132/57 05/04/19 12:01 113/97 85 L 05/04/19 11:31 126/84 98 05/04/19 11:01 1 L 129/81 87 L 05/04/19 10:31 109/68 93 05/04/19 10:01 97/60 92 05/04/19 10:00 97.6 F 20 109/68 93 05/04/19 09:34 14 101/65 91 05/04/19 09:01 16 132/54 94 05/04/19 08:31 119/55 94 05/04/19 08:29 95 05/04/19 08:01 97.5 F 20 133/54 94 Intake and Output 05/04/19 05/05/19 05/05/19 21:59 05:59 13:59 Intake Total 120 Balance 120 Intake: Oral 120 Other: Weight 203 lb Intake & Output: Intake & Output 05/04/19 05/05/19 05/05/19 21:59 05:59 13:59 Intake Total 120 Balance 120 Weight 203 lb Intake: Oral 120 - General Appearance General appearance: fatigue EENT: mucous membranes dry Neck: supple Respiratory: clear Cardiology: edema Gastrointestinal: no tenderness Integumentary: warm and dry Neurologic: no focal deficit, alert and oriented x3 Musculoskeletal: no deformities Psychiatric: mood/affect appropriate, cooperative - Lab 05/05/19 04:23 05/05/19 04:23 Most recent lab results Calcium 7.0 mg/dl (8.6-10.4) L 05/05/19 04:23 Magnesium 1.6 mg/dL (1.6-2.5) 05/03/19 17:13 Assessment and Plan (1) ESRD (end stage renal disease) on dialysis Camille Knox is a 64-year-old female with end stage renal disease recently started on hemodialysis through a tunneled hemodialysis catheter admitted on 05/03/19 for altered mental status and influenza type B. Progress: Hemodialysis with 3500 ml UF last night. Fluid overload, improved. Hypoxia, still requiring oxygen. Metabolic acidosis. Plan: Hemodialysis today for 3 hours and 4 kg UF. Continue hemodialysis on MWF. The patient seen and evaluated during hemodialysis. Activase was dwelled overnight to both ports of tunneled hemodialysis catheter. Flows are still poor; ~200. This is not a major problem today, since, UF is more important than clearance. Status: Chronic Priority: Medium (2) Other fluid overload Status: Chronic Priority: Medium
[2019-05-05] MEDS: HEPARIN 5,000 UNIT/ML VIAL SQ SCH ×2 (07:43→22:24)
[2019-05-05] MEDS: HYDROXYCHLOROQUINE 200 MG TABLET PO SCH (07:43)
[2019-05-05] MEDS: PANTOPRAZOLE 40 MG TABLET PO SCH (07:44)
[2019-05-05] MEDS: buPROPion 150 MG TAB.XL.24H PO SCH (07:44)
[2019-05-05] MEDS: TOPIRAMATE 100 MG TABLET PO SCH (07:44)
[2019-05-05] MEDS: DOCUSATE SODIUM 100 MG CAPSULE PO SCH ×2 (07:44→22:23)
[2019-05-05 07:45] LABS: Anisocytosis FEW (NONE SEEN); Lymphocytes % 27 % (15-49); Monocytes % (Manual) 4 % (1-12); Platelet Estimate NORMAL (NORMAL); RBC Morphology ABNORM (NORMAL); Segmented Neutrophils % 69 % (38-78)
[2019-05-05] MEDS: INSULIN LISPRO 1 UNIT/0.01 ML UNIT SQ SCH ×7 (07:45→22:25)
[2019-05-05] MEDS ORDERED: OSELTAMIVIR PHOSPHATE 30 MG CAPSULE PO PRN (08:13)
--- NOTE | 2019-05-05 08:15 | Internal Med Progress Note ---
Medical - PN: Subj Patient information: Note initiated : 05/05/19 at 8:09 am Service Date, if different from initiated Date: [] Patient: Camille Knox a 64 y/o F admitted on 05/03/19 for Altered Mental Status, Pneumonia. Chief Complaint: [] Interval history: Ms. Knox is a 64 year old F with a history of end-stage renal disease on dialysis, diabetes type 2, and COPD who was transferred to our hospital from [facility]. Patient is lethargic and somnolence and does not answer any questions. All medical history is obtained from medical chart from [facility]. Patient has been complaining of nausea and vomiting over 3 to 4 days. Last dialysis was on Monday (4 days ago). In the [facility] ER, chest x-ray showed pleural effusion and infiltrate. Thoracentesis was performed over there. She was also found to have oxygen desaturation. 1 dose of Zosyn was given. Because the patient needs dialysis, patient was transferred to our hospital. 05/04 Today patient's mental status significantly improved. Patient is sitting on a chair and talking. Complains of mild nausea and a cough with clear sputum. Denies fever, chills, or dizziness. Vital signs are stable No overnight events 05/05 No new complaints overnight events. Denies cough or shortness of breath. Undergoing dialysis. Review of Systems: denies headache/fever/chills/nausea/vomiting/chest or abdominal pain/cough/dyspnea/diarrhea. Otherwise see above. - Constitutional Vitals: Vital Signs Temp Pulse Resp BP Pulse Ox 98.4 F 70 20 115/61 95 05/05/19 07:58 05/05/19 07:58 05/05/19 07:58 05/05/19 07:58 05/05/19 07:58 Period Temp Pulse Resp BP Sys/Agosto Pulse Ox Last 24 Hr 95.5 F-98.8 F 66-79 - 97-137/46-100 85-98 Intake and Output 05/04/19 05/05/19 05/05/19 21:59 05:59 13:59 Intake Total 120 Balance 120 Weight 92.079 kg Intake & Output: Intake & Output 05/04/19 05/05/19 05/05/19 21:59 05:59 13:59 Intake Total 120 Balance 120 Weight 92.079 kg Intake: Oral 120 Exam: General: Alert, Awake, No acute Distress Eyes/N/T: EOMI, Head/Neck: neck supple, CV: RRR, No murmurs, Pulm: dimished b/l, no wheezing Abd: soft, nontender, +BS x4 Ext: no clubbing/cyanosis/edema Neuro: Alert, no focal deficits, moves all extremities, Skin: warm/dry Medical - PN: Obj Da - Labs CBC & Chem 7: 05/05/19 04:23 05/05/19 04:23 Labs: Abnormal Lab Results 05/05/19 05/05/19 05/04/19 04:23 04:23 11:30 RBC 3.20 L Hgb 9.1 L Hct 27.9 L RDW 15.3 H MPV 10.7 H Seg Neutrophils % Lymphocytes % RBC Morphology Abnorm A Polychromasia Anisocytosis Few A Spherocytes Carbon Dioxide 20 L Anion Gap BUN 38 H Creatinine 4.7 H Glucose Calcium 7.0 L AST Troponin T 0.08 H* NT-Pro-B Natriuret Pep Total Protein 4.7 L Albumin 1.6 L Albumin/Globulin Ratio 0.5 L Urine Protein Urine Glucose (UA) Urine Ketones Urine Occult Blood Urine RBC 05/04/19 05/04/19 05/03/19 03:30 03:30 17:13 RBC 3.29 L Hgb 9.4 L Hct 28.5 L RDW 15.4 H MPV Seg Neutrophils % 88 H Lymphocytes % 11 L RBC Morphology Polychromasia Anisocytosis Spherocytes Occ A Carbon Dioxide Anion Gap BUN 25 H Creatinine 3.4 H Glucose 264 H Calcium 7.2 L AST Troponin T 0.07 H* NT-Pro-B Natriuret Pep Total Protein 5.0 L Albumin 1.8 L Albumin/Globulin Ratio 0.6 L Urine Protein Urine Glucose (UA) Urine Ketones Urine Occult Blood Urine RBC 05/03/19 05/03/19 05/03/19 17:13 17:13 17:13 RBC 3.57 L Hgb 10.2 L Hct 31.1 L RDW 15.6 H MPV Seg Neutrophils % 84 H Lymphocytes % 6 L RBC Morphology Abnorm A Polychromasia 1+ A Anisocytosis Spherocytes Carbon Dioxide 19 L Anion Gap 18.0 H BUN 30 H Creatinine 4.5 H Glucose 371 H Calcium 7.2 L AST 46 H Troponin T NT-Pro-B Natriuret Pep 01986.0 H Total Protein 5.2 L Albumin 2.5 L Albumin/Globulin Ratio 0.9 L Urine Protein Urine Glucose (UA) Urine Ketones Urine Occult Blood Urine RBC 05/03/19 16:39 RBC Hgb Hct RDW MPV Seg Neutrophils % Lymphocytes % RBC Morphology Polychromasia Anisocytosis Spherocytes Carbon Dioxide Anion Gap BUN Creatinine Glucose Calcium AST Troponin T NT-Pro-B Natriuret Pep Total Protein Albumin Albumin/Globulin Ratio Urine Protein >=500 A Urine Glucose (UA) >=500 A Urine Ketones 5/tr A Urine Occult Blood 0.03 A Urine RBC 12 H Meds: Medications Atorvastatin Calcium (Lipitor) 40 mg PO HS [facility] Last Admin: 05/04/19 20:31 Dose: 40 mg Documented by: Bupropion HCl (Wellbutrin Xl) 300 mg PO DAILY [facility] Last Admin: 05/05/19 07:44 Dose: 300 mg Documented by: Dextrose (Dextrose 50%) 0 ml IV UD PRN PRN Reason: Hypoglycemia Diagnostic Test (Pha) (Accu-Chek) 1 each FS ACHS [facility] Last Admin: 05/05/19 07:45 Dose: 1 each Documented by: Diphenhydramine HCl (Benadryl) 12.5 mg IV Q6HP PRN PRN Reason: Allergic Symptoms or nausea Last Admin: 05/04/19 20:33 Dose: 12.5 mg Documented by: Docusate Sodium (Colace) 100 mg PO BID [facility] Last Admin: 05/05/19 07:44 Dose: 100 mg Documented by: Glucose (Insta-Glucose) 15 gm PO PRN PRN PRN Reason: Hypoglycemia Heparin Sodium (Porcine) (Heparin) 5,000 unit SQ Q12 [facility] Last Admin: 05/05/19 07:43 Dose: 5,000 unit Documented by: Hydroxychloroquine Sulfate (Plaquenil) 400 mg PO DAILY [facility] Last Admin: 05/05/19 07:43 Dose: 400 mg Documented by: Levofloxacin (Levaquin) 750 mg in 150 mls @ 100 mls/hr IV MoWeFr@1500 [facility]; Protocol Insulin Glargine (Lantus) 35 unit SQ BID [facility] Last Admin: 05/04/19 20:31 Dose: 35 units Documented by: Insulin Human Lispro (Humalog) 0 unit SQ ACHS [facility]; Protocol Last Admin: 05/05/19 07:45 Dose: Not Given Documented by: Insulin Human Lispro (Humalog) 15 unit SQ AC [facility] Last Admin: 05/05/19 07:45 Dose: Not Given Documented by: Metoclopramide HCl (Reglan) 5 mg IV BIDP PRN PRN Reason: Nausea Metoprolol Tartrate (Lopressor) 25 mg PO BID [facility] Last Admin: 05/04/19 20:31 Dose: 25 mg Documented by: Naloxone HCl (Narcan) 0.4 mg IV Q10M PRN PRN Reason: Opiate Reversal Ondansetron HCl (Zofran) 4 mg IV Q4HP PRN PRN Reason: Nausea And Vomiting Pantoprazole Sodium (Protonix) 40 mg PO QAMAC [facility] Last Admin: 05/05/19 07:44 Dose: 40 mg Documented by: Salmeterol Xinafoate ([Serevent] Inhaler) 1 dose INH BID [facility] Last Admin: 05/04/19 20:32 Dose: Not Given Documented by: Promethazine HCl (Phenergan) 12.5 mg IV Q4HP PRN PRN Reason: Nausea And Vomiting Last Admin: 05/04/19 20:33 Dose: 12.5 mg Documented by: Senna (Senokot) 2 tab PO HS [facility] Last Admin: 05/04/19 20:32 Dose: Not Given Documented by: Sodium Chloride (Saline Flush) 10 ml IV Q8 [facility] Last Admin: 05/05/19 05:23 Dose: 10 ml Documented by: Topiramate (Topamax) 100 mg PO DAILY [facility] Last Admin: 05/05/19 07:44 Dose: 100 mg Documented by: Tramadol HCl (Ultram) 50 mg PO TIDP PRN PRN Reason: Pain Medical - PN: A/P - Time Spent With Patient Total time spent is greater than 50% in coordination of care (as documented) at patient's floor/unit and/or counseling patient: - Narrative A/P Narrative: Assessment: *AMS/Encephalopathy: resolved *Acute hypoxemic respiratory failure: 2/2 fluid overload & PNA -BC neg -on 2L with good sats *Pneumonia: PCT elevated *Influenza B+: *Pleural effusion, s/p thoracentesis at [facility] *ESRD on HD: *Anemia of chronic renal disease: *HTN: home meds lasix/lopressor *DM type 2 *Chronic HFpEF *Depression: *COPD *RA: Plan: -cont levaquin, tamiflu after [id number] -Repeat chest x-ray -Nephro following for HD -electrolytes per nephro, lasix/aldactone held for now -cont Lantus 35 bid (titrate up to home 60bid if needed), Lispro 15 AC, and SSI -cont home BB -ppx: Heparin/home ppi CODE STATUS: Full Medical - PN: Qual - Stroke Symptom Onset Unknown: No - VTE Deep Vein Thrombosis/Pulmonary Embolism Present on Admission: No
[2019-05-05] MEDS: INSULIN GLARGINE, HUMAN 1 UNIT/0.01 ML SQ SCH ×2 (09:40→22:25)
[2019-05-05] MEDS: SALMETEROL XINAFOATE INH SCH ×2 (09:41→22:25)
[2019-05-05] MEDS: METOPROLOL TARTRATE 25 MG TABLET PO SCH ×2 (09:41→22:23)
--- NOTE | 2019-05-05 13:26 | Cat Scan Report ---
CLINICAL INFORMATION: Altered mental status COMPARISON: 01/09/[address] TECHNIQUE: 2.5 mm helical slices were obtained in the skull base to vertex. Following reconstruction, axial reformatted images were reviewed at bone and parenchymal windows. The exam was performed using radiation dose optimization techniques including, but not limited to, automated exposure control, adjustment of the mA and/or kV according to patient size and use of iterative reconstruction technique. FINDINGS: The ventricles, sulci, fissures, and cisterns are normal in size and configuration for age. No extra-axial fluid collections are identified. The cerebrum, brainstem and cerebellum are unremarkable. There is no evidence of hemorrhage, mass effect, or edema. Bone windows show no osseous abnormality. IMPRESSION: Normal head CT without contrast for age. Small air-fluid levels in both sphenoid, ethmoid and maxillary sinuses compatible with mild acute sinusitis. This is new from the prior exam Interpreted and Authenticated by: Abelardo Coy 05/05/19
[2019-05-05] MEDS ORDERED: OSELTAMIVIR PHOSPHATE 30 MG CAPSULE PO ONE (14:00)
[2019-05-05] MEDS: ATORVASTATIN 40 MG TABLET PO SCH (22:23)
[2019-05-05] MEDS: diphenhydrAMINE 50 MG/ML VIAL IV PRN (22:24)
[2019-05-05] MEDS: traMADol 50 MG TABLET PO PRN (22:24)
[2019-05-05] MEDS: PROMETHAZINE 25 MG/ML VIAL IV PRN (22:24)
[2019-05-05] MEDS: SENNOSIDES 1 TABLET PO SCH (22:26)
[2019-05-06] MEDS: 0.9 % SODIUM CHLORIDE 10 ML SYRINGE IV SCH ×3 (06:11→21:00)
[2019-05-06 06:50] LABS: Hematocrit 28.6 % (36.0-48.0); Hemoglobin 9.5 g/dL (12.0-15.0); Mean Cell Volume 86.6 fL (80.0-100.0); Mean Corpuscular HGB Conc 33.2 g/dL (31.0-36.0); Mean Platelet Volume 10.4 fL (7.4-10.4); Platelet Count 138 K/mcL (140-440); RBC 3.31 M/mcL (4.00-5.20); Red Cell Distribution Width 15.6 % (11.5-14.5); WBC 4.9 K/mcL (4.5-11.0)
[2019-05-06] MEDS ORDERED: ALTEPLASE 2 MG VIAL IV STA ×2 (07:04→07:29)
[2019-05-06] MEDS: INSULIN LISPRO 1 UNIT/0.01 ML UNIT SQ SCH ×7 (07:11→21:44)
--- NOTE | 2019-05-06 07:22 | Nephrology Progress Note ---
Subjective Patient information: Note initiated : 05/06/19 at 7:20 am Patient: Camille Knox 64 y/o F admitted on 05/03/19 for Altered Mental Status, Pneumonia. Chief Complaint: Weakness Pertinent ROS: Weakness Shortness of breath Objective - Vital Signs Vital signs: Vital Signs Temp Pulse Resp BP Pulse Ox 05/06/19 07:16 16 95 05/06/19 05:42 98.1 F 16 142/71 95 05/05/19 23:23 97.9 F 72 24 H 151/61 96 05/05/19 22:57 97.9 F 24 H 151/61 96 05/05/19 20:03 98.4 F 22 139/56 96 05/05/19 20:00 96 05/05/19 18:36 98.4 F 24 H 139/56 98 05/05/19 16:00 98.0 F 70 16 110/64 93 05/05/19 14:00 92 05/05/19 12:05 97.6 F 69 108/58 05/05/19 12:00 98.7 F 20 131/63 94 05/05/19 11:45 97.6 F 67 96/64 05/05/19 11:30 67 108/39 05/05/19 11:15 67 100/63 05/05/19 11:00 58 L 85/57 05/05/19 10:45 72 94/56 05/05/19 10:30 66 114/54 05/05/19 10:15 73 114/53 05/05/19 10:00 70 109/55 05/05/19 09:45 63 120/63 05/05/19 09:30 90 108/53 05/05/19 09:15 66 120/68 05/05/19 09:05 59 L 130/61 05/05/19 08:44 97.6 F 72 120/58 05/05/19 08:00 95 05/05/19 07:58 98.4 F 70 20 115/61 95 Intake and Output 05/05/19 05/06/19 05/06/19 21:59 05:59 13:59 Intake Total 240 Output Total 1 Balance -1 240 Intake: Oral 240 Output: # of times incontinent of urine 1 Other: Meal Dinner Percent of Meal Consumed 100% Feeding Ability Independent Urine Appearance Clear Urine Color Bright Yellow Urine Odor Normal Stool Size Moderate Stool Color Brown Stool Consistency Loose Weight 193 lb Intake & Output: Intake & Output 05/05/19 05/06/19 05/06/19 21:59 05:59 13:59 Intake Total 240 Output Total 1 Balance -1 240 Weight 193 lb Intake: Oral 240 Output: # of times incontinent of urine 1 Other: Meal Dinner Percent of Meal Consumed 100% Feeding Ability Independent Urine Appearance Clear Urine Color Bright Yellow Urine Odor Normal Stool Size Moderate Stool Color Brown Stool Consistency Loose - General Appearance General appearance: chronically ill, fatigue EENT: mucous membranes dry Neck: supple Respiratory: clear Cardiology: no edema Gastrointestinal: no tenderness Integumentary: warm and dry Neurologic: no focal deficit, alert and oriented x3 Musculoskeletal: no deformities Psychiatric: mood/affect appropriate, cooperative - Lab 05/06/19 04:38 05/06/19 04:38 Most recent lab results Calcium 7.0 mg/dl (8.6-10.4) L 05/05/19 04:23 Magnesium 1.6 mg/dL (1.6-2.5) 05/03/19 17:13 Assessment and Plan (1) ESRD (end stage renal disease) on dialysis Camille Knox is a 64-year-old female with end stage renal disease recently started on hemodialysis through a tunneled hemodialysis catheter admitted on 05/03/19 for altered mental status and influenza type B. Progress: Hemodialysis with 3500 ml UF last night. Fluid overload, improved. Hypoxia, requiring 2 L NC oxygen. Metabolic acidosis. Plan: Tunneled catheter does not function this morning. Activase will be dwelled to both ports of tunneled hemodialysis catheter Hemodialysis later today for 3 hours and 4 kg UF. Continue outpatient hemodialysis after discharge on . Status: Chronic Priority: Medium (2) Other fluid overload Status: Chronic Priority: Medium
--- NOTE | 2019-05-06 07:22 | Internal Med Progress Note ---
Medical - PN: Subj Patient information: Note initiated : 05/06/19 at 7:16 am Service Date, if different from initiated Date: [] Patient: Camille Knox a 64 y/o F admitted on 05/03/19 for Altered Mental Status, Pneumonia. Chief Complaint: [] Interval history: Ms. Knox is a 64 year old F with a history of end-stage renal disease on dialysis, diabetes type 2, and COPD who was transferred to our hospital from [facility]. Patient is lethargic and somnolence and does not answer any questions. All medical history is obtained from medical chart from [facility]. Patient has been complaining of nausea and vomiting over 3 to 4 days. Last dialysis was on Monday (4 days ago). In the [facility] ER, chest x-ray showed pleural effusion and infiltrate. Thoracentesis was performed over there. She was also found to have oxygen desaturation. 1 dose of Zosyn was given. Because the patient needs dialysis, patient was transferred to our hospital. 05/04 Today patient's mental status significantly improved. Patient is sitting on a chair and talking. Complains of mild nausea and a cough with clear sputum. Denies fever, chills, or dizziness. Vital signs are stable No overnight events 05/05 No new complaints overnight events. Denies cough or shortness of breath. Undergoing dialysis. 05/06 Overnight events or new complaints. Oxygenating on room air. Has occasional dry cough. Getting dialysis today. Likely discharge tomorrow Review of Systems: denies headache/fever/chills/nausea/vomiting/chest or abdominal pain/dyspnea/diarrhea. Otherwise see above. - Constitutional Vitals: Vital Signs Temp Pulse Resp BP Pulse Ox 98.1 F 72 16 142/71 95 05/06/19 05:42 05/05/19 23:23 05/06/19 05:42 05/06/19 05:42 05/06/19 05:42 Period Temp Pulse Resp BP Sys/Agosto Pulse Ox Last 24 Hr 97.6 F-98.7 F 58-90 16-24 85-151/39-71 92-98 Intake and Output 05/05/19 05/06/19 05/06/19 21:59 05:59 13:59 Intake Total 240 Output Total 1 Balance -1 240 Weight 87.543 kg Intake & Output: Intake & Output 05/05/19 05/06/19 05/06/19 21:59 05:59 13:59 Intake Total 240 Output Total 1 Balance -1 240 Weight 87.543 kg Intake: Oral 240 Output: # of times incontinent of urine 1 Other: Meal Dinner Percent of Meal Consumed 100% Feeding Ability Independent Exam: General: Alert, Awake, No acute Distress Eyes/N/T: EOMI, Head/Neck: neck supple, CV: RRR, No murmurs, Pulm: mild rhonchi right lung, no wheezing Abd: soft, nontender, +BS x4 Ext: no clubbing/cyanosis/edema Neuro: Alert, no focal deficits, moves all extremities, Skin: warm/dry Medical - PN: Obj Da - Labs CBC & Chem 7: 05/06/19 04:38 05/06/19 04:38 Labs: Abnormal Lab Results 05/06/19 05/05/19 05/05/19 04:38 04:23 04:23 RBC 3.31 L 3.20 L Hgb 9.5 L 9.1 L Hct 28.6 L 27.9 L RDW 15.6 H 15.3 H Plt Count 138 L MPV 10.7 H Seg Neutrophils % Lymphocytes % RBC Morphology Abnorm A Polychromasia Anisocytosis Few A Spherocytes Carbon Dioxide 20 L Anion Gap BUN 38 H Creatinine 4.7 H Glucose Calcium 7.0 L AST Troponin T NT-Pro-B Natriuret Pep Total Protein 4.7 L Albumin 1.6 L Albumin/Globulin Ratio 0.5 L Urine Protein Urine Glucose (UA) Urine Ketones Urine Occult Blood Urine RBC 05/04/19 05/04/19 05/04/19 11:30 03:30 03:30 RBC 3.29 L Hgb 9.4 L Hct 28.5 L RDW 15.4 H Plt Count MPV Seg Neutrophils % 88 H Lymphocytes % 11 L RBC Morphology Polychromasia Anisocytosis Spherocytes Occ A Carbon Dioxide Anion Gap BUN 25 H Creatinine 3.4 H Glucose 264 H Calcium 7.2 L AST Troponin T 0.08 H* NT-Pro-B Natriuret Pep Total Protein 5.0 L Albumin 1.8 L Albumin/Globulin Ratio 0.6 L Urine Protein Urine Glucose (UA) Urine Ketones Urine Occult Blood Urine RBC 05/03/19 05/03/19 05/03/19 17:13 17:13 17:13 RBC 3.57 L Hgb 10.2 L Hct 31.1 L RDW 15.6 H Plt Count MPV Seg Neutrophils % 84 H Lymphocytes % 6 L RBC Morphology Abnorm A Polychromasia 1+ A Anisocytosis Spherocytes Carbon Dioxide Anion Gap BUN Creatinine Glucose Calcium AST Troponin T 0.07 H* NT-Pro-B Natriuret Pep 73890.0 H Total Protein Albumin Albumin/Globulin Ratio Urine Protein Urine Glucose (UA) Urine Ketones Urine Occult Blood Urine RBC 05/03/19 05/03/19 17:13 16:39 RBC Hgb Hct RDW Plt Count MPV Seg Neutrophils % Lymphocytes % RBC Morphology Polychromasia Anisocytosis Spherocytes Carbon Dioxide 19 L Anion Gap 18.0 H BUN 30 H Creatinine 4.5 H Glucose 371 H Calcium 7.2 L AST 46 H Troponin T NT-Pro-B Natriuret Pep Total Protein 5.2 L Albumin 2.5 L Albumin/Globulin Ratio 0.9 L Urine Protein >=500 A Urine Glucose (UA) >=500 A Urine Ketones 5/tr A Urine Occult Blood 0.03 A Urine RBC 12 H Meds: Medications Alteplase, Recombinant (Activase) 5 mg IV ONCE STA; Protocol Stop: 05/06/19 07:05 Atorvastatin Calcium (Lipitor) 40 mg PO HS [facility] Last Admin: 05/05/19 22:23 Dose: 40 mg Documented by: Bupropion HCl (Wellbutrin Xl) 300 mg PO DAILY [facility] Last Admin: 05/05/19 07:44 Dose: 300 mg Documented by: Dextrose (Dextrose 50%) 0 ml IV UD PRN PRN Reason: Hypoglycemia Last Admin: 05/06/19 07:06 Dose: 50 ml Documented by: Diagnostic Test (Pha) (Accu-Chek) 1 each FS ACHS [facility] Last Admin: 05/06/19 06:59 Dose: 1 each Documented by: Diphenhydramine HCl (Benadryl) 12.5 mg IV Q6HP PRN PRN Reason: Allergic Symptoms or nausea Last Admin: 05/05/19 22:24 Dose: 12.5 mg Documented by: Docusate Sodium (Colace) 100 mg PO BID [facility] Last Admin: 05/05/19 22:23 Dose: 100 mg Documented by: Glucose (Insta-Glucose) 15 gm PO PRN PRN PRN Reason: Hypoglycemia Heparin Sodium (Porcine) (Heparin) 5,000 unit SQ Q12 [facility] Last Admin: 05/05/19 22:24 Dose: 5,000 unit Documented by: Hydroxychloroquine Sulfate (Plaquenil) 400 mg PO DAILY [facility] Last Admin: 05/05/19 07:43 Dose: 400 mg Documented by: Levofloxacin (Levaquin) 750 mg in 150 mls @ 100 mls/hr IV MoWeFr@1500 [facility]; Protocol Insulin Glargine (Lantus) 35 unit SQ BID [facility] Last Admin: 05/05/19 22:25 Dose: 35 units Documented by: Insulin Human Lispro (Humalog) 0 unit SQ ACHS [facility]; Protocol Last Admin: 05/06/19 07:12 Dose: Not Given Documented by: Insulin Human Lispro (Humalog) 15 unit SQ AC [facility] Last Admin: 05/06/19 07:11 Dose: Not Given Documented by: Metoclopramide HCl (Reglan) 5 mg IV BIDP PRN PRN Reason: Nausea Metoprolol Tartrate (Lopressor) 25 mg PO BID [facility] Last Admin: 05/05/19 22:23 Dose: 25 mg Documented by: Naloxone HCl (Narcan) 0.4 mg IV Q10M PRN PRN Reason: Opiate Reversal Ondansetron HCl (Zofran) 4 mg IV Q4HP PRN PRN Reason: Nausea And Vomiting Pantoprazole Sodium (Protonix) 40 mg PO QAMAC [facility] Last Admin: 05/05/19 07:44 Dose: 40 mg Documented by: Salmeterol Xinafoate ([Serevent] Inhaler) 1 dose INH BID [facility] Last Admin: 05/05/19 22:25 Dose: Not Given Documented by: Promethazine HCl (Phenergan) 12.5 mg IV Q4HP PRN PRN Reason: Nausea And Vomiting Last Admin: 05/05/19 22:24 Dose: 12.5 mg Documented by: Senna (Senokot) 2 tab PO HS [facility] Last Admin: 05/05/19 22:26 Dose: Not Given Documented by: Sodium Chloride (Saline Flush) 10 ml IV Q8 [facility] Last Admin: 05/06/19 06:11 Dose: 10 ml Documented by: Topiramate (Topamax) 100 mg PO DAILY [facility] Last Admin: 05/05/19 07:44 Dose: 100 mg Documented by: Tramadol HCl (Ultram) 50 mg PO TIDP PRN PRN Reason: Pain Last Admin: 05/05/19 22:24 Dose: 50 mg Documented by: Medical - PN: A/P - Time Spent With Patient Total time spent is greater than 50% in coordination of care (as documented) at patient's floor/unit and/or counseling patient: - Narrative A/P Narrative: Assessment: *AMS/Encephalopathy: resolved *Acute hypoxemic respiratory failure: 2/2 fluid overload & PNA -BC neg -on 2L with good sats *Pneumonia: PCT elevated on admit *Influenza B(+): *Pleural effusion, s/p thoracentesis at [facility] *ESRD on HD: *Anemia of chronic renal disease: *HTN: home meds lasix/lopressor *DM type 2 *Chronic HFpEF *Depression: *COPD *RA: Plan: -cont levaquin, tamiflu after [id number] -Nephro following for HD -electrolytes per nephro, lasix/aldactone held for now -cont Lantus decrease to 30 bid, Lispro decrease to 12 AC, and SSI -cont home BB -ppx: Heparin/home ppi CODE STATUS: Full Medical - PN: Qual - Stroke Symptom Onset Unknown: No - VTE Deep Vein Thrombosis/Pulmonary Embolism Present on Admission: No
[2019-05-06 07:33] LABS: ALT/SGPT 18 U/l (0-40); AST/SGOT 31 U/l (0-37); Alkaline Phosphatase 71 U/L (39-117); Bilirubin,Direct < 0.2 mg/dL (0.0-0.3); Bilirubin,Total < 0.2 mg/dL (0.0-1.0); Blood Urea Nitrogen 34 mg/dl (8-23); Calcium 7.3 mg/dl (8.6-10.4); Carbon Dioxide 21 mmol/L (22-30); Chloride 102 mmol/L (96-108); Glomerular Filtration Rate 9; Glucose 55 mg/dL (70-105); Lactate Dehydrogenase 302 U/L (94-250); Phosphorous 4.1 mg/dL (2.7-4.5); Triglycerides 295 mg/dl (<150); Uric Acid 3.7 mg/dL (2.5-8.0)
[2019-05-06 07:41] LABS: Albumin 1.8 gm/dL (3.2-5.2); Albumin/Globulin Ratio 0.6 (1.0-2.3); Globulin 3.1 gm/dL (2.2-3.7)
[2019-05-06 07:48] LABS: Lymphocytes % 35 % (15-49); Monocytes % (Manual) 6 % (1-12); Platelet Estimate DECREASED (NORMAL); RBC Morphology NORMAL (NORMAL); Segmented Neutrophils % 59 % (38-78)
[2019-05-06] MEDS: PANTOPRAZOLE 40 MG TABLET PO SCH (08:00)
[2019-05-06] MEDS: traMADol 50 MG TABLET PO PRN ×2 (08:00→13:37)
--- NOTE | 2019-05-06 08:18 | XRay Report ---
HISTORY: Follow-up pneumonia and congestive heart failure FINDINGS: There is a moderate generalized infiltrates throughout the right lung with the greatest consolidation in the lower half. There is also a small right-sided pleural effusion. Both the infiltrate and pleural effusion are much worse today than they were on the prior study done on 01/09/18. There is mild interstitial infiltrate or pulmonary fibrosis in the left lower lobe which was present on the prior study. The heart is mildly enlarged. This remains stable. There is a dual-lumen central venous catheter placed via the left subclavian vein into the superior vena cava. No pneumothorax is present and there is no widening of the mediastinum. IMPRESSION: Diffuse infiltrate in the right lung with superimposed pleural effusion. This is probably pneumonia. Stable cardiomegaly, without evidence of congestive heart failure Interpreted and Authenticated by: Juan Antonio Luna 05/06/19
--- NOTE | 2019-05-06 10:39 | Discharge Summary ---
Medical - DS: Prov Patient information: Note initiated : 05/06/19 at 10:37 am Service Date, if different from initiated Date: [] Patient: Camille Knox 64 y/o F admitted on 05/03/19 for Altered Mental Status, Pneumonia. Chief Complaint: [] Date of admission: 05/03/19 12:55 Discharge date: 05/07/19 Primary care physician: Monica Wilks Medical - DS: Meds - Discharge Medications Prescriptions: Insulin Glargine, Human [Lantus] 30 unit SQ BID #1 unit Active and Home Medications: Home Medications Insulin Glargine, Human [Lantus] 60 unit SQ BID 06/14/17 [History Confirmed 05/04/19 Last Taken 06/18/17] Insulin Aspart [Novolog] 15 unit SQ AC 12/12/17 [History Confirmed 05/03/19 Last Taken Unknown] Atorvastatin [Lipitor] 40 mg PO HS 05/03/19 [History Confirmed 05/03/19 Last Taken Unknown] Furosemide [Lasix] 120 mg PO BID 05/03/19 [History Confirmed 05/03/19 Last Taken Unknown] Hydroxychloroquine [Plaquenil] 400 mg PO DAILY 05/03/19 [History Confirmed Last Taken Unknown] Metoclopramide [Reglan] 5 mg PO BIDAC 05/03/19 [History Confirmed 05/03/19 Last Taken Unknown] Metoprolol Tartrate [Lopressor] 25 mg PO BID 05/03/19 [History Confirmed Last Taken Unknown] Pantoprazole [Protonix] 40 mg PO QAMAC 05/03/19 [History Confirmed 05/03/19 Last Taken Unknown] Potassium Chloride [Kdur] 20 meq PO QAMCC 05/03/19 [History Confirmed 05/03/19 Last Taken Unknown] Pregabalin [Lyrica] 150 mg PO TID 05/03/19 [History Confirmed 05/03/19 Last Taken Unknown] Salmeterol Xinafoate [Serevent] 1 puff INH BID 05/03/19 [History Confirmed 05/03/19 Last Taken Unknown] Spironolactone [Aldactone] 25 mg PO DAILY 05/03/19 [History Confirmed 05/03/19 Last Taken Unknown] Topiramate [Topamax] 100 mg PO DAILY 05/03/19 [History Confirmed 05/03/19 Last Taken Unknown] buPROPion [Wellbutrin Xl] 300 mg PO DAILY 05/03/19 [History Confirmed 05/03/19 Last Taken Unknown] hydrOXYzine [Vistaril] 10 mg PO TIDP PRN 05/03/19 [History Confirmed 05/03/19 Last Taken Unknown] rOPINIRole [Requip] 1 mg PO TID 05/03/19 [History Confirmed 05/03/19 Last Taken Unknown] traMADol [Ultram] 50 mg PO TIDP PRN 05/03/19 [History Confirmed 05/03/19 Last Taken Unknown] Home Medications Insulin Aspart [Novolog] 15 unit SQ AC 12/12/17 [History Confirmed 05/03/19 Last Taken Unknown] Atorvastatin [Lipitor] 40 mg PO HS 05/03/19 [History Confirmed 05/03/19 Last Taken Unknown] Furosemide [Lasix] 120 mg PO BID 05/03/19 [History Confirmed 05/03/19 Last Taken Unknown] Hydroxychloroquine [Plaquenil] 400 mg PO DAILY 05/03/19 [History Confirmed 05/03/19 Last Taken Unknown] Metoclopramide [Reglan] 5 mg PO BIDAC 05/03/19 [History Confirmed 05/03/19 Last Taken Unknown] Metoprolol Tartrate [Lopressor] 25 mg PO BID 05/03/19 [History Confirmed 05/03/19 Last Taken Unknown] Pantoprazole [Protonix] 40 mg PO QAMAC 05/03/19 [History Confirmed 05/03/19 Last Taken Unknown] Potassium Chloride [Kdur] 20 meq PO QAMCC 05/03/19 [History Confirmed 05/03/19 Last Taken Unknown] Pregabalin [Lyrica] 150 mg PO TID 05/03/19 [History Confirmed 05/03/19 Last Taken Unknown] Salmeterol Xinafoate [Serevent] 1 puff INH BID 05/03/19 [History Confirmed 05/03/19 Last Taken Unknown] Spironolactone [Aldactone] 25 mg PO DAILY 05/03/19 [History Confirmed 05/03/19 Last Taken Unknown] Topiramate [Topamax] 100 mg PO DAILY 05/03/19 [History Confirmed 05/03/19 Last Taken Unknown] buPROPion [Wellbutrin Xl] 300 mg PO DAILY 05/03/19 [History Confirmed 05/03/19 Last Taken Unknown] hydrOXYzine [Vistaril] 10 mg PO TIDP PRN 05/03/19 [History Confirmed 05/03/19 Last Taken Unknown] rOPINIRole [Requip] 1 mg PO TID 05/03/19 [History Confirmed 05/03/19 Last Taken Unknown] traMADol [Ultram] 50 mg PO TIDP PRN 05/03/19 [History Confirmed 05/03/19 Last Taken Unknown] Insulin Glargine, Human [Lantus] 30 unit SQ BID #1 unit 05/06/19 [Rx Last Taken Unknown] Medical - DS: Hosp Hospital Course: Ms. Knox is a 64 year old F with a history of end-stage renal disease on dialysis, diabetes type 2, and COPD who was transferred to our hospital from [facility]. Patient is lethargic and somnolence and does not answer any questions. All medical history is obtained from medical chart from [facility]. Patient has been complaining of nausea and vomiting over 3 to 4 days. Last dialysis was on Monday (4 days ago). In the [facility] ER, chest x-ray showed pleural effusion and infiltrate. Thoracentesis was performed over there. She was also found to have oxygen desaturation. 1 dose of Zosyn was given. Because the patient needs dialysis, patient was transferred to our hospital. 05/04 Today patient's mental status significantly improved. Patient is sitting on a chair and talking. Complains of mild nausea and a cough with clear sputum. Denies fever, chills, or dizziness. Vital signs are stable No overnight events 05/05 No new complaints overnight events. Denies cough or shortness of breath. Undergoing dialysis. 05/06 Overnight events or new complaints. Oxygenating on room air. Has occasional dry cough. Getting dialysis today. Likely discharge tomorrow 05/07 Given dialysis yesterday. No overnight events. On room air. Plan for discharge today Given significant comorbidities, patient high risk for readmission Discharge diagnosis: Encephalopathy acute hypoxic respiratory failure volume overload pneumonia Secondary discharge diagnosis: Influenza B end-stage renal disease chronic anemia hypertension diabetes diastolic heart failure depression COPD rheumatoid arthritis - Time Spent with Patient Total time spent providing and/or coordinating discharge services: Greater than 30 minutes Medical - DS: Exam - Constitutional Vitals: Vital Signs Temp Pulse Resp BP Pulse Ox 05/06/19 10:21 61 130/84 05/06/19 09:50 96.8 F L 53 L 130/72 05/06/19 08:45 97.3 F 20 131/51 95 05/06/19 05:42 98.1 F 16 142/71 95 05/05/19 23:23 97.9 F 72 24 H 151/61 96 05/05/19 22:57 97.9 F 24 H 151/61 96 05/05/19 20:03 98.4 F 22 139/56 96 05/05/19 20:00 96 05/05/19 18:36 98.4 F 24 H 139/56 98 05/05/19 16:00 98.0 F 70 16 110/64 93 05/05/19 14:00 92 05/05/19 12:05 97.6 F 69 108/58 05/05/19 12:00 98.7 F 20 131/63 94 05/05/19 11:45 97.6 F 67 96/64 05/05/19 11:30 67 108/39 05/05/19 11:15 67 100/63 05/05/19 11:00 58 L 85/57 05/05/19 10:45 72 94/56 Intake and Output 05/05/19 05/06/19 05/06/19 21:59 05:59 13:59 Intake Total 240 Output Total 1 Balance -1 240 Intake: Oral 240 Output: # of times incontinent of urine 1 Other: Meal Dinner Percent of Meal Consumed 100% Feeding Ability Independent Stool Size Large Stool Color Brown Stool Consistency Formed Cylindrical # Voids 1 # Bowel Movements 1 Weight 87.543 kg Medical - DS: Data Labs on day of discharge: Labs from last 24 hours 05/06/19 05/06/19 04:38 04:38 WBC 4.9 RBC 3.31 L Hgb 9.5 L Hct 28.6 L MCV 86.6 MCH 28.7 MCHC 33.2 RDW 15.6 H Plt Count 138 L MPV 10.4 Total Counted 100 Seg Neutrophils % 59 Band Neutrophils % Not Reportable Lymphocytes % 35 Monocytes % (Manual) 6 Platelet Estimate Decreased RBC Morphology Normal Sodium 138 Potassium 3.0 L Chloride 102 Carbon Dioxide 21 L Anion Gap 15.0 BUN 34 H Creatinine 4.7 H GFR Calculation 9 Glucose 55 L Uric Acid 3.7 Calcium 7.3 L Phosphorus 4.1 Magnesium 1.8 Total Bilirubin < 0.2 Direct Bilirubin < 0.2 GGT 29 AST 31 ALT 18 Alkaline Phosphatase 71 Lactate Dehydrogenase 302 H Total Protein 4.9 L Albumin 1.8 L Globulin 3.1 Albumin/Globulin Ratio 0.6 L Triglycerides 295 H Preliminary micro results at discharge 05/03/19 17:56 Blood Culture - Preliminary Blood 05/03/19 17:13 Blood Culture - Preliminary Blood 05/03/19 16:36 Urine Culture - Preliminary Urine - Catheterized Medical - DS: A/P - Patient/Caregiver Discharge Instructions Activity: increase activity as tolerated Diet: Renal/Consistent Carbs Prescriptions: Insulin Glargine, Human [Lantus] 30 unit SQ BID #1 unit - Follow up Plan Follow up with: Monica Wilks MD [Primary Care Provider] - 05/20/19 10:00 am Júnior Brooke MD [Physician] - (Continue with your current dialysis schedule) Disposition: Home Health Service Care Plan Goals: This discharge packet is provided to you to help keep you informed about your care. We want to ensure you get everything you need when you go home. You will also be receiving a call from us in a few days to follow up with you and see how you are doing since your discharge. This gives us a chance to listen to any concerns you maybe experiencing since you were discharged or any additional needs you may have, as well as providing us feedback on your care experience. We strive to always provide excellent care and thank you for your feedback and for choosing [facility]. Prognosis: Undetermined Rehab Potential: Fair Overall status at discharge: patient is progressing back to baseline Medical - DS: Qual - VTE Deep Vein Thrombosis/Pulmonary Embolism Present on Admission: No
[2019-05-06] MEDS: HYDROXYCHLOROQUINE 200 MG TABLET PO SCH (13:37)
[2019-05-06] MEDS: buPROPion 150 MG TAB.XL.24H PO SCH (13:37)
[2019-05-06] MEDS: TOPIRAMATE 100 MG TABLET PO SCH (13:37)
[2019-05-06] MEDS: DOCUSATE SODIUM 100 MG CAPSULE PO SCH ×2 (13:37→22:54)
[2019-05-06] MEDS: HEPARIN 5,000 UNIT/ML VIAL SQ SCH ×2 (13:38→22:54)
[2019-05-06] MEDS: METOPROLOL TARTRATE 25 MG TABLET PO SCH ×2 (13:38→22:54)
[2019-05-06] MEDS: SALMETEROL XINAFOATE INH SCH ×2 (13:39→22:55)
[2019-05-06] MEDS: INSULIN GLARGINE, HUMAN 1 UNIT/0.01 ML SQ SCH ×2 (13:39→21:45)
[2019-05-06] MEDS ORDERED: OSELTAMIVIR PHOSPHATE 30 MG CAPSULE PO ONE (15:00)
[2019-05-06] MEDS ORDERED: LEVOFLOXACIN 750 MG/150 ML BAG IV SCH ×3 (15:00)
[2019-05-06] MEDS: ONDANSETRON 4 MG/2 ML VIAL IV PRN (21:00)
[2019-05-06] MEDS: ATORVASTATIN 40 MG TABLET PO SCH (22:54)
[2019-05-06] MEDS: SENNOSIDES 1 TABLET PO SCH (22:55)
[2019-05-07] MEDS: 0.9 % SODIUM CHLORIDE 10 ML SYRINGE IV SCH (07:58)
[2019-05-07] MEDS: PANTOPRAZOLE 40 MG TABLET PO SCH (07:58)
[2019-05-07] MEDS: traMADol 50 MG TABLET PO PRN (07:58)
[2019-05-07] MEDS: INSULIN LISPRO 1 UNIT/0.01 ML UNIT SQ SCH ×2 (07:59)
--- NOTE | 2019-05-07 08:01 | Nephrology Progress Note ---
Subjective Patient information: Note initiated : 05/07/19 at 7:59 am Patient: Camille Knox 64 y/o F admitted on 05/03/19 for Altered Mental Status, Pneumonia. Chief Complaint: Weakness Pertinent ROS: Weakness Objective - Vital Signs Vital signs: Vital Signs Temp Pulse Resp BP Pulse Ox 05/07/19 03:22 98.6 F 24 H 142/72 90 05/06/19 23:13 97.7 F 26 H 155/72 91 05/06/19 19:18 96.9 F L 24 H 135/55 92 05/06/19 18:49 98.2 F 16 120/53 05/06/19 16:55 98.3 F 16 109/46 92 05/06/19 14:00 97.5 F 18 101/48 90 05/06/19 12:45 96.7 F L 73 111/71 05/06/19 12:33 61 107/55 05/06/19 12:19 74 95/60 05/06/19 12:04 72 90/65 05/06/19 11:49 78 126/69 05/06/19 11:33 70 104/66 05/06/19 11:19 61 120/68 05/06/19 11:09 66 119/71 05/06/19 10:54 62 97/59 05/06/19 10:21 61 130/84 05/06/19 09:50 96.8 F L 53 L 130/72 05/06/19 08:45 97.3 F 20 131/51 95 Intake and Output 05/06/19 05/07/19 05/07/19 21:59 05:59 13:59 Intake Total 100 Balance 100 Intake: Oral 100 Other: Meal Dinner Percent of Meal Consumed 25% Feeding Ability Independent Stool Size Small Stool Color Brown Green Stool Consistency Soft Watery # Voids 1 # Unmeasured Emesis 1 # Bowel Movements 1 # of times incontinent of 1 Bowels Weight 191 lb Intake & Output: Intake & Output 05/06/19 05/07/19 05/07/19 21:59 05:59 13:59 Intake Total 100 Balance 100 Weight 191 lb Intake: Oral 100 Other: Meal Dinner Percent of Meal Consumed 25% Feeding Ability Independent Stool Size Small Stool Color Brown Green Stool Consistency Soft Watery # Voids 1 # Unmeasured Emesis 1 # Bowel Movements 1 # of times incontinent of 1 Bowels - General Appearance General appearance: chronically ill, fatigue EENT: mucous membranes dry Neck: supple Respiratory: clear Cardiology: no edema Gastrointestinal: no tenderness Integumentary: warm and dry Neurologic: no focal deficit, alert and oriented x3 Musculoskeletal: no deformities Psychiatric: mood/affect appropriate, cooperative - Lab 05/06/19 04:38 05/06/19 04:38 Most recent lab results Calcium 7.3 mg/dl (8.6-10.4) L 05/06/19 04:38 Phosphorus 4.1 mg/dL (2.7-4.5) 05/06/19 04:38 Magnesium 1.8 mg/dL (1.6-2.5) 05/06/19 04:38 Assessment and Plan (1) ESRD (end stage renal disease) on dialysis Camille Knox is a 64-year-old female with end stage renal disease recently started on hemodialysis through a tunneled hemodialysis catheter admitted on 05/03/19 for altered mental status and influenza type B. Progress: Fluid overload, improved. Plan: Continue outpatient hemodialysis after discharge on . Tunneled catheter cath may need to be replaced as outpatient at [facility]. Status: Chronic Priority: Medium (2) Other fluid overload Status: Resolved Priority: Medium
[2019-05-07] MEDS: ONDANSETRON 4 MG/2 ML VIAL IV PRN (08:05)
[2019-05-07] MEDS: INSULIN GLARGINE, HUMAN 1 UNIT/0.01 ML SQ SCH (09:53)
[2019-05-07] MEDS: buPROPion 150 MG TAB.XL.24H PO SCH (09:54)
[2019-05-07] MEDS: DOCUSATE SODIUM 100 MG CAPSULE PO SCH (09:54)
[2019-05-07] MEDS: HYDROXYCHLOROQUINE 200 MG TABLET PO SCH (09:55)
[2019-05-07] MEDS: TOPIRAMATE 100 MG TABLET PO SCH (09:55)
[2019-05-07] MEDS: METOPROLOL TARTRATE 25 MG TABLET PO SCH (09:55)
[2019-05-07] MEDS: HEPARIN 5,000 UNIT/ML VIAL SQ SCH (09:55)
[2019-05-07] MEDS: SALMETEROL XINAFOATE INH SCH (09:55)
== END 2019-05-07 10:25 | disposition home health service (06) | DRG 193 ==
LOC: ICU 12:55
PROVIDERS: ADMIT Internal Medicine; ATTEND Internal Medicine